=== PATIENT | female | born 1955 | race Caucasian/White ===

== ENCOUNTER 2022-09-22 14:29 | Outpatient (CLI) | payer MEDICARE, MEDICAID, SELFPAY ==
[2022-09-22 14:52] LABS: Basophils Absolute Auto 0.1 K/mm3 (0.0-0.1); Eosinophils Absolute Auto 0.2 K/mm3 (0-0.3); Eosinophils Percent Auto 2.9 % (0-4.4); Hematocrit 43.4 % (37.0-47.0); Hemoglobin 14.1 g/dL (12.0-15.0); Immature Granulocyte Absolute 0.04 K/mm3 (0.00-0.031); Immature Granulocyte Percent A 0.6 % (0-0.5); Lymphocytes Absolute Auto 2.03 K/mm3 (0.9-3.2); Lymphocytes Percent Auto 27.9 % (18.3-44.2); Mean Corpuscular HGB Conc 32.5 g/dl (32-36); Mean Corpuscular Hemoglobin 32.2 pg (26-34); Mean Corpuscular Volume 99.1 fl (80-100); Mean Platelet Volume 11.6 fl (7.4-10.4); Monocytes Absolute Auto 0.6 K/mm3 (0.1-0.6); Monocytes Percent Auto 8.7 % (2.6-8.5); Neutrophils Absolute Auto 4.3 K/mm3 (1.3-6.7); Neutrophils Percent Auto 58.9 % (45.5-73.1); Platelet Count Result 215 k/mm3 (150-375); Red Blood Count 4.38 M/mm3 (4.2-5.4); White Blood Count 7.3 K/mm3 (4.5-10.0)
[2022-09-22 16:36] LABS: Alanine Aminotransferase 32 U/L (6-35); Albumin Level 4.4 g/dL (3.5-5.1); Alkaline Phosphatase 109 U/L (38-126); Anion Gap 5 mmol/L (8-16); Aspartate Amino Transferase 30 U/L (14-36); Bilirubin,Total 0.3 mg/dL (0.2-1.3); Blood Urea Nitrogen 17 mg/dL (7-17); Calcium 9.5 mg/dL (8.4-10.2); Carbon Dioxide 36 mmol/L (22-30); Chloride 98 mmol/L (98-107); Estimated Glomerular Filt Rate > 60; Glucose 109 mg/dL (65-110); Potassium 4.1 mmol/L (3.4-5.0); Sodium 139 mmol/L (137-145)
[2022-09-25 00:10] LABS: Homocysteine 9.2 umol/L (<10.4)
== END 2022-09-22 14:30 | disposition home or self-care (01) ==
LOC: ANHLAB 14:36
PROVIDERS: PCP Internal Medicine Infectious Disease; Visit Provider Internal Medicine Hematology & Oncology
DX: D68.69 Other thrombophilia (principal)
CPT/HCPCS: 36415; 80053; 83090; 85025; 86146

== ENCOUNTER 2022-10-21 09:29 | Outpatient (CLI) | payer MEDICARE, MEDICAID, SELFPAY ==
[2022-10-23 20:21] LABS: Antithrombin III Activity 132 % normal (80-135)
[2022-10-24 21:36] LABS: Lupus dRVVT Screen 40 sec (<=45); PTT-LA Screen 37 sec (<=40)
[2022-10-26 17:01] LABS: Factor V (Leiden) Mutation NEGATIVE
== END 2022-10-21 09:30 | disposition home or self-care (01) ==
LOC: ANHLAB 09:32
PROVIDERS: PCP Internal Medicine Infectious Disease; Visit Provider Internal Medicine Hematology & Oncology
DX: D68.69 Other thrombophilia (principal)
CPT/HCPCS: 36415; 81241; 85300; 85303; 85306; 85613; 85730

== ENCOUNTER 2023-10-01 20:52 | Observation (INO) | payer MEDICARE, MEDICAID, SELFPAY ==
[2023-10-01] VITALS (8 sets, daily range): BP systolic 119–158; BP diastolic 54–127; PULSE 74–87; RESP 15–18; TEMP 36.6; O2SAT 92–97
--- NOTE | ~2023-10-01 | CT_ITS ---
CT pelvis wo con Ordering provider: Carlitos Ochoa MD History: . pain status post fall . Comparison: None. Technique: CT pelvis without oral and IV contrast. Radiation reduction technique utilized. DLP is 218 .2mGy. Findings: BONES: No pelvic fracture or hip dislocation. Age appropriate degenerative changes of the visualized lower lumbar spine. Left hip total arthroplasty. The right hip and sacroiliac joint spaces are well m aintained. Minimal sclerotic change is seen in the right femoral head which may indicate avascular ne crosis. Follow-up advised. Minimal anterolisthesis at the level of L5-S1. SUPERFICIAL SOFT TISSUES: Normal. PELVIC ORGANS: The bladder is normal. VISUALIZED BOWEL AND MESENTERY: Normal. No free air or free fluid. No lymphadenopathy. RETROPERITONEUM: Mild atheromatous disease. IMPRESSION: No definite fractures seen. Reviewed, dictated and finalized at location A. IMPRESSION: No definite fractures seen.
--- NOTE | ~2023-10-01 | MR_ITS ---
EXAMINATION: MR hip RT wo/w con DATE: 10/03/2023 08:02 INDICATION: Severe right groin pain post fall TECHNIQUE: Magnetic resonance imaging (MRI) of the right hip was performed without and with 15 mL Mu ltihance intravenous contrast. Sequences included full-field axial PD-weighted FS FSE, T1-weighted FS E and postcontrast T1-weighted FS FSE, coronal of the pelvis with PD-weighted FS FSE, T2-weighted FSE and T1-weighted FSE, small field of view of the right hip with axial PD-weighted FS FSE, sagittal P D-weighted FS FSE, coronal PD-weighted FS FSE, coronal T2 weighted FSE and postcontrast coronal T1-we ighted FS FSE. Additional radial T1-weighted FGR oriented orthogonal to the acetabular rim were obtai marissa for evaluation of the labrum. COMPARISON: CT pelvis dated 10/01/2023 FINDINGS: Bones/labrum/cartilage: Mild lumbar levocurvature with moderate to severe spondylosis. No fracture or pathologic marrow repl acing process. Serpiginous low T1 and high T2 signal at the margins of a region of osteonecrosis unde rlying the anterior to superior right femoral head. No evident collapse of the articular cortex. Ther e is mild osteoarthritis at the right hip. Metallic magnetic field artifact such with a left total hi p arthroplasty. Chondral labral delamination shallow labral tear at the base of the superolateral rig ht acetabular labrum. Fluid: Small right hip joint effusion. No bursitis or other abnormal fluid collections. Soft tissues: Mild feathery muscular edema throughout the right quadratus femoris muscle which could be seen with l ow-grade strain Otherwise normal and symmetric muscle bulk and signal in the pelvis and visualized pr oximal thighs. The iliopsoas, gluteal and proximal hamstring tendons are normal. There are multiple d iverticula along the sigmoid colon without surrounding inflammatory stranding to suggest diverticulit is. Limited evaluation of visceral organs of the pelvis is otherwise unremarkable. No pathologically enlarged pelvic/inguinal lymphadenopathy. IMPRESSION: 1. 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 2. Mild right hip osteoarthritis with tear at the superolateral right acetabular labrum. 3. Feathery muscular edema at the right quadratus femoris muscle suggestive of low-grade strain. 4. Mild lower lumbar levocurvature with moderate to severe spondylosis. 5. Diverticulosis. Reviewed, dictated and finalized at location A. IMPRESSION: 1. 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 2. Mild right hip osteoarthritis with tear at the superolateral right acetabula r labrum. 3. Feathery muscular edema at the right quadratus femoris muscle suggestive of low-grade strain. 4. Mild lower lumbar levocurvature with moderate to severe spondylosis. 5. Diverticulosis.
--- NOTE | ~2023-10-01 | XR_ITS ---
XR hip RT 2V w AP pelvis Ordering provider: Carlitos Ochoa MD History: . pain status post fall . Comparison: None. FINDINGS: BONES: No acute fracture or dislocation. HIP JOINT SPACES: Left hip arthroplasty. SACROILIAC JOINT SPACES/LUMBAR SPINE: The sacroiliac joint spaces shows right sacroiliitis.. Mild deg enerative changes of the visualized lower lumbar spine. PUBIC SYMPHYSIS: Normal. SOFT TISSUES: Normal. IMPRESSION: No acute osseous abnormality pelvis and right hip. Reviewed, dictated and finalized at location A.
--- NOTE | 2023-10-01 22:20 | PC.NURSE ---
Patient aware that she has pain medication available and ordered patient states that she does not want the morphine right now due to getting fentanyl in the ambulance en route to the hospital. patient reports minimal pain - and is aware that the pain medication if she begins having more pain
[2023-10-01 22:21] LABS: Basophils Absolute Auto 0.1 K/mm3 (0.0-0.1); Basophils Percent Auto 0.6 % (0.2-1.2); Eosinophils Absolute Auto 0.4 K/mm3 (0-0.3); Eosinophils Percent Auto 4.5 % (0-4.4); Hematocrit 39.1 % (37.0-47.0); Hemoglobin 12.9 g/dL (12.0-15.0); Immature Granulocyte Absolute 0.04 K/mm3 (0.00-0.031); Immature Granulocyte Percent A 0.5 % (0-0.5); Lymphocytes Percent Auto 22.3 % (18.3-44.2); Mean Corpuscular Hemoglobin 32.4 pg (26-34); Mean Corpuscular Volume 98.2 fl (80-100); Mean Platelet Volume 11.9 fl (7.4-10.4); Monocytes Absolute Auto 0.8 K/mm3 (0.1-0.6); Monocytes Percent Auto 9.7 % (2.6-8.5); Neutrophils Absolute Auto 5.1 K/mm3 (1.3-6.7); Neutrophils Percent Auto 62.4 % (45.5-73.1); Platelet Count Result 162 k/mm3 (150-375); Red Blood Count 3.98 M/mm3 (4.2-5.4); White Blood Count 8.1 K/mm3 (4.5-10.0)
[2023-10-01 22:32] LABS: Alanine Aminotransferase 18 U/L (6-35); Albumin Level 3.9 g/dL (3.5-5.1); Alkaline Phosphatase 104 U/L (38-126); Anion Gap 5 mmol/L (4-12); Aspartate Amino Transferase 27 U/L (14-36); Bilirubin,Total 0.4 mg/dL (0.2-1.3); Blood Urea Nitrogen 20 mg/dL (7-17); Calcium 9.1 mg/dL (8.4-10.2); Carbon Dioxide 31 mmol/L (22-30); Chloride 105 mmol/L (98-107); Estimated CRCL calculation 51 ml/min; Estimated Glomerular Filt Rate > 60; Glucose 121 mg/dL (65-110); Potassium 3.6 mmol/L (3.4-5.0); Sodium 141 mmol/L (137-145)
[2023-10-01 22:37] LABS: INR 0.9; Prothrombin Time 12.8 Seconds (11.1-14.7)
[2023-10-01 22:38] LABS: Partial Thromboplastin Time 28.6 Seconds (22.3-36.8)
[2023-10-01] MEDS: MORPHINE SULFATE (*CRX) 4 MG/ML INJ IV PUSH (23:56)
[2023-10-02] VITALS (9 sets, daily range): BP systolic 108–147; BP diastolic 42–63; PULSE 71–84; RESP 16–20; TEMP 36.6–37.2; O2SAT 90–97; BMI 25.6; BMI 24.7
--- NOTE | 2023-10-02 00:48 | ED.GENADULT ---
HPI - General Adult General Chief complaint: Fall Stated complaint: GLF, hip pain Time Seen by Provider: 10/01/23 21:59 History of Present Illness HPI narrative: Patient is a 68-year-old female who presents emergency department with chief complaint of right pelvic pain. Patient reports that she tripped over a water hose and reports that she landed on her right lower extremity the patient reports that she did not have any injury to her head denies loss of consciousness reports not being on blood thinners. Related Data Allergies Allergy/AdvReac Type Severity Reaction Status Date / Time No Known Allergies Allergy Unverified 05/20/21 09:14 Review of Systems Review of Systems: A 10 system review of systems was completed on the patient and is negative except for what is stated in the HPI. Nursing and ancillary documentation was reviewed. Exam Narrative: GENERAL: Well-appearing, well-nourished, and in no acute distress. HEAD: Normocephalic, atraumatic. EYES: PERRLA and EOMI. ENT: Nares clear, no rhinorrhea or epistaxis. Mucous membranes moist. NECK: Supple. CHEST: Clear to auscultation. No respiratory distress. HEART: Regular rate and rhythm. No murmur heard. Normal peripheral pulses. ABDOMEN: Soft, nontender, nondistended, normal active bowel sounds. EXTREMITIES: Normal range of motion in all extremities except for right lower extremity with decreased range of motion of the right hip. Patient is holding the extremity elevated there is tenderness to palpation in the right inguinal region. No edema. SKIN: Warm, dry, no rash. NEURO: No focal deficits. Alert and oriented x3. PSYCH: Normal mood and affect. Course Vital Signs Vital signs: Vital Signs Temperature 36.6 C 10/01/23 20:52 Pulse Rate 74 10/01/23 20:52 Respiratory Rate 18 10/01/23 20:52 Blood Pressure 147/54 H 10/01/23 20:52 Pulse Oximetry 94 10/01/23 20:52 Oxygen Delivery Room Air 10/01/23 20:52 Temperature 36.6 C 10/01/23 20:52 Pulse Rate 87 10/01/23 23:58 Respiratory Rate 15 10/01/23 23:58 Blood Pressure 158/73 H 10/01/23 23:58 Pulse Oximetry 97 10/01/23 23:58 Oxygen Delivery Room Air 10/01/23 20:52 Medical Decision Making [facility] Narrative Medical decision making narrative: Differential diagnosis includes fracture of hip, fracture of pelvis The patient has no tenderness to palpation in the right knee no tenderness to palpation the right ankle. Plain film x-rays of the right hip showed no evidence of fracture CT scan of the pelvis showed no evidence of occult fracture Attempts were made to control the patient's pain patient is unable ambulate after receiving pain medications. Plan will be to admit the patient for pain control and PT OT Vital Signs Vital Signs: Vital Signs Temperature 36.6 C 10/01/23 20:52 Pulse Rate 74 10/01/23 20:52 Respiratory Rate 18 10/01/23 20:52 Blood Pressure 147/54 H 10/01/23 20:52 Pulse Oximetry 94 10/01/23 20:52 Oxygen Delivery Room Air 10/01/23 20:52 Temperature 36.6 C 10/01/23 20:52 Pulse Rate 87 10/01/23 23:58 Respiratory Rate 15 10/01/23 23:58 Blood Pressure 158/73 H 10/01/23 23:58 Pulse Oximetry 97 10/01/23 23:58 Oxygen Delivery Room Air 10/01/23 20:52 Lab Data 10/01/23 22:15 10/01/23 22:15 Labs: Lab Results 10/01/23 Range/Units 22:15 WBC 8.1 (4.5-10.0) K/mm3 RBC 3.98 L (4.2-5.4) M/mm3 Hgb 12.9 (12.0-15.0) g/dL Hct 39.1 (37.0-47.0) % MCV 98.2 (80-100) fl MCH 32.4 (26-34) pg MCHC 33.0 (32-36) g/dl RDW 14.0 (11.5-14.5) % Plt Count 162 (150-375) k/mm3 MPV 11.9 H (7.4-10.4) fl Immature Gran % (Auto) 0.5 (0-0.5) % Neut % (Auto) 62.4 (45.5-73.1) % Lymph % (Auto) 22.3 (18.3-44.2) % Whitley % (Auto) 9.7 H (2.6-8.5) % Eos % (Auto) 4.5 H (0-4.4) % Baso % (Auto) 0.6 (0.2-1.2) % Lymph # (Auto) 1.80 (0.9-3.2) K/mm3 Whitley # (Auto)
[2023-10-02] MEDS: KETOROLAC 15 MG/ML VIAL (*BKC) IV PUSH (01:34)
[2023-10-02 02:32] LABS: Appearance Urine Clear (Clear); Bilirubin Urine Negative (Negative); Blood Urine Negative (Negative); Color Urine Yellow (Yellow); Glucose Urine UA 3+ mg/dL (Negative); Ketones Urine Negative (Negative); Leukocyte Esterase Ur Negative LEU/UL (Negative); Nitrate Urine Negative (Negative); Protein Urine Negative (Negative); Specific Grav Ur 1.026 (1.001-1.035); Urobilinogen Urine 0.2 mg/dL (<2.0)
[2023-10-02 02:37] LABS: Add Urine Microscopic? NO
[2023-10-02 07:51] LABS: Glucose Point of Care 103 mg/dl (65-105)
[2023-10-02] MEDS: hydroCHLOROthiazide 12.5 MG CAPSULE PO (08:53)
[2023-10-02] MEDS: EMPAGLIFLOZIN 10 MG TABLET PO (08:53)
[2023-10-02] MEDS: ASPIRIN 81 MG ENTERIC TABLET PO (08:53)
[2023-10-02] MEDS: carvediloL 3.125 MG TABLET PO ×2 (08:54→21:07)
[2023-10-02] MEDS: metFORMIN HCL 500 MG TABLET PO ×2 (08:54→17:27)
[2023-10-02] MEDS: ATORVASTATIN 40 MG TABLET PO (08:54)
[2023-10-02] MEDS: PANTOPRAZOLE 40 MG TABLET PO (08:54)
[2023-10-02 09:01] LABS: Hemoglobin A1C 5.8 % (<5.7)
[2023-10-02] MEDS: FLUTICASONE/SALMETEROL 115-21 MCG INHALER 1 PUFF 2 PUFF INHALATION ×2 (09:07→19:49)
[2023-10-02] MEDS: UMECLIDINIUM BROMIDE 62.5 MCG ELLIPTA 1 PUFF INHALATION (09:07)
--- NOTE | 2023-10-02 09:25 | PM.IMHP ---
H&P: HPI History of Present Illness Date/Time: 10/02/23 09:25 Chief Complaint: fall, pelvis pain, unable to ambulate Narrative: This is a 68 year female patient with past medical history of COPD (former smoker), Type 2 DM well controlled on Jardiance and metformin, remote history of CAD who fell over a garden hose and landed on right hip. Patient was evaluated and treated in the ER, no fracture on XR or CT scan. Unable to control pain effectively so patient was admitted for PT/OT evaluation and pain control. Patient denied any other injury or current complaints. She states that she previously had left knee and left hip replacement by Dr. Lira and would only want to see him if any more procedures were needed. Patient reports left hip replacement was due to pain with avascular necrosis. CT of right hip showed mild sclerotic changes that could be consistent with right hip avascular necrosis but this does not seem to be the cause of current significant pain. Will plan MRI right hip and consult Orthopedics. wet pour supervisor is Dr. Hawkins, Dr Lira's clinic partner, who patient agreed to see in hospital this weekend. Review of Systems Review of Systems: All systems reviewed & are unremarkable except as noted in HPI and below PMFSH Social History Social History Smoking status: Former smoker Alcohol intake: current Drinks per week: 1 Substance use: never Do You Feel Safe in your Home?: Yes Lack of Transportation: No Lack of Food: Never True Current Housing: I Have Housing Concerned About Future Housing: No Difficulty Paying Gas/Electric Bills: No Difficulty Paying for Meds: No Currently Unemployed: No Education: High School Diploma/GED Difficulty w/ Childcare or Family Care: No Spiritual care concerns: Yes (Roman Catholic) Meds Home Medications and Allergies Home Medications Medication Instructions Recorded Confirmed Type albuterol sulfate 90 mcg/actuation 90 mcg inhalation DAILY 10/02/23 10/02/23 History aerosol inhaler (Ventolin HFA) aspirin 81 mg tablet,delayed 81 mg PO QAM 10/02/23 10/02/23 History release atorvastatin 40 mg tablet 40 mg PO DAILY 10/02/23 10/02/23 History blood sugar diagnostic (OneTouch 10/02/23 10/02/23 History Verio test strips) blood-glucose meter 10/02/23 10/02/23 History budesonide-formoterol HFA 160 2 puff inhalation DAILY 10/02/23 10/02/23 History mcg-4.5 mcg/actuation aerosol inhaler (Symbicort) carvedilol 3.125 mg tablet 3.125 mg PO BID 10/02/23 10/02/23 History empagliflozin 10 mg tablet 10 mg PO DAILY 10/02/23 10/02/23 History (Jardiance) hydrochlorothiazide 12.5 mg capsule 12.5 mg PO QAM 10/02/23 10/02/23 History ipratropium 0.5 mg-albuterol 3 mg 3 ml inhalation QID 10/02/23 10/02/23 History (2.5 mg base)/3 mL nebulization soln lancets 30 gauge (OneTouch Delica 10/02/23 10/02/23 History Plus Lancet) metformin 500 mg tablet 500 mg PO BID 10/02/23 10/02/23 History omeprazole 40 mg capsule,delayed 40 mg PO DAILY 10/02/23 10/02/23 History release tiotropium bromide 2.5 2 puff inhalation DAILY 10/02/23 10/02/23 History mcg/actuation mist for inhalation (Spiriva Respimat) Allergies Allergy/AdvReac Type Severity Reaction Status Date / Time No Known Allergies Allergy Unverified 05/20/21 09:14 Vital Signs Vital Signs - 24 hr 10/01/23 20:52 10/01/23 21:10 10/01/23 21:15 Temperature 36.6 C Pulse Rate 74 Respiratory Rate 18 Blood Pressure 147/54 H Pulse Oximetry 94 96 95 Oxygen Delivery Room Air Oxygen Flow Rate 10/01/23 21:17 10/01/23 21:30 10/01/23 21:32 Temperature Pulse Rate Respiratory Rate Blood Pressure 139/127 H 119/74 Pulse Oximetry 97 95 96 Oxygen Delivery Oxygen Flow Rate 10/01/23 21:45 10/01/23 23:58 10/02/23 03:15 Temperature 37.2 C Pulse Rate 87 79 Respiratory Rate 15 16 Blood Pressure 1
[2023-10-02 11:28] LABS: Glucose Point of Care 80 mg/dl (65-105)
[2023-10-02] MEDS: KETOROLAC 30 MG/ML VIAL (*BKC) 15 MG IV PUSH ×2 (13:44→21:12)
[2023-10-02 16:48] LABS: Glucose Point of Care 96 mg/dl (65-105)
[2023-10-02] MEDS: ALBUTEROL SULFATE (*SP) AEROSOL 1 PUFF INHALATION (19:49)
[2023-10-02 20:28] LABS: Glucose Point of Care 103 mg/dl (65-105)
[2023-10-03] VITALS (7 sets, daily range): BP systolic 118–139; BP diastolic 47–62; PULSE 61–85; RESP 16–20; TEMP 36.3–36.4; O2SAT 92–97
[2023-10-03] MEDS: KETOROLAC 30 MG/ML VIAL (*BKC) 15 MG IV PUSH ×4 (03:51→21:03)
--- NOTE | 2023-10-03 07:39 | PM.CNOR ---
Assessment and Plan Assessment and plan (1) Acute pain of right hip: Code(s): M25.551 - Pain in right hip Status: Acute Assessment and Plan: Patient has hip pain right. Her x-rays and CT scan do not show any obvious fracture although suggest avascular necrosis. Can try to treat her symptomatically with the anti-inflammatory medication or steroids and gentle therapy. Will follow along discussed. No surgical intervention recommended. History of Present Illness HPI Consult date: 10/03/23 Chief complaint: GLF, hip pain Narrative: Patient was admitted with right hip pain and inability to bear weight. Review of Systems Review of Systems: All systems reviewed & are unremarkable except as noted in HPI and below PMFSH Social History Social History Smoking status: Former smoker Alcohol intake: current Drinks per week: 1 Substance use: never Do You Feel Safe in your Home?: Yes Lack of Transportation: No Lack of Food: Never True Current Housing: I Have Housing Concerned About Future Housing: No Difficulty Paying Gas/Electric Bills: No Difficulty Paying for Meds: No Currently Unemployed: No Education: High School Diploma/GED Difficulty w/ Childcare or Family Care: No Spiritual care concerns: Yes (Holiness) Meds Home Medications and Allergies Home Medications Medication Instructions Recorded Confirmed Type albuterol sulfate 90 mcg/actuation 90 mcg inhalation DAILY 10/02/23 10/02/23 History aerosol inhaler (Ventolin HFA) aspirin 81 mg tablet,delayed 81 mg PO QAM 10/02/23 10/02/23 History release atorvastatin 40 mg tablet 40 mg PO DAILY 10/02/23 10/02/23 History blood sugar diagnostic (OneTouch 10/02/23 10/02/23 History Verio test strips) blood-glucose meter 10/02/23 10/02/23 History budesonide-formoterol HFA 160 2 puff inhalation DAILY 10/02/23 10/02/23 History mcg-4.5 mcg/actuation aerosol inhaler (Symbicort) carvedilol 3.125 mg tablet 3.125 mg PO BID 10/02/23 10/02/23 History empagliflozin 10 mg tablet 10 mg PO DAILY 10/02/23 10/02/23 History (Jardiance) hydrochlorothiazide 12.5 mg capsule 12.5 mg PO QAM 10/02/23 10/02/23 History ipratropium 0.5 mg-albuterol 3 mg 3 ml inhalation QID 10/02/23 10/02/23 History (2.5 mg base)/3 mL nebulization soln lancets 30 gauge (OneTouch Delica 10/02/23 10/02/23 History Plus Lancet) metformin 500 mg tablet 500 mg PO BID 10/02/23 10/02/23 History omeprazole 40 mg capsule,delayed 40 mg PO DAILY 10/02/23 10/02/23 History release tiotropium bromide 2.5 2 puff inhalation DAILY 10/02/23 10/02/23 History mcg/actuation mist for inhalation (Spiriva Respimat) Allergies Allergy/AdvReac Type Severity Reaction Status Date / Time No Known Allergies Allergy Unverified 05/20/21 09:14 Vital Signs Vital Signs - 24 hr 10/02/23 08:54 10/02/23 09:08 10/02/23 14:00 Temperature 97.8 F Pulse Rate 79 71 Respiratory Rate 18 Blood Pressure 108/42 L Pulse Oximetry 97 92 Oxygen Delivery Room Air 10/02/23 08:00 10/02/23 19:53 10/02/23 19:54 Temperature Pulse Rate 84 Respiratory Rate 18 Blood Pressure Pulse Oximetry 95 Oxygen Delivery Room Air Room Air 10/02/23 21:07 10/02/23 20:00 10/02/23 20:20 Temperature 98.4 F Pulse Rate 73 73 Respiratory Rate 20 Blood Pressure 124/52 L Pulse Oximetry 90 Oxygen Delivery Room Air 10/03/23 05:00 Temperature 97.4 F L Pulse Rate 61 Respiratory Rate 20 Blood Pressure 123/47 L Pulse Oximetry 97 Oxygen Delivery Exam Narrative: Patient has pain with motion right hip she has a positive Stinchfield test and pain with any manipulation. Neurologically she can wiggle her toes. Results Labs 10/01/23 22:15 10/01/23 22:15 Labs: Abnormal lab results 10/02/23 Range/Units 07:55 Hemoglobin A1c 5.8 H (<5.7) %
[2023-10-03] MEDS: FLUTICASONE/SALMETEROL 115-21 MCG INHALER 1 PUFF 2 PUFF INHALATION ×2 (08:19→19:55)
[2023-10-03] MEDS: UMECLIDINIUM BROMIDE 62.5 MCG ELLIPTA 1 PUFF INHALATION (08:19)
[2023-10-03] MEDS: metFORMIN HCL 500 MG TABLET PO ×2 (08:22→16:39)
[2023-10-03] MEDS: hydroCHLOROthiazide 12.5 MG CAPSULE PO (08:22)
[2023-10-03] MEDS: ATORVASTATIN 40 MG TABLET PO (08:22)
[2023-10-03] MEDS: PANTOPRAZOLE 40 MG TABLET PO (08:22)
[2023-10-03] MEDS: carvediloL 3.125 MG TABLET PO ×2 (08:22→20:58)
[2023-10-03] MEDS: ASPIRIN 81 MG ENTERIC TABLET PO (08:22)
[2023-10-03] MEDS: predniSONE 20 MG TABLET PO (08:22)
[2023-10-03] MEDS: EMPAGLIFLOZIN 10 MG TABLET PO (08:23)
[2023-10-03] MEDS: ACETAMINOPHEN 325 MG TABLET 650 MG PO (08:26)
[2023-10-03 11:30] LABS: Glucose Point of Care 70 mg/dl (65-105)
[2023-10-03 11:30] LABS: Glucose Point of Care 100 mg/dl (65-105)
--- NOTE | 2023-10-03 13:26 | PM.IMPN ---
Progress Note: A&P Assessment and Plan (1) Acute pain of right hip: Code(s): M25.551 - Pain in right hip Status: Acute Assessment and Plan: Patient unable to ambulate after ground level fall right hip and pelvis pain X-ray and CT negative for fracture PT and OT consulted IV morphine, IV ketorolac and Tylenol as needed for pain MRI ordered, consider Orthopedic referral. Patient very insistent on seeing Dr. Lira who had previously operated on left hip 10/02: Dr. Hawkins saw patient, start steroids and pain medication MRI confirms avascular necrosis and shows acetabular labrum tear PT/OT, aim for discharge tomorrow? Patient will need to see Dr. Lira in clinic for right hip replacement (2) Inability to walk: Code(s): R26.2 - Difficulty in walking, not elsewhere classified Status: Acute Assessment and Plan: See above (3) Ground-level fall: Code(s): W18.30XA - Fall on same level, unspecified, initial encounter Status: Acute Assessment and Plan: See above (4) DM type 2 (diabetes mellitus, type 2): Code(s): E11.9 - Type 2 diabetes mellitus without complications Status: Acute Assessment and Plan: ACHS fingerstick glucose with low-dose sliding scale insulin Continue Jardiance and metformin Hemoglobin A1c 5.8 Carb consistent diet (5) History of COPD: Code(s): Z87.09 - Personal history of other diseases of the respiratory system Status: Acute Assessment and Plan: Patient takes Symbicort, Spiriva and albuterol inhalers at home DuoNebs also available at home per med rec Therapeutic substitution for Advair, Incruse Ellipta with p.r.n. albuterol inhaler and DuoNebs Time Spent With Patient Time with patient: 25 - 35 minutes Subjective Date/time seen: 10/03/23 13:26 Interval history: Patient up to chair, steroids started. Goal is pain control, PT/OT and follow up for hip replacement. Patient wants home health PT/OT. Family confirms patient will have a ride home if able to discharge tomorrow. Review of Systems Review of Systems: All systems reviewed & are unremarkable except as noted in HPI and below Exam Narrative: GENERAL: no acute distress, uncomfortable appearing with right leg movement HEAD: Normocephalic, atraumatic. EYES: PERRLA and EOMI. ENT: Nares clear, no rhinorrhea or epistaxis. Mucous membranes moist. NECK: Supple. CHEST: Clear to auscultation. No respiratory distress. HEART: Regular rate and rhythm. No murmur heard. Normal peripheral pulses. ABDOMEN: Soft, nontender, nondistended, normal active bowel sounds. EXTREMITIES: Patient has pain with motion right hip she has a positive Stinchfield test and pain with any manipulation. Neurologically she can wiggle her toes. SKIN: Warm, dry, no rash. NEURO: No focal deficits. Alert and oriented x3. PSYCH: Normal mood and affect. Objective Data Vital Signs Vital Signs: Vital Signs - 24 hr 10/02/23 14:00 10/02/23 19:53 10/02/23 19:54 Temperature 36.6 C Pulse Rate 71 84 Respiratory Rate 18 18 Blood Pressure 108/42 L Pulse Oximetry 92 95 Oxygen Delivery Room Air 10/02/23 21:07 10/02/23 20:00 10/02/23 20:20 Temperature 36.9 C Pulse Rate 73 73 Respiratory Rate 20 Blood Pressure 124/52 L Pulse Oximetry 90 Oxygen Delivery Room Air 10/03/23 05:00 10/03/23 08:22 10/03/23 08:22 Temperature 36.3 C L Pulse Rate 61 61 Respiratory Rate 20 Blood Pressure 123/47 L Pulse Oximetry 97 93 Oxygen Delivery Room Air 10/03/23 10:17 10/03/23 11:13 10/03/23 08:00 Temperature Pulse Rate Respiratory Rate Blood Pressure Pulse Oximetry Oxygen Delivery Room Air Room Air Room Air Intake/Output Intake/Output: Intake & Output 09/30/23 10/01/23 10/02/23 10/03/23 23:59 23:59 23:59 23:59 Intake Total 1490 1426 Output Total 775 Balance 1490 651 Meds/Results Medications: Active Medicati
[2023-10-03 16:40] LABS: Glucose Point of Care 160 mg/dl (65-105)
[2023-10-03 20:28] LABS: Glucose Point of Care 182 mg/dl (65-105)
[2023-10-04] VITALS (7 sets, daily range): BP systolic 99–144; BP diastolic 54–79; PULSE 67–85; RESP 16–20; TEMP 36.4–37; O2SAT 92–97
--- NOTE | 2023-10-04 07:15 | PM.DS ---
DS: Summary Time Spent with Patient Time attestation: Total time spent providing and/or coordinating discharge services: DS: Data Data Completed and Pending Labs on day of discharge: Labs from last 24 hours 10/03/23 10/03/23 10/03/23 20:15 16:25 11:26 POC Capillary Glucose 182 H 160 H 70 10/03/23 08:03 POC Capillary Glucose 100 Discharge Plan Discharge Consulting providers: Benito Hawkins Discharge Medications: No Action atorvastatin 40 mg tablet 40 mg PO DAILY metformin 500 mg tablet 500 mg PO BID ipratropium-albuterol 0.5 mg-3 mg(2.5 mg base)/3 mL solution for nebulization 3 ml INHALATION QID (DME) OneTouch Verio test strips Strip MISCELLANEOUS omeprazole 40 mg capsule,delayed release(DR/EC) 40 mg PO DAILY aspirin 81 mg tablet,delayed release (DR/EC) 81 mg PO QAM hydrochlorothiazide 12.5 mg capsule 12.5 mg PO QAM albuterol sulfate [Ventolin HFA] 90 mcg/actuation HFA aerosol inhaler 90 mcg INHALATION DAILY budesonide-formoterol [Symbicort] 160-4.5 mcg/actuation HFA aerosol inhaler 2 puff INHALATION DAILY Spiriva Respimat 2.5 mcg/actuation mist 2 puff INHALATION DAILY (DME) lancets [OneTouch Delica Plus Lancet] 30 gauge misc MISCELLANEOUS Jardiance 10 mg tablet 10 mg PO DAILY carvedilol 3.125 mg tablet 3.125 mg PO BID (DME) blood-glucose meter [One Touch Basic System] Kit MISCELLANEOUS Date of admission: 10/02/23 01:24 Primary Care Provider: Ibrahima,Ariana Admitting Provider: Kacy Russ Attending physician on admission: Kacy Russ Condition: Stable
[2023-10-04] MEDS: FLUTICASONE/SALMETEROL 115-21 MCG INHALER 1 PUFF 2 PUFF INHALATION ×2 (07:25→20:00)
[2023-10-04] MEDS: UMECLIDINIUM BROMIDE 62.5 MCG ELLIPTA 1 PUFF INHALATION (07:26)
[2023-10-04 08:17] LABS: Glucose Point of Care 95 mg/dl (65-105)
[2023-10-04] MEDS: ASPIRIN 81 MG ENTERIC TABLET PO (08:44)
[2023-10-04] MEDS: carvediloL 3.125 MG TABLET PO ×2 (08:44→20:21)
[2023-10-04] MEDS: predniSONE 20 MG TABLET PO (08:44)
[2023-10-04] MEDS: metFORMIN HCL 500 MG TABLET PO ×2 (08:44→16:44)
[2023-10-04] MEDS: ATORVASTATIN 40 MG TABLET PO (08:44)
[2023-10-04] MEDS: EMPAGLIFLOZIN 10 MG TABLET PO (08:44)
[2023-10-04] MEDS: hydroCHLOROthiazide 12.5 MG CAPSULE PO (08:44)
[2023-10-04] MEDS: PANTOPRAZOLE 40 MG TABLET PO (08:45)
[2023-10-04] MEDS: HYDROcodone/acetaminophen (*CRX) 7.5-325 MG TABLET 1 TAB PO (08:49)
--- NOTE | 2023-10-04 11:51 | PM.PNORT ---
Progress Note: A&P Assessment and Plan (1) AVN of femur: Qualifiers: Laterality: right Qualified Code(s): M87.051 - Idiopathic aseptic necrosis of right femur Code(s): M87.059 - Idiopathic aseptic necrosis of unspecified femur Status: Acute (2) Pubic ramus fracture: Qualifiers: Encounter type: initial encounter Fracture type: closed Laterality: right Qualified Code(s): S32.591A - Other specified fracture of right pubis, initial encounter for closed fracture Code(s): S32.599A - Other specified fracture of unspecified pubis, initial encounter for closed fracture Status: Acute Assessment and Plan: Patient is a 68-year-old female who is well-known to me. 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 Then she fell directly onto the right hip 3 days ago able to bear weight. X-rays were unremarkable and therefore a CT scan was obtained which showed sclerotic lines within the right femoral head consistent with right femoral head avascular necrosis. There was no evidence of subchondral collapse or subchondral crescent sign so it remains stage II A. An MRI scan was obtained than yesterday which demonstrated the ostia necrosis of the right femoral head stage IIA and also fat 3 edema in the quadratus femoris she seemed peculiar but presumably this was a strain from her fall She complains today that her groin pain in the right hip is far worse than it ever was on the left prior to her total hip replacement. Even with the collapse she could still bear weight on the left hip but cannot tolerate any weight I looked more closely at the CT scanned and discovered that in fact there is fracture deformity of pubic ramus of the right hip and when combined with the feathery edema of the quadratus femoris muscle immediately adjacent inferior pubic ramus fracture, this would indicate that the inferior pubic ramus fracture is indeed acute. I spoke with Dr. Martell Joya he the radiologist about this and he agrees and he is going to put an addendum to the report the CT scan. Impression: Patient has a traumatic acute fracture left inferior pubic ramus. 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 It is also possible that her right femoral head avascular necrosis is not contributing to any of her stay that all of her groin pain is due to the right inferior pubic fracture. Therefore, I have recommended that she allow the inferior pubic ramus fracture to heal and assess her symptoms after that has occurred. Certainly we would not want to proceed with total hip replaced acute inferior pubic ramus fracture as this would make her rehab very difficult and she would not be able to mobilize normally after surgery. I am going to increase her pain medication initiating scheduled Tylenol and oxycodone. Will discontinue the Toradol as she is going to need some this at least for a couple weeks until she is more mobile I will and we will start Lovenox 40 mg Q 24 hours. For pain control we will initiate Celebrex for a few days. Will discontinue the prednisone. Patient does not see how she can manage at home since she can not bear weight on the right leg and she does not feel she has mastered the touch weight-bearing technique would like to keep her for another day and have Physical therapy work with her some more and hopefully by tomorrow she will feel comfortable w
[2023-10-04 12:06] LABS: Glucose Point of Care 147 mg/dl (65-105)
--- NOTE | 2023-10-04 13:03 | PM.IMPN ---
Progress Note: A&P Assessment and Plan (1) Pubic ramus fracture: Qualifiers: Encounter type: initial encounter Fracture type: closed Laterality: right Qualified Code(s): S32.591A - Other specified fracture of right pubis, initial encounter for closed fracture Code(s): S32.599A - Other specified fracture of unspecified pubis, initial encounter for closed fracture Status: Acute Assessment and Plan: 10/03: Pulled from Dr. Lira's note: Patient is a 68-year-old female who is well-known to me. 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 Then she fell directly onto the right hip 3 days ago able to bear weight. X-rays were unremarkable and therefore a CT scan was obtained which showed sclerotic lines within the right femoral head consistent with right femoral head avascular necrosis. There was no evidence of subchondral collapse or subchondral crescent sign so it remains stage II A. An MRI scan was obtained than yesterday which demonstrated the ostia necrosis of the right femoral head stage IIA and also fat 3 edema in the quadratus femoris she seemed peculiar but presumably this was a strain from her fall She complains today that her groin pain in the right hip is far worse than it ever was on the left prior to her total hip replacement. Even with the collapse she could still bear weight on the left hip but cannot tolerate any weight I looked more closely at the CT scanned and discovered that in fact there is fracture deformity of pubic ramus of the right hip and when combined with the feathery edema of the quadratus femoris muscle immediately adjacent inferior pubic ramus fracture, this would indicate that the inferior pubic ramus fracture is indeed acute. I spoke with Dr. Martell Joya he the radiologist about this and he agrees and he is going to put an addendum to the report the CT scan. Impression: Patient has a traumatic acute fracture left inferior pubic ramus. 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 It is also possible that her right femoral head avascular necrosis is not contributing to any of her stay that all of her groin pain is due to the right inferior pubic fracture. Therefore, I have recommended that she allow the inferior pubic ramus fracture to heal and assess her symptoms after that has occurred. Certainly we would not want to proceed with total hip replaced acute inferior pubic ramus fracture as this would make her rehab very difficult and she would not be able to mobilize normally after surgery. I am going to increase her pain medication initiating scheduled Tylenol and oxycodone. Will discontinue the Toradol as she is going to need some this at least for a couple weeks until she is more mobile I will and we will start Lovenox 40 mg Q 24 hours. For pain control we will initiate Celebrex for a few days. Will discontinue the prednisone. Patient does not see how she can manage at home since she can not bear weight on the right leg and she does not feel she has mastered the touch weight-bearing technique would like to keep her for another day and have Physical therapy work with her some more and hopefully by tomorrow she will feel comfortable with touch weight-bearing status and will be able to transfer home. Will check a 25 hydroxy vitamin-D level and supplement her vitamin-D is low. (2) Acute pain of right hip: Code
[2023-10-04] MEDS: ACETAMINOPHEN 500 MG TABLET 1000 MG PO ×2 (13:14→17:59)
[2023-10-04] MEDS: ENOXAPARIN 40 MG/0.4 ML SYRINGE SUB-Q (13:14)
[2023-10-04] MEDS: CELECOXIB 200 MG CAPSULE PO (13:14)
[2023-10-04] MEDS: oxyCODONE HCL (*CRX) 5 MG TAB IR PO ×3 (13:14→20:21)
[2023-10-04 13:38] LABS: Vitamin D 25 Hydroxy 47.9 ng/mL
[2023-10-04 16:39] LABS: Glucose Point of Care 150 mg/dl (65-105)
[2023-10-04 20:56] LABS: Glucose Point of Care 142 mg/dl (65-105)
[2023-10-05] MEDS: ACETAMINOPHEN 500 MG TABLET 1000 MG PO ×2 (04:41→12:25)
[2023-10-05] MEDS: oxyCODONE HCL (*CRX) 5 MG TAB IR PO ×3 (04:41→12:25)
[2023-10-05 05:36] VITALS: BP 130/78; PULSE 61; RESP 18; TEMP 36.6; O2SAT 93
[2023-10-05 07:27] LABS: Glucose Point of Care 96 mg/dl (65-105)
[2023-10-05] MEDS: FLUTICASONE/SALMETEROL 115-21 MCG INHALER 1 PUFF 2 PUFF INHALATION (07:35)
[2023-10-05 07:36] VITALS: PULSE 65; RESP 20; O2SAT 95
[2023-10-05] MEDS: UMECLIDINIUM BROMIDE 62.5 MCG ELLIPTA 1 PUFF INHALATION (07:36)
--- NOTE | 2023-10-05 07:45 | PM.PNORT ---
Progress Note: A&P Assessment and Plan (1) AVN of femur: Qualifiers: Laterality: right Qualified Code(s): M87.051 - Idiopathic aseptic necrosis of right femur Code(s): M87.059 - Idiopathic aseptic necrosis of unspecified femur Status: Acute Assessment and Plan: Patient has known history of avascular necrosis right femoral head which was completely asymptomatic prior to her fall onto the right hip 4 days ago. She underwent left total hip arthroplasty for the same problem on the left femoral head which had significant collapse and degenerative changes in the left hip. She understands that it is possible that her fall may have exacerbated her avascular necrosis symptoms and we will not certainty if her avascular necrosis of the right femoral head is going to be symptomatic until her inferior pubic ramus fracture heals. (2) Pubic ramus fracture: Qualifiers: Encounter type: initial encounter Fracture type: closed Laterality: right Qualified Code(s): S32.591A - Other specified fracture of right pubis, initial encounter for closed fracture Code(s): S32.599A - Other specified fracture of unspecified pubis, initial encounter for closed fracture Status: Acute Assessment and Plan: Patient is hospital day number 5 after fall onto the right hip presented to the emergency room with intractable pain unable to bear weight. CT scan shows inferior pubic ramus fracture on the right and the fact that it is acute is confirmed on MRI scan. Patient also has history of avascular necrosis right femoral head which was noted on MRI scan 1 year ago. We instituted scheduled pain medication today Tylenol oxycodone and the single dose of Celebrex and this morning her pain is dramatically improved. She is sitting on the side of the bed with the legs dangling this morning having no significant discomfort. Yesterday she was unsure if she could stand being at home because the pain was so severe she was considering being placed in a detention. Today she would like to go home and feels quite confident that she will do fine. I would recommend that she be touch weight-bearing and as her comfort improves she can gradually advanced to light partial weight-bearing this 1st month. Since she is moving around much better I think we can send her home on a baby aspirin twice a day for DVT prophylaxis rather than the Lovenox and I will institute the change now. She is scheduled to see me back in the office in 4 weeks and we will obtain an AP pelvis at that time and if she is more comfortable we can advance her weight-bearing as tolerated. Her 25 hydroxy vitamin-D level was 49.9. She does take a vitamin-D supplement at home. She does not take a calcium supplement and that may be hopeful and we discussed this and I will recommend she take a Citracal plus D once a day. Subjective Subjective Date/Time Seen: 10/05/23 07:45 Objective Data Vital Signs Vital Signs: Vital Signs - 24 hr 10/04/23 08:44 10/04/23 08:45 10/04/23 14:00 Temperature 36.6 C Pulse Rate 84 85 Respiratory Rate 16 Blood Pressure 99/79 L Pulse Oximetry 96 Oxygen Delivery Room Air Fraction of Inspired Oxygen 10/04/23 20:21 10/04/23 20:02 10/04/23 21:22 Temperature 37.0 C Pulse Rate 85 67 71 Respiratory Rate 20 Blood Pressure 144/57 H Pulse Oximetry 92 94 Oxygen Delivery Room Air Fraction of Inspired Oxygen 21 10/04/23 20:20 10/05/23 05:36 10/05/23 07:36 Temperature 36.6 C Pulse Rate 61 Respiratory Rate 18 Blood Pressure 130/78 Pulse Oximetry 93 95 Oxygen Delivery Room Air Room Air Fraction of Inspired Oxygen 10/05/23 07:36 Temperature Pulse Rate 65 Respiratory Rate 20 Blood Pressure Pulse Oximetry Oxygen Delivery Fraction of Inspired Oxygen Intake/Output Intake/Output: Intake & Output 10/02/23 10/03/23 10/04/23 10/05/23 23:59 23:59 23:59 23:59 Intake Total 1490 166
[2023-10-05] MEDS: EMPAGLIFLOZIN 10 MG TABLET PO (08:57)
[2023-10-05] MEDS: SENNA/DOCUSATE SODIUM TABLET 2 TAB PO (08:57)
[2023-10-05] MEDS: carvediloL 3.125 MG TABLET PO (08:57)
[2023-10-05] MEDS: ASPIRIN 81 MG CHEWABLE TABLET PO (08:57)
[2023-10-05] MEDS: hydroCHLOROthiazide 12.5 MG CAPSULE PO (08:57)
[2023-10-05] MEDS: PANTOPRAZOLE 40 MG TABLET PO (08:57)
[2023-10-05] MEDS: metFORMIN HCL 500 MG TABLET PO (08:57)
[2023-10-05] MEDS: polyethylene glycoL 3350 17 GM POWD.PACK PO (08:58)
[2023-10-05] MEDS: ATORVASTATIN 40 MG TABLET PO (08:58)
[2023-10-05] MEDS: CELECOXIB 200 MG CAPSULE PO (08:58)
--- NOTE | 2023-10-05 10:20 | PM.DS ---
DS: Admitting Diagnosis Discharge Date 10/05/2023 Admitting Diagnosis acute pain of right hip, inability to walk, ground level fall, type 2 diabetes, history of COPD DS: Discharge Diagnosis Discharge Diagnosis (1) Pubic ramus fracture: Qualifiers: Encounter type: initial encounter Fracture type: closed Laterality: right Qualified Code(s): S32.591A - Other specified fracture of right pubis, initial encounter for closed fracture Code(s): S32.599A - Other specified fracture of unspecified pubis, initial encounter for closed fracture Status: Acute (2) Acute pain of right hip: Code(s): M25.551 - Pain in right hip Status: Acute (3) Inability to walk: Code(s): R26.2 - Difficulty in walking, not elsewhere classified Status: Acute (4) Ground-level fall: Code(s): W18.30XA - Fall on same level, unspecified, initial encounter Status: Acute (5) DM type 2 (diabetes mellitus, type 2): Code(s): E11.9 - Type 2 diabetes mellitus without complications Status: Acute (6) History of COPD: Code(s): Z87.09 - Personal history of other diseases of the respiratory system Status: Acute (7) AVN of femur: Qualifiers: Laterality: right Qualified Code(s): M87.051 - Idiopathic aseptic necrosis of right femur Code(s): M87.059 - Idiopathic aseptic necrosis of unspecified femur Status: Acute DS: Summary Hospital Course Hospital Course: patient was admitted with severe right groin pain after a fall in her. Imaging negative for fracture dislocation including x-ray and CT scan. Patient significant pain and findings likely avascular necrosis the right femoral head. PT OT was consulted. MRI was obtained. Initially this was also read as negative for fracture but then Orthopedics look did imaging again found right-sided pubic rami fracture prompting re-evaluation by Radiology of both CT scan and MRI where it was later addended noting pubic rami fractures on right side. pain control was obtained, patient participated with therapy. This will be continued via home health. Patient will follow-up with orthopedics after completion of therapy. Status at Discharge Cognitive/behavioral status at discharge: Awake alert oriented and pleasant Functional status at discharge: uses cane/walker Overall status at discharge: patient is progressing back to baseline Time Spent with Patient Time attestation: Total time spent providing and/or coordinating discharge services: 45 minutes Time spent: Greater than 30 minutes Exam Narrative: GENERAL: no acute distress, uncomfortable appearing with right leg movement HEAD: Normocephalic, atraumatic. EYES: PERRLA and EOMI. ENT: Nares clear, no rhinorrhea or epistaxis. Mucous membranes moist. NECK: Supple. CHEST: Clear to auscultation. No respiratory distress. HEART: Regular rate and rhythm. No murmur heard. Normal peripheral pulses. ABDOMEN: Soft, nontender, nondistended, normal active bowel sounds. EXTREMITIES: Patient has pain with motion right hip and pain with weight-bearing. Distal pulse motor sensation intact. No significant swelling. SKIN: Warm, dry, no rash. NEURO: No focal deficits. Alert and oriented x3. PSYCH: Normal mood and affect. DS: Data Data Completed and Pending Labs on day of discharge: Labs from last 24 hours 10/05/23 10/04/23 10/04/23 07:22 20:31 16:34 POC Capillary Glucose 96 142 H 150 H Vitamin D 25-Hydroxy 10/04/23 10/04/23 12:50 12:00 POC Capillary Glucose 147 H Vitamin D 25-Hydroxy 47.9 Discharge Plan Discharge Attending physician on discharge: Lamonte Galvin Consulting providers: Priyank House; Amor Santamaria; Kole Zaragoza; Kole Lira; Benito Hawkins Discharging Clinician: Carlitos Frye Patient Disposition: Home, Self-Care Activity: may shower, no driving, as tolerated and follow weight bearing status Diet
[2023-10-05 11:14] LABS: Glucose Point of Care 117 mg/dl (65-105)
== END 2023-10-05 13:00 | disposition home or self-care (01) ==
LOC: ANHED 10-02 01:27 → ANH3MEDSUR 10-04 07:22
PROVIDERS: Nurse Practitioner; Orthopaedic Surgery; Admitting Provider Internal Medicine; Emergency Provider Emergency Medicine; PCP Internal Medicine Infectious Disease; Visit Provider Hospitalist
DX: S32.591A Other specified fracture of right pubis, initial encounter for closed fracture (principal); M87.051 Idiopathic aseptic necrosis of right femur; W01.0XXA Fall on same level from slipping, tripping and stumbling without subsequent striking against object, initial encounter; R26.2 Difficulty in walking, not elsewhere classified; J44.9 Chronic obstructive pulmonary disease, unspecified; E11.9 Type 2 diabetes mellitus without complications; I25.10 Atherosclerotic heart disease of native coronary artery without angina pectoris; Z96.642 Presence of left artificial hip joint; Z96.652 Presence of left artificial knee joint; Z79.84 Long term (current) use of oral hypoglycemic drugs; Z79.82 Long term (current) use of aspirin; Z79.51 Long term (current) use of inhaled steroids; Z87.891 Personal history of nicotine dependence
CPT/HCPCS: 36415; 72192; 73502; 73723; 80053; 81003; 82306; 82948; 83036; 85025; 85610; 85730; 94640; 96372; 96374; 96375; 96376; 97110; 97116; 97161; 97165; 97530; 99285; A9270; A9577; G0378; J1650; J1885; J2270; J7512

== ENCOUNTER 2023-11-26 14:33 | Outpatient (CLI) | payer MEDICARE, MEDICAID, SELFPAY ==
--- NOTE | ~2023-11-26 | CT_ITS ---
CT pelvis wo con Ordering provider: Kole Lira MD History: . S36.599A - Other specified fracture of unspecified pubis,... . Comparison: October 01, 2023 Technique: CT pelvis without oral and IV contrast. . Automated exposure control and iterative recons truction technique were employed. Findings: BONES: Fracture of the right inferior pubic ramus with minimal callus formation. Fracture in the ante rior edge of the right acetabulum. No other fractures seen.. Left hip Arthroplasty. AVN is seen in the right femoral head unchanged. Age appropriate degenerative changes of the visualiz ed lower lumbar spine. The sacroiliac joint spaces are well maintained. Right hip osteoarthritic denise ges. SUPERFICIAL SOFT TISSUES: Normal. PELVIC ORGANS: The bladder is normal. VISUALIZED BOWEL AND MESENTERY: Normal. No free air or free fluid. No lymphadenopathy. RETROPERITONEUM: Mild atheromatous disease. IMPRESSION: Fracture of the right inferior pubic ramus with minimal callus formation. Undisplaced Fracture of the anterior column of the right acetabulum seen at the anterior edge of the acetabulum. AVN in the right femoral head unchanged. Left hip arthroplasty. Reviewed, dictated and finalized at location A.
== END 2023-11-26 14:34 | disposition home or self-care (01) ==
PROVIDERS: PCP Internal Medicine Infectious Disease; Visit Provider Orthopaedic Surgery
DX: S32.591A Other specified fracture of right pubis, initial encounter for closed fracture (principal); Z96.642 Presence of left artificial hip joint
CPT/HCPCS: 72192

== ENCOUNTER 2024-06-14 09:48 | Outpatient (CLI) | payer MEDICARE, MEDICAID, SELFPAY ==
--- NOTE | ~2024-06-14 | CT_ITS ---
EXAMINATION: CT lung screening DATE: 06/14/2024 10:11 INDICATION: nicotine dependence TECHNIQUE: Computed tomography (CT) of the chest was performed without intravenous contrast. Addition al 3D reconstructions utilizing coronal maximum intensity projection (MIP) were performed. Automated exposure control and iterative reconstruction technique were employed. The dose-length product was 64 .40 mGy-cm. COMPARISON: None FINDINGS: Mild emphysema. Calcified left upper lobe nodule consistent with old granulomatous disease. Mild line ar atelectasis at the inferomedial right upper lobe and at the inferior lingula. There are few a few scattered bilateral <3 mm pulmonary nodules. No pneumonia, pulmonary edema or pleural effusion. Heart size is normal. No pericardial effusion. Thoracic aorta is normal in caliber. No pathologically enla rged thoracic lymphadenopathy. Moderate thoracolumbar dextrocurvature with moderate thoracic spondylo sis. IMPRESSION: 1. Lung-RADS category 2: Benign appearance or behavior. Continue annual screening with noncontrast lo w-dose chest CT in 12 months. Reviewed, dictated and finalized at [facility] IMPRESSION: 1. Lung-RADS category 2: Benign appearance or behavior. Continue annual screeni ng with noncontrast low-dose chest CT in 12 months.
--- OUTSIDE RECORDS SUMMARY | 2024-06-14 10:43 | XMS_ITS | Clinical Summary ---
Author Organization [facility] Address [address] [place] [address] Phone Care Team Providers Care Range Examiner Name Role Phone Unavailable Unavailable Unavailable Reason for Visit and Chief Complaint GENERAL OFFICE VISIT Plan of Treatment No Plan of Treatment Recorded Assessments Includes: Assessments from this encounter No Assessments Recorded Medical Equipment - Implanted Devices Includes: Current Devices No Medical Equipment Recorded Medications Administered Includes: Administered Medications from this encounter No Administered Medications Recorded Results Includes: Results discussed during this encounter No Results Recorded For Specified Dates History of Present Illness Includes: History of Present Illness from this encounter No History of Present Illness Recorded Social History No Social History Recorded - Smoking Status Unknown Medical History Includes: Medical History addressed during this encounter No Medical History Recorded Family History Includes: Family History addressed during this encounter No Family History Recorded Review of Systems Includes: Review of Systems from this encounter No Review of Systems Recorded Mental Status Includes: Mental Status from this encounter No Mental Status Recorded Functional Status Includes: Functional Status from this encounter No Functional Status Recorded Physical Exam Includes: Physical Exam from this encounter No Physical Exam Recorded Encounters Encounter Provider Location Date Check-In Time Check-Out Time Diagnosis GENERAL OFFICE VISIT MILTON ATWOOD MD [facility] 02/26/20 05 11:33AM 12:32PM Clinical Notes Includes: Clinical Notes from this encounter No Clinical Notes Recorded
--- OUTSIDE RECORDS SUMMARY | 2024-06-14 10:44 | XMS_ITS | Clinical Summary ---
Author Organization [facility] Address [address] [facility] [place] [address] Care Team Providers Care Rubber Tire And Tubes Supervisor Name Role Phone None, Physician Primary Care Provider Unavailabl e Source Comments [facility],non-owned Affiliates and Associated Physician Practices is amultiple site organization consisting of ambulatory clinics and hospital sitesin [place], [place], [place] and [place]. This disclosure is being madepursuant to the Care Everywhere program and may not contain all information available regarding this patient. Last updated 17.[facility] Allergies No known active allergies Medications * Be aware that medications may not be up to date on this document. Alwaysverify current medications with the patient. Medication Sig Dispensed Refills Start Date End Date Status metFORMIN (Glucophage) 500 MG tablet Take 1 (one) tablet by mouth 2 times daily with morning and evening meal Active empagliflozin (Jardiance) 10 MG tablet Take 1 (one) tablet by mouth once daily Active carvedilol (Coreg) 3.125 MG tablet Take 1 (one) tablet by mouth 2 times daily with morning and evening meal Active hydroCHLOROthiazide (Microzide) 12.5 MG capsule Take 1 (one) capsule by mouth once daily Active atorvastatin (Lipitor) 40 MG tablet Take 1 (one) tablet by mouth at bedtime Active omeprazole (PriLOSEC) 40 MG capsule Take 1 (one) capsule by mouth daily before breakfast Active tiotropium (Spiriva) 18 MCG inhalation capsule Inhale 1 (one) capsule by mouth once daily Active budesonide-formotero l (Symbicort) 160-4.5 MCG/ACT inhaler Inhale 2 (two) puffs by mouth 2 times daily Active albuterol (Proventil;Ventolin) (2.5 MG/3ML) 0.083% nebulizer solution Inhale by mouth 4 times daily as needed for Shortness of Breath or Wheezing Active albuterol HFA (Proventil; Ventolin; Proair) 108 (90 Base) MCG/ACT inhaler Inhale 2 (two) puffs by mouth every 6 hours as needed for Shortness of Breath Active predniSONE (Deltasone) 10 MG tablet Take 4 tablets daily for 4 days, take 3 tablets daily for 2 days, take 2 tablets daily for 2 days, then take 1 tablet daily for 2 days 28 tablet 07/20/2023 Active Active Problems Problem Noted Date Diagnosed Date Shortness of breath 07/17/2023 COPD exacerbation 07/17/2023 Acute hypoxic respiratory failure 07/17/2023 Avascular necrosis of femoral head 07/16/2022 07/18/2023 Postmenopausal osteoporosis 06/30/2022 04/0 10/2023 Thrombocytopenic disorder 06/23/20222023 ABELARDO III (vulvar intraepithelial neoplasia III) 0 06/30/2019 07/18/2023 Overview (07/18/2023): -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 No repeat biopsies obtained - 12/27: Reviewed path from partial vulvectomy: + margins, VIN3 @1200 margin, no inv SSCa. Patient with e/o cellulitis on exam today, is taking antibiotics for UTI (unsure of name) with continued pain at vulvectomy site. Plan: - Surveillance exams in 6 months, 12 months, then yearly if negative - Plan to call patient on Wednesday to ensure improving cellulitis and review antibiotics - If not improving, will return for clinical exam sooner - Rx sent for silvadene and dermoplast Fibrocystic change of breast, left 01/24/2019 07/18/2023 Sclerosing adenosis of breast, left 01/24/2019 07/18/2023 Gastroesophageal reflux disease 08/24/2018 07/18/2023 Pulmonary nodule/lesion, solitary 08/24/2018 07/18/2023 Primary hypertension 06/16/2018 07/18/2023 Social History Tobacco Use Types Packs/Day Years Used Date Smoking Tobacco: Never Passive Smoke Exposure: Never Smokeless Tobacco: Never Tobacco Cessation:Counseling Given: Not Answered Alcohol Use Standard Drinks/Week Comments Not Currently 0 (1 standard drink = 0.6 oz pur e alcohol) AUDIT-C Answer Date Recorded Q1: How often do you have a drink containing alcohol? Never 07/18/2023 Q2: How many drinks containi ng alcohol do you have on a typical day when you are drinking? Patient does not drink Q3: How often do you have si x or more drinks on one occasion? Never 07/18/2023 Sex and Gender Information Value Date Recorded Sex Assigned at Not on file Gender Identity Not on file Sexual Orientation Not on file Last Filed Vital Signs Vital Sign Reading Time Taken Comments Blood Pressure 138/72 07/20/2023 12:16 PM CDT Pulse 75 07/20/2023 12:16 PM CDT Temperature 36.3 C (97.4 F) 07/20/2023 12:16 PM CDT Respiratory Rate 21 07/20/2023 12:16 PM CDT Oxygen Saturation 97% 07/20/2023 12:16 PM CDT Inhaled Oxygen Concentration 28% 07/18/2023 1 :25 AM CDT Weight 57.2 kg (126 lb) 07/18/2023 1:00 AM CDT Height 154.9 cm (5' 1 ) 07/18/2023 1:00 AM CDT Body Mass Index 23.81 07/18/2023 1:00 AM CDT Plan of Treatment Health Maintenance Due Date Last Done Comments BONE DENSITY TESTING 1955 COLOGUARD (AGES 45-75) - COL ON CA SCREENING 1957 COLON MONITORING 1957 COLONOSCOPY - COLON CA SCREENING 1957 CT COLONOGRAPHY - COLON CA SCREENING 1955 Colorectal Cancer Screening 1955 FIT - COLON CA SCREENING 1957 FLEX SIG - COLON CA SCREENING 1955 HEPATITIS C SCREENING 01/01/1975 DTAP/TDAP/TD VACCINES (1 - Tdap) 01/06/1976 PNEUMOCOCCAL VACCINE 50+ (1 of 2 - PCV) 01/06/1976 ZOSTER VACCINE (1 of 2) 2007 Respiratory Syncytial Virus (RSV) Vaccine Pt: or over 60 yrs (1 - Risk 60-74 years 1-dose series) 2017 MAMMOGRAM 01/17/2021 01/17/2019 COVID-19 VACCINE (2 - 2023-2 5 season) 2023 07/20/2020 INFLUENZA VACCINE (#1) 2023 , 12/23/2018 DEPRESSION SCREENING 04/12/2024 HEPATITIS B VACCINE Aged Out No longe r eligible based on patient's age to complete this topic HIB VACCINE Aged Out No longer eligi ble based on patient's age to complete this topic HPV VACCINE Aged Out No longer eligi ble based on patient's age to complete this topic MENINGOCOCCAL (Group B) VACCINE Aged Out No longer eligible b ased on patient's age to complete this topic MENINGOCOCCAL VACCINE Aged Out No aicha ori eligible based on patient's age to complete this topic Advance Directives * Full Code (Latest Code Status on File) Date Activated Date Inactivated Comments 07/17/2023 11:43 PM 07/20/2023 3:07 PM Care Teams [employer] T[employer] Supervisor Relationship Specialty Start Date End Date None, Physician PCP - General 07/17/23
--- OUTSIDE RECORDS SUMMARY | 2024-06-14 10:44 | XMS_ITS | Referral Summary ---
Author Organization [facility] Address [address] [facility] [place] [address] Care Team Providers Care Blow Mold Operator Name Role Phone None, Physician Primary Care Provider Unavailabl e Source Comments [facility],non-owned Affiliates and Associated Physician Practices is amultiple site organization consisting of ambulatory clinics and hospital sitesin [place], [place], [place] and [place]. This disclosure is being madepursuant to the Care Everywhere program and may not contain all information available regarding this patient. Last updated 17.[facility] Allergies No known active allergies Medications * [...] Mass Index 23.81 07/18/2023 1:00 AM CDT Functional Status Functional Status Response Date of Assess ment Is person deaf or have serious hearing difficult y? Yes 07/18/2023 Is person blind or have serious difficulty seein g? Yes 07/18/2023 Does person have serious dif ficulty walking/climbing stairs? Yes 07/18/2023 Does person have difficulty dressing/bathing? No 07/18/2023 Does person have difficulty doing errands alone? No 07/18/2023 Cognitive Status Response Date of Assessm ent Does person have difficulty concentrating/remembering/making decisions? No 07/18/2023 Plan of Treatment Not on file Advance Directives * Full Code (Latest Code Status on File) Date Activated Date Inactivated Comments 07/17/2023 11:43 PM 07/20/2023 3:07 PM Care Teams Blow Mold Operator Relationship Specialty Start Date End Date None, Physician PCP - General 07/17/23
--- OUTSIDE RECORDS SUMMARY | 2024-06-14 10:44 | XMS_ITS ---
Care Plan - [facility] Created on: June 14, 2024 EPIFANIO HIDALGO : 1955 Sex: Female Author Organization [facility] Address [address] [place] [address] Phone Care Team Providers Care Education Managers Name Role Phone Unavailable Unavailable Unavailable
--- OUTSIDE RECORDS SUMMARY | 2024-06-14 10:44 | XMS_ITS | Clinical Summary ---
Author Organization [facility] Address [address] [place] [address] Phone Care Team Providers Care Quality Review Specialist Name Role Phone No, Physician Unavailable Ariana Alexandra MD Primary Care Provider Aparna Oliva NP Unavailable [phone] Allergies No known active allergies Medications inhalational spacing device (Aerochamber Plus Flow-Vu) spacer Aerochamber Plus Flow-Vu Active albuterol HFA (PROVENTIL HFA,VENTOLIN HFA,PROAIR HFA) 90 mcg/actuation inhaler Inhale 2 puffs every 4 (four) hours as needed for wheezing or shortness of breath 08/18/19 20 Active atorvastatin (LIPITOR) 40 mg tabletIndications :hyperlipidemia Take 40 mg by mouth every morning 08/18/19 20 Active carvediloL (COREG) 3.125 mg tabletIndications :hypertension Take 3.125 mg by mouth 2 (two) times a day with meals 08/18/19 20 Active fluticasone propionate (FLONASE) 50 mcg/actuation nasal sprayIndications: Allergic Rhinitis Administer 1 spray into each nostril every morning 08/18/19 20 Active fluticasone propion-salmetero L (ADVAIR DISKUS) 250-50 mcg/dose diskus inhalerIndication s:Maintenance Therapy for Asthma Inhale 1 puff every morning Active hydroCHLOROthiazi de (MICROZIDE) 12.5 mg capsuleIndication s:hypertension Take 12.5 mg by mouth every morning 10/25/19 19 Active aspirin 81 mg enteric coated tabletIndications :Myocardial Reinfarction Prevention Take 81 mg by mouth every morning 06/17/19 19 Active cetirizine (ZyrTEC) 10 mg tabletIndications :Seasonal Allergic Rhinitis Take 10 mg by mouth every morning Active ciclopirox (PENLAC) 8 % solution Apply 1 application topically as needed Active omeprazole (PriLOSEC) 40 mg capsuleIndication s:Stress Ulcer Prophylaxis Take 40 mg by mouth every morning 11/02/19 21 Active budesonide-formot Moi (Symbicort) 80-4.5 mcg/actuation inhalerIndication s:Acute Asthma Attack Inhale 2 puffs 2 (two) times a day Active ibuprofen (ibuprofen) 200 mg tab/capIndication s:Anti-inflammato ry,Pain Take 800 mg by mouth 2 (two) times a day Active ipratropium-albut Moi (DUO-NEB) 0.5-2.5 mg/3 mL nebulizer solutionIndicatio ns:Chronic Obstructive Pulmonary Disease with Bronchospasms Take 3 mL by nebulization 4 (four) times a day Active Calcium 600 + D,3, 600 mg(1,500mg) -400 unit per tabletIndications :Hypocalcemia Prevention Take 1 tablet by mouth 2 (two) times a day 12/03/19 21 Active Tab-A-Jennifer 400 mcg tablet Take 1 tablet by mouth every morning 12/03/19 21 Active miscellaneous medical supply misc Administer into affected nostril(s) nightly 2L/NC at night Active acetaminophen (TYLENOL) 500 mg tablet Take 2 tablets (1,000 mg total) by mouth every 6 (six) hours as needed for pain 60 tablet 12/18/19 21 Active silver sulfadiazine (SILVADENE, SSD) 1 % creamIndications: Post-op pain Apply topically daily 50 g 12/28/19 21 Active benzocaine-mentho L (DERMOPLAST) 20-0.5 % aerosolIndication s:Post-op pain Apply topically 3 (three) times a day as needed for pain 56 g 1 12/28/19 21 Active Active Problems Problem Noted Date Diagnosed Date Dysplasia of cervix, high grade GABINO 2 06/30/2019 Overview (12/27/2020): - 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 review of OSH pathology showed Cervical bx GABINO-1, ECC GABINO-1 with focal GABINO-2 after [facility] visit 06/2019 - Was previously scheduled for EUA/colpo/LEEP/partial vulvectomy in 08/2019, cancelled after patient found out she could not have family at the hospital with her - Returned to clinic 11/29/20 for follow up, exam remained unchanged from prior. No repeat biopsies obtained - Consented again for EUA/colpo/LEEP/partial vulvectomy, blood consent signed and prep for case to be ordered -12/27: Post-op s/p LEEP. Reviewed LEEP pathology negative for residual dysplasia. Did not examine LEEP bed today, discussed need for co-testing in 1 year. Reviewed pelvic rest for 4 weeks. 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/2019 - [facility] review of OSH pathology showedvulvar biopsy with [...] - Rx sent for silvadene and dermoplast Sclerosing adenosis of breast, left 01/24/2019 Abnormal ultrasound of breast 01/04/2019 Pulmonary nodule/lesion, solitary 08/24/2018 Dyspnea on exertion 08/24/2018 Gastroesophageal reflux disease 08/24/2018 Severe chronic obstructive pulmonary disease Personal history of nicotine dependence 06/17/19 19 Primary hypertension 06/16/2018 Resolved Problems Problem Noted Date Diagnosed Date Resolved Date Carcinoma in situ of vulva 06/30/2019 0 11/29/2020 Overview (06/30/2019): -Left vulvar biopsy with squamous cell carcinoma in situ -[facility] -Discussed treatment of SCC in situ including partial vulvectomy or possible radical vulvectomy pending pathology consult read. Patient consented for procedure and counseled that this will be delayed by 6-8 weeks due to the current Covid-19 pandemic. Counseled patient that 6-8 week delay in surgery will not advance disease significantly. All questions answered. Immunizations Immunization Administration Dates Next Due Influenza, Quadrivalent, Split, Intramuscular Surgical History Surgery Date Site/Laterality Comments KNEE SURGERY 04/12/2000 - 04/11/2001 Left DILATION AND CURETTAGE OF UTERUS 04/12/1978 - 04/11/1979 GANGLION CYST EXCISION 04/12/2019 - 04/11/2020 Right wrist COLONOSCOPY Medical History Medical History Date Comments Hypertension COPD (chronic obstructive pulmonary disease) (HC C) Hyperlipidemia History of pulmonary embolism On home oxygen therapy 2L/NC at night Family History Medical History Relation Name Comments Anesthesia problems Neg Hx Social History Tobacco Use Types Packs/Day Years Used Date Smoking Tobacco: Former Cigarettes Q uit: 2014 Smokeless Tobacco: Never Alcohol Use Standard Drinks/Week Comments Not Currently 0 (1 standard drink = 0.6 oz pur e alcohol) AUDIT-C Answer Date Recorded Q1: How often do you have a drink containing alc ohol? Monthly or less 12/17/2020 Q2: How many drinks containi ng alcohol do you have on a typical day when you are drinking? 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 Gender Identity Not on file Sexual Orientation Not on file Obstetrics History Para Term AB IAB SAB Ectopic Multiple Livin g Live Births 5 3 3 0 2 0 2 0 0 3 3 Date Outcome GA Total Labor Labor/2nd/3rd Weight Sex Type Anes PTL Naty A1 A5 Name Clin Term Term Term SAB SAB Last Filed Vital Signs Vital Sign Reading Time Taken Comments Blood Pressure 130/51 12/27/2020 12:37 PM CDT Pulse 62 12/27/2020 12:37 PM CDT Temperature 36.1 C (97 F) 12/27/2020 12:37 PM CDT Respiratory Rate 16 12/27/2020 12:37 PM CDT Oxygen Saturation 95% 12/27/2020 12:37 PM CDT Inhaled Oxygen Concentration - - Weight 71.2 kg (157 lb) 12/27/2020 12:37 PM CDT Height 154.9 cm (5' 1 ) 12/27/2020 12:37 PM CDT Body Mass Index 29.66 12/27/2020 12:37 PM CDT Plan of Treatment Health Maintenance Due Date Last Done Comments Breast Cancer Screening-Mammogram 1955 Colon Cancer Screening-Colonoscopy 1955 Depression Screening 1955 Hepatitis C Screening 1955 Osteoporosis Screening-Bone Density Scan 1955 DTaP/Tdap/Td Vaccine (1 - Tdap) 01/06/1968 Hepatitis B Screening 1975 Pneumococcal vaccine 65+ (1 of 2 - PCV) 01/06/1976 Zoster Vaccine (1 of 2) 2007 Fall Risk Assessment 12/17/2021 12/17/2020 Well Visit 65+ 2022 Covid-19 Vaccine (2 - 2023- season) 12/12/202301/2021 Influenza Vaccine (#1) 2023 07/05/2020, 2018 Insurance [facility] Advance Directives For more information, please contact: [phone] * Full Code (Latest Code Status on File) Date Activated Date Inactivated Comments 12/17/2020 10:49 AM 12/18/2020 12:34 PM Care Teams Quality Review Specialist Relationship Specialty Start Date End Date Ariana Alexandra MD [address] [place] [id number] PCP - General Internal Medicine 10/15/21 No, Physician 06/22/19 Aparna Oliva NP [address] [place] [address] Nurse Practitioner 10/15/21
--- OUTSIDE RECORDS SUMMARY | 2024-06-14 10:44 | XMS_ITS | Encounter Summary ---
Author Organization [facility] Address [address] [place] [address] Care Team Providers Care Geology Instructor Name Role Phone No, Physician Primary Care Provider [phone] No, Physician Unavailable Ariana Alexandra MD Primary Care Provider Aparna Oliva NP Unavailable [phone] Encounter Details Date Type Department Care Team (Late st Contact Info) Description 07/08/2021 Telephone [facility] [address] [facility] [place], [place] [id number] Anisha Phelps Social History Tobacco Use Types Packs/Day Years Used Date Smoking Tobacco: Former Cigarettes Q uit: 2013 Smokeless Tobacco: Never Alcohol Use Standard Drinks/Week [...] on file 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
--- OUTSIDE RECORDS SUMMARY | 2024-06-14 10:44 | XMS_ITS ---
Author Organization [facility] Address [address] [place] [address] Phone Care Team Providers Care Rail Grinder Name Role Phone No, Physician Unavailable Ariana Alexandra MD Primary Care Provider Aparna Oliva REFINERY OPERATOR POLYMERIZATION PLANT Unavailable [phone] Active Problems Problem Noted Date Diagnosed Date Dysplasia of cervix, high grade GABINO 2 06/30/2019 Overview (12/27/2020): - Pap 05/09/19 HSIL/HPV+ - Colposcopy 05/30/19 with cervical biopsies CIN1-CIN2 and ECC at least CIN2 - [facility] review of OSH pathology showed Cervical bx [...] carcinoma in situ at OSH 05/2019 - [facility] review of OSH pathology showedvulvar biopsy [...] nicotine dependence 06/17/19 19 Primary hypertension 06/16/2018 Current Treatment and Therapy Plans No current plan information found. Past Treatment and Therapy Plans No past plan information found. Lifetime Dose Tracking * Chemical Lifetime Dose Automatic Entry Manual Entr y DLP 41.5 mGycm 41.5 mGycm 0 mGycm CTDIvol 1.25 mGy 1.25 mGy 0 mGy Resolved Problems Problem Noted Date Diagnosed Date Resolved Date Carcinoma in situ of vulva 06/30/2019 0 11/29/2020 Overview (06/30/2019): -Left vulvar biopsy with squamous cell carcinoma in situ -Will request pathology slides for [facility] pathology consult -Discussed treatment of SCC in situ including partial vulvectomy or possible radical vulvectomy pending pathology consult read. Patient consented for procedure and counseled that this will be delayed by 6-8 weeks due to the current Covid-19 pandemic. Counseled patient that 6-8 week delay in surgery will not advance disease significantly. All questions answered.
--- OUTSIDE RECORDS SUMMARY | 2024-06-14 10:44 | XMS_ITS ---
Author Organization [facility] Address [address] [place] [address] Phone Care Team Providers Care Dairy Farmer Name Role Phone Unavailable Unavailable Unavailable Plan of Treatment No Plan of Treatment Recorded Assessments Includes: Assessments for all patient encounters No Assessments Recorded Medical Equipment - Implanted Devices Includes: Current and historical Devices No Medical Equipment Recorded Medications Administered Includes: Administered Medications in patient's chart No Administered Medications Recorded Results Includes: Results from 06/15/2023 through 06/14/2024 No Results Recorded For Specified Dates History of Present Illness History of Present Illness not supported for this document type No History of Present Illness Recorded Social History No Social History Recorded - Smoking Status Unknown Medical History Includes: Medical History in patient's chart No Medical History Recorded Family History Includes: Family History in patient's chart No Family History Recorded Review of Systems Review of Systems not supported for this document type No Review of Systems Recorded Mental Status No Mental Status Recorded Functional Status No Functional Status Recorded Physical Exam Physical Exam not supported for this document type No Physical Exam Recorded Clinical Notes Includes: Signed Clinical Notes starting from 05/01/2022 No Clinical Notes Recorded
--- OUTSIDE RECORDS SUMMARY | 2024-06-14 10:44 | XMS_ITS | Referral Summary ---
Author Organization [facility] Address [address] [place] [address] Phone Care Team Providers Care Die Sizer Name Role Phone No, Physician Unavailable Ariana Alexandra MD Primary Care Provider Aparna Oliva NP Unavailable [phone] Allergies No known active allergies Medications inhalational [...] CIN1-CIN2 and ECC at least CIN2 - [facility] review of OSH pathology showed Cervical bx GABINO-1, ECC GABINO-1 with focal AGBINO-2 after [facility] visit 06/2019 - Was [...] carcinoma in situ at OSH 05/2019 - [facility] review of OSH pathology showedvulvar biopsy with [...] disease Personal history of nicotine dependence 06/17/19 Primary hypertension 06/16/2018 Resolved Problems Problem Noted Date Diagnosed Date Resolved Date Carcinoma in situ of vulva 06/30/2019 0 11/29/2020 Overview (06/30/2019): -Left vulvar biopsy with squamous cell carcinoma in situ -[facility] -Discussed treatment of SCC in [...] Dates Next Due Influenza, Quadrivalent, Split, Intramuscular Social History Tobacco Use Types Packs/Day Years [...] on file 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 Gender Identity Not on file Sexual Orientation [...] 12/27/2020 12:37 PM CDT Plan of Treatment Not on file Insurance [facility] [id number] [place] [address] [facility] Advance Directives For more information, please contact: [phone] * Full Code (Latest Code Status on File) Date Activated Date Inactivated Comments 12/17/2020 10:49 AM 12/18/2020 12:34 PM Care Teams Die Sizer Relationship Specialty Start Date End Date Ariana Alexandra MD [address] [facility] [address] [place] [address] PCP - General Internal Medicine 10/15/21 No, Physician 06/22/19 Aparna Oliva NP [address] [place] [address] Nurse Practitioner 10/15/21
--- OUTSIDE RECORDS SUMMARY | 2024-06-14 10:44 | XMS_ITS | Clinical Summary ---
Author Organization [facility] Address [address] [place] [address] Care Team Providers Care Filament Tester Name Role Phone Ariana Alexandra MD Primary Care Provider [phone] Allergies No known active allergies Medications hydroCHLOROthiaz galilea (MICROZIDE) 12.5 mg capsule 9 Active carvedilol (COREG) 3.125 mg tablet 9 Active aspirin (ECOTRIN EC) 81 mg Tablet, Delayed Release (E.C.) every 24 hours. Active budesonide-formo terol (SYMBICORT) 80-4.5 mcg/actuation HFA Aerosol Inhaler Symbicort 80 mcg-4.5 mcg/actuation HFA aerosol inhaler Inhale 2 puffs twice a day by inhalation route as directed for 30 days. Rinse and spit after use Active tiotropium (SPIRIVA RESPIMAT) 2.5 mcg/actuation Mist every 24 hours. Acti ve albuterol HFA 90 mcg inhaler 9 Active Ascorbic Wmkt-Pqtyzzvzb-J in (EMERGEN-C) 1,000 mg Powder Effervescent in Packet Emergen-C Active atorvastatin (LIPITOR) 40 mg tablet atorvastatin 40 mg tablet Active fluticasone propionate (FLONASE) 50 mcg/spray [place], Suspension nasal inhaler fluticasone propionate 50 mcg/actuation nasal spray,suspension Active AEROCHAMBER MAX WITH FLOW-VU Spacer 9 Active Active Problems Problem Noted Date Diagnosed Date Fibrocystic change of breast, left 01/24/2019 Sclerosing adenosis of breast, left 01/24/2019 Abnormal ultrasound of breast 01/04/2019 Lump in central portion of left breast 9 Microcalcification of left breast on mammogram 0 11/02/2018 Abnormal mammogram of left breast 11/02/2018 Family History Medical History Relation Name Comments Heart Disease Father Cervical Cancer Mother Relation Name Status Comments Brother 1 Alive Brother 2 Alive Brother 3 Alive Daughter 1 Alive Daughter 2 Alive Father Alive Mother Alive Sister 1 Alive Sister 2 Alive Son Alive Social History Tobacco Use Types Packs/Day Years Used Date Smoking Tobacco: Former Cigarettes 1 40 0 09/1974 - 09/2014 Smokeless Tobacco: Never Tobacco Cessation:Counseling Given: Not Answered Alcohol Use Standard Drinks/Week Comments Yes 0 (1 standard drink = 0.6 oz pur e alcohol) Comments No Sex and Gender Information Value Date Recorded Sex Assigned at Not on file Legal Sex Female 3:03 PM CDT Gender Identity Not on file Sexual Orientation Not on file Last Filed Vital Signs Vital Sign Reading Time Taken Comments Blood Pressure 120/59 11/05/2022 10:23 AM CDT Pulse 84 11/05/2022 10:23 AM CDT Temperature 36.6 C (97.8 F) 11/05/2022 10:23 AM CDT Respiratory Rate 10 11/05/2022 10:23 AM CDT Oxygen Saturation 96% 11/05/2022 10:23 AM CDT Inhaled Oxygen Concentration - - Weight 54.9 kg (121 lb) 11/05/2022 10:23 AM CDT Height 154.9 cm (5' 1 ) 01/24/2019 2:57 PM CDT Body Mass Index 22.86 01/24/2019 2:57 PM CDT Plan of Treatment Health Maintenance Due Date Last Done Comments DTAP/TDAP/TD VACCINES (1 - Tdap) 01/06/1976 PNEUMOCOCCAL VACCINE 50+ YEARS (1 of 2 - PCV) 01/05/19 76 COLORECTAL SCREENING 2002 Colorectal Cancer Screening 2002 FIT-DNA Q 3 years 2002 FIT/FOBT Q 1 year 2002 Flex Sig/CT Colonography Q 5 years 2002 ZOSTER VACCINE (1 of 2) 2007 RSV VACCINE (60+ or ) (1 - Risk 60-74 years 1-dose series) 2017 BREAST CANCER SCREENING 01/18/2020 01/17/2019 OSTEOPOROSIS SCREENING 2022 INFLUENZA VACCINE (#1) 2023 12/23/2018 Procedures Procedure Name Priority Date/Time Associated Diagnosis Comments MAMMO DIAG UNI LEFT 3D ISABELLA W OR WO CAD Routine 01/17/2019 Microcalcification of left breast on mammogram Abnormal mammogram of left breast from Last 3 Months or Most Recently Relevant to Health Maintenance Results * MAMMO DIAG UNI LEFT 3D ISABELLA W OR WO CAD (01/17/2019) Anatomical Region Laterality Modality Breast Left Other us Paz Rocha Jessi DO MAMMO ORDERABLES Final Resu lt from Last 3 Months or Most Recently Relevant to Health Maintenance Insurance [place] [address] [address] [place] [id number] [place] Care Teams Filament Tester Relationship Specialty Start Date End Date Ariana Alexandra MD [address] [place] [id number] PCP - General Internal Medicine 07/07/22
--- OUTSIDE RECORDS SUMMARY | 2024-06-14 10:44 | XMS_ITS | Data Portability ---
Author Organization ROSA LINDARicki Garrido Address [address] [place] [address] Care Team Providers Care Lead Systems Architect Name Role Phone ARIANA ESCOBEDO Primary Care Provider ELVA BROUSSARD Surveillance Inspector Assessment No assessment recorded. Plan of Treatment Reminders Order Date Submit Date Provider Last Modified By Organization Details Last Modified Time Details Appointments ANY 15 2024 11:00A M Tin Rodríguez MD Not available Not available Not available ANY 15 2024 10:45A M Ariana Escobedo MD Not available Not available Not available Lab microalbu min/creat inine, mass ratio, urine 2023 024 KATHLEEN Moya, [address], [place], [address], 02/09/2024 06:23:13 basic metabolic 1998 panel, serum or plasma 2023 024 KATHLEEN Moya, [address], [place], [address], 12/15/2023 07:14:42 CBC 2023 024 KATHLEEN Moya, [address], [place], [address], 12/15/2023 07:14:43 HbA1c (hemoglob in A1c), blood 2023 024 KATHLEEN Moya, [address], [place], [address], 12/15/2023 07:14:43 lipid panel, serum 2023 024 KENYON [facility], [address], [place], [address], 12/15/2023 07:14:41 Referral endocrino logy referral - Osteoporo sis with a recent fracture, DM 2023 024 [email or web address] Tomastali Ino, [address], [place], [address], 02/23/2024 14:10:14 Procedures None recorded. Surgeries None recorded. Imaging LDCT, chest, for lung cancer screening 2023 025 [facility] (Imaging), [address] [facility] [address], [place], [address], 06/08/2024 17:19:08 MAMMO, screening , digital, bilateral 2023 024 [facility] ([facility] Call Scheduling), [address] [place], [address], 11/08/2023 10:34:00 Medication Orders atorvasta tin 40 mg tablet 2023 024 [facility], [address] [place] [address], [id number], 05/31/2024 16:09:02 Ventolin HFA 90 mcg/actua tion aerosol inhaler 2023 024 [facility], [address] [place] [address], [id number], 12/01/2023 12:41:04 cetirizin e 10 mg tablet 2023 024 [id number] [facility], [address] [place] [address], [id number], 02/19/2024 10:51:58 fluticaso ne propionat e 50 mcg/actua tion nasal spray,michelle pension 2023 [facility], [address] [place] [address], [id number], 05/31/2024 16:09:05 ipratropi um 0.5 mg-albute rol 3 mg (2.5 mg base)/3 mL nebulizat ion soln 2023 024 [facility], [address] [place] [address], [id number], 02/28/2024 14:04:40 Spiriva Respimat 2.5 mcg/actua tion solution for inhalatio n 2023 [facility], [address] [place] [address], [id number], 05/31/2024 16:09:06 Symbicort 160 mcg-4.5 mcg/actua tion HFA aerosol inhaler 2023 [facility], [address] [place] [address], [id number], 05/31/2024 16:09:06 Patient TargetsNo targets recorded. Patient Instructions Encounter Date Encounter Id Patient Instructions Last Modified By Organization Details Last Modified Time 08/09/2023 [id number] mammogram: about this test sanket Not available 08/09/2023 11:35:30 LDCT report to Blake Conway in Aug, 2023 [facility] in October, Follow up in 6 months and PRN Addendum D/C summary from [place] sanket Not available 08/09/2023 13:34:36 01/10/2024 [id number] On the date of t his encounter, I was immediately available to assist the resident/fellow in the care of the patient, and have reviewed and agree with the resident s findings and plan of care. ~MD Kenn [email or web address] Not available 01/10/2024 11:59:42 02/08/2024 [id number] osteoporosis: ca re instructions [email or web address] Not available 02/08/2024 10:39:05 type 2 diabetes: care instructions [email or web address] Not available 02/08/2024 10:46:16 LDCT in 05/2024 L abs today Certified Coatings Inspector to see Follow up in 5 months and PRN [email or web address] Not available 02/08/2024 10:51:37 Reason for Referral Endocrinology Referral for O steoporosis Osteoporosis with a recent fracture, DM Osteoporosis with a recent fracture, DM Referring Physician: Ariana Escobedo, Internal Medicine, Encounter Date: 02/08/2024 Results Created Date Observation Date Name Description Value Unit Range Abnormal Flag Note LastModifiedBy Organization Detail LastModifiedTime 12/14/1912/15/2023 LIPID PANEL cholesterol, total 176 mg/dL 100-19 9 Not Available [facility] ([facility]) [address] [place], [address], 12/15/2023 07:14:41 12/14/1912/15/2023 LIPID PANEL triglyceride s 126 mg/dL 0-149 Not Available [facility] ([facility]) [address] [place], [address], 12/15/2023 07:14:41 12/14/1912/15/2023 LIPID PANEL HDL cholesterol 48 mg/dL >39 Not Available [facility] ([facility]) [address] [place], [address], 12/15/2023 07:14:41 12/14/1912/15/2023 LIPID PANEL VLDL cholesterol mike 22 mg/dL 5-40 Not Available [facility] ([facility]) [address] [place], [address], 12/15/2023 07:14:41 12/14/1912/15/2023 LIPID PANEL LDL chol calc ([facility]) 106 mg/dL 0-99 above high normal Not Available [facility] ([facility]) [address] [place], [address], 12/15/2023 07:14:41 12/14/19 24 12/15/2023 BASIC METAB OLIC PANEL (7) glucose 98 mg/dL 70-99 Not Available [facility] ([facility]) [address] [place], [address], 12/15/2023 07:14:42 12/14/19 24 12/15/2023 BASIC METAB OLIC PANEL (7) BUN 19 mg/dL 8-27 Not Available [facility] ([facility]) [address] [place], [address], 12/15/2023 07:14:42 12/14/19 24 12/15/2023 BASIC METAB OLIC PANEL (7) creatinine 0.77 mg/dL 0.57-1 .00 Not Available [facility] ([facility]) [address] [place], [address], 12/15/2023 07:14:42 12/14/19 24 12/15/2023 BASIC METAB OLIC PANEL (7) eGFR 85 mL/mi n/1.7 3 >59 Not Available [facility] ([facility]) [address] [place], [address], 12/15/2023 07:14:42 12/14/19 24 12/15/2023 BASIC METAB OLIC PANEL (7) BUN/creatini ne ratio 25 12-28 Not Available [facility] ([facility]) [address] [place], [address], 12/15/2023 07:14:42 12/14/19 24 12/15/2023 BASIC METAB OLIC PANEL (7) sodium 140 mmol/ L 134-14 4 Not Available [facility] ([facility]) [address] [place], [address], 12/15/2023 07:14:42 12/14/19 24 12/15/2023 BASIC METAB OLIC PANEL (7) potassium 4.1 mmol/ L 3.5-5. 2 Not Available [facility] ([facility]) [address] [facility] [place], [address], 12/15/2023 07:14:42 12/14/19 24 12/15/2023 BASIC METAB OLIC PANEL (7) chloride 99 mmol/ L 96-106 Not Available [facility] ([facility]) [address] [facility], [address], 12/15/2023 07:14:42 12/14/19 24 12/15/2023 BASIC METAB OLIC PANEL (7) carbon dioxide, total 27 mmol/ L 20-29 Not Available [facility] ([facility]) [address] [facility], [place], [address], 12/15/2023 07:14:42 12/14/19 24 12/15/2023 HEMOG LOBIN A1C hemoglobin A1C 6.4 % 4.8-5. 6 above high normal Predi abete s: 5.7 - 6.4 Diabe ralph: >6.4 Glyce ngoc contr ol for adult s with diabe ralph: <7.0 Not Available [facility] ([facility]) [address] [facility], [place], [address], 12/15/2023 07:14:42 12/14/19 24 12/15/2023 CBC, PLATE LET, NO DIFFE RENTI AL WBC 8.9 x10e3 /uL 3.4-10 .8 Not Available [facility] ([facility]) [address] [place], [address], 12/15/2023 07:14:43 12/14/19 24 12/15/2023 CBC, PLATE LET, NO DIFFE RENTI AL RBC 4.49 x10e6 /uL 3.77-5 .28 Not Available [facility] ([facility]) [address] [place], [address], 12/15/2023 07:14:43 12/14/19 24 12/15/2023 CBC, PLATE LET, NO DIFFE RENTI AL hemoglobin 14.1 g/dL 11.1-1 5.9 Not Available [facility] ([facility]) [address] [facility], [place], [address], 12/15/2023 07:14:43 12/14/1912/15/2023 CBC, PLATE LET, NO DIFFE RENTI AL hematocrit 43.6 % 34.0-4 6.6 Not Available [facility] ([facility]) [address] [facility], [place], [address], 12/15/2023 07:14:43 12/14/1912/15/2023 CBC, PLATE LET, NO DIFFE RENTI AL MCV 97 fL 79-97 Not Available [facility] ([facility]) [address] [facility], [place], [address], 12/15/2023 07:14:43 12/14/1912/15/2023 CBC, PLATE LET, NO DIFFE RENTI AL MCH 31.4 pg 26.6-3 3.0 Not Available [facility] ([facility]) [address] [facility], [place], [address], 12/15/2023 07:14:43 12/14/1912/15/2023 CBC, PLATE LET, NO DIFFE RENTI AL MCHC 32.3 g/dL 31.5-3 5.7 Not Available [facility] ([facility]) [address] [facility], [place], [address], 12/15/2023 07:14:43 12/14/1912/15/2023 CBC, PLATE LET, NO DIFFE RENTI AL RDW 13.1 % 11.7-1 5.4 Not Available [facility] ([facility]) [address] [facility], [place], [address], 12/15/2023 07:14:43 12/14/1912/15/2023 CBC, PLATE LET, NO DIFFE RENTI AL platelets 213 x10e3 /uL 150-45 0 Not Available [facility] ([facility]) [address] [facility], [place], [address], 12/15/2023 07:14:43 02/08/20 24 02/09/2024 ALBUM IN/CR EAT RATIO , RANDO M UR creatinine, urine 48.5 mg/dL notest ab. Not Available [facility] ([facility]) [address] [facility], [place], [address], 02/09/2024 06:23:12 02/08/2002/09/2024 ALBUM IN/CR EAT RATIO , RANDO M UR albumin, urine 3.5 ug/mL notest ab. Not Available [facility] ([facility]) [address] [place], [address], 02/09/2024 06:23:12 02/08/20 24 02/09/2024 ALBUM IN/CR EAT RATIO , RANDO M UR alb/creat ratio 7 mg/g_ creat 0-29 Penny l: 0 - 29 Moder ately incre ased: 30 - 300 Sever chaitanya incre ased: >300 Not Available [facility] ([facility]) [address] [facility], [place], [address], 02/09/2024 06:23:12 08/06/19 24 05/21/2023 ortiz metry , [facility] hodil ation No observ ation record ed. [email or web address] [facility] ([facility]) [address] [place], [address], 08/31/2023 11:26:12 08/27/19 24 07/17/2023 XR, chest , 1 view No observ ation record ed. [facility] [address], [place], [address], 02/08/2024 10:43:34 10/01/19 24 10/01/2023 XR, hip + pelvi s, unila teral No observ ation record ed. [address], [place], [address], 02/08/2024 10:35:18 10/02/19 24 10/01/2023 CT, pelvi s, w/o contr ast No observ ation record ed. [address], [place], [address], 02/08/2024 10:35:17 10/03/19 24 10/03/2023 MRI, hip, w/o contr ast No observ ation record ed. [address], [place], [address], 02/08/2024 10:35:27 10/04/19 24 10/01/2023 CT, pelvi s, w/o contr ast No observ ation record ed. [address] [facility], [place], [address], 02/08/2024 10:35:22 10/04/19 24 10/03/2023 MRI, pelvi s, w/o contr ast No observ ation record ed. [address], [place], [address], 02/08/2024 10:35:28 11/08/19 24 11/08/2023 MAMMO , scree linda, digit al, bilat eral No observ ation record ed. [facility] [address] [place], [address], 02/08/2024 10:35:39 11/29/19 24 11/26/2023 CT, pelvi s, w/o contr ast No observ ation record ed. [address], [place], [address], 02/08/2024 10:35:36 Result Notes None recorded. Problems Name Problem SNOMED Code Status Onset Date Resolution Date Notes Provider Name and Address Organization Details Recorded Time Tobacco dependen ce in remiss n 419258554 Active 2018 Ariana Escobedo MD Attn: Lorenaphuc gonzáles,[address] [facility], [place], [address], [place] - [facility] 4 09:57:28 History of myocardi al infarcti on 036944119 Active 2018 Ariana Escobedo MD Attn: Lynda nivia,[address] [facility], [place], [address], [place] [facility] 4 09:57:28 Solitary nodule of lung 535144878 Active 2018 Ariana Escobedo MD Attn: Lynda gonzáles,[address] [facility], [place], [address], [place] [facility] 4 09:57:28 Coronary arterios clerosis in [place] artery 60683226153 07 Active 2018 Ariana Escobedo MD Attn: Lynda gonzáles,[address] [facility], [place], [address], [place] [facility] 4 09:57:28 History of pulmonar y embolus 484625382 Active 2018 Ariana Escobedo MD Attn: Lorenaphuc gonzáles,[address] [facility], [place], [address], [place] [facility] 4 09:57:28 Tetanus vaccinat ion declined by patient 447005034 Active 2018 Ariana Escobedo MD Attn: Lynda gonzáles,[address] [facility], [place], [address], [place] [facility] 4 09:57:28 Ganglion cyst of right hand 50077523793 9107 Active 2018 Ariana Escobedo MD Attn: Lynda gonzáles,[address] [facility], [place], [address], [place] [facility] 4 09:57:28 Pulmonar y emphysem a 40334601 Active 2018 Ariana Escobedo MD Attn: Lynda gonzáles,[address] [facility], [place], [address], [place] [facility] 4 09:57:29 Anxiety 84784369 Active 2018 Ariana Escobedo MD Attn: Lorenaphuc gonzáles,[address] [facility], [place], [address], [place] [facility] 4 09:57:28 Benign hyperten cornelio 34791379 Active 2018 Ariana Escobedo MD Attn: Lynda gonzáles,[address] [facility], [place], [address], [place] [facility] 4 09:57:28 Chronic obstruct mirian pulmonar y disease 55761318 Active 2018 Ariana Escobedo MD Attn: Lynda gonzáles,[address] [place], [address], [place] [facility] 4 09:57:28 High grade squamous intraepi thelial lesion on cervical Papanico laou smear 05760667245 107 Active 2019 Ariana Escobedo MD Attn: Lynda gonzáles,[address] [facility], [place], [address], [place] [facility] 4 09:57:28 Squamous cell carcinom a of vulva 531421673 Completed 201906/13/2019 TAMARA CRAVEN Attn: Lynda gonzáles,[address] [facility], [place], [address], [place] [facility] 0 16:42:33 Carcinom a in situ of vulva 92682681 Completed 201901/10/2024 KELY PHAM MD Attn: Lorenaphuc gonzáles,[address] [facility], [place], [address], [place] [facility] 4 13:26:27 Rupture of tendon of biceps 841562257 Active 2019 Followin g with orthoped ics Ariana Escobedo MD Attn: Lynda gonzáles,[address] [facility], [place], [address], [place] [facility] 4 09:57:28 Rupture of rotator cuff of right shoulder 77468658652 141417 Active 2019 Chronic anterior rotator cuff tear, followin g with orthoped ics. NSAID therapy and PT currentl y. Ariana Escobedo MD Attn: Lynda gonzáles,[address] [facility], [place], [address], [place] [facility] 4 09:57:28 History of calculus of kidney 189248453 Active 2019 Ariana Escobedo MD Attn: Lynda gonzáles,[address] [place], [address], [place] [facility] 4 09:57:28 Onychomy cosis of toenails 935393181 Active 2019 Ariana Escobedo MD Attn: Lynda gonzáles,[address] [facility], [place], [address], [place] [facility] 4 09:57:28 Degenera tion of lumbar interver tebral disc 77117963 Active 2019 Ariana Escobedo MD Attn: Lynda gonzáles,[address] [facility], [place], [address], [place] [facility] 4 09:57:28 Scoliosi s deformit y of spine 543744120 Active 2019 Ariana Escobedo MD Attn: Lynda gonzáles,[address] [place], [address], [place] [facility] 4 09:57:28 Pneumoni a caused by SARS-CoV -2 25469437290 0213402 Active Ariana Escobedo MD Attn: Lynda gonzáles,[address] [place], [address], [place] [facility] 4 09:57:29 Type 2 diabetes mellitus without complica tion 929427121 Active 2021 Ariana Escobedo MD Attn: Lynda gonzáles,[address] [facility], [place], [address], [place] [facility] 4 09:57:28 Pain of left hip joint 33862193084 9100 Active Ariana Escobedo MD Attn: Lynda gonzáles,[address] [facility], [place], [address], [place] [facility] 4 09:57:28 Osteopor osis 62404348 Active 2022 Araina Escobedo MD Attn: Lynda gonzáles,[address] [facility], [place], [address], [place] [facility] 4 09:57:28 Osteonec rosis of head of femur 626358340 Active 2022 Ariana Escobedo MD Attn: Lynda gonzáles,[address] [place], [address], [place] [facility] 4 09:57:28 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 04856053859 04219 Active 2022 Ariana Escobedo MD Attn: Lynda gonzáles,[address] [facility], [place], [address], [place] [facility] 4 09:57:28 Calcific ation of coronary artery 049883356 Active 2023 Ariana Escobedo MD Attn: Lynda gonzáles,[address] [place], [address], [place] [facility] 4 11:22:52 Nodule of lung 023880588 Active 2023 Ariana Escobedo MD Attn: Lynda gonzáles,[address] [facility], [place], [address], [place] [facility] 4 13:33:54 Influenz a vaccinat ion declined 241457316 Active 2023 Ariana Escobedo MD Attn: Lynda gonzáles,[address] [place], [address], [place] [facility] 4 10:50:53 History of fall 552728763 Active 2023 Ariana Escobedo MD Attn: Lynda gonzáles,[address] [facility], [place], [address], [facility] - [facility] 4 18:14:28 Problem Notes None recorded. Procedures Surgical History Date Name Laterality Status Provider Name and Address Organization Details Recorded Time 11/08/19 24 Most Recent Mammogram completed Liana Pacheco [place] - [facility] 01/06/2024 12:14:05 01/22/20 23 Diabetic Foot Exam completed Arinaa Escobedo MD Attn: Accounting,[address] [facility], [place], [address], [facility] - [facility] 01/21/2023 10:53:51 10/01/19 23 total replacement of hip completed Ariana Escobedo MD Attn: Accounting,[address] [facility], [place], [address], [facility] - [facility] 10/15/2022 13:18:11 11/12/19 22 Date of Last Pap Smear completed Liana Pacheco MA [facility] 11/11/2021 10:53:10 11/04/19 22 Date of Last Mammogram completed Liana Pacheco MA [facility] 11/11/2021 10:56:37 01/11/20 21 Suture/Staple removal completed TAMARA MURPHY Attn: Accounting,[address] [facility], [place], [address], [facility] - SI 01/10/2021 15:31:39 06/08/19 20 Vulvar Biopsy completed TAMARA MURPHY Attn: Accounting,[address] [facility], [place], [address], [facility] - [facility] 06/08/2019 17:34:54 06/08/19 20 colposcopy completed Liana Pacheco [place] - [facility] 11/11/2021 10:52:50 05/25/19 20 Colposcopy completed TAMARA MURPHY Attn: Accounting,[address] [facility], [place], [address], [facility] - [facility] 05/25/2019 22:59:23 07/07/19 19 colonoscopy completed Ariana Escobedo MD Attn: Accounting,[address] , [place], [address], [facility] - [facility] 07/01/2020 10:04:29 Dilation and Curettage completed Giuliana Tejada [place] - [facility] 05/31/2018 14:14:54 Tubal Ligation completed Giuliana Tejada [place] - [facility] 05/31/2018 14:14:59 thumb surgery completed Giuliana Tejada [facility] - [facility] 05/31/2018 14:15:28 reconstruction of anterior cruciate ligament of knee joint completed Ariana Escobedo MD Attn: Accounting,[address] [facility], [place], [address], [facility] - SI 05/31/2018 14:34:16 Imaging Results Imaging Date Name Status LastModified by Organization Details LastModified Time 05/21/2023 spirometry, pre and post bronchodilation completed aubrey [facility] [address] [place], [address], 08/31/2023 11:26:12 07/17/2023 XR, chest, 1 view completed [facility] [address], [place], [address], 02/08/2024 10:43:34 10/01/2023 XR, hip + pelvis, unilateral completed [address] [place] [address], [address], 02/08/2024 10:35:18 10/01/2023 CT, pelvis, w/o contrast completed [address] [place] [address], [address], 02/08/2024 10:35:17 10/03/2023 MRI, hip, w/o contrast completed [address] [place] [address], [address], 02/08/2024 10:35:27 10/01/2023 CT, pelvis, w/o contrast completed [address] [place] [address], [address], 02/08/2024 10:35:22 10/03/2023 MRI, pelvis, w/o contrast completed [address] [place] [address], [address], 02/08/2024 10:35:28 11/08/2023 MAMMO, screening, digital, bilateral completed [facility] [address] [place], [address], 02/08/2024 10:35:39 11/26/2023 CT, pelvis, w/o contrast completed [address] [place] [address], [address], 02/08/2024 10:35:36 Procedure Notes None recorded. Medical Equipment None Reported. Allergies Allergen ID Allergen Name Allergen Category Reaction Reaction Severity Criticality Documentation Date Start Date Code Code System Note Provider Name and Address Organization Details Recorded Time 496285 No known allergy (situatio n) Not available Not available Not available Not available 07/09/2021 [id number] SNOMED Not Available Not Available Not Available No known drug allergies Medications Name Sig Start Date Stop Date Status Note LastModified by Organization Details LastModified Time Prescript ion - Renewal active Not Available Not Available Not Available multivita min tablet Take 1 tablet every day by oral route. 2020 active Not Available Not Available Not Avai lable amoxicill in 500 mg capsule TAKE ONE CAPSULE BY MOUTH EVERY 8 HOURS UNTIL FINISHED 10/02 completed Not Available Not Available Not Available atorvasta tin 40 mg tablet Take 1 tablet every day by oral route at bedtime for 90 days, for Choleste rol. active Not Available Not Available No t Available silver sulfadiaz ine 1 % topical cream APPLY TO AFFECTED AREA EVERY DAY 07/09 completed Not Available Not Available Not Available metformin 500 mg tablet TAKE ONE TABLET BY MOUTH TWICE DAILY EVERY MORNING & EVERY EVENING WITH FOOD FOR DIABETES active Not Available Not Available No t Available fluticaso ne 250 mcg-salme terol 50 mcg/dose blistr powdr for inhalatio n 04/24 completed Not Available Not Available Not Available nystatin 100,000 unit/mL oral suspensio n Take 5 mL 4 times a day by oral route as directed for 7 days. 07/02 completed Not Available Not Available Not Available acetamino phen 325 mg tablet TAKE TWO TABLETS EVERY 6 HOURS NEEDED FOR PAIN active Not Available Not Available No t Available prednison e 10 mg tablet TAKE 4 TABLETS BY MOUTH EVERY DAY FOR FOUR DAYS, THEN TAKE THREE TABLETS EVERY DAY FOR 2 DAYS, THEN TAKE TWO TABLETS EVERY DAY FOR 2 DAYS, THEN TAKE ONE TABLET EVERY DAY FOR 2 DAYS 08/08 completed Not Available Not Available Not Available doxycycli ne hyclate 100 mg capsule TAKE ONE CAPSULE TWICE DAILY EVERY MORNING & EVENING UNTIL ALL TAKEN. WEAR SUNSCREE N 01/09 completed Not Available Not Available Not Available ipratropi um 0.5 mg-albute rol 3 mg (2.5 mg base)/3 mL nebulizat ion soln INHALE THE CONTENTS OF 1 VIAL VIA NEBULIZE R FOUR TIMES DAILY NEEDED FOR BREATHIN G 2024 active Not Available Not Available Not Avai lable albuterol sulfate 2.5 mg/3 mL (0.083 %) solution for nebulizat ion 2.5 mg by inhalati on route. 07/07 completed Not Available Not Available Not Available cetirizin e 10 mg tablet Take 1 tablet every day by oral route around the clock for 30 days. 2023 active PRN Not Available Not Available Not Avai lable azithromy klever 250 mg tablet TAKE 2 TABLETS BY MOUTH ON DAY 1, THEN TAKE 1 TABLET DAILY ON DAYS 2-5 05/24 completed Not Available Not Available Not Available ibuprofen 800 mg tablet 01/09 completed Not Available Not Available Not Available Lidocaine Viscous 2 % mucosal solution PLACE 5 ML ON CANKER SORE USING A QTIP UP TO 4 TIMES DAILY (EVERY 6 HOURS) NEEDED 03/10 completed Not Available Not Available Not Available fluconazo le 150 mg tablet Take 1 tablet every day by oral route as directed for 1 day. 07/01 completed Not Available Not Available Not Available benzonata te 200 mg capsule TAKE ONE CAPSULE BY MOUTH THREE TIMES DAILY NEEDED FOR 7 DAYS 08/08 completed Not Available Not Available Not Available hydrocodo ne 5 mg-acetam inophen 325 mg tablet 12/23 completed Not Available Not Available Not Available meloxicam 15 mg tablet 01/09 completed Not Available Not Available Not Available prednison e 20 mg tablet TAKE ONE TABLET DAILY IN THE MORNING WITH FOOD ONLY IF FOR BLOOD PRESSURE IS LESS THAN 140/90 02/07 completed Not Available Not Available Not Available dexametha sone 6 mg tablet 1 tablet by oral route. 07/02 completed Not Available Not Available Not Available Tylenol Arthritis Pain 650 mg tablet,ex tended release Take 2 tablets every 8 hours by oral route as needed for 14 days. 01/21 completed Not Available Not Available Not Available metronida zole 500 mg tablet Take 1 tablet twice a day by oral route for 7 days. 01/09 completed Not Available Not Available Not Available acetamino phen 300 mg-codein e 30 mg tablet TAKE 1 TO 2 TABLETS BY MOUTH EVERY 4 TO 6 HOURS NEEDED FOR PAIN, max 12 tablets in 24 hours 10/09 completed Not Available Not Available Not Available acyclovir 400 mg tablet Take 1 tablet every 8 hours by oral route as directed for 10 days. 08/17 completed Not Available Not Available Not Available sulfameth oxazole 800 mg-trimet hoprim 160 mg tablet 01/09 completed Not Available Not Available Not Available omeprazol e 40 mg capsule,d elayed release TAKE ONE CAPSULE BY MOUTH EVERY MORNING FOR STOMACH active Not Available Not Available No t Available aspirin 81 mg tablet,de layed release TAKE ONE TABLET BY MOUTH EVERY MORNING TO PREVENT STROKE 2024 active Not Available Not Available Not Avai lable tramadol 50 mg tablet TAKE ONE TABLET BY MOUTH EVERY 4 HOURS NEEDED FOR PAIN 01/21 completed Not Available Not Available Not Available acetamino phen 500 mg tablet TAKE TWO TABLETS BY MOUTH EVERY 6 HOURS, max 4,000 MG in 24 hours 01/21 completed Not Available Not Available Not Available triamcino lone acetonide 0.1 % topical cream 07/04 completed Not Available Not Available Not Available carvedilo l 3.125 mg tablet TAKE ONE TABLET BY MOUTH TWICE DAILY EVERY MORNING & EVERY EVENING FOR BLOOD PRESSURE & HEART active Not Available Not Available No t Available ketorolac 10 mg tablet TAKE ONE TABLET BY MOUTH EVERY 6 HOURS NEEDED FOR 5 DAYS 06/25 completed Not Available Not Available Not Available Protonix 40 mg intraveno us solution 40 mg by intraven . route. 03/24 completed Not Available Not Available Not Available ascorbic acid (vitamin C) 500 mg tablet 500 mg by oral route. 03/26 completed Not Available Not Available Not Available tamsulosi n 0.4 mg capsule Take 1 capsule every day by oral route after meals for 7 days. 11/07 completed Not Available Not Available Not Available dexametha sone 1 mg tablet 09/23 completed Not Available Not Available Not Available benzonata te 100 mg capsule TAKE ONE CAPSULE EVERY 8 HOURS NEEDED FOR COUGH 05/24 completed Not Available Not Available Not Available cephalexi n 500 mg capsule TAKE ONE CAPSULE BY MOUTH EVERY 6 HOURS 01/21 completed Not Available Not Available Not Available pantopraz ole 40 mg tablet,de layed release 40 mg by oral route. 03/26 completed Not Available Not Available Not Available metronida zole 0.75 % topical cream apply a thin layer TO AFFECTED AREAS TWICE DAILY (morning AND evening) active PRN Not Available Not Available No t Available hydrochlo rothiazid e 12.5 mg capsule TAKE ONE CAPSULE BY MOUTH EVERY MORNING FOR BLOOD PRESSURE & FLUID RETENTIO N active Not Available Not Available No t Available Advair Diskus 500 mcg-50 mcg/dose powder for inhalatio n INHALE ONE PUFF BY MOUTH TWO TIMES DAILY 10/02 completed Not Available Not Available Not Available ibuprofen 200 mg tablet Take 1 tablet every 6 hours by oral route as needed. 08/17 completed Not Available Not Available Not Available aspirin 81 mg chewable tablet TAKE ONE TABLET TWICE DAILY 01/09 completed Not Available Not Available Not Available sodium chloride 0.9 % intraveno us solution 1000 mL by intraven . route. 03/24 completed Not Available Not Available Not Available ergocalci ferol (vitamin D2) 1,250 mcg (50,000 unit) capsule Take 1 capsule every week by oral route as directed for 56 days. 09/23 completed Not Available Not Available Not Available dexametha sone sodium phosphate 4 mg/mL injection solution 6 mg by injectio n route. 03/26 completed Not Available Not Available Not Available ibuprofen 600 mg tablet 10/02 completed Not Available Not Available Not Available polyethyl stephani glycol 3350 17 gram/dose oral powder MIX 17GM IN LIQUID AND TAKE ONCE DAILY IN THE MORNING active Not Available Not Available No t Available levofloxa klever 500 mg tablet Take 1.5 tablets every 24 hours by oral route as directed for 5 days. 07/02 completed Not Available Not Available Not Available levofloxa klever 750 mg tablet TAKE ONE TABLET BY MOUTH EVERY DAY 08/07 completed Not Available Not Available Not Available methylpre dnisolone 4 mg tablets in a dose pack Use as directed on package 12/28 completed Not Available Not Available Not Available albuterol sulfate HFA 90 mcg/actua tion aerosol inhaler INHALE TWO PUFFS BY MOUTH EVERY 4 HOURS NEEDED. FOR BEST RESULTS USE WITH A SPACER 2024 active Not Available Not Available Not Avai lable ketorolac 60 mg/2 mL intramusc ular solution Inject 1 mL every day by intramus cular route as directed for 1 day. 03/10 completed Not Available Not Available Not Available celecoxib 100 mg capsule TAKE ONE CAPSULE DAILY 02/07 completed Not Available Not Available Not Available cefdinir 300 mg capsule 1 capsule by oral route. 07/02 completed Not Available Not Available Not Available fluticaso ne propionat e 50 mcg/actua tion nasal spray,michelle pension SPRAY ONE PUFF IN EACH NOSTRIL EVERY MORNING FOR ALLERGIE S active Not Available Not Available No t Available doxycycli ne hyclate 100 mg tablet TAKE 1 TABLET BY MOUTH TWICE DAILY 07/01 completed Not Available Not Available Not Available loratadin e 10 mg tablet 10 mg by oral route. 03/26 completed Not Available Not Available Not Available amoxicill in 875 mg-potass ium clavulana te 125 mg tablet TAKE ONE TABLET BY MOUTH TWICE DAILY EVERY MORNING & EVENING FOR 7 DAYS FOR INFECTIO N 01/09 completed Not Available Not Available Not Available oxycodone 5 mg tablet TAKE ONE TABLET BY MOUTH EVERY 4 HOURS NEEDED FOR PAIN 02/07 completed Not Available Not Available Not Available Siltussin -DM 10 mg-100 mg/5 mL oral syrup Take 10 mL every 4 hours by oral route as needed for 4 days. 07/01 completed Not Available Not Available Not Available enoxapari n 30 mg/0.3 mL subcutane ous syringe 30 mg by sub-q route. 03/26 completed Not Available Not Available Not Available enoxapari n 40 mg/0.4 mL subcutane ous syringe 40 mg by sub-q route. 03/23 completed Not Available Not Available Not Available levofloxa klever 750 mg/150 mL in 5 % dextrose intraveno us piggyback 750 mg by intraven . route. 03/23 completed Not Available Not Available Not Available Senna Plus 8.6 mg-50 mg tablet TAKE TWO TABLETS TWICE DAILY active Not Available Not Available No t Available nitrofura ntoin monohydra te/macroc rystals 100 mg capsule TAKE 1 CAPSULE BY MOUTH EVERY 12 HOURS FOR 7 DAYS 01/09 completed Not Available Not Available Not Available Diabetic Tussin DM 10 mg-200 mg/5 mL oral liquid Take 10 mL 4 times a day by oral route as needed for 6 days. 05/24 completed Not Available Not Available Not Available Atrovent HFA 17 mcg/actua tion aerosol inhaler 2 pufs by inhalati on route. 03/26 completed Not Available Not Available Not Available chlorhexi dine gluconate 0.12 % mouthwash RINSE FOR 30 SECONDS WITH 1 TABLESPO ON (DISPENS E EVERY 12 HOURS) active Not Available Not Available No t Available Xanax 02/03 completed Not Available Not Available Not Available multivita min 08/27 completed Not Available Not Available Not Available Advair HFA 230 mcg-21 mcg/actua tion aerosol inhaler Inhale 2 puffs twice a day by inhalati on route. 11/07 completed Not Available Not Available Not Available zinc sulfate 50 mg zinc (220 mg) capsule 220 mg by oral route. 03/26 completed Not Available Not Available Not Available cholecalc iferol (vitamin D3) 25 mcg (1,000 unit) tablet 25 microgra ms by oral route. 03/26 completed Not Available Not Available Not Available hydrochlo rothiazid e 12.5 mg tablet Take 12.5 mg by oral route. 09/23 completed Duplicat e Not Available Not Available Not Available Symbicort 160 mcg-4.5 mcg/actua tion HFA aerosol inhaler INHALE TWO PUFFS BY MOUTH TWICE DAILY EVERY MORNING & EVERY EVENING FOR BREATHIN G. FOR BEST RESULTS USE WITH A SPACER active Not Available Not Available No t Available diclofena c 1 % topical gel APPLY TWO GRAMS FOUR TIMES DAILY DIRECTED active Disconti nued (Ineffec tive) Not Available Not Available Not Available Calcium with Vitamin D 600 mg-10 mcg (400 unit) tablet Take 1 tablet every day by oral route as directed for 30 days. 2022 active Not Available Not Available Not Avai lable Dulera 200 mcg-5 mcg/actua tion HFA aerosol inhaler 2 pufs by inhalati on route. 03/26 completed Not Available Not Available Not Available Suprep Bowel Prep Kit 17.5 gram-3.13 gram-1.6 gram oral solution Take 300 mL by oral route for 1 day. 12/23 completed Not Available Not Available Not Available OneTouch Verio test strips USE TO CHECK BLOOD SUGAR THREE TIMES PER WEEK active Not Available Not Available No t Available Combivent Respimat 20 mcg-100 mcg/actua tion solution for inhalatio n Inhale 1 puff 4 times a day by inhalati on route. 12/19 completed Not Available Not Available Not Available Robafen DM Cough 10 mg-100 mg/5 mL oral liquid Take 10 mL every 6 hours by oral route as directed for 5 days. 04/24 completed Not Available Not Available Not Available Eliquis 2.5 mg tablet TAKE ONE TABLET BY MOUTH EVERY TWELVE HOURS 01/21 completed Not Available Not Available Not Available Jardiance 10 mg tablet TAKE ONE TABLET BY MOUTH EVERY MORNING FOR DIABETES active Not Available Not Available No t Available Spiriva Respimat 2.5 mcg/actua tion solution for inhalatio n INHALE TWO PUFFS BY MOUTH EVERY MORNING FOR BREATHIN G active Not Available Not Available No t Available Incruse Ellipta 62.5 mcg/actua tion powder for inhalatio n 04/24 completed That's powder and that made me cough like crazy Not Available Not Available Not Available Spiriva Respimat 1.25 mcg/actua tion solution for inhalatio n Inhale 2 pufs by inhalati on route. 09/23 completed Not Available Not Available Not Available OneTouch Verio Flex Meter Use as directed TO TEST BLOOD SUGAR active Not Available Not Available No t Available Compact Space Chamber USE as directed with inhaler active Not Available Not Available No t Available OneTouch Delica Plus Lancet 33 gauge USE TO CHECK BLOOD SUGAR THREE TIMES WEEKLY 2023 active Not Available Not Available Not Avai lable OneTouch Delica Plus Lancet 30 gauge USE TO CHECK BLOOD SUGAR THREE TIMES WEEKLY 2023 active Not Available Not Available Not Avai lable Tab-A-Vit e 400 mcg tablet TAKE ONE TABLET BY MOUTH EVERY DAY FOR VITAMIN DEFICIEN CY active Not Available Not Available No t Available Veklury 100 mg intraveno us powder for solution 200 mg by intraven . route. 03/23 completed Not Available Not Available Not Available Vitals Date Recorded Body height Body mass index (BMI) Body weight Body temperature Respiratory rate Pain severity - 0-10 verbal numeric rating [Score] - Reported Oxygen saturation Oxygen saturation in Arterial blood by Pulse oximetry Heart rate Systolic blood pressure Diastolic blood pressure Provider Name and Address Organization Details Last Updated DateTime 4 154.94 cm 23.6 kg/m2 37988.0 5 g 97.8 [degF] 18 /min 0 96 % 96 % 68 /min 136 mm[Hg] 52 mm[Hg] Renetta Marie LPN [place] [facility] 4 12:05:59 Date Recorded Body height Body mass index (BMI) Body weight Oxygen saturation Oxygen saturation in Arterial blood by Pulse oximetry Heart rate Respiratory rate Systolic blood pressure Diastolic blood pressure Provider Name and Address Organization Details Last Updated DateTime 4 154.94 cm 24.1 kg/m2 51395.0 3 g 100 % 100 % 64 /min 16 /min 130 mm[Hg] 76 mm[Hg] Giuliana Tejada MA [facility] 4 11:12:50 Date Recorded Body height Body mass index (BMI) Body weight Body temperature Respiratory rate Pain severity - 0-10 verbal numeric rating [Score] - Reported Oxygen saturation Oxygen saturation in Arterial blood by Pulse oximetry Heart rate Systolic blood pressure Diastolic blood pressure Provider Name and Address Organization Details Last Updated DateTime 4 154.94 cm 23.8 kg/m2 49524.6 4 g 98.1 [degF] 18 /min 0 92 % 92 % 64 /min 138 mm[Hg] 60 mm[Hg] Renetta Marie LPN [facility] 4 12:08:55 Date Recorded Body height Body mass index (BMI) Body weight Systolic blood pressure Diastolic blood pressure Provider Name and Address Organization Details Last Updated DateTime 01/10/2024 154.94 cm 23.6 kg/m2 90041.75 g 118 mm[Hg] 66 mm[Hg] Shanta Baker MA [facility] 4 11:34:18 Date Recorded Body height Body mass index (BMI) Body weight Heart rate Oxygen saturation Oxygen saturation in Arterial blood by Pulse oximetry Respiratory rate Systolic blood pressure Diastolic blood pressure Provider Name and Address Organization Details Last Updated DateTime 4 154.94 cm 24 kg/m2 76229.8 7 g 66 /min 95 % 95 % 16 /min 124 mm[Hg] 70 mm[Hg] Giuliana Tejada MA [facility] 4 10:16:44 Social History Question Answer Notes LastModified by Organizat ion Details LastModified Time Tobacco Smoking Status Former Smoker PABLO Vanessa, [facility] 05/31/2018 14:13:08 Do You Have An Advance Directive? No Information not available 11/01/2020 What Is Your Level Of Alcohol Consumption? Occasional Information not available 05/31/2018 How Many Years Have You Consumed Alcohol? 19 Information not available 05/24/2023 What Is Your Level Of Caffeine Consumption? Moderate Information not available 05/31/2018 How Much Tobacco Do You Chew? None Information not available 05/31/2018 In The 14 Days Before Symptom Onset, Have You Had Close Contact With A Laboratory-confi rmed COVID-19 While That Case Was Ill? No Information not available 01/27/2023 In The 14 Days Before Symptom Onset, Have You Had Close Contact With A Person Who Is Under Investigation For COVID-19 While That Person Was Ill? No Information not available 01/27/2023 Have You Been To An Area Known To Be High Risk For COVID-19? No Information not available 01/27/2023 Are You Currently Employed? No Information not available 11/01/2020 What Type Of Diet Are You Following? REGULAR Information not available 05/31/2018 Do You Or Have You Ever Used E-cigarettes Or Vape? Never Used Electronic Cigarettes Information not available 04/24/2019 What Is Your Occupation? Unemployed Information not available 05/31/2018 Are There Any Guns Present In Your Home? No Information not available 05/31/2018 Hard Of Hearing Or Deaf In One Or Both Ears? Yes Information not available 05/31/2018 Legally Blind In One Or Both Eyes? No Information not available 05/31/2018 Marital Status Single Informatio n not available 05/31/2018 Do You Have A Medical Power Of Levi Maker? No [email or web address] Information not available 10/02/2021 What Was The Date Of Your Most Recent Tobacco Screening? 02/08/2024 Information not available 02/08/2024 What Is Your Current Pack Years? [email or web address] ears Information not available 07/05/2020 Performs Monthly Self-breast Exam? No Information not available 05/31/2018 What Is Your Relationship Status? Single Information not available 11/01/2020 Seat Belts Used Routinely Yes Information not available 05/31/2018 Are You Sexually Active? Yes Information not available 11/01/2020 Smoke Alarm In Home Yes Information not available 05/31/2018 Do You Have Smoke And Carbon Monoxide Detectors In Your Home? Yes Information not available 11/11/2021 At What Age Did You Start Smoking Tobacco? 21 Information not available 05/31/2018 Are You Passively Exposed To Smoke? No Information not available 11/11/2021 Do You Or Have You Ever Used Smokeless Tobacco? Never Used Smokeless Tobacco Information not available 04/24/2019 How Much Tobacco Do You Smoke? 1 PPD Information not available 07/05/2020 Do You Use Any Illicit Or Recreational Drugs? No Information not available 07/05/2020 Has Tobacco Cessation Counseling Been Provided? Yes Information not available 07/05/2020 On What Date Was Tobacco Cessation Counseling Provided? 02/08/2024 Information not available 02/08/2024 How Many Years Have You Smoked Tobacco? 42 Stopped 2013. No Cigarettes For A Year Stopped Again In 2019 Information not available 05/24/2023 Do You Or Have You Ever Used Any Other Forms Of Tobacco Or Nicotine? No Information not available 07/05/2020 Sex: Unknown Functional Status Question Answer Note LastModified by Organization D etails LastModified Time What is your exercise level? None Information not available 05/31/2018 Mental Status None recorded. Family History Relationship Description Onset Age of this Age Resolved Age Notes LastModified by Organization Details LastModified Time Mother Malignant tumor of cervix [email or web address] Not available 2018 14:17:46 Medical History Condition Response Coronary Artery Disease N Other N Atrial Fibrillation N High Blood Pressure N Thyroid Problems N Kidney or Bladder Problems N Depression N COPD Y Blood Clots Y GI Problems N Skin Problems N Anemia N Heart Attack ([place]) Y Diabetes Y Anxiety Disorder Y Muscle, Joint, or Bone Problems N Seizures/Epilepsy N Acid Reflux (GERD) N Cancer N Stroke N Allergies N Asthma N High Cholesterol Y Hepatitis N Liver Disease N Headaches N Hypertension Y Osteoporosis N Heart Failure N Gynecological History Statement/Question Response If Post Menopausal, Age at Menopause 49 Date of Last Mammogram 11/03/2021 Menses Monthly N STIs/STDs Y Date of Last Pap Smear 11/11/2021 Current Control Method Tubal Ligat ion Most Recent Mammogram 11/08/2023 Obstetrics History GPAL:G 5 P 3 0 2 3 Type Value Multiple Births 0 Full Term 3 Induced 0 Spontaneous 2 Premature 0 Living 3 Ectopics 0 Total 5 Immunizations Vaccine Type Date Status Note Provider Nam e and Address Organization Details Recorded Time COVID-19 vaccine, vector-nr, rS-Ad26, PF, 0.5 mL 1 completed Not Available [facility] 03/19/2023 06:46:51 pneumococcal polysaccharide PPV23 2 completed Not Available [facility] 03/19/2023 06:46:51 Pneumococcal conjugate PCV20, polysaccharide SIA193 conjugate, adjuvant, PF 3 completed Not Available [facility] 03/19/2023 06:46:51 Influenza, split virus, quadrivalent, preservative 9 completed Not Available [facility] 04/29/2019 02:40:58 Influenza, split virus, quadrivalent, preservative 1 completed Je Morse MA [facility], [place] - [facility] 07/05/2020 11:54:22 Past Encounters Encounter ID Performer Location Encounter Start Date Encounter Closed Date Diagnosis/Indication Diagnosis SNOMED-CT Code Diagnosis ICD10 Code Diagnosis Note [id number] Ariana Escobedo MD [facility] (Adult Med) [address] [place] [address] 05/31/2018 13:47:19 06/01/2018 11:13:10 Screening for malignant neoplasm of breast 336965471 Z12.31 General ex amination of patient 858645754 Z00.01 Coronary arteriosclerosis in [place] artery 7830643295 107 I25.10 History of myocardial infarction 651526508 I25.2 Solitary n odule of lung 548720248 R91.1 Tobacco de pendence in remission 716684335 F17.201 Screening for malignant neoplasm of colon 746311971 Z12.11 Influenza vaccination declined 575904930 Z28.21 History of pulmonary embolus 526984133 Z86.711 Screening for malignant neoplasm of cervix 227464910 Z12.4 Anxiety 91636811 F41.9 She is aware that I do not prescribe Xanax Pulmonary emphysema 8743 3001 J43.9 Benign hypertension 1072 5009 I10 Tetanus va ccination declined by patient 829657320 Z28.21 Ganglion c yst of right hand 7067899916 01724 M67.441 Imaging re sult abnormal 215184036 R93.7 The appearance of the left clavicle was abnormal on the CXR done 05/18/2018 although not mentioned on the CT scan, she denies any previous surgery. She does have left sided neck pain but she was not tender over the left clavicle. 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 E78.9 Impaired f asting glycemia 636240888 R73.01 Benign hypertension 1072 5009 I10 Pulmonary emphysema 8743 3001 J43.9 [id number] Ariana Escobedo MD [facility] (Adult Med) [address] [place] [address] 08/22/2018 12:05:22 08/22/2018 13:31:48 Acute bronchitis 11122889 J20.9 Ganglion c yst of right hand 5046869751 22085 M67.441 Pulmonary emphysema 8743 3001 J43.9 Anxiety 43946770 F41.9 She was previously made aware that I do not prescribe Xanax [id number] [facility] [address] [place] [phone] 12/23/2018 11:38:49 12/23/2018 15:00:01 Coronary arteriosclerosis in [place] artery 5773206610 107 I25.10 Administra tion of influenza vaccine 05650781 Z23 Abnormal f indings on diagnostic imaging of breast 302522586 R92.8 4 mm L nodular density noted on the CT scan of the chest done 08/23/18. This was ordered by her pulmonolog ist, Dr Leo.Abn ormal diagnostic MMG of both breasts 09/07/18.An US of the breast was done 09/09/18, it was felt to be benign.She will need to follow up closely with Dr Bowen, the breast surgeon. Sinusitis 95987679 J32.9 Impaired f asting glycemia 331617852 R73.01 [id number] MD Kylie Singer (Adult Med) [address] [place] [phone] 02/03/2019 10:08:55 02/03/2019 10:36:45 Acute exacerbation of chronic obstructive pulmonary disease 480583284 J44.1 [id number] KIA BARRETT NP [facility] [address] [phone] 02/27/2019 13:42:40 03/14/2019 12:10:12 Chronic obstructive pulmonary disease 04821379 J44.9 Continue MDI/techni que will order previous regimen PFTs done 06/28 Solitary n odule of lung 484746160 R91.1 08/23/[address]- stable 5.5m nodule. continue to monitor - F/U 6 months with imaging [id number] MD Kylie Singer (Adult Med) [address] [place] [address] 0 04/24/2019 12:09:15 04/24/2019 13:02:01 Screening for malignant neoplasm of cervix 252068449 Z12.4 Vaginal lesion 580586802 N94.89 Pulmonary emphysema 8743 3001 J43.9 [id number] MD Kylie Singer (Adult Med) [address] [place] [phone] 05/04/2019 11:38:01 05/05/2019 11:52:54 Acute exacerbation of chronic obstructive pulmonary disease 217494099 J44.1 Candidiasis of mouth 797 28160 B37.0 Probably related to the Symbicort and Prednisone [id number] TAMARA MURPHY ([employer]) [address] [place] [phone] 05/05/2019 10:37:54 05/08/2019 09:50:12 Gynecologic examination 30770737 Z01.419 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 F/u with culture. Advised patient to finished course of acyclovir as prescribed by PCP. Venereal d isease screening 559976367 Z11.3 Screening for osteoporosis 974136651 Z13.820 40+ pack year smoker. Start early BMD screening. Female str ess incontinence 15094019 N39.3 Discussed kegel exercises with patient. [id number] TAMARA MURPHY ([employer]) [address] [place] [phone] 05/25/2019 12:10:29 05/25/2019 13:48:13 High grade squamous intraepithelial lesion on cervical Papanicolaou smear 0646625483 9107 R87.613 Human simeon llomavirus deoxyribonucleic acid detected, high risk on cervical specimen 556166946 R87.212 [id number] TAMARA MURPHY ([employer]) [address] [place] [address] 0 06/08/2019 11:55:04 06/09/2019 12:11:12 Lesion of vulva 367274851 N90.89 Dermatolog ical cause vs HPV changes vs malignancy . Shave biospy performed. F/u pathology. Cervical intraepithelial neoplasia grade 2 901203254 N87.1 Per pathology report: Part A: CERVICAL BIOPSY: HIGH-GRADE SQUAMOUS INTRAEPITH ELIAL LESION (KLEVER 1 / 2) WITH HUMAN PAPILLOMAV IRUS (HPV) EFFECT.Par t B: ENDOCERVIC AL CURETTAGE: HIGH-GRADE SQUAMOUS INTRAEPITH ELIAL LESION (AT LEAST KLEVER 2) WITH HUMAN PAPILLOMAV IRUS (HPV) EFFECT. Wi ll need LEEP. Discussed procedure with patient in detail. Informatio nal handout provided. Human simeon lloma virus infection 160948578 B97.7 High risk type. Will repeat Pap smear in 6 months. 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 COMMENT: MARGINS INVOLVED. Discussed with pt in detail. Will refer urgently to adjustment supervisor onc for management . Cervical intraepithelial neoplasia grade 2 [id number] N87.1 Per pathology report: Part A: CERVICAL BIOPSY: HIGH-GRADE SQUAMOUS INTRAEPITH ELIAL LESION (KLEVER 1 / 2) WITH HUMAN PAPILLOMAV IRUS (HPV) EFFECT. Part B: ENDOCERVIC AL CURETTAGE: HIGH-GRADE SQUAMOUS INTRAEPITH ELIAL LESION (AT LEAST KLEVER 2) WITH HUMAN PAPILLOMAV IRUS (HPV) EFFECT. Will need at least LEEP, possible hysterecto my. Due to new SCC diagnosis, will refer to adjustment supervisor onc for complete management . Will cancel LEEP that was previously scheduled with Dr. Peace. Human simeon lloma virus infection 146801602 B97.7 [id number] MD Kylie Singer (Adult Med) [address] [place] [address]13[address] 0 07/03/2019 09:37:15 07/04/2019 10:16:33 Chronic obstructive pulmonary disease 26117755 J44.9 That she cannot tolerate the powder as it makes her cough [id number] [facility] (Adult Med) [address] [place] [address]18-134 0 08/18/2019 10:07:49 08/21/2019 10:54:35 Right flank pain 402462375 R10.9 Complainin g acute right flank pain x 7-8 hours. She woke up in the middle of the night with severe right flank pain.The pain is 10/10, states she can not get comfortabl e.She has not taken anything for the pain at home, only has ibuprofen at home and did not feel comfortabl e taking ibuprofen due to what she has heard on the news concerning the medication and COVID-19.T he pain is so severe that is makes it difficult to walk.Histo ry of kidney stones many years ago but also recently 1 month ago. On PE: vitals normal, no fever, appears in mild distress due to back pain, and R CVA tenderness on examUrine dipstick normal in office today- will order STAT CT scan w/o contrast to look for nephrolith iasis- gave her 1000 mg of tylenol in office to help with pain- will prescribed flomax to help move possible stone, take ibuprofen 800 mg PRN she has at home already- provided her with informatio n regarding supportive care measures for home- drink lots of water and apply heat to affected area- if pain gets worse, unable to walk, develops high fever, or unable to void - go to ER. Patient understood History of calculus of kidney 416407076 Z87.442 History of kidney stones many years ago but also recently 1 month ago.She had similar symptoms last month, went to urgent care, no imaging completed but given ibuprofen and flomax to help pass stone, pt. 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 [facility] plans to contact patient regarding close f/u until LEEP can be performed- continue to follow with [facility] [id number] KIA BARRETT NP [facility] [address] [place] [address] 08/28/2019 09:50:35 09/15/2019 14:06:55 Chronic obstructive pulmonary disease 06649606 J44.9 Continue MDI/techni que will order previous regimen PFTs done 06/28 Solitary n odule of lung 555140217 R91.[address] w/o contrast f/u08/23/[address]- stable 5.5m nodule. continue to monitor Tobacco de pendence in remission 154579309 F17.201 Continue cessation [id number] MD Kylie Singer (Adult Med) [address] [place] [address]952[address]880 0 10/10/2019 15:45:38 10/12/2019 08:00:44 History of calculus of kidney 934904782 Z87.442 Onychomyco sis of toenails 486521098 B35.1 labs then consider an oral antifungal Carcinoma in situ of vulva 13273258 D07.1 Impaired f asting glycemia 386471716 R73.01 Long-term drug therapy 966170575 Z79.899 Disorder o f lipid metabolism 110069095 E78.9 Screening for malignant neoplasm of breast 859135435 Z12.31 She apparently had a MMG at in July, [id number] MD Kylie Singer (Adult Med) [address] [place] [address] 68782-056 0 10/17/2019 13:18:17 10/17/2019 22:48:57 Acute low back pain 003739837 M54.5 ILPMPXrayT ramadol History of calculus of kidney 833325480 Z87.442 KUBUrology opinionRet FlomaxLabs [id number] KIA BARRETT NP [facility] [address] [place] [address] 10/19/2019 11:51:56 10/26/2019 10:30:26 Chronic obstructive pulmonary disease 36330724 J44.9 MDI teaching/t echnique: Continue Symbicort as prescribed , Combivent and ventolin as needed Nebs PFTs done 06/28 CAT- 12 Mmrc-1 Gold 3/B Solitary n odule of lung 378159855 R91.1 08/23/[address]- stable 5.5m nodule.Meredith st CT f/u ordered, awaiting completion Tobacco de pendence in remission 547913679 F17.201 Continue cessation Viral screening 06328155 4 Z11.59 PFT ordered, COVID screening required Benign hypertension 1072 5009 I10 Managed in primary care. Continue to monitor blood pressure. Encourage low salt diet and exercise. [id number] MD Kylie Singer (Adult Med) [address] [place] [address]98[address] 0 11/08/2019 14:55:48 11/08/2019 15:50:28 Degeneration of lumbar intervertebral disc 29212343 M51.36 Scoliosis deformity of spine 148979452 M41.9 Impaired f asting glycemia 622071616 R73.01 Pruritic rash 71148557 L 28.2 Rosacea 131127273 L71.9 Tobacco de pendence in remission 627133114 F17.201 Screening for malignant neoplasm of breast 290915848 Z12.31 [id number] MD Klyie Singer (Adult Med) [address] [place] [address] 71309-107 0 12/20/2019 14:59:07 12/20/2019 15:49:50 Chronic obstructive pulmonary disease 21609546 J44.9 Stable, apparently the Combivent is not covered Rosacea 615807473 L71.9 [id number] KIA BARRETT NP [facility] [address] [place] [address] 01/15/2020 09:58:01 01/23/2020 15:02:52 Chronic obstructive pulmonary disease 63306724 J44.9 MDI teaching/t echnique: Continue Symbicort as prescribed , Combivent and ventolin as needed Nebs Solitary n odule of lung 071301105 R91.1 08/23/[address]- stable 5.5m nodule.Meredith CT f/u ordered , awaiting completion Tobacco de pendence in remission 684733942 F1.201 Continue cessation Benign hypertension 1072 5009 I10 Managed in primary care. Continue to monitor blood pressure. Encourage low salt diet and exercise. Seasonal allergy 8921121 04 J30.2 [id number] KIA BARRETT NP [facility] [address] [place] [address] 04/24/2020 10:27:10 04/24/2020 15:42:26 Chronic obstructive pulmonary disease 12146648 J44.9 MDI teaching/t echnique: Continue MDI as prescribed . Reordering PFT and 6 min walk. Solitary n odule of lung 062313671 R91.[address] w/con. 01/30/20: IMPRESSION : 1. 6 mm nodule left upper lobe unchanged dating back to 05/18/2018. No new or progressiv e lesions. No specific follow-up necessary. 2. Mild upper lobe predominan t centrilobu lar emphysema. 3. Atheroscle rosis.F/U chest ct 12 months (01/30) Tobacco de pendence in remission 292075680 F1.201 Continue cessation Benign hypertension 1072 5009 I10 Managed in primary care. Continue to monitor blood pressure. Encourage low salt diet and exercise. Seasonal allergy 2815613 04 J30.2 Continue Cetirizine [id number] MD Kylie Singer (Adult Med) [address] [place] [address] 0 05/15/2020 11:15:47 05/16/2020 09:08:29 Carcinoma in situ of vulva 65767262 D07.1 She was reminded to follow up at [facility] as referred by her gynecologi st Upper resp iratory infection 56185819 J06.9 Impaired f asting glycemia 441482689 R73.01 Medication monitoring 39 9446652 Z51.81 Needs infl uenza immunization 534678742 Z28.3 [id number] MD Kylie Singer (Adult Med) [address] [place] [address] 9[address]02-[address] 0 07/01/2020 08:05:29 07/02/2020 08:22:48 Uncontrolled type 2 diabetes mellitus 409337493 E11.65 Discussed Pain of left heel 707782 4516 516998 M79.672 Swollen abdomen 62272087 R14.0 OV needed [id number] KIA BARRETT NP [facility] [address] [place] [address] 2 07/04/2020 12:08:03 07/04/2020 16:56:51 Chronic obstructive pulmonary disease 06658001 J44.9 MDI teaching/t echnique: Continue MDI as prescribed . Duesusy New PFT recently completed at [facility], will request results Solitary n odule of lung 260038086 R91.1 Nodule has resolved CTA of chest done 06/2020 no PE moderate to severe centrilobu lar emphysema platelike atelectasi s or scaring to bilateral lungs, new possible hepatic steatosis no nodules noted Tobacco de pendence in remission 578625460 F17.201 Continue cessation Benign hypertension 1072 5009 I10 Managed in primary care. Continue to monitor blood pressure. Encourage low salt diet and exercise. Seasonal allergy 3406593 04 J30.2 Continue Cetirizine Chronic re spiratory failure 84746479 J96.10 [facility] with supplement al O2 06/30. Continue supplement al O2 at 2L/min via NE with activity. Will repeat 6 min walk Fibrosis of lung 0472517 1 J84.10 Will order HRCT , Chest CTA 06/30; new scaring noted to bilateral lungs [id number] MD Kylie Singer (Adult Med) [address] [place] [address] 82405[address]218 0 07/05/2020 10:28:46 07/08/2020 07:30:55 Abdominal pain 76794815 R10.9 Colonoscop y 02/2019 Diarrhea from Esomeprazo le Gastroesop hageal reflux disease 076525537 K21.9 Lifestyle changes were discussed Pain of left heel 442719 5526 802368 M79.672 Swollen abdomen 03807904 R14.0 OV needed Administra tion of influenza vaccine 59678159 Z23 Carcinoma in situ of vulva 22334642 D07.1 She was reminded to follow up at [facility] as referred by her gynecologi st [id number] MD Kylie Singer (Adult Med) [address] [place] [address] 07/22/2020 07:56:21 07/23/2020 07:33:05 Plantar fasciitis 922376769 M72.2 Follow-up visit 68071907 9 Z09 [id number] KIA BARRETT NP [facility] [address] [place] [address] 09/04/2020 12:07:45 09/06/2020 08:45:30 Chronic obstructive pulmonary disease 54005918 J44.9 MDI teaching/t echnique: Continue MDI as prescribed . Duenebs severe obstructio n noted, significan t response to BD. Airtrappin g and hyperinfla tion 6 min walk: no supplement al O2 required at this time. lowest O2 92% Adding Spiriva respimat Pulmonary rehab Check nocturnal oximetry HRCT 08/20/20 at [facility] IMPRESSION : 1. No significan t fibrotic changes. No reticular opacities, traction bronchiect asis, honeycombi ng, architectu ral distortion . 2. Chronic mild bronchiect asis in the lung bases is stable. 3. 6 mm nodule left upper lobe has been stable for more than 2 years, no specific follow-up necessary. Compatible with a benign lesion. 4. Stable mild emphysema. 5. Atheroscle rosis. Moderate scoliosis. Tobacco de pendence in remission 157147033 F17.201 Qualifies for LDCT lung cancer screening. Will order LDCT, Discussed risk/benef its, importance of annual screening adherence. Continue cessation Benign hypertension 1072 5009 I10 Managed in primary care. Continue to monitor blood pressure. Encourage low salt diet and exercise. Seasonal allergy 1593368 04 J30.2 Continue Cetirizine Solitary n odule of lung 361347454 R91.1 HRCT 08/20/20 at [facility]: 6 mm nodule left upper lobe has been stable for more than 2 years, no specific follow-up necessary. Compatible with a benign lesion. Dyspnea on exertion 6084 5006 R06.09 Echo [id number] TAMARA MURPHY (BRONZE PLATER) [facility] [place] [address] 11/01/2020 11:27:47 11/07/2020 19:48:55 Gynecologic examination 40478314 Z01.419 -Last pap was 05/05/19, showed HSIL, HPV+. 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 Pap repeated today.-lucina box completed, treat as needed-Las t mammogram was 06/27/20, unremarkab le BIRADS 1-Educated osteoporos is prevention including calcium rich diet, weight bearing exercise. Will start supplement . Carcinoma in situ of vulva 10024078 D07.1 -Per pathology report 06/08/2019: FULL THICKNESS INTRAEPIDE RMAL SQUAMOUS ATYPIA CONSISTENT WITH SQUAMOUS CELL CARCINOMA IN-SITU. COMMENT: MARGINS INVOLVED. Previously referred to [facility] U adjustment supervisor/onc but pt did not follow up due to COVID-19 pandemic. Referred back today. Cervical intraepithelial neoplasia grade 2 547176377 N87.1 -Per pathology report 05/25/20: Part A: CERVICAL BIOPSY: HIGH-GRADE SQUAMOUS INTRAEPITH ELIAL LESION (KLEVER 1 / 2) WITH HUMAN PAPILLOMAV IRUS (HPV) EFFECT. Part B: ENDOCERVIC AL CURETTAGE: HIGH-GRADE SQUAMOUS INTRAEPITH ELIAL LESION (AT LEAST KLEVER 2) WITH HUMAN PAPILLOMAV IRUS (HPV) EFFECT. Repeated PAP today, referred back to adjustment supervisor/onc. [id number] KIA BARRETT NP [facility] [address] [place] [address] 11/07/2020 10:34:06 11/07/2020 14:08:28 Chronic obstructive pulmonary disease 61978289 J44.9 Stop symbicort, Start Wixela as prescribed , rinse after useDPI teachingZ- paksteroid sAvoid heat, keep hydrated , drink plenty of water, know your warning signs of a flare, listen to air quality and humidity advisories , avoid strenuous [id number] s [id number] KIA BARRETT NP [facility] [address] [place] [address] 12/05/2020 12:06:41 12/09/2020 12:26:30 Chronic obstructive pulmonary disease 81238877 J44.9 Continue Advair 500 mcgDPI teachingre fill [id number] MD Kylie Singer (Adult Med) [address] [place] [address]97[address] 0 01/09/2021 11:49:23 01/09/2021 13:48:02 Coronary arteriosclerosis in [place] artery 7125225327 107 I25.10 Adult heal th examination 833566919 Z00.00 Impaired f asting glycemia 573158019 R73.01 Influenza vaccination declined 607689697 Z28.21 [id number] TAMARA MURPHY (BRONZE PLATER) [address] [place] [address]15[address] 0 01/10/2021 11:20:30 01/13/2021 08:33:38 Carcinoma in situ of vulva 12995268 D07.1 s/p partial L vulvectomy 12/17/20 at [facility]. Site appears well healed although 3-4 large suture knots still present which are likely contributi ng to patient symptoms, removed today in office to promote further healing. No signs of infection. Care instructio ns reviewed and supplies provided. Advised to RTC if symptoms persist. High grade squamous intraepithelial lesion on cervical Papanicolaou smear 8215396515 9107 R87.613 S/p LEEP 12/17/20 at [facility]. Repeat Pap in 6 months. [id number] KIA BARRETT NP [facility] [address] [place] [address] 07/02/2021 10:03:24 07/07/2021 11:35:09 Chronic obstructive pulmonary disease 60665715 J44.9 Continue Advair 500 mcgMDI teachingSp iriva respimatPr ednisone Dependence on nocturnal oxygen therapy 7171680146 9108 Z99.81 continue supplement al O2 nightly Reactive a irway disease 1054141480 06 J45.909 Tobacco de pendence in remission 879860974 F17.201 Smoked for 42 years,1 ppd, stopped 2019 [id number] MD Kylie iSnger (Adult Med) [address] [place] [address] 0 07/09/2021 10:00:06 07/10/2021 07:04:51 Type 2 diabetes mellitus without complication 604333905 E11.9 Immunization advised 310 606224 Z71.9 History of SARS-CoV-2 29 95202551 76936546 Z86.16 Administra tion of pneumococcal vaccine 60769964 Z23 SARS-CoV-2 antigen vaccine declined 9266529323 Z28.21 History of pneumonia 161 373240 Z87.01 Screening mammography of bilateral breasts 1989006953 57191 Z12.31 Body mass index 25-29 - overweight 192584433 Z68.28 Previous [facility] admissions 566403558 Z78.9 Discussed [id number] TAMARA MURPHY (BRONZE PLATER) [address] [place] [address] 20767[address] 0 07/11/2021 10:54:14 07/17/2021 09:51:16 Atrophic vaginitis 59068071 N95.2 Educated pt to try OTC vaginal moisturize rs to try and alleviate symptoms. Deferring topical estrogen use to adjustment supervisor onc given pt's history. Carcinoma in situ of vulva 22510187 D07.1 s/p partial L vulvectomy 12/17/20 at [facility]. Site appears well healed and reassuring . Advised that occasional pains could be related to normal healing process. Atrophic vaginitis management as below. [id number] KIA BARRETT NP [facility] [address] [place] [address] 10/02/2021 10:23:26 10/02/2021 11:50:47 Chronic obstructive pulmonary disease 22222832 J44.9 Stop Advair 500 mcgMDI teachingSp iriva respimatPr ednisone Reactive a irway disease 6491194345 06 J45.909 Dependence on nocturnal oxygen therapy 7149573003 9108 Z99.81 2L [place] O2 overnight Tobacco de pendence in remission 413322277 F17.201 Smoked for 42 years,1 ppd, stopped 2019 [id number] MD Kylie Singer (Adult Med) [address] [place] [address] 0 10/09/2021 09:50:09 10/09/2021 11:03:39 Type 2 diabetes mellitus without complication 657658512 E11.9 Uncontroll ed with an HBA1C of 7.8 (08/06/2021 )Continue MetforminS tart Jardiance, she has no personal or FHX of Thyroid cancerTest BS 3/week Pain in right foot 55211 24721 48810 M79.671 Arthritis of hand 379142 005 M13.841 M13.842 Body mass index 25-29 - overweight 826188489 Z68.28 [id number] MD Kylie Singer (Adult Med) [address] [place] [address]82[address] 0 11/07/2021 11:03:38 11/07/2021 13:37:54 Mammography abnormal 742315856 R92.8 Type 2 judith betes mellitus without complication 933567911 E11.9 Uncontroll ed with an HBA1C of 7.8 (08/06/2021 )Continue Metformin and Jardiance, she has no personal or FHX of Thyroid cancerTest BS 3/week Medication monitoring 39 4783178 Z51.81 SARS-CoV-2 antigen vaccine declined 2429388034 Z28.21 Discussed Osteoarthritis 746457144 M19.90 [id number] TAMARA MURPHY (BRONZE PLATER) [address] [place] [address]05[address] 0 11/11/2021 10:41:33 12/03/2021 15:07:28 Gynecologic examination 57895233 Z01.419 -h/o CIN2. Last Pap October 2020, NILM/HPV(+ ). Pap updated today-Last mammogram was October 2021, BIRADS 2.-[employer] Up Operator ed regarding importance of physical activity, healthy diet and appropriat e calcium intake. -RTC in 1yr Carcinoma in situ of vulva 46071240 D07.1 s/p partial L vulvectomy 12/17/20 at [facility]. Site appears well healed and reassuring . [id number] MD Kylie Singer (Adult Med) [address] [place] [address] 87877-484 0 11/19/2021 10:18:05 11/20/2021 11:50:30 Pain of left forearm 6452003224 66347 M79.632 Severe pain in the left forearm, it is unclear if this is radicular pain from her hand.XrayO rthopedics Tylenol Musculoskeletal pain 279 435867 M79.10 Body mass index 25-29 - overweight 629173236 Z68.28 [id number] MD Kylie Singer (Adult Med) [address] [place] [address] 92325-[address] 0 03/10/2022 09:40:54 03/12/2022 15:20:42 Osteoarthritis of wrist 169089037 M19.039 Solitary n odule of lung 737485096 R91.1 Stable on the LDCT one on 12/08/2021 Rosacea 721830092 L71.9 SARS-CoV-2 antigen vaccine declined 4109588960 Z28.21 [id number] KIA BARRETT NP [facility] [address] [place] [address] 03/30/2022 10:55:36 03/31/2022 08:00:00 Chronic obstructive pulmonary disease 92217011 J44.9 StableSymb icort 160 mcgSpiriva respimat 2.5 mcgnebs as needed Reactive a irway disease 1093432317 06 J45.909 Dependence on nocturnal oxygen therapy 7145238577 9108 Z99.81 2L [place] O2 overnight, benefiting from useOvernig ht ox on 2l/min Tobacco de pendence in remission 199919802 F17.201 Smoked for 42 years,1 ppd, 42 PYHstopped 2019 LDCT 11/2021 Solitary n odule of lung 998761279 R91.1 LDCT 12/08/21 at [facility] :unchanged 7mm solid nodule LULno new or suspicious lung nodules seen. [id number] MD Kylie Singer (Adult Med) [address] [place] [address]77[address] 0 06/04/2022 16:02:31 06/08/2022 12:25:59 Administration of pneumococcal vaccine 78109662 Z23 Postmenopausal state 764 98159 Z78.0 Screening for malignant neoplasm of breast 913066408 Z12.31 Type 2 judith betantonio mellitus without complication 654561211 E11.9 Controlled with an HBA1C of 6.2 (), previously 7.8 (08/06/2021 )Continue Metformin and Jardiance, she has no personal or FHX of Thyroid cancerTest BS 3/week SARS-CoV-2 mRNA vaccine declined 0011929730 Z28.21 Strain of muscle of left groin region 9597447180 2348332 S76.012A Pain of le ft hip joint 0419487627 09207 M25.552 Body mass index 25-29 - overweight 917953846 Z68.28 Obesity 537613597 E66.9 [id number] KIA BARRETT NP [facility] [address] [place] [address]13[address] 06/25/2022 10:05:33 06/25/2022 14:59:30 Chronic obstructive pulmonary disease 61514040 J44.9 Stable, doing wellSymbic ort 160 mcgSpiriva respimat 2.5 mcgAlbuter ol/nebs as needed Reactive a irway disease 4949104675 06 J45.909 Continue MDI/DPI as prescribed well controlled Dependence on nocturnal oxygen therapy 6226123086 9108 Z99.81 2L [place] O2 overnight, benefiting from use Tobacco de pendence in remission 416949524 F17.201 Smoked for 42 years,1 ppd, 42 PYHstopped 2019 LDCT 11/2021 Solitary n odule of lung 301244592 R91.1 LDCT 12/08/21 at [facility] :unchanged 7mm solid nodule LULno new or suspicious lung nodules seen.Will continue annual LDCT for nodule surveilanc e Overweight 442295102 E66 .3 Has increased exercise and diet change Pain of le ft hip joint 8045556318 51989 M25.552 Pulmonary clearance requested for Left hip replacemen t - date TBD by Dr. Kole Julian at [facility] Managed in primary care. Continue to monitor blood pressure. Encourage low salt diet and exerciseCa se discussed with Dr. Rodríguez, clearance given [id number] MD Kylie Singer (Adult Med) [address] [place] [address] 0 07/13/2022 10:16:44 07/14/2022 13:42:29 Follow-up visit 338622769 Z09 Cough 09392922 R05.9 Osteoporosis 05050977 M8 1.0 Osteonecro sis of head of femur 316680108 M87.968 [id number] MD Kylie Singer (Adult Med) [address] [place] [address] 46[address]559 0 08/07/2022 09:59:30 08/11/2022 12:14:51 Benign essential hypertension 8742472 I10 [id number] Ariana Escobedo MD [facility] (Adult Med) [address] [place] [address] 0 09/23/2022 09:13:37 09/25/2022 11:40:16 Pre-surgery evaluation 399534155 Z01.818 Low risk Screening for malignant neoplasm of breast 969802263 Z12.31 Chronic ob structive pulmonary disease 79584137 J44.9 Stable Type 2 judith betes mellitus without complication 074177617 E11.9 Controlled with an HBA1C of 6.6 (08/07/2022 ), previously 6.2 () and 7.8 (08/06/2021 )Continue Metformin and Jardiance. [id number] MD Kylie Singer (Adult Med) [address] [place] [address]5210[address] 0 01/21/2023 09:55:50 01/22/2023 14:29:34 Type 2 diabetes mellitus without complication 748537720 E11.9 Controlled with an HBA1C of 5.7 (10/23/2022 ), previously 6.6 (08/07/2022 ), 6.2 () and 7.8 (08/06/2021 )Continue Metformin and Jardiance. Insomnia 164347767 G47.0 0 She has failed OTC sleep medication s including Melatonin Seasonal allergy 0767806 04 J30.2 Postmenopa usal osteoporosis 286257597 M81.0 Influenza vaccination declined 539862540 Z28.21 Chronic ob structive pulmonary disease 83128699 J44.9 Stable History of total replacement of left hip joint 9427635290 754432 Z96.203 [id number] Tin Rodríguez MD [facility] [address] [place] [address] 01/27/2023 11:22:25 01/28/2023 12:24:30 Chronic obstructive pulmonary disease 90588271 J44.9 Stable, doing wellSymbic ort 160 mcgSpiriva respimat 2.5 mcgAlbuter ol/nebs as needed Reactive a irway disease 1894960606 06 J45.909 Continue MDI/DPI as prescribed well controlled Dependence on nocturnal oxygen therapy 1333724414 9108 Z99.81 2L NC O2 overnight, benefiting from use Tobacco de pendence in remission 643368453 F17.201 Smoked for 42 years,1 ppd, 42 PYHstopped 2019 LDCT 11/2021 Solitary n odule of lung 099212946 R91.1 LDCT 12/08/21 at [facility] :unchanged 7mm solid nodule LULno new or suspicious lung nodules seen.Will continue annual LDCT for nodule surveilanc e Overweight 446420721 E66 .3 Has increased exercise and diet change Pain of le ft hip joint 1714472678 87915 M25.552 Pulmonary clearance requested for Left hip replacemen t - date TBD by Dr. Kole Julian at [facility] Managed in primary care. Continue to monitor blood pressure. Encourage low salt diet and exerciseCa se discussed with Dr. Rodríguez, clearance given Severe chr onic obstructive pulmonary disease [id number] J44.9 [id number] Ariana Escobedo MD [facility] (Adult Med) [address] [place] [address] 03/22/2023 12:31:24 03/23/2023 10:16:53 Acute exacerbation of chronic obstructive pulmonary disease 558475765 J44.1 [id number] Tin Rodríguez MD [facility] [address] [place] [address] 05/05/2023 11:28:55 05/06/2023 08:39:52 Chronic obstructive pulmonary disease 51713519 J44.9 Stable, doing wellSymbic ort 160 mcgSpiriva respimat 2.5 mcgAlbuter ol/nebs as needed Reactive a irway disease 1186097800 06 J45.909 Continue MDI/DPI as prescribed well controlled Dependence on nocturnal oxygen therapy 1132487017 9108 Z99.81 2L NC O2 overnight, benefiting from use Tobacco de pendence in remission 577800047 F17.201 Smoked for 42 years,1 ppd, 42 PYHstopped 2019 LDCT 11/2021 Solitary n odule of lung 740788375 R91.1 LDCT 12/08/21 at [facility] :unchanged 7mm solid nodule LULno new or suspicious lung nodules seen.Will continue annual LDCT for nodule surveilanc e Overweight 336033875 E66 .3 Pain of le ft hip joint 6940555474 15363 M25.552 Pulmonary clearance requested for Left hip replacemen t - date TBD by Dr. Kole Julian at [facility] Managed in primary care. Continue to monitor blood pressure. Encourage low salt diet and exerciseCa se discussed with Dr. Rodríguez, clearance given Severe chr onic obstructive pulmonary disease 853755095 J44.9 Chronic cough 42699478 R 05.3 [id number] Ariana Escobedo MD [facility] (Adult Med) [address] [place] [address] 05/24/2023 09:43:45 05/24/2023 16:17:32 Former heavy tobacco smoker 6650012878 76693 Z87.891 Non-neoplastic nevus 195 471571 I78.1 [id number] Tin Rodríguez MD [facility] [address] [place] [address] 08/04/2023 10:53:08 08/04/2023 14:58:08 Cough 54340180 R05.9 Seasonal allergy 6155252 04 J30.2 Sinusitis 14200591 J32.9 Chronic ob structive pulmonary disease 79654509 J44.9 Stable, doing wellSymbic ort 160 mcgSpiriva respimat 2.5 mcgAlbuter ol/nebs as needed Pulmonary emphysema 8743 3001 J43.9 Reactive a irway disease 6783691458 06 J45.909 Continue MDI/DPI as prescribed well controlled 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 Kole Julian at [facility] Managed in primary care. Continue to monitor blood pressure. Encourage low salt diet and exerciseCa se discussed with Dr. Rodríguez, clearance given Severe chr onic obstructive pulmonary disease 175605952 J44.9 Chronic cough 17846234 R 05.3 [id number] Ariana Escobedo MD [facility] (Adult Med) [address] [place] [address] 08/09/2023 11:07:28 08/10/2023 14:13:18 Calcification of coronary artery 834578153 I25.84 Asymptomat icCopy to her cardiologi st Type 2 judith betes mellitus without complication 597297763 E11.9 Well controlled with an HBA1C of 6.1% (04/20/2023) , previously 5.7% (10/23/2022 ), 6.6% (08/07/2022 ), 6.2 % () and 7.8% (08/06/2021 )Continue Metformin and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
--- OUTSIDE RECORDS SUMMARY | 2024-06-14 10:44 | XMS_ITS | Clinical Summary ---
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 Name Role Phone Unavailable Primary Care Provider Unavailabl e Social History Tobacco Use Types Packs/Day Years Used Date Smoking Tobacco: Never Assessed Comments Unknown Sex and Gender Information Value Date Recorded Sex Assigned at Not on file Legal Sex Female 4:43 PM CDT Gender Identity Not on file Sexual Orientation Not on file Plan of Treatment Health Maintenance Due Date Last Done Comments Colorectal Cancer Screening Colonoscopy (10 Years) 1957 Hepatitis C 1975 DTaP, Tdap and Td Vaccines ( 1 - Tdap) 01/06/1976 Mammogram Screening 1997 Zoster Vaccines (1 of 2) 2007 Dexa Scan (General) 2022 Pneumococcal Vaccine: 65+ Ye ars (1 of 1 - PCV) 2022 COVID-19 Vaccine (2023-2 5 season) 2023 Influenza Adult (#1) 2024 RSV Immunization or 60+ Years (1 - 1-dose 75+ series) 01/06/2032 Meningococcal B Vaccine Aged Out No l onger eligible based on patient's age to complete this topic Meningococcal Vaccine Aged Out No aicha ori eligible based on patient's age to complete this topic RSV Immunizations Under 20 Months Aged Out No longer eligible based on patient's age to complete this topic
--- OUTSIDE RECORDS SUMMARY | 2024-06-14 10:44 | XMS_ITS | Patient Health Summary ---
Author Organization [facility] [employer] Address [address] [place] [address] Care Team Providers Care Show Design Supervisor Name Role Phone None, Physician Primary Care Provider Unavailabl e Note from [facility] [employer] [facility] [employer]non-owned Affiliates and Associated Physician Practices is amultiple site organization consisting of ambulatory clinics and hospital sitesin [place], [place], [place] and [place]. This disclosure is being madepursuant to the Care Everywhere program and may not contain all information available regarding this patient. Last updated 17.[facility] Allergies No known active allergies Medications * Be aware that medications may not be up to date on this document. Alwaysverify current medications with the patient. * metFORMIN (Glucophage) 500 MG tablet Take 1 (one) tablet by mouth 2 times daily with morning and evening meal * empagliflozin (Jardiance) 10 MG tablet Take 1 (one) tablet by mouth once daily * carvedilol (Coreg) 3.125 MG tablet Take 1 (one) tablet by mouth 2 times daily with morning and evening meal * hydroCHLOROthiazide (Microzide) 12.5 MG capsule Take 1 (one) capsule by mouth once daily * atorvastatin (Lipitor) 40 MG tablet Take 1 (one) tablet by mouth at bedtime * omeprazole (PriLOSEC) 40 MG capsule Take 1 (one) capsule by mouth daily before breakfast * tiotropium (Spiriva) 18 MCG inhalation capsule Inhale 1 (one) capsule by mouth once daily * budesonide-formoterol (Symbicort) 160-4.5 MCG/ACT inhaler Inhale 2 (two) puffs by mouth 2 times daily * albuterol (Proventil;Ventolin) (2.5 MG/3ML) 0.083% nebulizer solution Inhale by mouth 4 times daily as needed for Shortness of Breath or Wheezing * albuterol HFA (Proventil; Ventolin; Proair) 108 (90 Base) MCG/ACT inhaler Inhale 2 (two) puffs by mouth every 6 hours as needed for Shortness of Breath * predniSONE (Deltasone) 10 MG tablet(Started 07/20/2023) Take 4 tablets daily for 4 days, take 3 tablets daily for 2 days, take 2 tablets daily for 2 days, then take 1 tablet daily for 2 days Active Problems Problem Noted Date Diagnosed Date Shortness of breath 07/17/2023 COPD exacerbation 07/17/2023 Acute hypoxic respiratory failure 07/17/2023 Avascular necrosis of femoral head 07/16/2022 07/18/2023 Postmenopausal osteoporosis 06/30/2022 04/0 10/2023 Thrombocytopenic disorder 06/23/20222023 ABELARDO III (vulvar intraepithelial neoplasia III) 0 06/30/2019 07/18/2023 Fibrocystic change of breast, left 01/24/2019 07/18/2023 [...] Mass Index 23.81 07/18/2023 1:00 AM CDT Procedures * DIFFERENTIAL MANUAL(Performed 07/20/2023) Performed for Shortness of breath, COPD exacerbation (HCC) * CBC W AUTO DIFFERENTIAL(Performed 07/20/2023) Performed for Shortness of breath, COPD exacerbation (HCC) * PROCALCITONIN LEVEL(Performed 07/20/2023) Performed for Acute hypoxic respiratory failure (HCC), COPD exacerbation (HCC) * BASIC METABOLIC PANEL (CALCIUM TOTAL)(Performed 07/20/2023) Performed for Shortness of breath, COPD exacerbation (HCC) * EKG 12-LEAD(Performed 07/19/2023) Performed for Shortness of breath * BASIC METABOLIC PANEL (CALCIUM TOTAL)(Performed 07/19/2023) Performed for Shortness of breath, COPD exacerbation (HCC) * CBC W AUTO DIFFERENTIAL(Performed 07/19/2023) Performed for Shortness of breath, COPD exacerbation (HCC) * BASIC METABOLIC PANEL (CALCIUM TOTAL)(Performed 07/18/2023) Performed for Acute hypoxic respiratory failure (HCC), COPD exacerbation (HCC) * CBC W AUTO DIFFERENTIAL(Performed 07/18/2023) Performed for Acute hypoxic respiratory failure (HCC), COPD exacerbation (HCC) * XR CHEST 1VW PORTABLE(Performed 07/17/2023) Performed for Shortness of breath * CULTURE BLOOD(Performed 07/17/2023) * CULTURE BLOOD(Performed 07/17/2023) * SARS-COV-2 (COVID-19) FLU A/B RSV PCR RAPID(Performed 07/17/2023) * PROCALCITONIN LEVEL(Performed 07/17/2023) * TROPONIN I(Performed 07/17/2023) * LACTIC ACID BLOOD(Performed 07/17/2023) * COMPREHENSIVE METABOLIC PANEL(Performed 07/17/2023) * CBC W AUTO DIFFERENTIAL(Performed 07/17/2023) * B-TYPE NATRIURETIC PEPTIDE(Performed 07/17/2023) Results * (ABNORMAL) DIFFERENTIAL MANUAL (07/20/2023 4:20 AM CDT) Pathologist [facility] Neutrophils % 91(H) 50 - 70 % 07/20/2023 4:55 AM CDT [facility] ([facility]) Band Neutrophil % 0 0 - 5 % 024 4:55 AM CDT [facility] ([facility]) Lymphocytes % 7(L) 18 - 38 % 07/20/2023 4:55 AM CDT [facility] ([facility]) Monocytes % 2(L) 4 - 12 % 07/20/2023 4:55 AM CDT [facility] ([facility]) Eosinophils % 0(L) 1 - 6 % 07/20/2023 4:55 AM CDT [facility] ([facility]) Basophils % 0 0 - 2 % 07/20/2023 4:55 AM CDT [facility] ([facility]) Neutrophils Absolute 11.10(H) 3.30 - 5.70 x10(9)/L 07/20/2023 4:55 AM CDT [facility] ([facility]) Immature Granulocytes % 0 07/20/2023 4:55 AM CDT [facility] ([facility]) Blood BLOOD SPECIMEN / Unknown Lab Venipuncture / Unknown 07/20/2023 4:20 AM CDT 07/20/2023 4:19 AM CDT Katty Julio LIVESTOCK AGENT-TRUCK ENGINE ASSEMBLER LAB - HEMATOL OGY ORDERABLES [facility] ([facility]) [address] [place] [address] * (ABNORMAL) CBC W AUTO DIFFERENTIAL (07/20/2023 4:20 AM CDT) Only the most recent of4 resultswithin the time period is included. Pathologist [facility] WBC 12.2(H) 4.5 - 10.5 K/uL 07/20/2023 4:55 AM CDT [facility] ([facility]) RBC 3.88 3.58 - 4.78 M/uL 07/20/2023 4:55 AM CDT [facility] ([facility]) Hemoglobin 12.4 11.6 - 16.0 g/dL 07/20/2023 4:55 AM CDT [facility] ([facility]) Hematocrit 38.7 35.0 - 48.0 % 07/20/2023 4:55 AM CDT [facility] ([facility]) Platelet Count 155 141 - 380 K/uL 07/20/2023 4:55 AM CDT [facility] ([facility]) MCV 99.7(H) 83.1 - 97.1 fl 07/20/2023 4:55 AM CDT [facility] ([facility]) MCH 32.0 28.6 - 32.6 pg 07/20/2023 4:55 AM CDT [facility] ([facility]) MCHC 32.0 32.0 - 36.0 g/dL 07/20/2023 4:55 AM CDT [facility] ([facility]) RDW 14.3 11.6 - 15.6 % 07/20/2023 4:55 AM T [facility] ([facility]) Blood BLOOD SPECIMEN / Unknown Lab Venipuncture / Unknown 07/20/2023 4:20 AM CDT 07/20/2023 4:19 AM CDT Katty Julio LIVESTOCK AGENT-TRUCK ENGINE ASSEMBLER LAB - HEMATOL OGY ORDERABLES [facility] ([facility]) [address] [place] [address] * PROCALCITONIN LEVEL (07/20/2023 4:19 AM CDT) Only the most recent of2 resultswithin the time period is included. PROCALCITONIN 0.044 <0.100 ng/mL 07/20/2023 9:06 AM CDT [facility] ([facility]) Blood BLOOD SPECIMEN / Unknown Lab Venipuncture / Unknown 07/20/2023 4:19 AM CDT 07/20/2023 4:19 AM CDT Narrative [facility] ([facility]) - 07/20/2023 9:06 AM CDT If the differential diagnosis is systemic bacterial infection, sepsis, or septic shock, use of the the following guidelines is recommended. <0.500 ng/mL: Low risk for systemic bacterial infection, sepsis, or septic shock. Localized bacterial infection is possible. Suggest re-testing in 24 hours. >2.000 ng/mL: High risk for systemic bacterial infection, sepsis, or septic shock. If the differential diagnosis is suspected to be lower respiratory infection (LRTI) or there is confirmed LRTI, use of the following guidelines is recommended. <0.100 ng/mL: Suggests absence of bacterial infection. Antibiotic therapy is strongly discouraged. 0.100-0.250 ng/mL: Suggests bacterial infection is unlikely. Antibiotic therapy is discouraged. 0.260-0.500 ng/mL: Suggests possible bacterial infection. Antibiotic therapy is encouraged. >0.500 ng/mL: Suggests bacterial infection. Antibiotic therapy is strongly encouraged. Katty Julio LIVESTOCK AGENT-TRUCK ENGINE ASSEMBLER LAB - ANALYSIS LEAD RY ORDERABLES [facility] ([facility] Y) [address] [place] [address] * (ABNORMAL) BASIC METABOLIC PANEL (CALCIUM TOTAL) (07/20/2023 4:19 AM CDT) Only the most recent of3 resultswithin the time period is included. [facility] Signature Glucose 149(H) 70 - 100 mg/dL 07/20/2023 4:56 AM CDT [facility] ([facility]) BUN 28(H) 7 - 17 mg/dL 07/20/2023 4:56 AM CDT [facility] ([facility]) Creatinine 0.60 0.52 - 1.04 mg/dL 07/20/2023 4:56 AM CDT [facility] ([facility]) Sodium 140 137 - 145 mmol/L 07/20/2023 4:56 AM CDT [facility] ([facility]) Potassium 3.7 3.5 - 5.1 mmol/L 07/20/2023 4:56 AM CDT [facility] ([facility]) Chloride 99 98 - 107 mmol/L 07/20/2023 4:56 AM CDT [facility] ([facility]) CO2 37(H) 22 - 30 mmol/L 07/20/2023 4:56 AM CDT [facility] ([facility]) Calcium 9.2 8.4 - 10.2 mg/dL 07/20/2023 4:56 AM CDT [facility] ([facility]) eGFR >60 >60 mL/min/1.73 m2 07/20/2023 4:56 AM CDT [facility] ([facility]) Blood BLOOD SPECIMEN / Unknown Lab Venipuncture / Unknown 07/20/2023 4:19 AM CDT 07/20/2023 4:19 AM CDT Narrative [facility] ([facility]) - 07/20/2023 4:56 AM CDT It is recommended that for: GFR values greater than 60 mL/min/1.73 sq.meters - no additional renal evaluation is required. GFR values less than 60 mL/min/1.73 sq.meters - complete evaluation for renal disease. GFR values less than 30 mL/min/1.73 sq.meters - consultation with a Stock Clerk. Katty Julio APRN-[facility] LAB - ANALYSIS LEAD RY ORDERABLES [facility] ([facility] [address] [place] [address] * EKG 12-LEAD (07/19/2023 1:30 PM CDT) Impressions Jaden Kidd MD - 07/19/2023 1:30 PM CDT EKG Reveals normal sinus rhythm rate of 91. Normal axis. No acute ST-T wave changes are noted. No previous EKG available for comparison. Electronically dictated and signed by Dr. Jaden Kidd Joe Powell MD ECG ORDERABLES * XR CHEST 1VW PORTABLE (07/17/2023 11:06 PM CDT) Anatomical Region Laterality Modality Chest Radiographic Laurita ging 07/17/2023 11:1 3 PM CDT Impressions 07/17/2023 11:14 PM CDT IMPRESSION: No acute cardiopulmonary abnormality. THIS IS AN ELECTRONICALLY VERIFIED FINAL REPORT 07/17/2023 11:14 PM - Electronically signed by Tigre Yost M.D. KT: KT Report ID: [id number] Reading Location: [id number] [facility] 07/17/2023 11:14 PM CDT [facility] DIAGNOSTIC IMAGING REPORT Name:CATHERINE SHUKLA Age:68 Ordering Provider:JOE POWELL Primary Provider: Date of Exam:07/17/2023 Hosp No:[id number] Chart No:[id number] Exam:XR CHEST 1VW PORTABLE X-ray No:[id number] :[id number] EXAM DESCRIPTION: XR CHEST 1VW PORTABLE REASON FOR STUDY: Patient has had SOB, a cough, and chest congestion for 3 days. Duration: 3 days TECHNIQUE: 1 radiographic view(s) of the chest. COMPARISON: None FINDINGS: LUNGS: No focal opacity, pleural effusion, or pneumothorax. HEART/MEDIASTINUM: Cardiac silhouette normal in size. Mediastinal and hilar contours appear normal. LINES/TUBES: None. BONES: No acute osseous abnormality. Procedure Note Tigre Yots MD - 07/17/2023 [facility] DIAGNOSTIC IMAGING REPORT Name:CATHERINE SHUKLA Age:68 Ordering Provider:JOE POWELL Primary Provider: Date of Exam:07/17/2023 Hosp No:[id number] Chart No:[id number] Exam:XR CHEST 1VW PORTABLE X-ray No:[id number] :[id number] EXAM DESCRIPTION: XR CHEST 1VW PORTABLE REASON FOR STUDY: Patient has had SOB, a cough, and chest congestion for 3 days. Duration: 3 days TECHNIQUE: 1 radiographic view(s) of the chest. COMPARISON: None FINDINGS: LUNGS: No focal opacity, pleural effusion, or pneumothorax. HEART/MEDIASTINUM: Cardiac silhouette normal in size. Mediastinal and hilar contours appear normal. LINES/TUBES: None. BONES: No acute osseous abnormality. IMPRESSION IMPRESSION: No acute cardiopulmonary abnormality. THIS IS AN ELECTRONICALLY VERIFIED FINAL REPORT 07/17/2023 11:14 PM - Electronically signed by Tigre Yost M.D. KT: LANA Report ID: [id number] Reading Location: [place] [address] Joe Powell MD DIAGNOSTIC IMAG ING ORDERABLES * CULTURE BLOOD (07/17/2023 10:39 PM CDT) Only the most recent of2 resultswithin the time period is included. [facility] Culture No growth day 5 MITZI 07/24/2023 12:01 AM CDT [facility] MICROBIOLOGY Blood PERIPHERAL BLOOD / Unknown Lab Venipuncture / Unknown 07/17/2023 10:39 PM CDT 07/17/2023 10:39 PM CDT Joe Powell MD LAB - MICROBIOL OGY ORDERABLES [facility] MICROBIOLOGY [address] [place] [address], [facility] [phone] * SARS-COV-2 (COVID-19) FLU A/B RSV PCR RAPID (07/17/2023 10:24 PM CDT) [facility] COVID-19 PCR Not detected Not detected 07/17/19 11:07 PM CDT [facility] ([facility]) Influenza A PCR Not detected Negative 07/17/2023 11:07 PM CDT [facility] ([facility]) Influenza B PCR Not detected Not detected 07/17/2023 11:07 PM CDT [facility] ([facility]) RSV PCR Not detected Not detected 07/17/2023 11:07 PM CDT [facility] ([facility]) Microbiology SPECIMEN FROM NASOPHARYNGEAL STRUCTURE / Unknown Collection / Unknown 07/17/2023 10:24 PM CDT 07/17/2023 10:26 PM CDT Narrative [facility] ([facility]) - 07/17/2023 11:07 PM CDT Negative results should be treated as presumptive and, if inconsistent with clinical signs and symptoms or necessary for patient management, should be tested with different authorized or cleared molecular tests. Testing was performed using PCR methodology. This assay has been authorized by the Food and Drug Administration under an Emergency Use authorization (EUA) for use, without modification, by [facility] high complexity laboratories. Testing of specimens collected from individuals is based on clinical criteria Joe Powell MD LAB - MICROBIOL OGY ORDERABLES Performing Organization Address [facility] Co de Phone Number [facility] ([facility]) [address] [place] [phone] * TROPONIN I (07/17/2023 10:10 PM CDT) Troponin I <0.012 0.000 - 0.034 ng/mL 07/17/2023 10:52 PM CDT [facility] ([facility]) Comment:Biotin levels higher than the recommended daily dose may cause interference with test results Blood BLOOD SPECIMEN / Unknown Lab Venipuncture / Unknown 07/17/2023 10:10 PM CDT 07/17/2023 10:15 PM CDT Narrative [facility] ([facility]) - 07/17/2023 10:52 PM CDT Normal - <=0.003 Increased Risk* - 0.034-0.109 AMI - >=0.120 *(Increased Short Term Risk of or Recurrent Cardiac Events) Joe Powell MD LAB - CHEMISTRY ORDERABLES Performing Organization Address [facility] Co de Phone Number [facility] ([facility]) [address] [place] [phone] * B-TYPE NATRIURETIC PEPTIDE (07/17/2023 10:10 PM CDT) BNP 24 0 - 100 pg/mL 07/17/2023 10:40 PM CDT [facility] ([facility]) Blood BLOOD SPECIMEN / Unknown Lab Venipuncture / Unknown 07/17/2023 10:10 PM CDT 07/17/2023 10:15 PM CDT Joe Powell MD LAB - CHEMISTRY ORDERABLES [facility] ([facility]) [address] [place] [address] * (ABNORMAL) COMPREHENSIVE METABOLIC PANEL (07/17/2023 10:10 PM CDT) Glucose 151(H) 70 - 100 mg/dL 07/17/2023 10:38 PM CDT [facility] ([facility]) BUN 26(H) 7 - 17 mg/dL 07/17/2023 10:38 PM CDT [facility] ([facility]) Creatinine 1.10(H) 0.52 - 1.04 mg/dL 07/17/2023 10:38 PM CDT [facility] ([facility]) Sodium 138 137 - 145 mmol/L 07/17/2023 10:38 PM CDT [facility] ([facility]) Potassium 3.4(L) 3.5 - 5.1 mmol/L 07/17/2023 10:38 PM CDT [facility] ([facility]) Chloride 98 98 - 107 mmol/L 07/17/2023 10:38 PM CDT [facility] ([facility]) CO2 32(H) 22 - 30 mmol/L 07/17/2023 10:38 PM CDT [facility] ([facility]) Bilirubin Total 0.2 0.2 - 1.3 mg/dL 07/17/2023 10:38 PM CDT [facility] ([facility]) Calcium 9.6 8.4 - 10.2 mg/dL 07/17/2023 10:38 PM CDT [facility] ([facility]) Protein Total 7.2 6.3 - 8.2 g/dL 07/17/2023 10:38 PM CDT [facility] ([facility]) Albumin 4.5 3.5 - 5.0 g/dL 07/17/2023 10:38 PM CDT [facility] ([facility]) AST 35 14 - 36 U/L 07/17/2023 10:38 PM CDT [facility] ([facility]) ALT 29 0 - 35 U/L 07/17/2023 10:38 PM CDT [facility] ([facility]) Alkaline Phosphatase 124 38 - 126 U/L 07/17/2023 10:38 PM CDT [facility] ([facility]) Globulin Total 2.7 2.3 - 4.2 gm/dL 07/17/2023 10:38 PM CDT [facility] ([facility]) Albumin/Globulin Ratio 1.7 1.0 - 2.2 Ratio 07/17/2023 10:38 PM CDT [facility] ([facility]) eGFR 50(L) >60 mL/min/1.7 3 m2 07/17/2023 10:38 PM CDT [facility] ([facility]) Blood BLOOD SPECIMEN / Unknown Lab Venipuncture / Unknown 07/17/2023 10:10 PM CDT 07/17/2023 10:15 PM CDT Narrative [facility] ([facility]) - 07/17/2023 10:38 PM CDT It is recommended that for: GFR values greater than 60 mL/min/1.73 sq.meters - no additional renal evaluation is required. GFR values less than 60 mL/min/1.73 sq.meters - complete evaluation for renal disease. GFR values less than 30 mL/min/1.73 sq.meters - consultation with a Stock Clerk. Joe Powell MD LAB - CHEMISTRY ORDERABLES Performing Organization Address [place]/[facility]/ZIP Co de Phone Number [facility] ([facility]) [address] [place] [phone] * LACTIC ACID BLOOD (07/17/2023 10:10 PM CDT) Lactic Acid-Stat 1.7 0.7 - 2.0 mmol/L 07/17/2023 10:38 PM CDT [facility] ([facility]) Blood BLOOD SPECIMEN / Unknown Lab Venipuncture / Unknown 07/17/2023 10:10 PM CDT 07/17/2023 10:15 PM CDT Joe Powell MD LAB - CHEMISTRY ORDERABLES [facility] ([facility]) [address] [place] [phone] Care Teams Show Design Supervisor Relationship Specialty Start Date End Date None, Physician PCP - General 07/17/23
--- OUTSIDE RECORDS SUMMARY | 2024-06-14 10:44 | XMS_ITS | Data Portability ---
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 She has less extensive but prominent stage I avascular necrosis the right femoral head but fortunately she has no symptoms on the right side. She continues to have to use the walker. She is unable to walk if she is not leaning on the walker as the pain is too great. Her pain is in the medial groin lateral left hip. On exam today she has flexion left hip to 120 with moderate groin lateral hip pain internal rotation 0 causing the same and [place] cause the same. External rotation is 35 without pain. The skin around the left hip is normal. She saw Dr. Courtney on 08/06 and has had extensive blood tests ordered. She is still scheduled to do the dexamethasone suppression test. She states that she is scheduled to see Dr. Courtney back in December but I suspect he is supposed to call for the results of the lab tests of course.Her vitamin-D was low at 26 so she has been prescribed the 37582 unit ergo calciferol tablets weekly. She saw a clock smith at [facility] and had 0 echocardiogram report and patient states that she was told looked fine and that she was cleared to proceed with surgery with instructions to follow-up as needed. We will request the records so I can review that personally. Patient saw Dr. Escobedo and states that he has cleared her for surgery as well. Patient saw Dr. Maddox the pulmonology nurse practitioner and was told that from a pulmonary standpoint she is okay to proceed with surgery . it discusses that she is on nighttime oxygen 2 L overnight and this is benefitting her. It describes that she smoked for 42 years 1 pack per day and stopped in 2019. It discussed continuing annual nodule surveillance for 7 mm solid left upper lobe nodule with low dose CT scan. She is not scheduled to see Dr. cano until September 16. We have referred her because she has history of DVT with pulmonary embolism after childbirth and has bilateral avascular necrosis and I thought it would be appropriate for her to undergo a thrombophilia evaluation. Patient has seen no improvement over the last month using the walker and she is unable walk without the walker due to groin and lateral hip pain due to rather extensive pre collapse avascular necrosis of the left hip. She would like to proceed with surgery at this time. We have discussed total hip arthroplasty in detail. She has reviewed the booklets that we have provided her a previous visit. I reviewed with her that there will be numbness around the incision and we discussed the risks of infection, blood clots, fracture component loosening leg length discrepancy dislocation need for revision surgery nerve injury bleeding transfusion and medical complications such as heart attack stroke pulmonary embolism and . She has diabetes so she will be treated with extended oral antibiotics after surgery. We will stop her baby aspirin once daily 1 week before surgery. We will plan to use sequential compressive devices during the surgery and prophylactic Eliquis dosing for 5 weeks after surgery. She would like to proceed with scheduling surgery as soon as possible. 40 minutes were spent in total care this patient with more than half of this time spent in [id number] care. Not available 08/13/2022 13:51:00 10/15/2022 10/15/2022 HPI: Patient returns. She is 16 days out from left anterior total hip arthroplasty. She is doing well. She is taking no pain medicine at this point. She is on her Eliquis. SP supper Celebrex as well as her antibiotics. Physical exam: Patient's incision is well healed. She is walking today without a cane or walker. She walking very naturally. She feels stable. There is no swelling noted in either lower extremity. Impression: Patient is doing well little more than 2 weeks out from left anterior total hip arthroplasty. Advised her to still limit her activities at this point and not overdo it. She will continue with her Eliquis. She does have tramadol at home and will use this on as needed basis. We will see her back in a couple weeks with x-rays of the hip at that time Not available 10/15/2022 11:00:41 10/29/2022 10/29/2022 HPI: Patient returns. She is 1 month out from left anterior total hip arthroplasty. Overall doing well. She has pain in the groin when she sits but it is only a 1 2/10. She has no pain when she is up walking. She has comfortable, is on no pain medicines have Tylenol occasionally. She remains on her Eliquis for about 1 more week. Physical exam: Patient is walking very well today. She is using cane. She walking very natural without a limp. She has no swelling in either lower extremity. Impression: Patient doing well 1 month out left anterior total hip arthroplasty. She will finish up her Eliquis. She may increase activities as tolerated. We will see her back in a month to make sure she continues do well. Not available 10/29/2022 10:39:08 11/26/2022 11/26/2022 HPI: Patient returns. She is 2 months out from left anterior total hip arthroplasty. She is doing well. She is having no symptoms in the hip and is very happy with her results. She is back to all activities without any issues. Physical exam: Patient walking very well today. She has no limp. She has no swelling in either lower extremity. She has good range motion of the left hip without any discomfort. Impression: Patient doing well 2 months out left anterior total hip arthroplasty. Long-term risk of infection was discussed. At this point we will see her back at her 1 year anniversary or sooner if she has problems Not available 11/26/2022 11:44:16 Plan of Treatment Reminders Order Date Submit Date Provider Last Modified By Organization Details Last Modified Time Details Appointments None recorded. Lab None recorded. Referral endocrinolo gy referral 2022 023 faina Rubi MD, [address], [place], [address], 13:55:45 Procedures None recorded. Surgeries None recorded. Imaging XR, hip + pelvis, unilateral 2022 023 [facility], [address], [place], [address], 16:25:15 Medication Orders None recorded. Patient TargetsNo targets recorded. Patient InstructionsNo instructions recorded. Reason for Referral Endocrinology Referral for P ostmenopausal osteoporosis Referring Physician: Michell Courtney, Endocrinology, Encounter Date: 12/24/2022 Results Created Date Observation Date Name Description Value Unit Range Abnormal Flag Note LastModifiedBy Organization Detail LastModifiedTime 08/07/1908/06/2022 PARAT HYROI D HORM (PTH) INT.W /[facility] intact parathyroid hormone 37.8 pg/mL 24-78 Pleas e note new refer ence range effec tive 05/08 . Not Available [facility] (Lab) [address] [place], [address], 08/06/2022 13:57:41 08/07/19 23 08/06/2022 PARAT HYROI D HORM (PTH) INT.W /[facility] calcium 9.6 mg/dL 8.4-10 .2 Not Available [facility] (Lab) [address] [place], [address], 08/06/2022 13:57:41 08/07/19 23 08/06/2022 PHOSP HORUS phosphorus 3.4 mg/dL 2.5-4. 5 Not Available [facility] (Lab) [address] [place], [address], 08/06/2022 13:45:09 08/07/19 23 08/06/2022 VITAM IN D 25-HY DROXY [id number] 26.5 NG/mL 30-100 low Vitam in D Statu s: Defic ient: <20 ng/mL Insuf ficie nt: 20-29 ng/mL Suffi cient : 30-10 0 ng/mL Not Available [facility] (Lab) [address] [place], [address], 08/06/2022 14:11:02 08/07/19 23 08/07/2022 COMPR EHENS ANGELA METAB OLIC PANEL sodium 138 mmol/ L 137-14 5 Not Available [facility] (Lab) [address] [place], [address], 08/07/2022 17:36:42 08/07/19 23 08/07/2022 COMPR EHENS ANGELA METAB OLIC PANEL potassium 3.8 mmol/ L 3.5-5. 1 Not Available [facility] (Lab) [address] [place], [address], 08/07/2022 17:36:42 08/07/19 23 08/07/2022 COMPR EHENS ANGELA METAB OLIC PANEL chloride 100 mmol/ L 98-107 Not Available [facility] (Lab) [address] [place], [address], 08/07/2022 17:36:42 08/07/19 23 08/07/2022 COMPR EHENS ANGELA METAB OLIC PANEL carbon dioxide 28 mmol/ L 22-30 Not Available [facility] (Lab) [address] [place], [address], 08/07/2022 17:36:42 08/07/19 23 08/07/2022 COMPR EHENS ANGELA METAB OLIC PANEL anion gap 13.8 mmol/ L 14-22 low Not Available [facility] (Lab) [address] [place], [address], 08/07/2022 17:36:42 08/07/19 23 08/07/2022 COMPR EHENS ANGELA METAB OLIC PANEL glucose 95 mg/dL 70-99 Not Available [facility] (Lab) [address] [place], [address], 08/07/2022 17:36:42 08/07/1908/07/2022 COMPR EHENS ANGELA METAB OLIC PANEL BUN 22 mg/dL 8-19 high Not Available [facility] (Lab) [address] [place], [address], 08/07/2022 17:36:42 08/07/19 23 08/07/2022 COMPR EHENS ANGELA METAB OLIC PANEL creatinine 0.83 mg/dL 0.66-1 .25 Not Available [facility] (Lab) [address] [place], [address], 08/07/2022 17:36:42 08/07/19 23 08/07/2022 COMPR EHENS ANGELA METAB OLIC PANEL GFR >60 Refer ence Range : [place] GFR Healt hy Adult : >60 mL/mi n/1.7 3 m2 Chron ic Kidne y Disea se: 15-60 mL/mi n/1.7 3 m2 Kidne y Failu re: <15/m L/min /1.73 m2 www.n iddk. nih.g ov The MDRD study equat ion has not been valid ated in child lisha <18 years of age; pregn ant women ; the elder ly >85 years of age; or in some racia l or ethni c subgr oups, such as [facility] nics. Outsi de the valid ated buddy eters , estim ated GFR is less accur ate, requi ring clini mike judgm ent on a case- by-ca se basis . Clini mike inter preta tion for other races and ages must be made by the clini harry. The MDRD study equat ion has not been valid ated for the evalu ation of serum creat inine relat ed to nutri fish l statu s or medic ation usage . For perso ns <18 years of age, a pedia tric GFR calcu lator is avail able on the [facility] websi te: https :[email or web address] rao.kid karen.o rg/pr ofess ional s/kdo qi/gf r_cal culat or Not Available [facility] (Lab) [address] [place], [address], 08/07/2022 17:36:42 08/07/19 23 08/07/2022 COMPR EHENS ANGELA METAB OLIC PANEL alkaline phosphatase 114 U/L 38-126 Not Available [facility] (Lab) [address] [place], [address], 08/07/2022 17:36:42 08/07/19 23 08/07/2022 COMPR EHENS ANGELA METAB OLIC PANEL alanine aminotransfe rase 27 U/L 0-35 Not Available [facility] (Lab) [address] [place], [address], 08/07/2022 17:36:42 08/07/19 23 08/07/2022 COMPR EHENS ANGELA METAB OLIC PANEL aspartate aminotransfe rase 28 U/L 15-37 Not Available [facility] (Lab) [address] [place], [address], 08/07/2022 17:36:42 08/07/19 23 08/07/2022 COMPR EHENS ANGELA METAB OLIC PANEL bilirubin, total 0.40 mg/dL 0.20-1 .30 Not Available [facility] (Lab) [address] [place], [address], 08/07/2022 17:36:42 08/07/19 23 08/07/2022 COMPR EHENS ANGELA METAB OLIC PANEL calcium 9.8 mg/dL 8.4-10 .2 Not Available [facility] (Lab) [address] [place], [address], 08/07/2022 17:36:42 08/07/19 23 08/07/2022 COMPR EHENS ANGELA METAB OLIC PANEL total protein 6.6 g/dL 6.3-8. 2 Not Available [facility] (Lab) [address] [place], [address], 08/07/2022 17:36:42 08/07/19 23 08/07/2022 COMPR EHENS ANGELA METAB OLIC PANEL albumin 3.9 g/dL 3.0-4. 4 Not Available [facility] (Lab) [address] [place], [address], 08/07/2022 17:36:42 08/07/19 23 08/07/2022 COMPR EHENS ANGELA METAB OLIC PANEL globulin 2.7 g/dL 2.6-4. 2 Not Available [facility] (Lab) [address] [place], [address], 08/07/2022 17:36:42 08/07/19 23 08/07/2022 COMPR EHENS ANGELA METAB OLIC PANEL A/G ratio 1.4 ratio 1.0-2. 0 Not Available [facility] (Lab) [address] [place], [address], 08/07/2022 17:36:42 08/12/19 23 08/11/2022 CALCI UM 24 HR URINE ur calcm 11.5 mg/dL REFER ENCE RANGE NOT ESTAB LISHE D FOR RANDO M URINE CALCI UM Not Available [facility] (Lab) [address] [place], [address], 08/11/2022 13:50:36 08/12/19 23 08/11/2022 CALCI UM 24 HR URINE calc 24H 265 mg/24 HR 100-30 0 Not Available [facility] (Lab) [address] [place], [address], 08/11/2022 13:50:36 08/12/19 23 08/11/2022 CALCI UM 24 HR URINE tot vol 2300 mL 600-20 00 high Not Available [facility] (Lab) [address] [place], [address], 08/11/2022 13:50:36 09/16/19 23 09/15/2022 CBC/C OMPLE TE BLD COUNT W/DIF F white blood cells 7.3 x10'3 /uL 4.2-10 .8 Not Available [facility] (Lab) [address] [place], [address], 09/15/2022 10:16:54 09/16/19 23 09/15/2022 CBC/C OMPLE TE BLD COUNT W/DIF F red blood cells 4.33 x10'6 /uL 3.80-5 .20 Not Available [facility] (Lab) [address] [place], [address], 09/15/2022 10:16:54 09/16/19 23 09/15/2022 CBC/C OMPLE TE BLD COUNT W/DIF F hemoglobin 13.8 g/dL 12.0-1 5.6 Not Available [facility] (Lab) [address] [place], [address], 09/15/2022 10:16:54 09/16/19 23 09/15/2022 CBC/C OMPLE TE BLD COUNT W/DIF F hematocrit 42.5 % 35.7-4 5.7 Not Available [facility] (Lab) [address] [place], [address], 09/15/2022 10:16:54 09/16/19 23 09/15/2022 CBC/C OMPLE TE BLD COUNT W/DIF F mean red cell volume 98.2 fL 82.0-9 9.0 Not Available [facility] (Lab) [address] [place], [address], 09/15/2022 10:16:54 09/16/19 23 09/15/2022 CBC/C OMPLE TE BLD COUNT W/DIF F mean red cell hemoglobin 31.9 pg 27.0-3 3.0 Not Available [facility] (Lab) [address] [place], [address], 09/15/2022 10:16:54 09/16/19 23 09/15/2022 CBC/C OMPLE TE BLD COUNT W/DIF F mean RBC HGB concentratio n 32.5 g/dL 31.0-3 6.0 Not Available [facility] (Lab) [address] [place], [address], 09/15/2022 10:16:54 09/16/19 23 09/15/2022 CBC/C OMPLE TE BLD COUNT W/DIF F red cell distribution width 13.7 % 11.8-1 5.5 Not Available [facility] (Lab) [address] [place], [address], 09/15/2022 10:16:54 09/16/19 23 09/15/2022 CBC/C OMPLE TE BLD COUNT W/DIF F platelets 209 x10'3 /uL 150-40 0 Not Available [facility] (Lab) [address] [place], [address], 09/15/2022 10:16:54 09/16/19 23 09/15/2022 CBC/C OMPLE TE BLD COUNT W/DIF F mean platelet volume 11.1 fL 9.0-12 .4 Not Available [facility] (Lab) [address] [place], [address], 09/15/2022 10:16:54 09/16/19 23 09/15/2022 CBC/C OMPLE TE BLD COUNT W/DIF F neutrophils 75.3 % 39.0-7 2.0 high Not Available [facility] (Lab) [address] [place], [address], 09/15/2022 10:16:54 09/16/19 23 09/15/2022 CBC/C OMPLE TE BLD COUNT W/DIF F lymphocytes 18.3 % 16.0-4 7.0 Not Available [facility] (Lab) [address] [place], [address], 09/15/2022 10:16:54 09/16/19 23 09/15/2022 CBC/C OMPLE TE BLD COUNT W/DIF F monocytes 5.2 % 5.0-12 .0 Not Available [facility] (Lab) [address] [place], [address], 09/15/2022 10:16:54 09/16/19 23 09/15/2022 CBC/C OMPLE TE BLD COUNT W/DIF F eosinophils 0.1 % 1.0-7. 0 low Not Available [facility] (Lab) [address] [place], [address], 09/15/2022 10:16:54 09/16/19 23 09/15/2022 CBC/C OMPLE TE BLD COUNT W/DIF F basophils 0.7 % 0.0-2. 0 Not Available [facility] (Lab) [address] [place], [address], 09/15/2022 10:16:54 09/16/19 23 09/15/2022 CBC/C OMPLE TE BLD COUNT W/DIF F immature granulocytes 0.4 % 0.00-0 .50 Not Available [facility] (Lab) [address] [place], [address], 09/15/2022 10:16:54 09/16/19 23 09/15/2022 CBC/C OMPLE TE BLD COUNT W/DIF F neutrophils, absolute count 5.53 x10'3 /uL 1.5-8. 0 Not Available [facility] (Lab) [address] [place], [address], 09/15/2022 10:16:54 09/16/19 23 09/15/2022 CBC/C OMPLE TE BLD COUNT W/DIF F lymphocytes, absolute count 1.34 x10'3 /uL 1.07-3 .43 Not Available [facility] (Lab) [address] [place], [address], 09/15/2022 10:16:54 09/16/19 23 09/15/2022 CBC/C OMPLE TE BLD COUNT W/DIF F monocytes, absolute count 0.38 x10'3 /uL 0.29-0 .99 Not Available [facility] (Lab) [address] [place], [address], 09/15/2022 10:16:54 09/16/19 23 09/15/2022 CBC/C OMPLE TE BLD COUNT W/DIF F eosinophils, absolute count 0.01 x10'3 /uL 0.02-0 .53 low Not Available [facility] (Lab) [address] [place], [address], 09/15/2022 10:16:54 09/16/19 23 09/15/2022 CBC/C OMPLE TE BLD COUNT W/DIF F basophils, absolute count 0.05 x10'3 /uL 0.01-0 .08 Not Available [facility] (Lab) [address] [place], [address], 09/15/2022 10:16:54 09/16/19 23 09/15/2022 CBC/C OMPLE TE BLD COUNT W/DIF F immature granulocytes ,absolute 0.03 x10'3 /uL 0.00-0 .05 Not Available [facility] (Lab) [address] [place], [address], 09/15/2022 10:16:54 09/16/19 23 09/15/2022 CBC/C OMPLE TE BLD COUNT W/DIF F nucleated red blood cells 0.0 % -0 Not Available [facility] (Lab) [address] [place], [address], 09/15/2022 10:16:54 09/16/19 23 09/15/2022 CBC/C OMPLE TE BLD COUNT W/DIF F NRBC# 0.00 x10'3 /uL Not Available [facility] (Lab) [address] [place], [address], 09/15/2022 10:16:54 09/16/19 23 09/15/2022 PROTI ME W/INR protime 9.7 secon ds 9.5-11 .5 Not Available [facility] (Lab) [address] [place], [address], 09/15/2022 10:40:07 09/16/19 23 09/15/2022 PROTI ME W/INR INR 0.9 INR INDIC ATION S 2.0 - 3.0 PROPH YLAXI S: VENOU S THROM BOSIS (HIGH RISK SURGE RY) AND SYSTE MITZI EMBOL ISM (TISS UE HEART VALVE S, AMI VALVU LAR HEART DISEA SE AND ATRIA L FIBRI LLATI ON). TREAT MENT: VENOU S THROM BOSIS AND PULMO NARY EMBOL ISM BILEA FLET MECHA NICAL VALVE S IN AORTI C POSIT ION. 2.5 - 3.5 MECHA NICAL PROST HETIC HEART VALVE S (TILT ING DISK VALVE S AND BILEA FLET MECHA NICAL VALVE S IN SKYE L POSIT ION). PREVE NTION OF RECUR RENT MYOCA RDIAL INFAR CTION . ANTIP HOSPH OLIPI D SYNDR OME. Not Available [facility] (Lab) [address] [place], [address], 09/15/2022 10:40:07 09/16/19 23 09/15/2022 APTT APTT 25.9 secon ds 23.4-3 1.4 PLEAS E NOTE NEW APTT REFER ENCE RANGE EFFEC TIVE 03/30 . Not Available [facility] (Lab) [address] [place], [address], 09/15/2022 10:40:11 09/16/19 23 09/15/2022 CORTI HORACE, TOTAL , A.M. rafael AM 1.0 ug/dL 4.5-22 .7 low Not Available [facility] (Lab) [address] [place], [address], 09/15/2022 10:42:38 09/16/19 23 09/15/2022 BASIC METAB OLIC PANEL sodium 140 mmol/ L 137-14 5 Not Available [facility] (Lab) [address] [place], [address], 09/15/2022 10:59:24 09/16/19 23 09/15/2022 BASIC METAB OLIC PANEL potassium 3.9 mmol/ L 3.5-5. 1 Not Available [facility] (Lab) [address] [place], [address], 09/15/2022 10:59:24 09/16/19 23 09/15/2022 BASIC METAB OLIC PANEL chloride 100 mmol/ L 98-107 Not Available [facility] (Lab) [address] [place], [address], 09/15/2022 10:59:24 09/16/19 23 09/15/2022 BASIC METAB OLIC PANEL carbon dioxide 32 mmol/ L 22-30 high Not Available [facility] (Lab) [address] [place], [address], 09/15/2022 10:59:24 09/16/19 23 09/15/2022 BASIC METAB OLIC PANEL anion gap 11.9 mmol/ L 14-22 low Not Available [facility] (Lab) [address] [place], [address], 09/15/2022 10:59:24 09/16/19 23 09/15/2022 BASIC METAB OLIC PANEL glucose 113 mg/dL 70-99 high Not Available [facility] (Lab) [address] [place], [address], 09/15/2022 10:59:24 09/16/19 23 09/15/2022 BASIC METAB OLIC PANEL BUN 19 mg/dL 8-19 Not Available [facility] (Lab) [address] [place], [address], 09/15/2022 10:59:24 09/16/19 23 09/15/2022 BASIC METAB OLIC PANEL creatinine 0.65 mg/dL 0.66-1 .25 low Not Available [facility] (Lab) [address] [place], [address], 09/15/2022 10:59:24 09/16/19 23 09/15/2022 BASIC METAB OLIC PANEL GFR >60 Refer ence Range : [place] GFR Healt hy Adult : >60 mL/mi n/1.7 3 m2 Chron ic Kidne y Disea se: 15-60 mL/mi n/1.7 3 m2 Kidne y Failu re: <15/m L/min /1.73 m2 www.n iddk. nih.g ov The MDRD study equat ion has not been valid ated in child lisha <18 years of age; pregn ant women ; the elder ly >85 years of age; or in some racia l or ethni c subgr oups, such as dc nics. Outsi de the valid ated buddy eters , estim ated GFR is less accur ate, requi ring clini mike judgm ent on a case- by-ca se basis . Clini mike inter preta tion for other races and ages must be made by the clini harry. The MDRD study equat ion has not been valid ated for the evalu ation of serum creat inine relat ed to nutri fish l statu s or medic ation usage . For perso ns <18 years of age, a pedia tric GFR calcu lator is avail able on the F websi te: https ://galina w.lorena [email or web address].o rg/pr ofess ional s/kdo qi/gf r_cal culat or Not Available [facility] (Lab) [address] [place], [address], 09/15/2022 10:59:24 09/16/19 23 09/15/2022 BASIC METAB OLIC PANEL calcium 9.5 mg/dL 8.4-10 .2 Not Available [facility] (Lab) [address] [place], [address], 09/15/2022 10:59:24 09/16/19 23 09/15/2022 HEMOG LOBIN A1C HA1C 6.0 % 4.0-6. 0 Diabe ralph Scree linda Crite cristina: <5.7% Consi stent with absen ce of diabe ralph 5.7-6 .4% Consi stent with incre ased risk for diabe ralph (pred iabet es) >OR=6 .5% Consi stent with diabe ralph REFER ENCE: Diabe ralph Care 2016, 39(Tian ppl.1 ):s13 -s22 Not Available [facility] (Lab) [address] [place], [address], 09/15/2022 12:13:40 09/16/19 23 09/15/2022 MRSA/ STAPH AUREU S, NASAL , PCR MRSA, nasal NEGATI VE Not Available [facility] (Lab) [address] [place], [address], 09/15/2022 13:41:58 09/16/19 23 09/15/2022 MRSA/ STAPH AUREU S, NASAL , PCR staph aureus, nasal NEGATI VE Not Available [facility] (Lab) [address] [place], [address], 09/15/2022 13:41:58 09/16/19 23 09/15/2022 TYPE AND SCREE N patient ABO group and Rh A POSITI VE Not Available [facility] (Lab) [address] [place], [address], 09/15/2022 14:08:20 09/16/19 23 09/15/2022 TYPE AND SCREE N patient antibody screen NEGATI VE Not Available [facility] (Lab) [address] [place], [address], 09/15/2022 14:08:20 09/16/19 23 09/19/2022 DEXAM ETHAS ONE dexamethason e 421 NG/dL This test was devel oped and its perfo rmanc e samantha cteri stics deter mined by [facility]. It has not been clear ed or appro efren by the Food and Drug Admin istra tion. Refer ence Range : Adult s basel ine: <30 8:00 AM follo wing 1 mg dexam ethas one previ ous eveni n - 295 8:00 AM follo wing 8 mg dexam ethas one (4 x 2 mg doses ) previ ous day: 1600 - 2850 Perfo rmed at: [facility] [address] [place] [id number] Lab Direc tor: Delvin sylvester MD, Phone : [phone] Not Available [facility] (Lab) [address] [place], [address], 09/19/2022 03:36:15 09/30/19 23 09/29/2022 GLUCO SE (POIN T OF CARE) glucose (point of care) 95 mg/dL 74-99 Not Available [facility] (Lab) [address] [place], [address], 09/29/2022 07:17:53 09/30/19 23 09/29/2022 POTAS SIUM potassium 3.2 mmol/ L 3.5-5. 1 low Not Available [facility] (Lab) [address] [place], [address], 09/29/2022 07:52:53 09/30/19 23 09/29/2022 ABO/R H CONFI RMATI ON patient ABO group and Rh A POSITI VE Not Available [facility] (Lab) [address] [place], [address], 09/29/2022 08:10:12 09/30/19 23 09/29/2022 GLUCO SE (POIN T OF CARE) glucose (point of care) 92 mg/dL 74-99 Not Available [facility] (Lab) [address] [place], [address], 09/29/2022 12:15:28 09/30/19 23 09/29/2022 VITAM IN D 25-HY DROXY [id number] 39.2 NG/mL 30-100 Vitam in D Statu s: Defic ient: <20 ng/mL Insuf ficie nt: 20-29 ng/mL Suffi cient : 30-10 0 ng/mL Not Available [facility] (Lab) [address] [place], [address], 09/29/2022 12:52:15 10/24/19 23 10/23/2022 COMPR EHENS ANGELA METAB OLIC PANEL sodium 140 mmol/ L 137-14 5 Not Available [facility] (Lab) [address] [place], [address], 10/23/2022 12:20:36 10/24/19 23 10/23/2022 COMPR EHENS ANGELA METAB OLIC PANEL potassium 3.9 mmol/ L 3.5-5. 1 Not Available [facility] (Lab) [address] [place], [address], 10/23/2022 12:20:36 10/24/19 23 10/23/2022 COMPR EHENS ANGELA METAB OLIC PANEL chloride 99 mmol/ L 98-107 Not Available [facility] (Lab) [address] [place], [address], 10/23/2022 12:20:36 10/24/19 23 10/23/2022 COMPR EHENS ANGELA METAB OLIC PANEL carbon dioxide 33 mmol/ L 22-30 high Not Available [facility] (Lab) [address] [place], [address], 10/23/2022 12:20:36 10/24/19 23 10/23/2022 COMPR EHENS ANGELA METAB OLIC PANEL anion gap 11.9 mmol/ L 14-22 low Not Available [facility] (Lab) [address] [place], [address], 10/23/2022 12:20:36 10/24/19 23 10/23/2022 COMPR EHENS ANGELA METAB OLIC PANEL glucose 99 mg/dL 70-99 Not Available [facility] (Lab) [address] [place], [address], 10/23/2022 12:20:36 10/24/19 23 10/23/2022 COMPR EHENS ANGELA METAB OLIC PANEL BUN 14 mg/dL 8-19 Not Available [facility] (Lab) [address] [place], [address], 10/23/2022 12:20:36 10/24/19 23 10/23/2022 COMPR EHENS ANGELA METAB OLIC PANEL creatinine 0.64 mg/dL 0.66-1 .25 low Not Available [facility] (Lab) [address] [place], [address], 10/23/2022 12:20:36 10/24/19 23 10/23/2022 COMPR EHENS ANGELA METAB OLIC PANEL GFR >60 Refer ence Range : [place] GFR Healt hy Adult : >60 mL/mi n/1.7 3 m2 Chron ic Kidne y Disea se: 15-60 mL/mi n/1.7 3 m2 Kidne y Failu re: <15/m L/min /1.73 m2 www.n iddk. nih.g ov The MDRD study equat ion has not been valid ated in child lisha <18 years of age; pregn ant women ; the elder ly >85 years of age; or in some racia l or ethni c subgr oups, such as Hispa nics. Outsi de the valid ated buddy eters , estim ated GFR is less accur ate, requi ring clini mike judgm ent on a case- by-ca se basis . Clini mike inter preta tion for other races and ages must be made by the clini harry. The MDRD study equat ion has not been valid ated for the evalu ation of serum creat inine relat ed to nutri fish l statu s or medic ation usage . For perso ns <18 years of age, a pedia tric GFR calcu lator is avail able on the [facility] websi te: https ://ww w.kid karen.o rg/pr ofess ional s/kdo qi/gf r_cal culat or Not Available [facility] (Lab) [address] [place], [address], 10/23/2022 12:20:36 10/24/19 23 10/23/2022 COMPR EHENS ANGELA METAB OLIC PANEL alkaline phosphatase 130 U/L 38-126 high Not Available [facility] (Lab) [address] [place], [address], 10/23/2022 12:20:36 10/24/19 23 10/23/2022 COMPR EHENS ANGELA METAB OLIC PANEL alanine aminotransfe rase 24 U/L 0-35 Not Available [facility] (Lab) [address] [place], [address], 10/23/2022 12:20:36 10/24/19 23 10/23/2022 COMPR EHENS ANGELA METAB OLIC PANEL aspartate aminotransfe rase 30 U/L 15-37 Not Available [facility] (Lab) [address] [place], [address], 10/23/2022 12:20:36 10/24/19 23 10/23/2022 COMPR EHENS ANGELA METAB OLIC PANEL bilirubin, total 0.50 mg/dL 0.20-1 .30 Not Available [facility] (Lab) [address] [place], [address], 10/23/2022 12:20:36 10/24/19 23 10/23/2022 COMPR EHENS ANGELA METAB OLIC PANEL calcium 9.8 mg/dL 8.4-10 .2 Not Available [facility] (Lab) [address] [place], [address], 10/23/2022 12:20:36 10/24/19 23 10/23/2022 COMPR EHENS ANGELA METAB OLIC PANEL total protein 6.6 g/dL 6.3-8. 2 Not Available [facility] (Lab) [address] [place], [address], 10/23/2022 12:20:36 10/24/19 23 10/23/2022 COMPR EHENS ANGELA METAB OLIC PANEL albumin 4.1 g/dL 3.0-4. 4 Not Available [facility] (Lab) [address] [place], [address], 10/23/2022 12:20:36 10/24/19 23 10/23/2022 COMPR EHENS ANGELA METAB OLIC PANEL globulin 2.5 g/dL 2.6-4. 2 low Not Available [facility] (Lab) [address] [place], [address], 10/23/2022 12:20:36 10/24/19 23 10/23/2022 COMPR EHENS ANGELA METAB OLIC PANEL A/G ratio 1.6 ratio 1.0-2. 0 Not Available [facility] (Lab) [address] [place], [address], 10/23/2022 12:20:36 10/24/19 23 10/23/2022 PHOSP HORUS phosphorus 3.7 mg/dL 2.5-4. 5 Not Available [facility] (Lab) [address] [place], [address], 10/23/2022 12:20:39 10/24/19 23 10/23/2022 PARAT HYROI D HORM (PTH) INT.W /CA intact parathyroid hormone 33.3 pg/mL 24-78 Pleas e note new refer ence range effec tive 05/08 . Not Available [facility] (Lab) [address] [place], [address], 10/23/2022 12:25:43 10/24/19 23 10/23/2022 PARAT HYROI D HORM (PTH) INT.W /CA calcium 9.8 mg/dL 8.4-10 .2 Not Available [facility] (Lab) [address] [place], [address], 10/23/2022 12:25:43 10/24/19 23 10/23/2022 VITAM IN D 25-HY DROXY vd25oh 32.2 NG/mL 30-100 Vitam in D Statu s: Defic ient: <20 ng/mL Insuf ficie nt: 20-29 ng/mL Suffi cient : 30-10 0 ng/mL Not Available [facility] (Lab) [address] [place], [address], 10/23/2022 12:27:46 10/24/1910/23/2022 HEMOG LOBIN A1C HA1C 5.7 % 4.0-6. 0 Diabe ralph Scree linda Crite cristina: <5.7% Consi stent with absen ce of diabe ralph 5.7-6 .4% Consi stent with incre ased risk for diabe ralph (pred iabet es) >OR=6 .5% Consi stent with diabe ralph REFER ENCE: Diabe ralph Care 2016, 39(Tian ppl.1 ):s13 -s22 Not Available [facility] (Lab) [address] [place], [address], 10/23/2022 15:02:20 10/24/19 23 10/24/2022 INSUL IN insulin 6.4 uIU/m L 2.6-24 .9 Perfo rmed at: [facility] n [address] [facility], [place] [address] Lab Direc tor: Lee guzman PhD, Phone : [phone] Not Available [facility] (Lab) [address] [facility] [place], [place], [address], 10/24/2022 13:08:54 07/17/19 23 XR, hip, unila teral No observ ation record ed. [facility] [address], [place], [address], 07/16/2022 13:07:03 08/14/19 23 07/01/2022 elect poppy diogr am No observ ation record ed. [email or web address] [facility] [address], [place], [address], 08/18/2022 16:09:59 08/14/19 23 07/13/2022 stres s echoc ardio gram No observ ation record ed. [email or web address] [facility] [address], [place], [address], 08/17/2022 13:17:12 09/30/19 23 09/29/2022 XR, hip, unila teral [facility] [address] [place] [address] [phone] Patien t Name: CATHERINE SHUKLA Access ion #: [id number] Sex: F : 1954 5 Locati on: Attend ing Physic jon: KOLE TALAMANTES [facility] Physic jon: KOLE TALAMANTES Exam Date: 023 10:41 AM Exam Name: XR HIP LT 2-3V Admitt ing Diagno sis(es ): RADIOL OGY REPORT - FINAL EXAM: XR HIP LT 2-3V HISTOR Y: Lt total hip arthro plasty 67-yea r-old female status post left total hip arthro plasty . COMPAR XIOMY: Radiog raphs dated 2022. TECHNI QUE: Left hip radiog raphs were perfor med intrao perati vely and postop erativ chaitanya. Fluoro time: 84.3 second s.. IMPRES ANDREA: Postop erativ e change s of left total hip arthro plasty , withou t eviden ce of peripr osthet ic fractu re, disloc ation, or other compli cation . Page 1 of 2 [facility] Patien t Name: CATHERINE SHUKLA Access ion #: [id number] Sex: F : 1954 5 Exam Date: 10:41 AM Exam Name: XR HIP LT 2-3V Admitt ing Diagno sis(es ): Create d and electr onical ly signed by: Ross paige MD Signed Date: 11:22 AM (CT) Dictat ed by: Ross paige MD DD: 11:22 AM (CT) DT: 11:22 AM (CT) Page [address] (Imaging) [address] [place], [address], 09/29/2022 16:47:12 10/09/19 23 09/15/2022 elect poppy ordaz am No observ ation record ed. [email or web address] Not Available 2022 09:53:49 10/30/19 23 XR, hip + pelvi s, unila teral No observ ation record ed. [facility] [place] [id number] [facility], [place], [address], 10/29/2022 10:37:56 Result Notes None recorded. Problems Name Problem SNOMED Code Status Onset Date Resolution Date Notes Provider Name and Address Organization Details Recorded Time Plantar fasciitis of left foot 9601166023912 9101 Active 2020 Not Available [facility] 3 13:13:57 Pain of left elbow joint 7058233187499 9104 Active 2021 Not Available [facility] 3 13:13:57 Gastroesop hageal reflux disease 369439288 Active 2018 Not Available [facility] 3 13:13:58 Severe chronic obstructiv e pulmonary disease 751572225 Active 2018 Not Available [facility] 3 13:13:58 Onychomyco sis 961034133 Active 2020 Not Available [facility] 3 13:13:58 Solitary nodule of lung 720961927 Active 2018 Not Available [facility] 3 13:13:58 Dyspnea on exertion 84735793 Active 2018 Not Available [facility] 3 13:13:58 Pain of left hip joint 4754341403265 00 Active 2022 RUBIN Nelson, [employer] [facility] 3 13:32:28 Preoperati ve cardiovasc ular examinatio n Active 2022 Daria Hill CMA null, [employer] [facility] 3 15:16:21 Thrombocyt openic disorder 504049489 Active 2022 Daria Hill CMA null, [employer] [facility] 3 15:52:45 Osteoporos is 57853115 Active 2022 Daria Hill CMA null, [employer] [facility] 3 11:04:02 Osteonecro sis of head of femur 179838710 Active 2022 RUBIN Nelson null, [employer] [facility] 3 11:38:24 Postmenopa usal osteoporos is 120914555 Active 2022 Michell Courtney MD [address] [place] [address], [place] [address], [place], [address] , [facility] [employer] [facility] 3 10:13:10 Essential hypertensi on 71236502 Active 2022 Michell Courtney MD [address], [facility] [address], [place], [address] , [employer] 10:15:47 Prediabete s 974335805 Active 2022 Michell Courtney MD [address], [address], [place], [address] , [employer] 14:00:49 Impaired fasting glycemia 256517431 Active 2022 Michell Courtney MD [address], [facility] [address], [place], [address] , [employer] 12:58:35 Problem Notes None recorded. Procedures Surgical History Date Name Laterality Status Provider Name and Address Organization Details Recorded Time ligation of fallopian tube completed RUBIN [employer] [facility] 08/06/2022 09:58:06 Imaging Results Imaging Date Name Status LastModified by Organization Details LastModified Time 07/16/2022 XR, hip, unilateral completed [facility] [address] [facility], [place], [address], 07/16/2022 13:07:03 07/01/2022 electrocardiogram completed [email or web address] [facility] [address], [place], [address], 08/18/2022 16:09:59 07/13/2022 stress echocardiogram completed [email or web address] [facility] [address], [place], [address], 08/17/2022 13:17:12 09/29/2022 XR, hip, unilateral completed [email or web address] [facility] (Imaging) [address] [place], [address], 09/29/2022 16:47:12 09/15/2022 electrocardiogram completed [email or web address] Informa tion not available 10/08/2022 09:53:49 10/29/2022 XR, hip + pelvis, unilateral completed [facility] [address], [place], [address], 10/29/2022 10:37:56 Procedure Notes None recorded. Medical Equipment None Reported. Allergies No known drug allergies Medications Name Sig Start Date Stop Date Status Note LastModified by Organization Details LastModified Time amoxicillin 500 mg capsule TAKE ONE CAPSULE BY MOUTH EVERY 8 HOURS UNTIL FINISHED 11/27 completed Not Available Not Available Not Available atorvastati n 40 mg tablet TAKE ONE TABLET BY MOUTH EVERY DAY TO LOWER CHOLESTER OL active Not Available Not Available No t Available silver sulfadiazin e 1 % topical cream APPLY TO AFFECTED AREA EVERY DAY 11/27 completed Not Available Not Available Not Available metformin 500 mg tablet TAKE ONE TABLET BY MOUTH TWICE DAILY FOR DIABETES active Not Available Not Available No t Available fluticasone 250 mcg-salmete rol 50 mcg/dose blistr powdr for inhalation Inhale 1 puff twice a day by inhalatio n route as directed for 30 days. 07/26 completed Not Available Not Available Not Available nystatin 100,000 unit/mL oral suspension 07/26 completed Not Available Not Available Not Available prednisone 10 mg tablet TAKE 4 TABLETS BY MOUTH EVERY DAY FOR FOUR DAYS, THEN TAKE THREE TABLETS EVERY DAY FOR 2 DAYS, THEN TAKE TWO TABLETS EVERY DAY FOR 2 DAYS, THEN TAKE ONE TABLET EVERY DAY FOR 2 DAYS active Not Available Not Available No t Available doxycycline hyclate 100 mg capsule TAKE ONE CAPSULE BY MOUTH EVERY TWELVE HOURS FOR 5 DAYS active Not Available Not Available No t Available ipratropium 0.5 mg-albutero l 3 mg (2.5 mg base)/3 mL nebulizatio n soln INHALE THE CONTENTS OF 1 VIAL VIA NEBULIZER FOUR TIMES DAILY active Not Available Not Available No t Available albuterol sulfate 2.5 mg/3 mL (0.083 %) solution for nebulizatio n 06/18 completed Not Available Not Available Not Available cetirizine 10 mg tablet TAKE ONE TABLET BY MOUTH EVERY DAY FOR ALLERGIES 11/26 completed Not Available Not Available Not Available azithromyci n 250 mg tablet TAKE 2 TABLETS BY MOUTH ON DAY 1, THEN TAKE 1 TABLET DAILY ON DAYS 2-5 active Not Available Not Available No t Available ibuprofen 800 mg tablet 1 TABLET BY MOUTH EVERY 6 8 HOURS TAKE WITH FOOD NEEDED FOR PAIN/INFL AMMATION 06/18 completed Not Available Not Available Not Available Lidocaine Viscous 2 % mucosal solution PLACE 5 ML ON CANKER SORE USING A QTIP UP TO 4 TIMES DAILY (EVERY 6 HOURS) NEEDED 06/18 completed Not Available Not Available Not Available fluconazole 150 mg tablet 11/27 completed Not Available Not Available Not Available benzonatate 200 mg capsule TAKE ONE CAPSULE BY MOUTH THREE TIMES DAILY NEEDED FOR 7 DAYS active Not Available Not Available No t Available hydrocodone 5 mg-acetamin ophen 325 mg tablet 07/26 completed Not Available Not Available Not Available meloxicam 15 mg tablet Take 1 tablet every day by oral route with meals for 21 days. 06/18 completed Not Available Not Available Not Available prednisone 20 mg tablet TAKE TWO TABLETS BY MOUTH EVERY DAY FOR 5 DAYS active Not Available Not Available No t Available dexamethaso ne 6 mg tablet 06/11 completed Not Available Not Available Not Available acetaminoph en 300 mg-codeine 30 mg tablet TAKE 1 TO 2 TABLETS BY MOUTH EVERY 4 TO 6 HOURS NEEDED FOR PAIN, max 12 tablets in 24 hours 11/27 completed Not Available Not Available Not Available acyclovir 400 mg tablet 07/26 completed Not Available Not Available Not Available sulfamethox azole 800 mg-trimetho prim 160 mg tablet 11/27 completed Not Available Not Available Not Available omeprazole 40 mg capsule,del ayed release TAKE ONE CAPSULE BY MOUTH EVERY DAY FOR STOMACH active Not Available Not Available No t Available aspirin 81 mg tablet,claudette yed release TAKE ONE TABLET BY MOUTH EVERY DAY TO PREVENT BLOOD CLOTS active Not Available Not Available No t Available tramadol 50 mg tablet TAKE ONE TABLET BY MOUTH EVERY 4 HOURS NEEDED FOR PAIN 10/29 completed Not Available Not Available Not Available acetaminoph en 500 mg tablet TAKE TWO TABLETS BY MOUTH EVERY 6 HOURS, max 4,000 MG in 24 hours active Not Available Not Available No t Available triamcinolo ne acetonide 0.1 % topical cream 06/18 completed Not Available Not Available Not Available carvedilol 3.125 mg tablet TAKE ONE TABLET BY MOUTH TWICE DAILY FOR BLOOD PRESSURE & HEART active Not Available Not Available No t Available ketorolac 10 mg tablet TAKE ONE TABLET BY MOUTH EVERY 6 HOURS NEEDED FOR 5 DAYS 07/16 completed Not Available Not Available Not Available ciclopirox 8 % topical solution APPLY TO THE AFFECTED AREA(S) BY TOPICAL ROUTE ONCE DAILY PREFERABL Y AT BEDTIME 11/27 completed Not Available Not Available Not Available tamsulosin 0.4 mg capsule 1 CAPSULE BY MOUTH DAILY MAY TAKE DOSE TODAY 07/22. THEN TAKE DOSE EACH MORNING. 06/18 completed Not Available Not Available Not Available dexamethaso ne 1 mg tablet TAKE ONE TABLET BY MOUTH AT 10 p.m THE night BEFORE 8 a.m cortisol active Not Available Not Available No t Available benzonatate 100 mg capsule TAKE ONE CAPSULE EVERY 8 HOURS NEEDED FOR COUGH active Not Available Not Available No t Available cephalexin 500 mg capsule TAKE ONE CAPSULE BY MOUTH EVERY 6 HOURS 10/29 completed Not Available Not Available Not Available metronidazo le 0.75 % topical cream apply a thin layer TO AFFECTED AREAS TWICE DAILY (morning AND evening) 06/18 completed Not Available Not Available Not Available hydrochloro thiazide 12.5 mg capsule TAKE ONE CAPSULE BY MOUTH EVERY MORNING FOR BLOOD PRESSURE & FLUID RETENTION active Not Available Not Available No t Available Advair Diskus 500 mcg-50 mcg/dose powder for inhalation INHALE ONE PUFF BY MOUTH TWO TIMES DAILY 11/27 completed Not Available Not Available Not Available amoxicillin 250 mg capsule Take 1 capsule every 8 hours by oral route for 5 days. 10/25 completed Not Available Not Available Not Available ergocalcife rol (vitamin D2) 1,250 mcg (50,000 unit) capsule TAKE ONE CAPSULE BY MOUTH EVERY WEEK 10/29 completed Not Available Not Available Not Available ibuprofen 600 mg tablet 06/18 completed Not Available Not Available Not Available levofloxaci n 500 mg tablet 07/26 completed Not Available Not Available Not Available levofloxaci n 750 mg tablet TAKE ONE TABLET BY MOUTH EVERY DAY 10/15 completed Not Available Not Available Not Available methylpredn isolone 4 mg tablets in a dose pack Use as directed on package active Not Available Not Available No t Available celecoxib 100 mg capsule TAKE ONE CAPSULE BY MOUTH EVERY DAY active Not Available Not Available No t Available cefdinir 300 mg capsule 11/27 completed Not Available Not Available Not Available fluticasone propionate 50 mcg/actuati on nasal spray,suspe nsion INSTILL 1-2 SPRAYS IN EACH NOSTRIL EVERY DAY active Not Available Not Available No t Available doxycycline hyclate 100 mg tablet TAKE 1 TABLET BY MOUTH TWICE DAILY 11/27 completed Not Available Not Available Not Available loratadine 10 mg tablet Take 1 tablet every day by oral route as directed for 30 days. 11/27 completed Not Available Not Available Not Available amoxicillin 875 mg-potassiu m clavulanate 125 mg tablet 07/26 completed Not Available Not Available Not Available Ventolin HFA 90 mcg/actuati on aerosol inhaler INHALE TWO PUFFS BY MOUTH EVERY FOUR HOURS NEEDED FOR SHORTNESS OF BREATH active Not Available Not Available No t Available oxycodone 5 mg tablet TAKE ONE TABLET BY MOUTH EVERY 4 HOURS 11/26 completed Not Available Not Available Not Available Siltussin-D M 10 mg-100 mg/5 mL oral syrup 11/27 completed Not Available Not Available Not Available Senna Plus 8.6 mg-50 mg tablet TAKE TWO TABLETS BY MOUTH TWICE DAILY TO prevent constipat ion, hold FOR loose stools 10/29 completed Not Available Not Available Not Available nitrofurant oin monohydrate /macrocryst als 100 mg capsule TAKE 1 CAPSULE BY MOUTH EVERY 12 HOURS FOR 7 DAYS 11/27 completed Not Available Not Available Not Available chlorhexidi ne gluconate 0.12 % mouthwash RINSE FOR 30 SECONDS WITH 1 TABLESPOO N (DISPENSE EVERY 12 HOURS) active Not Available Not Available No t Available aspirin 07/16 completed Not Available Not Available Not Available amoxicillin 08/24 completed Not Available Not Available Not Available hydrochloro thiazide 06/18 completed Not Available Not Available Not Available Hctz/Reserp ine/Hydrala zine 06/11 completed Not Available Not Available Not Available prednisolon e 10 mg disintegrat ing tablet Take 1 tablet every day by oral route for 5 days. 11/27 completed Not Available Not Available Not Available calcium 600 mg (as carbonate)- vitamin D3 10 mcg (400 unit) tablet TAKE ONE TABLET BY MOUTH TWICE A DAY FOR CALCIUM REPLACEME NT active Not Available Not Available No t Available hydrochloro thiazide 12.5 mg tablet TAKE ONE TABLET BY MOUTH EVERY MORNING active Not Available Not Available No t Available Symbicort 160 mcg-4.5 mcg/actuati on HFA aerosol inhaler INHALE TWO PUFFS BY MOUTH TWICE DAILY active Not Available Not Available No t Available Symbicort 80 mcg-4.5 mcg/actuati on HFA aerosol inhaler INHALE 2 PUFF(S) TWICE A DAY 10/29 completed Not Available Not Available Not Available diclofenac 1 % topical gel APPLY TWO GRAMS FOUR TIMES DAILY DIRECTED 11/27 completed Not Available Not Available Not Available Suprep Bowel Prep Kit 17.5 gram-3.13 gram-1.6 gram oral solution 07/26 completed Not Available Not Available Not Available OneTouch Verio test strips USE TO CHECK BLOOD SUGAR THREE TIMES PER WEEK active Not Available Not Available No t Available Eliquis 2.5 mg tablet TAKE ONE TABLET BY MOUTH EVERY TWELVE HOURS active Not Available Not Available No t Available Breo Ellipta 100 mcg-25 mcg/dose powder for inhalation Inhale 1 puff every day by inhalatio n route. 07/22 completed Not Available Not Available Not Available Jardiance 10 mg tablet TAKE ONE TABLET BY MOUTH EVERY DAY FOR DIABETES active Not Available Not Available No t Available Spiriva Respimat 2.5 mcg/actuati on solution for inhalation inhale TWO PUFFS BY MOUTH EVERY DAY active Not Available Not Available No t Available Incruse Ellipta 62.5 mcg/actuati on powder for inhalation Inhale 1 puff every day by inhalatio n route as directed for 30 days. 07/26 completed Not Available Not Available Not Available Emergen-C 11/27 completed Not Available Not Available Not Available OneTouch Verio Flex Meter Use as directed TO TEST BLOOD SUGAR 06/18 completed Not Available Not Available Not Available Compact Space Chamber USE as directed with inhaler active Not Available Not Available No t Available OneTouch Delica Plus Lancet 30 gauge USE TO CHECK BLOOD SUGAR THREE TIMES WEEKLY active Not Available Not Available No t Available Tab-A-Jennifer 400 mcg tablet TAKE ONE TABLET BY MOUTH EVERY DAY FOR VITAMIN DEFICIENC Y active Not Available Not Available No t Available Vitals Date Recorded Body height Provider Name an d Address Organization Details Last Updated DateTime 08/13/2022 149.86 cm Bettie Clark [facility] 08/13/2022 11:53:26 Date Recorded Body height Provider Name an d Address Organization Details Last Updated DateTime 10/15/2022 149.86 cm Bettie Clark [facility] 10/15/2022 10:06:24 Date Recorded Body height Provider Name an d Address Organization Details Last Updated DateTime 10/29/2022 149.86 cm Bettie Clark [facility] 10/29/2022 10:04:40 Date Recorded Body height Provider Name an d Address Organization Details Last Updated DateTime 11/26/2022 149.86 cm Bettie Clark [facility] 11/26/2022 10:30:32 Date Recorded Body height Body mass index (BMI) Body weight Heart rate Body temperature Systolic blood pressure Diastolic blood pressure Provider Name and Address Organization Details Last Updated DateTime 3 154.94 cm 24.2 kg/m2 78930.5 4 g 62 /min 98.4 [degF] 129 mm[Hg] 85 mm[Hg] Peyton Adams MA [facility] 3 12:43:18 Social History Question Answer Notes LastModified by Organizat ion Details LastModified Time Tobacco Smoking Status Former [facility] 10/29/2022 10:00:02 Do You Have An Advance Directive? No Information not available 08/06/2022 What Is Your Level Of Alcohol Consumption? Occasional [id number] Information not available 06/10/2022 Are You Blind Or Do You Have Difficulty Seeing? No [email or web address] Information not available 10/29/2022 What Is Your Level Of Caffeine Consumption? Occasional Information not available 08/06/2022 What Is Your Code Status? Full Code [email or web address] Information not available 10/29/2022 In The 14 Days Before Symptom Onset, Have You Had Close Contact With A Laboratory-confi ed COVID-19 While That Case Was Ill? No Information not available 10/29/2022 In The 14 Days Before Symptom Onset, Have You Had Close Contact With A Person Who Is Under Investigation For COVID-19 While That Person Was Ill? No [email or web address] Information not available 10/29/2022 Are You Currently Employed? No [email or web address] Information not available 10/29/2022 Are You Deaf Or Do You Have Serious Difficulty Hearing? Yes [email or web address] Information not available 10/29/2022 What Type Of Diet Are You Following? REGULAR Information not available 08/06/2022 What Is The Highest Grade Or Level Of School You Have Completed Or The Highest Degree You Have Received? [id number] [email or web address] Information not available 10/29/2022 When Did You Quit Smoking? 1-5yearssincelastci leticiachandni [email or web address] Information not available 10/29/2022 Are There Any Guns Present In Your Home? No Information not available 10/29/2022 Where Do You Live? SingleLevelHouse [email or web address] Information not available 10/29/2022 What Is Your Relationship Status? Information not available 08/06/2022 Do You Use Your Seat Belt Or Car Seat Routinely? Yes Information not available 10/29/2022 Do You Have Smoke And Carbon Monoxide Detectors In Your Home? Yes [email or web address] Information not available 10/29/2022 Are You Passively Exposed To Smoke? Yes [email or web address] Information not available 10/29/2022 Do You Feel Stressed (tense, Restless, Nervous, Or Anxious, Or Unable To Sleep At Night)? [id number] [email or web address] Information not available 10/29/2022 Do You Use Any Illicit Or Recreational Drugs? No [email or web address] Information not available 10/29/2022 Do You Use Sunscreen Routinely? No Information not available 10/29/2022 Have You Recently Traveled Abroad? No Information not available 10/29/2022 Do You Have Any Dietary Restrictions? No [email or web address] Information not available 10/29/2022 Do You Or Have You Ever Used Any Other Forms Of Tobacco Or Nicotine? No [email or web address] Information not available 10/29/2022 Sex: Unknown Functional Status Question Answer Note LastModified by Organizat ion Details LastModified Time Do you have difficulty walking or climbing stairs? No [email or web address] Information not available 10/29/2022 Do you have transportation difficulties? No [email or web address] Information not available 10/29/2022 Are you able to walk? YESWOREST [email or web address] Information not available 10/29/2022 Do you have difficulty doing errands alone? No [email or web address] Information not available 10/29/2022 Are you able to care for yourself? Yes [email or web address] Information n ot available 10/29/2022 Do you have difficulty dressing or bathing? No [email or web address] Information not available 10/29/2022 What is your exercise level? Occasional Information not available 08/06/2022 Mental Status Question Answer Note LastModified by Organization D etails LastModified Time Do you have difficulty concentrating, remembering or making decisions? No [email or web address] Information no t available 10/29/2022 Family History Relationship Description Onset Age of this Age Resolved Age Notes LastModified by Organization Details LastModified Time Sister Disorder of thyroid gland Not available 2022 09:53:11 Medical History Condition Response ARTHRITIS Y USE OF BLOOD THINNERS Y DIABETES, TYPE Y KIDNEY DISEASE Y COPD Y HYPERTENSION Y HIGH CHOLESTEROL / HYPERLIPIDEMIA Y CANCER: SPECIFY Y GERD/NAUSEA Y BLOOD CLOTS Y ANEMIA/BLOOD DISORDER Y OSTEOPOROSIS Y SHINGLES Y HAVE YOU BEEN HOSPITALIZED OR SEEN IN [facility] IN THE PAST YEAR ? Y Gynecological HistoryNo gynecological history recorded. Obstetrics History GPAL:G 0 P 0 0 0 0 Past Encounters Encounter ID Performer Location Encounter Start Date Encounter Closed Date Diagnosis/Indication Diagnosis SNOMED-CT Code Diagnosis ICD10 Code Diagnosis Note [id number] [facility] [address] [place] [address] 07/22/2020 00:00:00 07/22/2020 15:34:55 [id number] [facility] [address] [place] [address] 08/05/2020 00:00:00 08/05/2020 13:51:59 [id number] [facility] [address] [place] [address] 09/02/2020 00:00:00 09/02/2020 13:27:04 [id number] [facility] [address] [place] [address] 11/27/2021 00:00:00 11/27/2021 15:25:55 [id number] Kole Lira MD [facility] [address] [place] [address] 06/11/2022 13:13:43 06/11/2022 14:49:04 Pain of left hip joint 8840325432 06493 M25.552 [id number] Kole Lira MD [facility]_[address] [address] 06/18/2022 13:53:58 06/22/2022 09:53:48 Pain of left hip joint 2252467760 17199 M25.552 [id number] Kole Lira MD [address] [address] 07/16/2022 11:35:25 07/16/2022 13:46:35 Osteonecrosis of head of femur 905987683 M87.852 [id number] Michell Courtney MD [facility] [address] [place] [address] 08/06/2022 09:40:46 08/06/2022 10:27:52 Postmenopausal osteoporosis 302981571 M81.0 Scan from June 2022 confirmed finding in both LS and hips bilaterall y at -2.5 T score. She has no previous hx of bone fractures but has hx of kidney stone on two occasions. Would recommend we send for parathyroi d workup along with thyroid function workup. Will send for low dose dexa suppressio n testing to screen for hypercorti solic state as secondary causes of bone loss. Will send for 24 hour urinary calcium to screen for hypercalci uria. Essential hypertension 04150434 I10 Refill coreg and hctz as patient is out of meds. She has follow up with PCP tomorrow so provided 30 days for patient to resume with her PCP. She voiced understand ing. Spent up to 45 minutes preparing to see the patient (eg, review of tests), obtaining and/or reviewing separately obtained history, performing a medically appropriat e examinatio n and evaluation , counseling and educating the patient, ordering medication s, tests, along with documentin g clinical informatio n in the electronic health record, flakitaen breezy interpreti ng results and communicat ing results to the patient. RTC in 3-4 months. Patient was provided a handwritte n lab order which contains our fax number. If she chooses to go outside of the [facility] system to obtain labwork she was advised to provide our fax number and my informatio n to the lab she will be obtaining labwork from in order to have her labs properly forwarded over for me to review so there is no loss of follow up due to use of outside network. She was also advised to contact our clinic informing us that she has completed her labwork so we are aware we will need to reach out to the appropriat e laboratory to request her results be forwarded to us so I might have the ability to review and make further medical decision making in her case. She voiced understand ing. Thank you for this consultati on. [id number] Kole Lira MD [facility] [address] [address] 08/13/2022 11:50:22 08/13/2022 14:11:40 Osteonecrosis of head of femur 938482384 M87.852 [id number] TAMARA Pradhan [facility] [address] [address] 10/15/2022 09:57:58 10/15/2022 11:13:26 History of total replacement of left hip joint 5325553906 155254 Z96.642 [id number] TAMARA Pradhan [facility] [address] [address] 10/29/2022 09:58:18 10/29/2022 10:46:25 History of total replacement of left hip joint 8562610201 674097 Z96.642 [id number] TAMARA Pradhan [facility] [address] [address] 11/26/2022 10:20:48 11/26/2022 12:07:38 History of total replacement of left hip joint 4617274415 523729 Z96.491 [id number] Michell Courtney MD [facility] [address] [place] [address] 12/24/2022 12:29:07 12/24/2022 13:55:44 Postmenopausal osteoporosis 094277355 M81.0 Vit D low normal- recommende d patient take up to 4000 IU of D3 daily along with calcium 1200 mg daily for bone health along with daily weight bearing exercise. S/P left hip replacemen t from September and doing remarkably well- active and ambulating without assistance or cane. Refer to endocrinol ogy per patient request to discuss termite treater management of osteoporos is as her DST was normal so no indication or evidence of hypercorti solism, hyperparat hyroidism. Impaired f asting glycemia 693109124 R73.01 A1C of 5.7%- Discussed carb counting and how to read food labels. Recommende d patient to utilize the diabetesfo Message Bus.[employer] from the ADA website to help with food preparatio n as this presents ideal carb content per meal so this will make carb counting much easier for patient. Recommende d she incorporat e natural insulin accounts receivable collector s such as pears, apples, cinnamon, vinnie and sweet potatoes to help mobilize her endogenous insulin. Recommende d up to 150 minutes of moderate level activity/e xercise weekly. Spent up to 25 minutes preparing to see the patient (eg, review of tests), obtaining and/or reviewing separately obtained history, performing a medically appropriat e examinatio n and evaluation , counseling and educating the patient, ordering medication s, tests, along with documentin g clinical informatio n in the electronic health record, independen tly interpreti ng results and communicat ing results to the patient. Patient can be followed by PCP - she/he is aware of my resignatio n and last day of January 22. If needed his/her PCP can refer patient to another endocrinol ogist in the area. All questions /concerns answered and refills necessary at visit today. Health Concerns Section Related Observation LastModified by Organization Detai ls LastModified Time None Recorded Concern Status LastModified by Organization Details LastModified Time None Recorded Advance Directives Directive N: Payers Encounter Date Sequence Insurance Name Policy Number Policy Jha Covered Member ID Jha Member ID Guarantor Name 08/13/2022 1 [facility] (MEDICARE REPLACEMENT/A DVANTAGE - PPO) [id number] Catherine Shukla [id number] Catherine A Vazquez 08/13/2022 2 [place] [facility] Catherine Bernal Vazquez [id number] Catherine A [facility] 10/15/2022 1 [facility] (MEDICARE REPLACEMENT/A DVANTAGE - PPO) [id number] Catherine Dolores Vazquez [id number] Catherine A [facility] 10/15/2022 2 [place] [facility] Catherine Bernal Vazquez [id number] Catherine A Vazquez 10/29/2022 1 [facility] (MEDICARE REPLACEMENT/A DVANTAGE - PPO) [id number] Catherine Dolores Vazquez [id number] Catherine A [facility] 10/29/2022 2 [place] [facility] Catherine Bernal Vazquez [id number] Catherine A [facility] 11/26/2022 1 [facility] (MEDICARE REPLACEMENT/A DVANTAGE - PPO) [id number] Catherine Dolores Vazquez [id number] Catherine A [facility] 11/26/2022 2 [place] [facility] Catherine Bernal Vazquez [id number] Catherine A Vazquez 12/24/2022 1 [facility] (MEDICARE REPLACEMENT/A DVANTAGE - PPO) [id number] Catherine Dolores Vazquez [id number] Catherine A [facility] 12/24/2022 2 [place] [facility] Catherine Bernal Vazquez [id number] Catherine Bernal Vazquez Notes Date Note Type Note Provider Name and Address Organization Details Recorded Time 12/24/2022 text/html 67 yo female com es in for follow up in management of postmenopausal osteoporosis and prediabetes (A1C of 5.7%). at initial visit in July we sent for full bone panel and DST. we added coreg and hctz for BP control. BP in good range-denies any headaches, visual changes or chest pain. DST was normal completed in September with cortisol of 1 ug/dL bone density from June 2022:FINDINGS:Lumbar Spine (L1-L4): The mean bone mineral density is 0.885 g/ew6adwvolgcquoube, correlating with a T-score of -2.5.Bilateral hips: The mean bone mineral density is 0.696 g/cm2 calciumhydroxyapatit e, correlating with a T-score of -2.5. Denies any kidney stones, falls or fractures. labs from 10/23/22:glucose 99 mg/dLCr normalLFT normalPTH 33.3 pg/mLcalcium 9.8 mg/dLPO4 normalvit D 32.2 ng/mLa1c of 5.7% Michell Courtney MD [address] [facility] [address], [place], [address], [place] [facility] 12/24/2022 13:05:29 OBGyn Episode No OBEpisode recorded.
--- OUTSIDE RECORDS SUMMARY | 2024-06-14 10:45 | XMS_ITS | CONTINUITY OF CARE DOCUMENT ---
Author Name patricio curry Address Unknown Organization [facility] Address [address] [address] [facility] [address] [place] [address] Phone [phone] Care Team Providers [place] Police Name Role Phone Jasper MEEHAN, Landry Unavailable JANETH NUNES MD Unavailable SLAVA ESCOBEDO MD Unavailable PROBLEMS Condition Status Date Provider Notes Preoperative cardiovascular examination active Landry Hutchinson MD HTN essential active Josh Xie MD Headache active Josh Xie MD COPD - emphesyma on Chest CT 05/2018Severe obst on pft active Josh Xie MD Tobacco use, quit active Josh Xie MD Shortness of breath active Josh Xie MD Chest pain nl stress nuc active Josh carter MD ENCOUNTERS Date Type Provider Location Encounter Diag nosis - In-person encounter Office Visit Landry Hutchinson MD [facility] Preoperative cardiovascular examination - In-person encounter Office Visit Josh Xie MD [facility] Chest pain nl stress nucCOPD - emphesyma on Chest CT 05/2018Severe obst on pft - In-person encounter Office Visit Josh Xie MD [facility] Chest pain nl stress nucShortness of breathTobacco use, quitCOPD - emphesyma on Chest CT 05/2018Severe obst on pftHeadacheHTN essential VITAL SIGNS Date Observation Value Provider Body Mass Index (Ratio) 26.45 kg/m2 Ward Hutchinson MD blood pressure, diastolic 76 mm[Hg] Nia doug Castano blood pressure, systolic 135 mm[Hg] Komal cee Castano oxygen saturation, oximetry 89 % Jaz Castano pulse rate 87 /min Jaz Castano weight E&M 140 [lb_av] Jazcee Castano blood pressure, cuff size large Nia doug Castano height E&M 61 [in_i] Jaz Eyad Body Mass Index (Ratio) 25.13 kg/m2 Modesto Xie MD blood pressure, diastolic 80 mm[Hg] Da fidel [place] blood pressure, systolic 126 mm[Hg] Dac ia Lauren oxygen saturation, oximetry 94 % Damari [place] respiratory rate E&M 18 /min Damari V oss pulse rate 66 /min Damari Lauren weight E&M 133 [lb_av] Damari Lauren height E&M 61 [in_i] Damari [place] Body Mass Index (Ratio) 25.69 kg/m2 Modesto Xie MD blood pressure, diastolic 90 mm[Hg] Chacorta iscintia Shayla blood pressure, systolic 120 mm[Hg] Ada lind Shayla blood pressure, resting Yes Tre ty Shayla blood pressure, cuff size regular Chacorta isty [place] oxygen saturation, oximetry 95 % Noemí Shayla respiratory rate E&M 18 /min Noemí Shayla height E&M 61 [in_i] Noemí [place] pulse rate 65 /min Noemí Shayla weight E&M 136 [lb_av] Noemí [place] ALLERGIES No Known Drug Allergies HISTORY OF MEDICATION USE Medication Status Instructions Dates Provider Indications Com ments albuterol sulfate 90 mcg/actuation HFA aerosol inhaler active Jaz Castano atorvastatin 40 mg tablet active Jaz Castano cetirizine 10 mg tablet active A rafat Castano hydrochlorothiazide 12.5 mg capsule active Jaz Castano Jardiance 10 mg tablet active Nia Castano metformin 500 mg tablet active A rafat Castano omeprazole 40 mg capsule,delayed release(DR/EC) active Jaz Castano Spiriva Respimat 2.5 mcg/actuation mist active Jaz Castano Symbicort 160-4.5 mcg/actuation HFA aerosol inhaler active Jaz Castano COMBIVENT RESPIMAT 20-100 MCG/ACT INHALATION AEROSOL SOLUTION active two puffs twice daily Josh Xie MD CARVEDILOL 3.125 MG ORAL TABLET active take one tablet by mouth twice daily Noemí Mcguire PROAIR HFA 108 (90 BASE) MCG/ACT INHALATION AEROSOL SOLUTION active use as directed Noemí Mcguire ADULT ASPIRIN REGIMEN 81 MG ORAL TABLET DELAYED RELEASE active take one tablet by mouth once daily Noemí Mcguire SOCIAL HISTORY Date Observation Value Provider social history E&M S moking History: Bartolo frank is a former smoker. Landry Hutchinson MD social history reviewed E&M revi ewed - no changes required Landry Hutchinson MD smoking status Former smoker Jaz shah smoking, year quit 2014 Jazcee Sampson iams smoking history, total pack/day 1 pk qd Jaz Castano cigarette use yes Jaz Castano social history E&M S moking History: Bartolo frank is a former smoker. Josh Xie MD social history reviewed E&M revi ewed - no changes required Josh Xie MD smoking, year quit 2014 Damari Jese s smoking history, total pack/day 1 pk qd Damari Lauren cigarette use yes Damari Lauren smoking status Former smoker Damari Lauren social history reviewed E&M revi ewed - no changes required Josh Xie MD social history E&M S moking History: Bartolo frank is a former smoker. Josh Xie MD number of grandchildren Josh Xie MD T ying Xie MD smoking history, total pack/day 1 pk qd Noemí Mcguire smoking, year quit 2014 Noemí abreu cigarette use yes Noemí Mcguire smoking status Former smoker Noemí Mcguire FAMILY HISTORY Family Member Condition Father Family History of Co ronary Artery Disease: INSURANCE PROVIDERS Payer name Policy type / Coverage type [place] red republican ID AARP MEDICARE ADVANTAGE ([facility] COMPLETE PPO) Other [id number] [facility] Medicaid 1 [id number] ADVANCE DIRECTIVES Name Date DISCUSSED - NO DECISION MADE TREATMENT PLAN Date Name Performer [id number],C, H as upcoming left hip replacement surgery. Denies of any CP. Only SOB when COPD flares up, otherwise her exertional tolerance has been stable. She would certainly benefit from a preoperative echo to evaluate her wall motion and LVF. As she is without chest pain and her exertional tolerance is stable, I do not think she requires a stress test at this time. Landry Hutchinson MD [id number],C, B lood pressure control is satisfactory. Landry Hutchinson MD [id number],C, O n inhalers and nebulizer. Landry Hutchinson MD [id number],C, N o recurrence. Her last stress test in 2019 was negative for ischemia. Landry Hutchinson MD Cardiology: H as upcoming left hip replacement surgery. Denies of any CP. Only SOB when COPD flares up, otherwise her exertional tolerance has been stable. She would certainly benefit from a preoperative echo to evaluate her wall motion and LVF. As she is without chest pain and her exertional tolerance is stable, I do not think she requires a stress test at this time. Landry Hutchinson MD Cardiology: B lood pressure control is satisfactory. Landry Hutchinson MD Cardiology: O n inhalers and nebulizer. Landry Hutchinson MD Cardiology: N o recurrence. Her last stress test in 2019 was negative for ischemia. Landry Hutchinson MD Cardiology follow up Josh carter MD Cardiology follow up Josh carter MD Cardiology follow up Josh carter MD Cardiology follow up Josh carter MD Cardiology Josh Xie MD Cardiology Josh Xie MD Cardiology Josh Xie MD Cardiology Josh Xie MD Date Name Complete Echo Stress Regadenoson Complete Echo DLCO - 29700 FRC - 78935 FVC - 80516 HISTORY OF PROCEDURES Procedure Date Procedure Name Provider Procedure Notes S tatus EKG Landry Hutchinson MD complet ed Regadenoson, 4 units Josh Xei MD completed Cardiolite, 2 units Josh Xie MD completed SPECT Images Josh Xie MD complet ed Stress EKG Adolfo Suggs MD complete d FVC / MVV with bronchodilator - 51097 Josh Xie MD completed BLOOD COUNT HEMOGLOBIN Josh Xie MD completed FRC - 14460 Josh Xie MD complete d SpO2 w/o 6min walk/titration Josh Xie MD completed DLCO - 54521 Josh Xie MD complet ed Schedule Followup Josh Xie MD after testing completed EKG Josh Xie MD completed
--- OUTSIDE RECORDS SUMMARY | 2024-06-14 10:45 | XMS_ITS | Clinical Summary ---
Author Organization [facility] Address [address] [place] [address] Phone Care Team Providers Care Director Life Name Role Phone Unavailable Unavailable Unavailable Reason for Visit and Chief Complaint SICK VISIT Plan of Treatment No Plan of [...] from this encounter No Physical Exam Recorded Clinical Notes Includes: Clinical Notes from this encounter No Clinical Notes Recorded
== END 2024-06-14 09:49 | disposition home or self-care (01) ==
PROVIDERS: PCP Internal Medicine Infectious Disease; Visit Provider Internal Medicine Infectious Disease
DX: Z12.2 Encounter for screening for malignant neoplasm of respiratory organs (principal); Z87.891 Personal history of nicotine dependence
CPT/HCPCS: 71271

== ENCOUNTER 2024-08-03 10:36 | Outpatient (CLI) | payer MEDICARE, MEDICAID, SELFPAY ==
--- NOTE | ~2024-08-03 | CT_ITS ---
CT of the Abdomen and Pelvis: Indication: Weight loss Technique: 2.5 mm axial scans were obtained through the abdomen and pelvis following intravenous adm inistration of 100 cc of Omnipaque 350. Dose reduction technique was used on this scan by utilizing a utomated exposure control and iterative reconstruction technique. The dose-length product (DLP) was 3 31.38 mGy-cm. COMPARISON: 11/26/2023 Findings: Scans through the lung bases demonstrate mild emphysema. The liver, spleen, pancreas, gallbladder, adrenals and kidneys are within normal limits. No evidence of aortic aneurysm. No lymphadenopathy. No bowel obstruction or bowel wall thickening. There is no evidence to suggest acute appendicitis. Images through the pelvis were performed. Urinary bladder unremarkable. No pelvic mass seen. No ascit es. There is streak artifact from left hip arthroplasty. Impression: No acute abnormality. Mild emphysema at the lung bases. Reviewed, dictated and finalized at [facility]. Impression: No acute abnormality. Mild emphysema at the lung bases.
[2024-08-03 11:06] LABS: Estimated Glomerular Filt Rate > 60
--- OUTSIDE RECORDS SUMMARY | 2024-08-03 12:01 | XMS_ITS | Referral Summary ---
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 - [facility] review of OSH pathology showedvulvar biopsy with [...] in situ -[facility] -Discussed treatment of SCC [...] on file Legal Sex Female 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 Gender Identity Not on file Sexual Orientation [...] Plan of Treatment Not on file Insurance [facility] [id number] [place] [address] [facility] Advance Directives For more information, please contact: [phone] * Full Code (Latest Code Status on File) Date Activated Date Inactivated Comments 12/17/2020 10:49 AM 12/18/2020 12:34 PM Care Teams Systems Operator Relationship Specialty [place] [address] [place] [id number] PCP - General Internal Medicine 10/15/21 No, Physician 06/22/19 Aparna Oliva NP [address] [place] [address] Nurse Practitioner 10/15/21
--- OUTSIDE RECORDS SUMMARY | 2024-08-03 12:01 | XMS_ITS | Data Portability ---
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 sanket Not available 07/24/2024 12:57:42 Plan of Treatment Reminders Order Date Submit Date Provider Last Modified By Organization Details Last Modified Time Details Appointments ANY 15 2024 10:45A M Ariana Escobedo MD Not available Not available Not available ANY 15 2024 10:15A M Tin Rodríguez MD Not available Not available Not available Lab vitamin D, 25-hydrox y, total, serum 2024 025 KATH[facility]EN [facility], [address], [place], [address], 07/27/2024 09:10:28 CBC w/ auto diff 2024 025 KATHLEEN [facility], [address], [place], [address], 07/27/2024 09:10:26 CMP, serum or plasma 2024 025 KATHLEEN [facility], [address], [place], [address], 07/27/2024 09:10:21 HbA1c (hemoglob in A1c), blood 2024 025 KATHLEEN [facility], [address], [place], [address], 07/27/2024 09:10:24 lipid panel, serum 2024 025 KATHLEEN M[facility], [address], [place], [address], 07/27/2024 09:10:19 magnesium , serum or plasma 2024 025 KATHLEEN Moya, [address], [place], [address], 07/27/2024 09:10:25 CK (creatine kinase), total, serum 2024 025 KATHLEEN Moya, [address], [place], [address], 07/27/2024 09:10:22 microalbu min/creat inine, mass ratio, urine 2023 024 KATHLEEN Moya, [address], [place], [address], 02/09/2024 06:23:13 Referral diabetic ophthalmo logy referral 2024 025 [facility] [employer] [facility], [address], [place], [address], 07/24/2024 10:57:48 endocrino logy referral - Osteoporo sis with a recent fracture, DM 2023 024 KATHLEEN Mckinnon, [address], [place], [address], 07/20/2024 04:10:22 Procedures None recorded. Surgeries None recorded. Imaging CT, abdomen + pelvis, w/ contrast - Weight loss, nausea 2024 025 [facility] (Imaging), [address], [place], [address], 08/03/2024 12:55:08 PFT, complete 2024 025 [facility] (Rad), [address] [place], [address], 07/12/2024 12:30:47 LDCT, chest, for lung cancer screening [address], [address] [facility], [place], [address], 07/24/2024 12:30:50 LDCT, chest, for lung cancer screening 2023 025 [facility] (Imaging), [address] [facility] [address] [facility] [address], [address], 06/14/2024 12:38:27 Medication Orders prednison e 10 mg tablet 2024 025 [facility], [address] [place] [address], [id number], 07/28/2024 11:05:28 Ventolin HFA 90 mcg/actua tion aerosol inhaler 2024 025 [facility], [address] [place] [address], [id number], 06/28/2024 13:28:23 atorvasta tin 40 mg tablet 2023 024 [facility], [address] [place] [address], [id number], 05/31/2024 16:09:02 Patient TargetsNo targets recorded. Patient Instructions Encounter Date Encounter Id Patient Instructions Last Modified By Organization Details Last Modified Time 01/10/2024 [id number] On the date of t his encounter, I was immediately available to assist the resident/fellow in the care of the patient, and have reviewed and agree with the resident s findings and plan of care. 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 Follow up in 5 months and PRN oajao Not available 02/08/2024 10:51:37 07/24/2024 [id number] chronic obstruct mirian pulmonary disease (COPD): care instructions oajao Not available 07/24/2024 12:56:11 learning about c opd and how to prevent lung infections oajao Not available 07/24/2024 12:56:11 nausea and vomiting: care instructions oajao Not available 07/24/2024 10:46:09 skin lesions: ca re instructions oajao Not available 07/24/2024 10:53:52 Labs Pulmonology follow up CT Avoid NSAIDS due to the increased CV risk Urgent care report Follow up as scheduled on 08/04/2024 oajao Not available 07/24/2024 11:00:27 Reason for Referral Endocrinology Referral for O steoporosis Osteoporosis with a recent fracture, DM Osteoporosis with a recent fracture, DM Referring Physician: Ariana Escobedo, Internal Medicine, Encounter Date: 02/08/2024 Diabetic Ophthalmology Refer ral for Type 2 diabetes mellitus without complication 6.4% Referring Physician: Ariana Escobedo, Internal Medicine, Encounter Date: 07/24/2024 Results Created Date Observation Date Name Description Value Unit Range Abnormal Flag Note LastModifiedBy Organization Detail LastModifiedTime 12/14/19 24 12/15/2023 LIPID PANEL cholesterol, total 176 mg/dL 100-19 9 Not Available [facility] ([facility]) [address] [facility], [place], [address], 12/15/2023 07:14:41 12/14/19 24 12/15/2023 LIPID PANEL triglyceride s 126 mg/dL 0-149 Not Available [facility] ([facility]) [address] [place], [address], 12/15/2023 07:14:41 12/14/19 24 12/15/2023 LIPID PANEL HDL cholesterol 48 mg/dL >39 Not Available [facility] ([facility]) [address] [place], [address], 12/15/2023 07:14:41 12/14/19 24 12/15/2023 LIPID PANEL VLDL cholesterol mike 22 mg/dL 5-40 Not Available [facility] ([facility]) [address] [place], [address], 12/15/2023 07:14:41 12/14/19 24 12/15/2023 LIPID PANEL LDL chol calc ([facility]) 106 mg/dL 0-99 above high normal Not Available [facility] ([facility]) [address] [place], [address], 12/15/2023 07:14:41 12/14/19 24 12/15/2023 BASIC METAB OLIC PANEL (7) glucose 98 mg/dL 70-99 Not Available [facility] ([facility]) [address] [place], [address], 12/15/2023 07:14:42 12/14/19 24 12/15/2023 BASIC METAB OLIC PANEL (7) BUN 19 mg/dL 8-27 Not Available [facility] ([facility]) [address] [place], [address], 12/15/2023 07:14:42 12/14/19 24 12/15/2023 BASIC METAB OLIC PANEL (7) creatinine 0.77 mg/dL 0.57-1 .00 Not Available [facility] ([facility]) [address] [place], [address], 12/15/2023 07:14:42 12/14/19 24 12/15/2023 BASIC METAB OLIC PANEL (7) eGFR 85 mL/mi n/1.7 3 >59 Not Available [facility] ([facility]) [address] [place], [address], 12/15/2023 07:14:42 12/14/19 24 12/15/2023 BASIC METAB OLIC PANEL (7) BUN/creatini ne ratio 25 12-28 Not Available [facility] ([facility]) [address] [place], [address], 12/15/2023 07:14:42 12/14/19 24 12/15/2023 BASIC METAB OLIC PANEL (7) sodium 140 mmol/ L 134-14 4 Not Available [facility] ([facility]) [address] [place], [address], 12/15/2023 07:14:42 12/14/19 24 12/15/2023 BASIC METAB OLIC PANEL (7) potassium 4.1 mmol/ L 3.5-5. 2 Not Available [facility] ([facility]) [address] [place], [address], 12/15/2023 07:14:42 12/14/19 24 12/15/2023 BASIC METAB OLIC PANEL (7) chloride 99 mmol/ L 96-106 Not Available [facility] ([facility]) [address] [place], [address], 12/15/2023 07:14:42 12/14/19 24 12/15/2023 BASIC METAB OLIC PANEL (7) carbon dioxide, total 27 mmol/ L 20-29 Not Available [facility] ([facility]) [address] [place], [address], 12/15/2023 07:14:42 12/14/19 24 12/15/2023 HEMOG LOBIN A1C hemoglobin A1C 6.4 % 4.8-5. 6 above high normal Predi abete s: 5.7 - 6.4 Diabe ralph: >6.4 Glyce ngoc contr ol for adult s with diabe ralph: <7.0 Not Available [facility] ([facility]) [address] [facility], [place], [address], 12/15/2023 07:14:42 12/14/19 24 12/15/2023 CBC, PLATE LET, NO DIFFE RENTI AL WBC 8.9 x10e3 /uL 3.4-10 .8 Not Available [facility] ([facility]) [address] [facility], [place], [address], 12/15/2023 07:14:43 12/14/1912/15/2023 CBC, PLATE LET, NO DIFFE RENTI AL RBC 4.49 x10e6 /uL 3.77-5 .28 Not Available [facility] ([facility]) [address] [facility], [place], [address], 12/15/2023 07:14:43 12/14/19 24 12/15/2023 CBC, PLATE LET, NO DIFFE RENTI AL hemoglobin 14.1 g/dL 11.1-1 5.9 Not Available [facility] ([facility]) [address] [facility], [place], [address], 12/15/2023 07:14:43 12/14/1912/15/2023 CBC, PLATE LET, NO DIFFE RENTI AL hematocrit 43.6 % 34.0-4 6.6 Not Available [facility] ([facility]) [address] [facility], [place], [address], 12/15/2023 07:14:43 12/14/1912/15/2023 CBC, PLATE LET, NO DIFFE RENTI AL MCV 97 fL 79-97 Not Available [facility] ([facility]) [address] [facility], [place], [address], 12/15/2023 07:14:43 12/14/19 24 12/15/2023 CBC, PLATE LET, NO DIFFE RENTI AL MCH 31.4 pg 26.6-3 3.0 Not Available [facility] ([facility]) [address] [facility], [place], [address], 12/15/2023 07:14:43 12/14/19 24 12/15/2023 CBC, PLATE LET, NO DIFFE RENTI AL MCHC 32.3 g/dL 31.5-3 5.7 Not Available [facility] ([facility]) [address] [facility], [place], [address], 12/15/2023 07:14:43 12/14/19 24 12/15/2023 CBC, PLATE LET, NO DIFFE RENTI AL RDW 13.1 % 11.7-1 5.4 Not Available [facility] ([facility]) [address] [facility], [place], [address], 12/15/2023 07:14:43 12/14/19 24 12/15/2023 CBC, PLATE LET, NO DIFFE RENTI AL platelets 213 x10e3 /uL 150-45 0 Not Available [facility] ([facility]) [address] [facility], [place], [address], 12/15/2023 07:14:43 02/08/20 24 02/09/2024 ALBUM IN/CR EAT RATIO , RANDO M UR creatinine, urine 48.5 mg/dL notest ab. Not Available [facility] ([facility]) [address] [facility], [place], [address], 02/09/2024 06:23:12 02/08/20 24 02/09/2024 ALBUM IN/CR EAT RATIO , RANDO M UR albumin, urine 3.5 ug/mL notest ab. Not Available [facility] ([facility]) [address] [facility], [place], [address], 02/09/2024 06:23:12 02/08/20 24 02/09/2024 ALBUM IN/CR EAT RATIO , RANDO M UR alb/creat ratio 7 mg/g_ creat 0-29 Penny l: 0 - 29 Moder ately incre ased: 30 - 300 Sever chaitanya incre ased: >300 Not Available [facility] ([facility]) [address] [place], [address], 02/09/2024 06:23:12 07/27/19 25 07/27/2024 LIPID PANEL cholesterol, total 140 mg/dL 100-19 9 Not Available [facility] ([facility]) [address] [place], [address], 07/27/2024 09:10:19 07/27/19 25 07/27/2024 LIPID PANEL triglyceride s 111 mg/dL 0-149 Not Available [facility] ([facility]) [address] [place], [address], 07/27/2024 09:10:19 07/27/19 25 07/27/2024 LIPID PANEL HDL cholesterol 39 mg/dL >39 below low normal Not Available [facility] ([facility]) [address] [place], [address], 07/27/2024 09:10:19 07/27/19 25 07/27/2024 LIPID PANEL VLDL cholesterol mike 20 mg/dL 5-40 Not Available [facility] ([facility]) [address] [place], [address], 07/27/2024 09:10:19 07/27/19 25 07/27/2024 LIPID PANEL LDL chol calc ([facility]) 81 mg/dL 0-99 Not Available [facility] ([facility]) [address] [place], [address], 07/27/2024 09:10:19 07/27/19 25 07/27/2024 COMP. METAB OLIC PANEL (14) glucose 86 mg/dL 70-99 Not Available [facility] ([facility]) [address] [place], [address], 07/27/2024 09:10:21 07/27/19 25 07/27/2024 COMP. METAB OLIC PANEL (14) BUN 26 mg/dL 8-27 Not Available [facility] ([facility]) [address] [place], [address], 07/27/2024 09:10:21 07/27/19 25 07/27/2024 COMP. METAB OLIC PANEL (14) creatinine 0.79 mg/dL 0.57-1 .00 Not Available [facility] ([facility]) [address] [place], [address], 07/27/2024 09:10:21 07/27/19 25 07/27/2024 COMP. METAB OLIC PANEL (14) eGFR 82 mL/mi n/1.7 3 >59 Not Available [facility] ([facility]) [address] [place], [address], 07/27/2024 09:10:21 07/27/19 25 07/27/2024 COMP. METAB OLIC PANEL (14) BUN/creatini ne ratio 33 12-28 above high normal Not Available [facility] ([facility]) [address] [place], [address], 07/27/2024 09:10:21 07/27/19 25 07/27/2024 COMP. METAB OLIC PANEL (14) sodium 142 mmol/ L 134-14 4 Not Available [facility] ([facility]) [address] [place], [address], 07/27/2024 09:10:21 07/27/19 25 07/27/2024 COMP. METAB OLIC PANEL (14) potassium 3.6 mmol/ L 3.5-5. 2 Not Available [facility] ([facility]) [address] [place], [address], 07/27/2024 09:10:21 07/27/19 25 07/27/2024 COMP. METAB OLIC PANEL (14) chloride 99 mmol/ L 96-106 Not Available [facility] ([facility]) [address] [facility] [place], [address], 07/27/2024 09:10:21 07/27/19 25 07/27/2024 COMP. METAB OLIC PANEL (14) carbon dioxide, total 31 mmol/ L 20-29 above high normal Not Available [facility] ([facility]) [address] [facility] [place], [address], 07/27/2024 09:10:21 07/27/19 25 07/27/2024 COMP. METAB OLIC PANEL (14) calcium 9.6 mg/dL 8.7-10 .3 Not Available [facility] ([facility]) [address] [facility] [place], [address], 07/27/2024 09:10:21 07/27/19 25 07/27/2024 COMP. METAB OLIC PANEL (14) protein, total 5.8 g/dL 6.0-8. 5 below low normal Not Available [facility] ([facility]) [address] [facility] [place], [address], 07/27/2024 09:10:21 07/27/19 25 07/27/2024 COMP. METAB OLIC PANEL (14) albumin 4.1 g/dL 3.9-4. 9 Not Available [facility] ([facility]) [address] [place], [address], 07/27/2024 09:10:21 07/27/19 25 07/27/2024 COMP. METAB OLIC PANEL (14) globulin, total 1.7 g/dL 1.5-4. 5 Not Available [facility] ([facility]) [address] [facility] [place], [address], 07/27/2024 09:10:21 07/27/19 25 07/27/2024 COMP. METAB OLIC PANEL (14) bilirubin, total 0.3 mg/dL 0.0-1. 2 Not Available [facility] ([facility]) [address] [place], [address], 07/27/2024 09:10:21 07/27/19 25 07/27/2024 COMP. METAB OLIC PANEL (14) alkaline phosphatase 97 IU/L 44-121 Not Available [facility] ([facility]) [address] [place], [address], 07/27/2024 09:10:21 07/27/19 25 07/27/2024 COMP. METAB OLIC PANEL (14) AST (SGOT) 19 IU/L 0-40 Not Available [facility] ([facility]) [address] [place], [address], 07/27/2024 09:10:21 07/27/19 25 07/27/2024 COMP. METAB OLIC PANEL (14) ALT (SGPT) 19 IU/L 0-32 Not Available [facility] ([facility]) [address] [place], [address], 07/27/2024 09:10:21 07/27/19 25 07/27/2024 CREAT INE KINAS E,TOT AL creatine kinase,total 57 U/L 32-182 Not Available [facility] ([facility]) [address] [place], [address], 07/27/2024 09:10:22 07/27/1907/27/2024 HEMOG LOBIN A1C hemoglobin A1C 6.0 % 4.8-5. 6 above high normal Predi abete s: 5.7 - 6.4 Diabe ralph: >6.4 Glyce ngoc contr ol for adult s with diabe ralph: <7.0 Not Available [facility] ([facility]) [address] [place], [address], 07/27/2024 09:10:23 07/27/19 25 07/27/2024 MAGNE SIUM magnesium 1.4 mg/dL 1.6-2. 3 below low normal Not Available [facility] ([facility]) [address] [facility], [place], [address], 07/27/2024 09:10:25 07/27/1907/27/2024 CBC WITH DIFFE RENTI AL/PL ATELE T WBC 8.3 x10e3 /uL 3.4-10 .8 Not Available [facility] ([facility]) [address] [facility], [place], [address], 07/27/2024 09:10:26 07/27/1907/27/2024 CBC WITH DIFFE RENTI AL/PL ATELE T RBC 4.48 x10e6 /uL 3.77-5 .28 Not Available [facility] ([facility]) [address] [place], [address], 07/27/2024 09:10:26 07/27/1907/27/2024 CBC WITH DIFFE RENTI AL/PL ATELE T hemoglobin 14.0 g/dL 11.1-1 5.9 Not Available [facility] ([facility]) [address] [place], [address], 07/27/2024 09:10:26 07/27/1907/27/2024 CBC WITH DIFFE RENTI AL/PL ATELE T hematocrit 44.0 % 34.0-4 6.6 Not Available [facility] ([facility]) [address] [place], [address], 07/27/2024 09:10:26 07/27/1907/27/2024 CBC WITH DIFFE RENTI AL/PL ATELE T MCV 98 fL 79-97 above high normal Not Available [facility] ([facility]) [address] [place], [address], 07/27/2024 09:10:26 07/27/1907/27/2024 CBC WITH DIFFE RENTI AL/PL ATELE T MCH 31.3 pg 26.6-3 3.0 Not Available [facility] ([facility]) [address] [facility], [place], [address], 07/27/2024 09:10:26 07/27/19 25 07/27/2024 CBC WITH DIFFE RENTI AL/PL ATELE T MCHC 31.8 g/dL 31.5-3 5.7 Not Available [facility] ([facility]) [address] [facility], [place], [address], 07/27/2024 09:10:26 07/27/19 25 07/27/2024 CBC WITH DIFFE RENTI AL/PL ATELE T RDW 13.1 % 11.7-1 5.4 Not Available [facility] ([facility]) [address] [facility], [place], [address], 07/27/2024 09:10:26 07/27/19 25 07/27/2024 CBC WITH DIFFE RENTI AL/PL ATELE T platelets 185 x10e3 /uL 150-45 0 Not Available [facility] ([facility]) [address] [facility], [place], [address], 07/27/2024 09:10:26 07/27/19 25 07/27/2024 CBC WITH DIFFE RENTI AL/PL ATELE T neutrophils 41 % notest ab. Not Available [facility] ([facility]) [address] [facility], [place], [address], 07/27/2024 09:10:26 07/27/19 25 07/27/2024 CBC WITH DIFFE RENTI AL/PL ATELE T lymphs 44 % notest ab. Not Available [facility] ([facility]) [address] [facility], [place], [address], 07/27/2024 09:10:26 07/27/19 25 07/27/2024 CBC WITH DIFFE RENTI AL/PL ATELE T monocytes 11 % notest ab. Not Available [facility] ([facility]) [address] [facility], [place], [address], 07/27/2024 09:10:26 07/27/19 25 07/27/2024 CBC WITH DIFFE RENTI AL/PL ATELE T eos 2 % notest ab. Not Available [facility] ([facility]) [address] [facility], [place], [address], 07/27/2024 09:10:26 07/27/19 25 07/27/2024 CBC WITH DIFFE RENTI AL/PL ATELE T basos 1 % notest ab. Not Available [facility] ([facility]) [address] [facility], [place], [address], 07/27/2024 09:10:26 07/27/19 25 07/27/2024 CBC WITH DIFFE RENTI AL/PL ATELE T neutrophils (absolute) 3.4 x10e3 /uL 1.4-7. 0 Not Available [facility] ([facility]) [address] [place], [address], 07/27/2024 09:10:26 07/27/19 25 07/27/2024 CBC WITH DIFFE RENTI AL/PL ATELE T lymphs (absolute) 3.7 x10e3 /uL 0.7-3. 1 above high normal Not Available [facility] ([facility]) [address] [facility], [place], [address], 07/27/2024 09:10:26 07/27/19 25 07/27/2024 CBC WITH DIFFE RENTI AL/PL ATELE T monocytes(ab solute) 0.9 x10e3 /uL 0.1-0. 9 Not Available [facility] ([facility]) [address] [facility], [place], [address], 07/27/2024 09:10:26 07/27/19 25 07/27/2024 CBC WITH DIFFE RENTI AL/PL ATELE T eos (absolute) 0.2 x10e3 /uL 0.0-0. 4 Not Available [facility] ([facility]) [address] [place], [address], 07/27/2024 09:10:26 07/27/19 25 07/27/2024 CBC WITH DIFFE RENTI AL/PL ATELE T baso (absolute) 0.1 x10e3 /uL 0.0-0. 2 Not Available [facility] ([facility]) [address] [place], [address], 07/27/2024 09:10:26 07/27/19 25 07/27/2024 CBC WITH DIFFE RENTI AL/PL ATELE T immature granulocytes 1 % notest ab. Not Available [facility] ([facility]) [address] [place], [address], 07/27/2024 09:10:26 07/27/19 25 07/27/2024 CBC WITH DIFFE RENTI AL/PL ATELE T immature grans (abs) 0.1 x10e3 /uL 0.0-0. 1 Not Available [facility] ([facility]) [address] [place], [address], 07/27/2024 09:10:26 07/27/1907/27/2024 VITAM IN D, 25-HY DROXY vitamin D, 25-hydroxy 26.7 NG/mL 30.0-1 00.0 below low normal Vitam in D defic iency has been defin ed by the Insti tute of Medic ine and an Endoc rine Socie ty pract ice guide line as a level of serum 25-OH vitam in D less than 20 ng/mL (1,2) . The Endoc rine Socie ty went on to furth er defin e vitam in D insuf ficie ncy as a level betwe en 21 and 29 ng/mL (2). 1. IOM (Inst itute of Medic ine). 2010. Dieta ry refer ence intak es for calci um and D. Tam allen [place]: The [facility] . 2. Abdoulaye maloney MF, Puja hodges [place], Joseph off-F errar i CALVIN, et al. Evalu ation , treat ment, and preve ntion of vitam in D defic iency : an Endoc rine Socie ty clini mike pract ice guide line. JCEM. 2010; 96(7) :1911 -30. Not Available [facility] ([facility]) [address] [facility], [place], [address], 07/27/2024 09:10:27 06/15/19 25 06/14/2024 LDCT, chest , for lung cance r scree linda No observ ation record ed. [address] [facility], [place], [address], 06/15/2024 16:38:09 08/04/19 25 08/03/2024 CT, abdom en + pelvi s, w/ contr ast No observ ation record ed. [address], [place], [address], 08/03/2024 12:55:08 Result Notes None recorded. Problems Name Problem SNOMED Code Status Onset Date Resolution Date Notes Provider Name and Address Organization Details Recorded Time Tobacco dependen ce in remissio n 316106746 Active 2018 Ariana Escobedo MD Attn: Lynda gonzáles,[address] [facility], [place], [address], [place] [facility] 4 09:57:28 History of myocardi al infarcti on 477584924 Active 2018 Ariana Escobedo MD Attn: Lynda gonzáles,[address] [place], [address], [place] [facility] 4 09:57:28 Solitary nodule of lung 257919579 Active 2018 Ariana Escobedo MD Attn: Lynda gonzáles,[address] [facility], [place], [address], [place] [facility] 4 09:57:28 Coronary arterios clerosis in [place] artery 22219299245 07 Active 2018 Ariana Escobedo MD Attn: Lorenaphuc gonzáles,[address] [facility], [place], [address], [place] [facility] 4 09:57:28 History of pulmonar y embolus 653051104 Active 2018 Ariana Escobedo MD Attn: Lynda gonzáles,[address] [facility], [place], [address], [place] [facility] 4 09:57:28 Tetanus vaccinat ion declined by patient 404358296 Active 2018 Ariana Escobedo MD Attn: Lynda nivia,[address] [facility], [place], [address], [place] [facility] 4 09:57:28 Ganglion cyst of right hand 37954608460 9107 Active 2018 Ariana Escobedo MD Attn: Lynda gonzáles,[address] [facility], [place], [address], [place] [facility] 4 09:57:28 Pulmonar y emphysem a 28780918 Active 2018 Ariana Escobedo MD Attn: Lynda gonzáles,[address] [facility], [place], [address], [place] [facility] 4 09:57:29 Anxiety 21896479 Active 2018 Ariana Escobedo MD Attn: Lynda gonzáles,[address] [facility], [place], [address], [place] [facility] 4 09:57:28 Benign hyperten cornelio 68077635 Active 2018 Ariana Escobedo MD Attn: Lynda gonzáles,[address] [facility], [place], [address], [place] [facility] 4 09:57:28 Chronic obstruct mirian pulmonar y disease 10664915 Active 2018 Ariana Escobedo MD Attn: Lynda gonzáles,[address] [facility], [place], [address], [place] [facility] 4 09:57:28 High grade squamous intraepi thelial lesion on cervical Papanico laou smear [id number] 107 Active 2019 Ariana Escobedo MD Attn: Lynda gonzáles,[address] [facility], [place], [address], [place] [facility] 4 09:57:28 Squamous cell carcinom a of vulva [id number] Completed 201906/13/2019 TAMARA CRAVEN Attn: Lynda gonzáles,[address] [facility], [place], [address], [place] [facility] 0 16:42:33 Carcinom a in situ of vulva [id number] Completed 201901/10/2024 KELY PHAM MD Attn: Lynda gonzáles,[address] [facility], [place], [address], [place] [facility] 4 13:26:27 Rupture of tendon of biceps 937111681 Active 2019 Followin g with orthoped ics Ariana Escobedo MD Attn: Lynda gonzáles,[address] [facility], [place], [address], [place] [facility] 4 09:57:28 Rupture of rotator cuff of right shoulder 53855292051 605908 Active 2019 Chronic anterior rotator cuff tear, followin g with orthoped ics. NSAID therapy and PT currentl y. Ariana Escobedo MD Attn: Lynda gonzáles,[address] [facility], [place], [address], [place] [facility] 4 09:57:28 History of calculus of kidney 312535336 Active 2019 Ariana Escobedo MD Attn: Lynda gonzáles,[address] [facility], [place], [address], [place] [facility] 4 09:57:28 Onychomy cosis of toenails 191416996 Active 2019 Ariana Escobedo MD Attn: Lynda nivia,[address] [facility], [place], [address], [place] [facility] 4 09:57:28 Degenera tion of lumbar interver tebral disc 67482726 Active 2019 Ariana Escobedo MD Attn: Lorenaphuc g,[address] [facility], [place], [address], [place] [facility] 4 09:57:28 Scoliosi s deformit y of spine 226215746 Active 2019 Ariana Escobedo MD Attn: Lynda nivia,[address] [facility], [place], [address], [place] [facility] 4 09:57:28 Pneumoni a caused by SARS-CoV -2 12937838260 0255520 Active Ariana Escobedo MD Attn: Lynda nivia,[address] [place], [address], [place] [facility] 4 09:57:29 Type 2 diabetes mellitus without complica tion 668730468 Active 2021 Ariana Escobedo MD Attn: Lynda g,[address] [place], [address], [place] [facility] 4 09:57:28 Pain of left hip joint 35858451741 9100 Active Ariana Escobedo MD Attn: Lynda gonzáles,[address] [place], [address], [place] [facility] 4 09:57:28 Osteopor osis 68110598 Active 2022 Ariana Escobedo MD Attn: Lynda gonzáles,[address] [place], [address], [place] [facility] 4 09:57:28 Osteonec rosis of head of femur 357424310 Active 2022 Ariana Escobedo MD Attn: Lorenaphuc gonzáles,[address] [facility], [place], [address], [facility] - SI 4 09:57:28 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 54936552634 91279 Active 2022 Ariana Escobedo MD Attn: Lynda gonzáles,[address] [facility], [place], [address], [facility] - [facility] 4 09:57:28 Calcific ation of coronary artery 583796948 Active 2023 Ariana Escobedo MD Attn: Lynda gonzáles,[address] [facility], [place], [address], [facility] - [facility] 4 11:22:52 Nodule of lung 562552692 Active 2023 Ariana Escobedo MD Attn: Lynda gonzáles,[address] [facility], [place], [address], [facility] - [facility] 4 13:33:54 Influenz a vaccinat ion declined 039648930 Active 2023 Ariana Escobedo MD Attn: Lynda gonzáles,[address] [facility], [place], [address], [facility] 4 10:50:53 History of fall 342969177 Active 2023 Ariana Escobedo MD Attn: Lynda gonzáles,[address] [facility], [place], [address], [facility] 4 18:14:28 Problem Notes None recorded. Procedures Surgical History Date Name Laterality Status Provider Name and Address Organization Details Recorded Time 11/08/19 24 Most Recent Mammogram completed Liana Pacheco MA [facility] 01/06/2024 12:14:05 01/22/20 23 Diabetic Foot Exam completed Ariana Escobedo MD Attn: Accounting,[address] [facility], [place], [address], [facility] 01/21/2023 10:53:51 10/01/19 23 total replacement of hip completed Ariana Escobedo MD Attn: Accounting,[address] [facility], [place], [address], [facility] - [facility] 10/15/2022 13:18:11 11/12/19 22 Date of Last Pap Smear completed Liana Pacheco MA [facility] 11/11/2021 10:53:10 11/04/19 22 Date of Last Mammogram completed Liana Pacheco MA [facility] 11/11/2021 10:56:37 01/11/20 21 Suture/Staple removal completed TAMARA MURPHY Attn: Accounting,[address] [facility], [place], [address], [facility] - [facility] 01/10/2021 15:31:39 06/08/19 20 Vulvar Biopsy completed TAMARA MURPHY Attn: Accounting,[address] [facility], [place], [address], [facility] - [facility] 06/08/2019 17:34:54 06/08/19 20 colposcopy completed Liana Pacheco MA [facility] 11/11/2021 10:52:50 05/25/19 20 Colposcopy completed TAMARA MURPHY Attn: Accounting,[address] [facility], [place], [address], [facility] - [facility] 05/25/2019 22:59:23 07/07/19 19 colonoscopy completed Araina Escobedo MD Attn: Accounting,[address] [facility], [place], [address], [facility] - [facility] 07/01/2020 10:04:29 Dilation and Curettage completed Giuliana Tejada MA [facility] 05/31/2018 14:14:54 Tubal Ligation completed Giuliana Tejada MA [facility] 05/31/2018 14:14:59 thumb surgery completed Giuliana Tejada MA [facility] 05/31/2018 14:15:28 reconstruction of anterior cruciate ligament of knee joint completed Ariana Escobedo MD Attn: Accounting,[address] [facility], [place], [address], [place] [facility] 05/31/2018 14:34:16 Imaging Results Imaging Date Name Status LastModified by Organiz ation Details LastModified Time 06/14/2024 LDCT, chest, for lung cancer screening completed [address], [place], [address], 06/15/2024 16:38:09 08/03/2024 CT, abdomen + pelvis, w/ contrast active [address], [place], [address], 08/03/2024 12:55:08 Procedure Notes None recorded. Medical Equipment None Reported. Allergies Allergen ID Allergen Name Allergen Category Reaction Reaction Severity Criticality Documentation Date Start Date Code Code System Note Provider Name and Address Organization Details Recorded Time 433697 No known allergy (situatio n) Not available Not available Not available Not available 07/09/2021 [id number] SNOMED Not Available Not Available Not [...] Not Available atorvasta tin 40 mg tablet TAKE ONE TABLET BY MOUTH EVERY NIGHT AT BEDTIME TO LOWER CHOLESTE ROL active Not Available Not Available No t Available silver sulfadiaz ine 1 % topical cream APPLY TO AFFECTED AREA EVERY DAY 07/09 completed Not Available Not Available Not Available metformin 500 mg tablet TAKE ONE TABLET BY MOUTH TWICE DAILY EVERY MORNING & EVENING WITH FOOD FOR DIABETES active Not [...] t Available prednison e 10 mg tablet Take 1 tablet every day by oral route. 2024 active Not Available Not Available Not Avai lable doxycycli ne hyclate 100 mg capsule TAKE [...] Available prednison e 20 mg tablet TAKE 1 TABLET BY MOUTH DAILY WITH FOOD FOR BLOOD PRESSURE . LESS THAN 140/90 active Not Available Not Available No t Available dexametha sone 6 mg tablet 1 [...] BY MOUTH EVERY MORNING TO PREVENT STROKE active Not Available Not Available No t [...] TWICE DAILY EVERY MORNING & EVENING FOR BLOOD PRESSURE & HEART active [...] Not Available Not Available Not Available OneTouch Ultra Test strips USE TO CHECK BLOOD SUGAR THREE TIMES PER WEEK active Not Available Not Available No t Available dexametha sone 1 mg tablet 09/23 completed Not Available Not Available Not Available benzonata te 100 mg capsule TAKE ONE CAPSULE EVERY 8 HOURS NEEDED FOR COUGH 05/24 completed Not Available Not Available Not Available doxycycli ne monohydra te 100 mg capsule TAKE 1 CAPSULE BY MOUTH TWICE DAILY active Not Available Not Available No t Available cephalexi n 500 mg capsule TAKE ONE CAPSULE BY MOUTH EVERY 6 HOURS 01/21 completed Not Available Not Available Not Available pantopraz ole 40 mg tablet,de layed release 40 mg by oral route. 03/26 completed Not Available Not Available Not Available metronida zole 0.75 % topical cream apply a thin layer TO AFFECTED AREAS TWICE DAILY (morning AND evening) 07/24 completed PRN Not Available Not Available Not Available hydrochlo rothiazid e 12.5 mg capsule [...] completed Not Available Not Available Not Available alcohol swabs USE TO CLEAN THE INJECTIO N SITE OF INSULIN AND WHEN CHECKING BLOOD SUGAR active Not Available Not Available No t Available sodium chloride 0.9 % intraveno us [...] AND TAKE ONCE DAILY IN THE MORNING 07/24 completed Not Available Not Available Not Available levofloxa klever 500 mg tablet Take 1.5 tablets every 24 hours by oral route as directed for 5 days. 07/02 completed Not Available Not Available Not Available levofloxa klever 750 mg tablet TAKE ONE TABLET BY MOUTH EVERY DAY 08/07 completed Not Available Not Available Not Available methylpre dnisolone 4 mg tablets in a dose pack FOLLOW PACKAGE DIRECTIO NS active Not Available Not Available No t Available ketorolac 60 mg/2 mL intramusc ular solution [...] TAKE 1 TABLET BY MOUTH TWICE DAILY 07/24 completed Not Available Not Available Not Available loratadin e 10 mg tablet 10 mg by oral route. 03/26 completed Not Available Not Available Not Available amoxicill in 875 mg-potass ium clavulana te 125 mg tablet TAKE 1 TABLET BY MOUTH TWICE DAILY 07/24 completed Not Available Not Available Not Available Ventolin HFA 90 mcg/actua tion aerosol inhaler INHALE TWO PUFFS EVERY 4 HOURS NEEDED. FOR BEST RESULTS USE WITH A SPACER 2024 active Not Available Not Available Not Avai lable oxycodone 5 mg tablet TAKE ONE TABLET [...] mg tablet TAKE TWO TABLETS TWICE DAILY 07/24 completed Not Available Not Available Not Available nitrofura ntoin monohydra te/macroc rystals 100 [...] BY MOUTH TWICE DAILY EVERY MORNING & EVENING. FOR BEST RESULTS USE WITH A SPACER [...] completed Not Available Not Available Not Available Combivent Respimat 20 mcg-100 mcg/actua tion solution for inhalatio n Inhale 1 puff 4 times a day by inhalati on route. 12/19 completed Not Available Not Available Not Available Martha DM Cough 10 mg-100 mg/5 mL oral [...] n INHALE TWO PUFFS BY MOUTH EVERY DAY DIRECTED active Not Available Not Available No t [...] Available Not Available No t Available OneTouch Ultra2 Meter USE TO CHECK BLOOD SUGAR THREE TIMES A WEEK active Not Available Not Available No [...] MOUTH EVERY DAY FOR VITAMIN DEFICIEN CY 07/24 completed Not Available Not Available Not Available Veklury 100 mg intraveno us powder for solution 200 mg by intraven . route. 03/23 completed Not Available Not Available Not Available Vitals Date Recorded Body height Body mass index (BMI) Body weight Systolic blood pressure Diastolic blood pressure Provider Name and Address Organization Details Last Updated DateTime 01/10/2024 154.94 cm 23.6 kg/m2 78172.75 g 118 mm[Hg] 66 mm[Hg] Shanta Baker MA [facility] 4 11:34:18 Date Recorded Body height Body mass index (BMI) Body weight Heart rate Oxygen saturation Oxygen saturation in Arterial blood by Pulse oximetry Respiratory rate Systolic blood pressure Diastolic blood pressure Provider Name and Address Organization Details Last Updated DateTime 4 154.94 cm 24 kg/m2 28716.8 7 g 66 /min 95 % 95 % 16 /min 124 mm[Hg] 70 mm[Hg] Giuliana Tejada MA [facility] 4 10:16:44 Date Recorded Body height Body mass index (BMI) Body weight Body temperature Respiratory rate Pain severity - 0-10 verbal numeric rating [Score] - Reported Oxygen saturation Oxygen saturation in Arterial blood by Pulse oximetry Heart rate Systolic blood pressure Diastolic blood pressure Provider Name and Address Organization Details Last Updated DateTime 5 154.94 cm 24 kg/m2 14392.2 3 g 96.6 [degF] 18 /min 0 94 % 94 % 60 /min 138 mm[Hg] 72 mm[Hg] Renetta REYNA Marie [facility] 5 12:14:30 Date Recorded Body height Body mass index (BMI) Body weight Heart rate Oxygen saturation Oxygen saturation in Arterial blood by Pulse oximetry Respiratory rate Systolic blood pressure Diastolic blood pressure Provider Name and Address Organization Details Last Updated DateTime 5 154.94 cm 23.1 kg/m2 96772.0 7 g 80 /min 97 % 97 % 16 /min 120 mm[Hg] 76 mm[Hg] Giuliana Tejada MA [facility] 5 10:11:36 Date Recorded Body height Oxygen saturation Oxygen saturation in Arterial blood by Pulse oximetry Pain severity - 0-10 verbal numeric rating [Score] - Reported Heart rate Respiratory rate Body temperature Body mass index (BMI) Body weight Systolic blood pressure Diastolic blood pressure Provider Name and Address Organization Details Last Updated DateTime 5 154.94 cm 88 % 88 % 0 80 /min 16 /min 98.1 [degF] 23.3 kg/m2 54732.2 2 g 121 mm[Hg] 74 mm[Hg] Lyubov Burrows MA [facility] 5 14:14:18 Social History Question Answer Notes LastModified by Organizat ion Details LastModified Time Tobacco Smoking Status Former Smoker Giuliana Tejada MA [facility] 05/31/2018 14:13:08 Do You Have An Advance [...] Do You Have A Medical Power Of Fourdrinier Operator? No [email or web address] Information not available 10/02/2021 What Was The Date Of Your Most Recent Tobacco Screening? 07/24/2024 Information not available 07/24/2024 What Is Your Current Pack Years? [email or web address] [...] What Date Was Tobacco Cessation Counseling Provided? 07/26/2024 [email or web address] Information not available 07/26/2024 How Many Years Have You Smoked Tobacco? [...] Skin Problems N Anemia N Heart Attack (MD) Y Diabetes Y Anxiety Disorder Y Muscle, [...] PF, 0.5 mL 1 completed Not Available [facility] 03/19/2023 06:46:51 pneumococcal polysaccharide PPV23 2 completed Not Available [facility] 03/19/2023 06:46:51 Pneumococcal conjugate PCV20, polysaccharide RLO970 conjugate, adjuvant, PF 3 completed Not Available [facility] 03/19/2023 06:46:51 Influenza, split virus, quadrivalent, preservative 9 completed Not Available [facility] 04/29/2019 02:40:58 Influenza, split virus, quadrivalent, preservative 1 completed Je Morse MA [facility] 07/05/2020 11:54:22 Past Encounters Encounter ID Performer Location Encounter Start Date Encounter Closed Date Diagnosis/Indication Diagnosis SNOMED-CT Code Diagnosis ICD10 Code Diagnosis Note [id number] MD [facility] (Adult Med) [address] [place] [id number] 05/31/2018 13:47:19 06/01/2018 11:13:10 Screening for malignant neoplasm of breast 097178728 Z12.31 General ex amination of patient 468897351 Z00.01 Coronary arteriosclerosis in [place] artery 6236404684 107 I25.10 History of myocardial infarction 667548235 I25.2 Solitary n odule of lung 475711909 R91.1 Tobacco de pendence in remission 147966247 F17.201 Screening for malignant neoplasm of colon 033423653 Z12.11 Influenza vaccination declined 958924710 Z28.21 History of pulmonary embolus 799164271 Z86.711 Screening for malignant neoplasm of cervix 580278392 Z12.4 Anxiety 09639751 F41.9 She is aware that I do not prescribe Xanax Pulmonary emphysema 8743 3001 J43.9 Benign hypertension 1072 5009 I10 Tetanus va ccination declined by patient 727739251 Z28.21 Ganglion c yst of right hand 8918340207 01027 M67.441 Imaging re sult abnormal 893863396 R93.7 The appearance of the left clavicle was abnormal on the CXR done 05/18/2018 although not mentioned on the CT scan, she denies any previous surgery. She does have left sided neck pain but she was not tender over the left clavicle. [id number] MD [facility] (Adult Med) [address] [place] [phone] 06/21/2018 13:55:04 06/21/2018 14:41:27 Lesion of clavicle 100669133 M89.8X1 Disorder o f lipid metabolism 730174884 E78.9 Impaired f asting glycemia 085013419 R73.01 Benign hypertension 1072 5009 I10 Pulmonary emphysema 8743 3001 J43.9 [id number] MD [facility] Singer (Adult Med) [address] [place] [id number] 08/22/2018 12:05:22 08/22/2018 13:31:48 Acute bronchitis 54443088 J20.9 Ganglion c yst of right hand 2073255251 50355 M67.441 Pulmonary emphysema 8743 3001 J43.9 Anxiety 29023518 F41.9 She was previously made aware that I do not prescribe Xanax [id number] MD [facility] Singer (Adult Med) [address] [place] [id number] 12/23/2018 11:38:49 12/23/2018 15:00:01 Coronary arteriosclerosis in [place] artery 8433257946 107 I25.10 Administra tion of influenza vaccine 86074759 Z23 Abnormal f indings on diagnostic imaging of breast 822864814 R92.8 4 mm L nodular density noted on the CT scan of the chest done 08/23/18. This was ordered by her pulmonolog ist, Dr Leo.Abn ormal diagnostic MMG of both breasts 09/07/18.An US of the breast was done 09/09/18, it was felt to be benign.She will need to follow up closely with Dr Bowen, the breast surgeon. Sinusitis 34583609 J32.9 Impaired f asting glycemia 164005790 R73.01 [id number] MD [facility] Singer (Adult Med) [address] [place] [id number] 02/03/2019 10:08:55 02/03/2019 10:36:45 Acute exacerbation of chronic obstructive pulmonary disease 965329061 J44.1 [id number] KIA BARRETT NP [facility] [address] [address] 02/27/2019 13:42:40 03/14/2019 12:10:12 Chronic obstructive pulmonary disease 39231299 J44.9 Continue MDI/techni que will order previous regimen PFTs done 06/28 Solitary n odule of lung 510801003 R91.1 08/23/[address]- stable 5.5m nodule. continue to monitor - F/U 6 months with imaging [id number] MD Kylie Singer (Adult Med) [address] [place] [id number] 04/24/2019 12:09:15 04/24/2019 13:02:01 Screening for malignant neoplasm of cervix 773349100 Z12.4 Vaginal lesion 878526773 N94.89 Pulmonary emphysema 8743 3001 J43.9 [id number] MD Kylie Singer (Adult Med) [address] [place] [phone] 05/04/2019 11:38:01 05/05/2019 11:52:54 Acute exacerbation of chronic obstructive pulmonary disease 079716742 J44.1 Candidiasis of mouth 797 62118 B37.0 Probably related to the Symbicort and Prednisone [id number] TAMARA MURPHY ([employer]) [address] [place] [phone] 05/05/2019 10:37:54 05/08/2019 09:50:12 Gynecologic examination 66862457 Z01.419 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 F/u with culture. Advised patient to finished course of acyclovir as prescribed by PCP. Venereal d isease screening 138105145 Z11.3 Screening for osteoporosis 896730114 Z13.820 40+ pack year smoker. Start early BMD screening. Female str ess incontinence 23927796 N39.3 Discussed kegel exercises with patient. [id number] TAMARA MURPHY ([employer]) [address] [place] [phone] 05/25/2019 12:10:29 05/25/2019 13:48:13 High grade squamous intraepithelial lesion on cervical Papanicolaou smear 2347949631 9107 R87.613 Human simeon llomavirus deoxyribonucleic acid detected, high risk on cervical specimen 808746782 R87.657 [id number] TAMARA MURPHY ([employer]) [address] [place] [id number] 06/08/2019 11:55:04 06/09/2019 12:11:12 Lesion of vulva 383897767 N90.89 Dermatolog ical cause vs HPV changes vs malignancy . Shave biospy performed. F/u pathology. Cervical intraepithelial neoplasia grade 2 088819066 N87.1 Per pathology report: Part A: CERVICAL BIOPSY: HIGH-GRADE SQUAMOUS INTRAEPITH ELIAL LESION (KLEVER 1 / 2) WITH HUMAN PAPILLOMAV IRUS (HPV) EFFECT.Par t B: ENDOCERVIC AL CURETTAGE: HIGH-GRADE SQUAMOUS INTRAEPITH ELIAL LESION (AT LEAST KLEVER 2) WITH HUMAN PAPILLOMAV IRUS (HPV) EFFECT. Wi ll need LEEP. Discussed procedure with patient in detail. Informatio nal handout provided. Human simeon lloma virus infection 606376586 B97.7 High risk type. Will repeat Pap smear in 6 months. 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 COMMENT: MARGINS INVOLVED. Discussed with pt in detail. Will refer urgently to perioperative nurse onc for management . Cervical intraepithelial neoplasia grade 2 892915750 N87.1 Per pathology report: Part A: CERVICAL BIOPSY: HIGH-GRADE SQUAMOUS INTRAEPITH ELIAL LESION (KLEVER 1 / 2) WITH HUMAN PAPILLOMAV IRUS (HPV) EFFECT. Part B: ENDOCERVIC AL CURETTAGE: HIGH-GRADE SQUAMOUS INTRAEPITH ELIAL LESION (AT LEAST KLEVER 2) WITH HUMAN PAPILLOMAV IRUS (HPV) EFFECT. Will need at least LEEP, possible hysterecto my. Due to new SCC diagnosis, will refer to perioperative nurse onc for complete management . Will cancel LEEP that was previously scheduled with Dr. Peace. Human simeon lloma virus infection 169388371 B97.7 [id number] Ariana Escobedo MD [facility] (Adult [facility]) [address] [place] [address] 07/03/2019 09:37:15 07/04/2019 10:16:33 Chronic obstructive pulmonary disease 43104527 J44.9 That she cannot tolerate the powder as it makes her cough [id number] [facility] (Adult Med) [address] [place] [address] 08/18/2019 10:07:49 08/21/2019 10:54:35 Right flank pain 106444261 R10.9 Complainin g acute right flank pain [...] Patient understood History of calculus of kidney 324372548 Z87.442 History of kidney stones many years ago but also recently 1 month ago.She had similar symptoms last month, went to urgent care, no imaging completed but given ibuprofen and flomax to help pass stone, pt. states it took about 2 days to pass the stone.Admi ts to low water intake- discussed increasing water intake at home Carcinoma in situ of vulva 34396661 D07.1 Patient unable to have LEEP completed due to COVID-19Sp hiral with [facility] regarding patient's care, informed her LEEP unable to be completed. [facility] plans to contact patient regarding close f/u until LEEP can be performed- continue to follow with VERONICA [id number] KIA BARRETT NP [facility] [address] [place] [address] 08/28/2019 09:50:35 09/15/2019 14:06:55 Chronic obstructive pulmonary disease 88183868 J44.9 Continue MDI/techni que will order previous regimen PFTs done 06/28 Solitary n odule of lung 874695945 R91.[address] w/o contrast f/u08/23/[address]- stable 5.5m nodule. continue to monitor Tobacco de pendence in remission 986209254 F17.201 Continue cessation [id number] MD Kylie Singer (Adult Med) [address] [place] [id number] 10/10/2019 15:45:38 10/12/2019 08:00:44 History of calculus of kidney 131070127 Z87.442 Onychomyco sis of toenails 880473230 B35.1 labs then consider an oral antifungal Carcinoma in situ of vulva 70222612 D07.1 Impaired f asting glycemia 563188140 R73.01 Long-term drug therapy 610750915 Z79.899 Disorder o f lipid metabolism 809634785 E78.9 Screening for malignant neoplasm of breast 760320432 Z12.31 She apparently had a MMG at in July, [id number] MD Kylie Singer (Adult Med) [address] [place] [id number] 10/17/2019 13:18:17 10/17/2019 22:48:57 Acute low back pain 268209831 M54.5 ILPMPXrayT ramadol History of calculus of kidney 327711295 Z87.442 KUBUrology opinionRet FlomaxLabs [id number] KIA BARRETT NP [facility] [address] [place] [address] 10/19/2019 11:51:56 10/26/2019 10:30:26 Chronic obstructive pulmonary disease 16063483 J44.9 MDI teaching/t echnique: Continue Symbicort as prescribed , Combivent and ventolin as needed Nebs PFTs done 06/28 CAT- 12 Mmrc-1 Gold 3/B Solitary n odule of lung 031145850 R91.1 08/23/[address]- stable 5.5m nodule.M[address] st CT f/u ordered, awaiting completion Tobacco de pendence in remission 328507756 F1. Continue cessation Viral screening 41624790 4 Z11.59 PFT ordered, COVID screening required Benign hypertension 1072 5009 I10 Managed in primary care. Continue to monitor blood pressure. Encourage low salt diet and exercise. [id number] [facility] [address] [place] [phone] 11/08/2019 14:55:48 11/08/2019 15:50:28 Degeneration of lumbar intervertebral disc 09634505 M51.36 Scoliosis deformity of spine 989595403 M41.9 Impaired f asting glycemia 859157684 R73.01 Pruritic rash 97804244 L 28.2 Rosacea 016912818 L71.9 Tobacco de pendence in remission 206587006 F1. Screening for malignant neoplasm of breast 651554687 Z12.31 [id number] Ariana Escobedo MD [facility] (Adult Med) [address] [place] [phone] 12/20/2019 14:59:07 12/20/2019 15:49:50 Chronic obstructive pulmonary disease 56547317 J44.9 Stable, apparently the Combivent is not covered Rosacea 233514406 L71.9 [id number] KIA BARRETT NP [facility] [address] [place] [address] 2 01/15/2020 09:58:01 01/23/2020 15:02:52 Chronic obstructive pulmonary disease 58297854 J44.9 MDI teaching/t echnique: Continue Symbicort as prescribed , Combivent and ventolin as needed Nebs Solitary n odule of lung 263713482 R91.1 08/23/[address]- stable 5.5m nodule.Meredith st CT f/u ordered , awaiting completion Tobacco de pendence in remission 039312718 F17.201 Continue cessation Benign hypertension 1072 5009 I10 Managed in primary care. Continue to monitor blood pressure. Encourage low salt diet and exercise. Seasonal allergy 3726072 04 J30.2 [id number] KIA BARRETT NP [facility] [address] [address] 04/24/2020 10:27:10 04/24/2020 15:42:26 Chronic obstructive pulmonary disease 63543189 J44.9 MDI teaching/t echnique: Continue MDI as prescribed . Reordering PFT and 6 min walk. Solitary n odule of lung 857762790 R91.[address] w/con. 01/30/20: IMPRESSION : 1. 6 mm nodule left upper lobe unchanged dating back to 05/18/2018. No new or progressiv e lesions. No specific follow-up necessary. 2. Mild upper lobe predominan t centrilobu lar emphysema. 3. Atheroscle rosis.F/U chest ct 12 months (01/30) Tobacco de pendence in remission 035647848 F17.201 Continue cessation Benign hypertension 1072 5009 I10 Managed in primary care. Continue to monitor blood pressure. Encourage low salt diet and exercise. Seasonal allergy 3909472 04 J30.2 Continue Cetirizine [id number] MD Kylie Singer (Adult Med) [address] [place] [phone] 0 05/15/2020 11:15:47 05/16/2020 09:08:29 Carcinoma in situ of vulva 71448418 D07.1 She was reminded to follow up at [facility] as referred by her gynecologi st Upper resp iratory infection 69049858 J06.9 Impaired f asting glycemia 401008988 R73.01 Medication monitoring 39 4354691 Z51.81 Needs infl uenza immunization 098193859 Z28.3 [id number] MD Kylie Singer (Adult Med) [address] [place] [address] [phone] 0 07/01/2020 08:05:29 07/02/2020 08:22:48 Uncontrolled type 2 diabetes mellitus 420480957 E11.65 Discussed Pain of left heel 893433 5394 899652 M79.672 Swollen abdomen 93074252 R14.0 OV needed [id number] KIA BARRETT NP [facility] [address] [place] [address] 07/04/2020 12:08:03 07/04/2020 16:56:51 Chronic obstructive pulmonary disease 21486500 J44.9 MDI teaching/t echnique: Continue MDI as prescribed . Viktoriya New PFT recently completed at [place], will request results Solitary n odule of lung 580914012 R91.1 Nodule has resolved CTA of chest done 06/2020 no PE moderate to severe centrilobu lar emphysema platelike atelectasi s or scaring to bilateral lungs, new possible hepatic steatosis no nodules noted Tobacco de pendence in remission 248570048 F17.201 Continue cessation Benign hypertension 1072 5009 I10 Managed in primary care. Continue to monitor blood pressure. Encourage low salt diet and exercise. Seasonal allergy 7946803 04 J30.2 Continue Cetirizine Chronic re spiratory failure 68059074 J96.10 Hospital DC with supplement al O2 06/30. Continue supplement al O2 at 2L/min via NC with activity. Will repeat 6 min walk Fibrosis of lung 6631389 1 J84.10 Will order HRCT , Chest CTA 06/30; new scaring noted to bilateral lungs [id number] Ariana Escobedo MD [facility] (Adult Med) [address] [place] [phone] 0 07/05/2020 10:28:46 07/08/2020 07:30:55 Abdominal pain 49427583 R10.9 Colonoscop y 02/2019 Diarrhea from Esomeprazo le Gastroesop hageal reflux disease 021245110 K21.9 Lifestyle changes were discussed Pain of left heel 389869 6001 825744 M79.672 Swollen abdomen 79398021 R14.0 OV needed Administra tion of influenza vaccine 29540292 Z23 Carcinoma in situ of vulva 13207711 D07.1 She was reminded to follow up at [facility] as referred by her gynecologi st [id number] MD Kylie Singer (Adult Med) [address] [place] [address] 0 07/22/2020 07:56:21 07/23/2020 07:33:05 Plantar fasciitis 559860357 M72.2 Follow-up visit 72650024 9 Z09 [id number] KIA BARRETT NP [facility] [address] [place] [address] 09/04/2020 12:07:45 09/06/2020 08:45:30 Chronic obstructive pulmonary disease 85931684 J44.9 MDI teaching/t echnique: Continue MDI as prescribed . Duenebs severe obstructio n noted, significan t response to BD. Airtrappin g and hyperinfla tion 6 min walk: no supplement al O2 required at this time. lowest O2 92% Adding Spiriva respimat Pulmonary rehab Check nocturnal oximetry HRCT 08/20/20 at [facility] IMPRESSION : 1. No significan t fibrotic [...] Moderate scoliosis. Tobacco de pendence in remission 655817382 F17.201 Qualifies for LDCT lung cancer screening. Will order LDCT, Discussed risk/benef its, importance of annual screening adherence. Continue cessation Benign hypertension 1072 5009 I10 Managed in primary care. Continue to monitor blood pressure. Encourage low salt diet and exercise. Seasonal allergy 6032677 04 J30.2 Continue Cetirizine Solitary n odule of lung 570516739 R91.1 HRCT 08/20/20 at [facility]: 6 mm nodule left upper lobe has been stable for more than 2 years, no specific follow-up necessary. Compatible with a benign lesion. Dyspnea on exertion 6084 5006 R06.09 Echo [id number] TAMARA MURPHY ([employer]) [address] [place] [phone] 11/01/2020 11:27:47 11/07/2020 19:48:55 Gynecologic examination 95468410 Z01.419 -Last pap was 05/05/19, showed HSIL, HPV+. 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 Pap repeated today.-rou jose juan nuswab completed, treat as needed-Las t mammogram was 06/27/20, unremarkab le BIRADS 1-Educated osteoporos is prevention including calcium rich diet, weight bearing exercise. Will start supplement . Carcinoma in situ of vulva 77239988 D07.1 -Per pathology report 06/08/2019: FULL THICKNESS INTRAEPIDE RMAL SQUAMOUS ATYPIA CONSISTENT WITH SQUAMOUS CELL CARCINOMA IN-SITU. COMMENT: MARGINS INVOLVED. Previously referred to [facility] perioperative nurse/onc but pt did not follow up due to COVID-19 pandemic. Referred back today. Cervical intraepithelial neoplasia grade 2 784927994 N87.1 -Per pathology report 05/25/20: Part A: CERVICAL BIOPSY: HIGH-GRADE SQUAMOUS INTRAEPITH ELIAL LESION (KLEVER 1 / 2) WITH HUMAN PAPILLOMAV IRUS (HPV) EFFECT. Part B: ENDOCERVIC AL CURETTAGE: HIGH-GRADE SQUAMOUS INTRAEPITH ELIAL LESION (AT LEAST KLEVER 2) WITH HUMAN PAPILLOMAV IRUS (HPV) EFFECT. Repeated PAP today, referred back to perioperative nurse/onc. [id number] KIA BARRETT NP [facility] [address] [place] [address] 11/07/2020 10:34:06 11/07/2020 14:08:28 Chronic obstructive pulmonary disease 54797882 J44.9 Stop symbicort, Start Wixela as prescribed , rinse after useDPI teachingZ- paksteroid sAvoid heat, keep hydrated , drink plenty of water, know your warning signs of a flare, listen to air quality and humidity advisories , avoid strenuous [id number] s [id number] KIA BARRETT NP [facility] [address] [place] [address] 12/05/2020 12:06:41 12/09/2020 12:26:30 Chronic obstructive pulmonary disease 42006649 J44.9 Continue Advair 500 mcgDPI teachingre fill [id number] MD Kylie Singer (Adult Med) [address] [place] [phone] 0 01/09/2021 11:49:23 01/09/2021 13:48:02 Coronary arteriosclerosis in [place] artery 8503882986 107 I25.10 Adult heal th examination 422690399 Z00.00 Impaired f asting glycemia 607390030 R73.01 Influenza vaccination declined 111800091 Z28. [id number] TAMARA MURPHY ([employer]) [address] [place] [address]89[address] 0 01/10/2021 11:20:30 01/13/2021 08:33:38 Carcinoma in situ of vulva 65299163 D07.1 s/p partial L vulvectomy 12/17/20 at [facility]. Site appears well healed although 3-4 large suture knots still present which are likely contributi ng to patient symptoms, removed today in office to promote further healing. No signs of infection. Care instructio ns reviewed and supplies provided. Advised to RTC if symptoms persist. High grade squamous intraepithelial lesion on cervical Papanicolaou smear 9040474230 9107 R87.613 S/p LEEP 12/17/20 at [facility]. Repeat Pap in 6 months. [id number] KIA BARRETT NP [facility] [address] [address] 07/02/2021 10:03:24 07/07/2021 11:35:09 Chronic obstructive pulmonary disease 46473264 J44.9 Continue Advair 500 mcgMDI teachingSp iriva respimatPr ednisone Dependence on nocturnal oxygen therapy 3560403944 9108 Z99.81 continue supplement al O2 nightly Reactive a irway disease 6882631846 06 J45.909 Tobacco de pendence in remission 674493478 F17.201 Smoked for 42 years,1 ppd, stopped 2019 [id number] MD Kylie Singer (Adult Med) [address] [place] [address] [phone] 0 07/09/2021 10:00:06 07/10/2021 07:04:51 Type 2 diabetes mellitus without complication 751773336 E11.9 Immunization advised 310 154912 Z71.9 History of SARS-CoV-2 29 06477848 75868393 Z86.16 Administra tion of pneumococcal vaccine 27894386 Z23 SARS-CoV-2 antigen vaccine declined 2420216237 Z28.21 History of pneumonia 161 801748 Z87.01 Screening mammography of bilateral breasts 6717010542 07594 Z12.31 Body mass index 25-29 - overweight 914765083 Z68.28 Previous [facility] admissions 461749983 Z78.9 Discussed [id number] TAMARA MURPHY ([employer]ICATOR) [address] [place] [address] [phone] 0 07/11/2021 10:54:14 07/17/2021 09:51:16 Atrophic vaginitis 89326768 N95.2 Educated pt to try OTC vaginal moisturize rs to try and alleviate symptoms. Deferring topical estrogen use to perioperative nurse onc given pt's history. Carcinoma in situ of vulva 49179697 D07.1 s/p partial L vulvectomy 12/17/20 at [facility]. Site appears well healed and reassuring . Advised that occasional pains could be related to normal healing process. Atrophic vaginitis management as below. [id number] KIA BARRETT NP [facility] [address] [address] 10/02/2021 10:23:26 10/02/2021 11:50:47 Chronic obstructive pulmonary disease 12024105 J44.9 Stop Advair 500 mcgMDI teachingSp iriva respimatPr ednisone Reactive a irway disease 7555745658 06 J45.909 Dependence on nocturnal oxygen therapy 9251839737 9108 Z99.81 2L NC O2 overnight Tobacco de pendence in remission 377932090 F17.201 Smoked for 42 years,1 ppd, stopped 2019 [id number] MD Kylie Singer (Adult Med) [address] [place] [address] [phone] 0 10/09/2021 09:50:09 10/09/2021 11:03:39 Type 2 diabetes mellitus without complication 299940150 E11.9 Uncontroll ed with an HBA1C of 7.8 (08/06/2021 )Continue MetforminS tart Jardiance, she has no personal or FHX of Thyroid cancerTest BS 3/week Pain in right foot 25664 34936 83952 M79.671 Arthritis of hand 736620 005 M13.841 M13.842 Body mass index 25-29 - overweight 788613088 Z68.28 [id number] MD Kylie Singer (Adult Med) [address] [place] [address] 10815-410 0 11/07/2021 11:03:38 11/07/2021 13:37:54 Mammography abnormal 282964282 R92.8 Type 2 judith betes mellitus without complication 517859411 E11.9 Uncontroll ed with an HBA1C of 7.8 (08/06/2021 )Continue Metformin and Jardiance, she has no personal or FHX of Thyroid cancerTest BS 3/week Medication monitoring 39 4259736 Z51.81 SARS-CoV-2 antigen vaccine declined 2850465092 Z28.21 Discussed Osteoarthritis 971123275 M19.90 [id number] TAMARA MURPHY ([employer]) [address] [place] [address] [phone] 0 11/11/2021 10:41:33 12/03/2021 15:07:28 Gynecologic examination 03228778 Z01.419 -h/o CIN2. Last Pap October 2020, NILM/HPV(+ ). Pap updated today-Last mammogram was October 2021, BIRADS 2.-[employer] ed regarding importance of physical activity, healthy diet and appropriat e calcium intake. -RTC in 1yr Carcinoma in situ of vulva 71871014 D07.1 s/p partial L vulvectomy 12/17/20 at [facility]. Site appears well healed and reassuring . [id number] MD Kylie Singer (Adult Med) [address] [place] [address] [phone] 0 11/19/2021 10:18:05 11/20/2021 11:50:30 Pain of left forearm 6627731352 40279 M79.632 Severe pain in the left forearm, it is unclear if this is radicular pain from her hand.XrayO rthopedics Tylenol Musculoskeletal pain 279 106937 M79.10 Body mass index 25-29 - overweight 129367217 Z68.28 [id number] MD Kylie Singer (Adult Med) [address] [place] [address] [phone] 0 03/10/2022 09:40:54 03/12/2022 15:20:42 Osteoarthritis of wrist 158091325 M19.039 Solitary n odule of lung 664987651 R91.1 Stable on the LDCT one on 12/08/2021 Rosacea 282044370 L71.9 SARS-CoV-2 antigen vaccine declined 4563112504 Z28.21 [id number] KIA BARRETT NP [facility] [address] [place] [address] 03/30/2022 10:55:36 03/31/2022 08:00:00 Chronic obstructive pulmonary disease 17311986 J44.9 StableSymb icort 160 mcgSpiriva respimat 2.5 mcgnebs as needed Reactive a irway disease 0829838149 06 J45.909 Dependence on nocturnal oxygen therapy 7908928114 9108 Z99.81 2L NC O2 overnight, benefiting from useOvernig ht ox on 2l/min Tobacco de pendence in remission 540680554 F17.201 Smoked for 42 years,1 ppd, 42 PYHstopped 2019 LDCT 11/2021 Solitary n odule of lung 929049692 R91.1 LDCT 12/08/21 at [facility] :unchanged 7mm solid nodule LULno new or suspicious lung nodules seen. [id number] MD Kylie Singer (Adult Med) [address] [place] [phone] 0 06/04/2022 16:02:31 06/08/2022 12:25:59 Administration of pneumococcal vaccine 40625876 Z23 Postmenopausal state 764 23177 Z78.0 Screening for malignant neoplasm of breast 333024997 Z12.31 Type 2 judith betes mellitus without complication 314296917 E11.9 Controlled with an HBA1C of 6.2 (), previously 7.8 (08/06/2021 )Continue Metformin and Jardiance, she has no personal or FHX of Thyroid cancerTest BS 3/week SARS-CoV-2 mRNA vaccine declined 7020289698 Z28.21 Strain of muscle of left groin region 1343931548 1836937 S76.012A Pain of le ft hip joint 3505688154 99613 M25.552 Body mass index 25-29 - overweight 005570589 Z68.28 Obesity 879339060 E66.9 [id number] KIA BARRETT NP [facility] [address] [place] [address] 06/25/2022 10:05:33 06/25/2022 14:59:30 Chronic obstructive pulmonary disease 03831688 J44.9 Stable, doing wellSymbic ort 160 mcgSpiriva respimat 2.5 mcgAlbuter ol/nebs as needed Reactive a irway disease 8202030141 06 J45.909 Continue MDI/DPI as prescribed well controlled Dependence on nocturnal oxygen therapy 3913487557 9108 Z99.81 2L NC O2 overnight, benefiting from use Tobacco de pendence in remission 355112112 F17.201 Smoked for 42 years,1 ppd, 42 PYHstopped 2019 LDCT 11/2021 Solitary n odule of lung 184234393 R91.1 LDCT 12/08/21 at [facility] :unchanged 7mm solid nodule LULno new or suspicious lung nodules seen.Will continue annual LDCT for nodule surveilanc e Overweight 237540583 E66 .3 Has increased exercise and diet change Pain of le ft hip joint 7272310389 11398 M25.552 Pulmonary clearance requested for Left hip replacemen t - date TBD by Dr. Kole Julian at [facility] Managed in primary care. Continue to monitor blood pressure. Encourage low salt diet and exerciseCa se discussed with Dr. Rodríguez, clearance given [id number] Ariana Escobedo MD [facility] (Adult Med) [address] [place] [phone] 0 07/13/2022 10:16:44 07/14/2022 13:42:29 Follow-up visit 440349341 Z09 Cough 76868022 R05.9 Osteoporosis 07902659 M8 1.0 Osteonecro sis of head of femur 778900758 M87.600 [id number] Ariana Escobedo MD [facility] (Adult Med) [address] [place] [address] [phone] 0 08/07/2022 09:59:30 08/11/2022 12:14:51 Benign essential hypertension 4102609 I10 [id number] Ariana Escobedo MD [facility] (Adult Med) [address] [place] [address] 75249[address] 0 09/23/2022 09:13:37 09/25/2022 11:40:16 Pre-surgery evaluation 948005568 Z01.818 Low risk Screening for malignant neoplasm of breast 569746294 Z12.31 Chronic ob structive pulmonary disease 41876517 J44.9 Stable Type 2 judith betes mellitus without complication 965980105 E11.9 Controlled with an HBA1C of 6.6 (08/07/2022 ), previously 6.2 () and 7.8 (08/06/2021 )Continue Metformin and Jardiance. [id number] Ariana Escobedo MD [facility] (Adult Med) [address] [place] [address] [phone] 0 01/21/2023 09:55:50 01/22/2023 14:29:34 Type 2 diabetes mellitus without complication 952110743 E11.9 Controlled with an HBA1C of 5.7 (10/23/2022 ), previously 6.6 (08/07/2022 ), 6.2 () and 7.8 (08/06/2021 )Continue Metformin and Jardiance. Insomnia 468081678 G47.0 0 She has failed OTC sleep medication s including Melatonin Seasonal allergy 7319457 04 J30.2 Postmenopa usal osteoporosis 636644758 M81.0 Influenza vaccination declined 771095605 Z28.21 Chronic ob structive pulmonary disease 86097195 J44.9 Stable History of total replacement of left hip joint 4368254522 449317 Z96.542 [id number] Tin Rodríugez MD [facility] [address] [place] [address] 01/27/2023 11:22:25 01/28/2023 12:24:30 Chronic obstructive pulmonary disease 85113261 J44.9 Stable, doing wellSymbic ort 160 mcgSpiriva respimat 2.5 mcgAlbuter ol/nebs as needed Reactive a irway disease 4333904565 06 J45.909 Continue MDI/DPI as prescribed well controlled 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 Kole Julian at [facility] in primary care. Continue to monitor blood pressure. Encourage low salt diet and exerciseCa se discussed with Dr. Rodríguez, clearance given Severe chr onic obstructive pulmonary disease 938387287 J44.9 [id number] Ariana Escobedo MD [facility] (Adult Med) [address] [place] [address] 03/22/2023 12:31:24 03/23/2023 10:16:53 Acute exacerbation of chronic obstructive pulmonary disease 046528754 J44.1 [id number] Tin Rodríguez MD [facility] [address] [place] [address] 2 05/05/2023 11:28:55 05/06/2023 08:39:52 Chronic obstructive pulmonary disease 75940621 J44.9 Stable, doing wellSymbic ort 160 mcgSpiriva respimat 2.5 mcgAlbuter ol/nebs as needed Reactive a irway disease 1196455209 06 J45.909 Continue MDI/DPI as prescribed well controlled Dependence on nocturnal oxygen therapy 4822666774 9108 Z99.81 2L NC O2 overnight, benefiting from use Tobacco de pendence in remission 593340748 F17.201 Smoked for 42 years,1 ppd, 42 PYHstopped 2019 LDCT 11/2021 Solitary n odule of lung 966544265 R91.1 LDCT 12/08/21 at [facility] :unchanged 7mm solid nodule LULno new or suspicious lung nodules seen.Will continue annual LDCT for nodule surveilanc e Overweight 231112829 E66 .3 Pain of le ft hip joint 1431348807 32438 M25.552 Pulmonary clearance requested for Left hip replacemen t - date TBD by Dr. Kole Julian at [facility] in primary care. Continue to monitor blood pressure. Encourage low salt diet and exerciseCa se discussed with Dr. Rodríguez, clearance given Severe chr onic obstructive pulmonary disease 413465163 J44.9 Chronic cough 91138360 R 05.3 [id number] Ariana Escobedo MD [facility] (Adult Med) [address] [place] [address] 15405[address]278 0 05/24/2023 09:43:45 05/24/2023 16:17:32 Former heavy tobacco smoker 7177865325 04097 Z87.891 Non-neoplastic nevus 195 624453 I78.1 [id number] Tin Rodríguez MD [facility] [address] [place] [address] 08/04/2023 10:53:08 08/04/2023 14:58:08 Cough 36168107 R05.9 Seasonal allergy 2385579 04 J30.2 Sinusitis 69693231 J32.9 Chronic ob structive pulmonary disease 30715214 J44.9 Stable, doing wellSymbic ort 160 mcgSpiriva respimat 2.5 mcgAlbuter ol/nebs as needed Pulmonary emphysema 8743 3001 J43.9 Reactive a irway disease 0871124597 06 J45.909 Continue MDI/DPI as prescribed well controlled Dependence on nocturnal oxygen therapy 1862442828 9108 Z99.81 2L NC O2 overnight, benefiting from use Tobacco de pendence in remission 517553949 F17.201 Smoked for 42 years,1 ppd, 42 PYHstopped 2019 LDCT 11/2021 Solitary n odule of lung 190754471 R91.1 LDCT 12/08/21 at [facility] :unchanged 7mm solid nodule LULno new or suspicious lung nodules seen.Will continue annual LDCT for nodule surveilanc e Overweight 315209286 E66 .3 Pain of le ft hip joint 9248905257 50392 M25.552 Pulmonary clearance requested for Left hip replacemen t - date TBD by Dr. Kole Julian at [facility] in primary care. Continue to monitor blood pressure. Encourage low salt diet and exerciseCa se discussed with Dr. Rodríguez, clearance given Severe chr onic obstructive pulmonary disease 439680998 J44.9 Chronic cough 15190056 R 05.3 [id number] Ariana Escobedo MD [facility] (Adult Med) [address] [place] [address] 08/09/2023 11:07:28 08/10/2023 14:13:18 Calcification of coronary artery 083135094 I25.84 Asymptomat icCopy to her cardiologi st Type 2 judith betes mellitus without complication 297187913 E11.9 Well controlled with an HBA1C of 6.1% (04/20/2023) , previously 5.7% (10/23/2022 ), 6.6% (08/07/2022 ), 6.2 % () and 7.8% (08/06/2021 )Continue Metformin and Jardiance. Screening mammography 24 034184 Z12.31 Medication monitoring 39 7654768 Z51.81 Nodule of lung 904033092 R91.1 She is following up with her pulmonolog ist [id number] Tin Rodríguez MD [facility] [address] [address] 12/29/2023 11:44:01 12/29/2023 13:21:28 Seasonal allergy 148167240 J30.2 Chronic ob structive pulmonary disease 61338043 J44.9 Stable, doing wellSymbic ort 160 mcgSpiriva respimat 2.5 mcgAlbuter ol/nebs as needed Pulmonary emphysema 8743 3001 J43.9 Sinusitis 96387010 J32.9 Cough 31194673 R05.9 Reactive a irway disease 0625764753 06 J45.909 Continue MDI/DPI as prescribed well controlled Dependence on nocturnal oxygen therapy 9209117684 9108 Z99.81 2L NC O2 overnight, benefiting from use Tobacco de pendence in remission 775266109 F17.201 Smoked for 42 years,1 ppd, 42 PYHstopped 2020 LDCT 11/2021 Solitary n odule of lung 045084172 R91.1 LDCT 12/08/21 at [facility] :unchanged 7mm solid nodule LULno new or suspicious lung nodules seen.Will continue annual LDCT for nodule surveilanc e Overweight 049501013 E66 .3 Pain of le ft hip joint 9010241068 98619 M25.552 Pulmonary clearance requested for Left hip replacemen t - date TBD by Dr. Kole Julian at [facility] in primary care. Continue to monitor blood pressure. Encourage low salt diet and exerciseCa se discussed with Dr. Rodríguez, clearance given Severe chr onic obstructive pulmonary disease 499252200 J44.9 Chronic cough 94570127 R 05.3 antitussiv es [id number] MD Kylie Burton ([employer]) [address] [place] [phone] 0 01/10/2024 11:21:50 01/12/2024 10:21:33 Gynecologic examination 17072773 Z01.419 69 year old here for well woman exam- negative mammo on 10/2023, repeat in 1 year- hx of vulvar cancer in 2019, was following with perioperative nurse oncology in [place], states she will no longer follow up with them due to headache of going to [place] and navigating hospital system, exam today reassuring - hx of abnormal pap s/p LEEP, normal pap most recently in 2021- mammo neg 10/2023- follow up in 1 year, sooner if concerns [id number] MD [facility] (Adult Med) [address] [place] [phone] 02/08/2024 10:10:38 02/09/2024 10:59:01 Osteoporosis 20614973 M81.0 Influenza vaccination declined [id number] Z28.21 History of fall 47391707 9 Z91.81 Type 2 judith betes mellitus without complication 513612773 E11.9 Well controlled with an HBA1C of 6.4% 12/14/2023, 6.1% (04/20/2023) , 5.7% (10/23/2022 ), 6.6% (08/07/2022 ), 6.2 % () and 7.8% (08/06/2021 )Continue Metformin and Jardiance. History of nicotine dependence [id number] 38079009 Z87.891 Coronary arteriosclerosis in [place] artery 9528356333 107 I25.10 [id number] Tin Rodríguez MD [facility] [address] [place] [address] 06/28/2024 12:00:29 06/28/2024 14:45:34 Chronic obstructive pulmonary disease 83155174 J44.9 Stable, doing wellSymbic ort 160 mcgSpiriva respimat 2.5 mcgventoli n l/nebs as needed Seasonal allergy 2638123 04 J30.2 continue flonase Multiple n odules of lung 344456346 R91.8 [id number] Ariana Escobedo MD [facility] (Adult Med) [address] [place] [phone] 07/24/2024 09:57:40 07/25/2024 09:17:29 Osteoporosis 53876146 M81.0 She has a reschedule d appointmen t for 02/2025 Type 2 judith betes mellitus without complication 075497545 E11.9 OV 02/08/2024 Well controlled with an HBA1C of 6.4% 12/14/2023, 6.1% (04/20/2023) , 5.7% (10/23/2022 ), 6.6% (08/07/2022 ), 6.2 % () and 7.8% (08/06/2021 )Continue Metformin and Jardiance. Coronary arteriosclerosis in [place] artery 4015352615 107 I25.10 Unexplaine d weight loss 560410311 R63.4 - 5 lbs Nausea 328687130 R11.0 General ex amination of patient 966364335 Z00.01 Skin lesion 41715602 L98 .9 Cramp 98066864 R25.2 Chronic ob structive pulmonary disease 93565939 J44.9 Stable [id number] Tin Rodríguez MD [facility] [address] [place] [address] 07/26/2024 13:55:06 07/26/2024 15:00:14 Chronic obstructive pulmonary disease 81219261 J44.9 Stable, doing wellSymbic ort 160 mcgSpiriva respimat 2.5 mcgventoli n /nebs as neededpred nisone as needed Essential hypertension 15397641 I10 home meds Diabetes mellitus 728277 09 E11.9 metformin Health Concerns Section Related Observation LastModified by Organization Detai ls LastModified Time None Recorded Concern Status LastModified by Organization Details LastModified Time None Recorded Advance Directives Directive N: Payers Encounter Date Sequence Insurance Name Policy Number Policy Jha Covered Member ID Jha Member ID Guarantor Name 01/10/2024 1 [facility] (MEDICARE REPLACEMENT/A DVANTAGE - HMO) [id number] Catherine Shukla [id number] Catherine Shukla 02/08/2024 1 [facility] (MEDICARE REPLACEMENT/A DVANTAGE - HMO) [id number] Catherine Shukla [id number] Catherine Shukla 06/28/2024 1 [facility] (PPO) [id number] Catherine Shukla [id number] Catherien Shukla 06/28/2024 2 [place] [facility] [place] [facility] [place] Catherine Vazquez [id number] Catherine Shukla 07/24/2024 1 [facility] (MEDICARE REPLACEMENT/A DVANTAGE - HMO) [id number] Catherine Shukla [id number] Catherine Shukla 07/26/2024 1 [facility] ([facility]) [id number] Catherine Shukla [id number] Catherine Shukla 07/26/2024 2 [place] [facility] [place] [facility] PUBLIC [facility] Catherine Shukla [id number] Catherine Shukla Notes Date Note Type Note Provider Name and Address Organization Details Recorded Time 4 text/html Annual GYNReported bypatient.History:no gynecologic complaints Menstrual cycle:Last menses in 2002. [...] work well. vulvar cancer approx 2019 at [facility]- vulvar resection in 2020- no radiation, did take oral med for 6 months- did not follow up following the 6 months because of not wanting to go to [place] Elva Broussard MD Attn: Accounting,[address] [facility], [place], [address], [facility] 01/11/2024 07:27:35 4 text/html Diabetes F/UReported bypatient.Labs:last A1C result: 6.4% Context:taking aspirin daily; not [...] the Pubic ramus Ariana Escobedo MD Attn: Accounting,[address] [facility], [place], [address], [facility] 02/08/2024 18:15:14 5 text/html here for follow up.Spiriva respimat 2.5 mcg and symbicort 160 mcgduonebs as neededalbuterol as neededdenies increased SOB , cough or sputum productionreports improvment in breathing with slight weight loss over past few months Has GERD PFTs done on 05/2023 showed Moderate airways obstruction. No airways restrictionsupplemental O2 -2L/min with sleep only, benefiting from userides her out door bike LDCT done in 06/2024 showed multiple pulmonary nodules Tin Rodríguez MD [address] [place], [address], [facility] 06/28/2024 12:29:25 5 text/html This came out of nowhere I am feeling nauseous, I have a bump in my stomach The urgent care was telling me I might need to look into a portable concentrator I get cramps bad Ms Shukla has been out of [place] and she has been having difficulty breathing and was tachycardic. This was unusual as she did not have symptoms suggestive of a URI, on her return, she was seen at urgent care on 07/21/2024 where she was treated with steroids and discharged on PO steroids and antibiotics. She feels better, but wonders what may happen once she is off the steroids. She also may have had some vague chest discomfort at the same time when her symptoms started. She denies any abdominal pain or vomiting, but she has also been nauseous. Ariana Escobedo MD Attn: Accounting,[address] [place], [address], [facility] 07/24/2024 12:58:02 5 text/html here for follow up.on prednisone for acute bronchitisSpiriva respimat 2.5 mcg and symbicort 160 mcgduonebs as neededalbuterol as neededdenies increased SOB , cough or sputum production Has GERD PFTs done on 05/2023 showed Moderate airways obstruction. No airways restrictionsupplemental O2 -2L/min with sleep only, benefiting from userides her out door bike LDCT done in 06/2024 showed multiple pulmonary nodules Tin Rodríguez MD [address] [place], [address], [facility] 07/26/2024 14:43:47 OBGyn Episode No OBEpisode recorded.
--- OUTSIDE RECORDS SUMMARY | 2024-08-03 12:01 | XMS_ITS | Clinical Summary ---
Author Organization [facility] Address [address] [place] [address] Phone Care Team Providers Care Electrical Electronics Engineers Name Role Phone Unavailable Unavailable Unavailable Reason [...] Diagnosis GENERAL OFFICE VISIT MILTON ATWOOD MD [facility] 02/26/20 05 11:33AM 12:32PM Clinical Notes Includes: Clinical Notes from this encounter No Clinical Notes Recorded
--- OUTSIDE RECORDS SUMMARY | 2024-08-03 12:02 | XMS_ITS ---
Care Plan - [facility] Created on: August 03, 2024 EPIFANIO HIDALGO : 1955 Sex: Female Author Organization [facility] Address [address] [place] [address] Phone Care Team Providers Care Stockkeeper Name Role Phone Unavailable Unavailable Unavailable
--- OUTSIDE RECORDS SUMMARY | 2024-08-03 12:02 | XMS_ITS | CONTINUITY OF CARE DOCUMENT ---
Author Name patricio, patricio Address Unknown Organization [facility] Address [address] [place] [address] Phone [phone] Care Team Providers Care Appliance Painter And Refinisher Name Role Phone Jasper MEEHAN, Landry Unavailable [phone] JANETH NUNES MD Unavailable [phone] SLAVA ESCOBEDO MD Unavailable [phone] PROBLEMS Condition Status Date Provider Notes Chest pain nl stress nuc active Josh carter MD Shortness of breath active Josh Xie MD Tobacco use, quit active Josh Xie MD COPD - emphesyma on Chest CT 05/2018Severe obst on pft active Josh Xie MD Headache active Josh Xie MD HTN essential active Josh Xie MD Preoperative cardiovascular examination active Landry Hutchinson MD ENCOUNTERS Date Type Provider Location Encounter Diag nosis - In-person encounter Office Visit Landry Hutchinson MD [facility] Preoperative cardiovascular examination - In-person encounter Office Visit Josh Xie MD [facility] Chest pain nl stress nucCOPD - emphesyma on Chest CT 05/2018Severe obst on pft - In-person encounter Office Visit Josh Xie MD [facility] Chest pain nl stress nucShortness of [...] blood pressure, diastolic 80 mm[Hg] Da fidel [place] blood pressure, systolic 126 mm[Hg] Dac ia Lauren oxygen saturation, oximetry 94 % Damari [place] respiratory rate E&M 18 /min Damari V oss pulse rate 66 /min Damari Lauren weight E&M 133 [lb_av] Damari Lauren height E&M 61 [in_i] Damari [place] Body Mass Index (Ratio) 25.69 kg/m2 Modesto Xie MD blood pressure, diastolic 90 mm[Hg] Chacorta iscintia Shayla blood pressure, systolic 120 mm[Hg] Ada lind [place] blood pressure, resting Yes Tre ty Shayla blood pressure, cuff size regular Chacorta isty Shayla oxygen saturation, oximetry 95 % Noemí Shayla respiratory rate E&M 18 /min Noemí Shayla height E&M 61 [in_i] Noemí Shayla pulse rate 65 /min Noemí [place] weight E&M 136 [lb_av] Noemí Shayla ALLERGIES No Known Drug Allergies HISTORY OF [...] Payer name Policy type / Coverage type [place] red green party ID AARP MEDICARE ADVANTAGE ([facility] COMPLETE PPO) Other [id number] [facility] Medicaid 1 [id number] ADVANCE DIRECTIVES Name Date DISCUSSED - NO DECISION MADE TREATMENT PLAN Date Name Performer [id number],C, H as upcoming left hip replacement surgery. [...] test at this time. Landry Hutchinson MD [id number],C, B lood pressure control is satisfactory. Landry Hutchinson MD [id number],C, O n inhalers and nebulizer. Landry Hutchinson MD [id number],C, N o recurrence. Her last stress test [...] Echo Stress Regadenoson Complete Echo DLCO - 02951 FRC - 59441 FVC - 74189 HISTORY OF PROCEDURES Procedure Date Procedure Name Provider Procedure Notes S tatus EKG Landry Hutchinson MD complet ed Regadenoson, 4 units Josh Xie MD completed Cardiolite, 2 units Josh Xie MD completed SPECT Images Josh Xie MD complet ed Stress EKG Adolfo Suggs MD complete d FVC / MVV with bronchodilator - 49637 Josh Xie MD completed BLOOD COUNT HEMOGLOBIN Josh Xie MD completed FRC - 21947 Josh Xie MD complete d SpO2 w/o 6min walk/titration Josh Xie MD completed DLCO - 76983 Josh Xie MD complet ed Schedule Followup Josh Xie MD after testing completed EKG Josh Xie MD completed
--- OUTSIDE RECORDS SUMMARY | 2024-08-03 12:02 | XMS_ITS | Clinical Summary ---
Author Organization [facility] Address [address] [place] [address] Phone Care Team Providers Care Rug Scratcher Name Role Phone Unavailable Unavailable Unavailable Reason [...]
--- OUTSIDE RECORDS SUMMARY | 2024-08-03 12:02 | XMS_ITS | Clinical Summary ---
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 - [facility] review of OSH pathology showedvulvar biopsy with [...] in situ -[facility] -Discussed treatment of [...] on file Legal 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 Gender Identity Not on file Sexual Orientation [...] Influenza Vaccine (#1) 2023 07/05/2020, 2018 Insurance [facility] Advance Directives For more information, please contact: [phone] * Full Code (Latest Code Status on File) Date Activated Date Inactivated Comments 12/17/2020 10:49 AM 12/18/2020 12:34 PM Care Teams Computer Engineer Relationship Specialty Start Date End Date Ariana Alexandra MD [address] [place] [id number] PCP - General Internal Medicine 10/15/21 No, Physician 06/22/19 Aparna Oliva NP [address] [place] [address] Nurse Practitioner 10/15/21
--- OUTSIDE RECORDS SUMMARY | 2024-08-03 12:02 | XMS_ITS | Encounter Summary ---
Author Organization [facility] Address [address] [place] [address] Care Team Providers Care Airplane Designer Name Role Phone No, Physician Primary Care Provider [phone] No, Physician Unavailable Ariana Alexandra MD Primary Care Provider Aparna Oliva NP Unavailable [phone] Encounter Details Date Type Department Care Team (Late st Contact Info) Description 07/08/2021 Telephone [facility] Outpatient [facility] [address] 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
--- OUTSIDE RECORDS SUMMARY | 2024-08-03 12:02 | XMS_ITS | Data Portability ---
Author Organization [facility], Main Office Address [address] [place] [address] Care Team Providers Care Clean Up Person Name Role Phone SLAVA ESCOBEDO Primary Care Provider SLAVA ESCOBEDO Referring Provider [phone] Assessment Encounter Date Assessment Date Assessment LastModified [...] 26 so [place] the 83682 unit ergo calciferol tablets weekly. 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 Not available 08/13/2022 13:51:00 10/15/2022 10/15/2022 [...] Rubi MD, [address], [place], [address], 13:55:45 Procedures None recorded. Surgeries None recorded. Imaging XR, hip + pelvis, unilateral 2022 023 [facility], [address], [place], [address], 16:25:15 Medication Orders None recorded. Patient TargetsNo [...] range effec tive 05/08 . Not Available [facility] (Lab) [address] [place], [address], 08/06/2022 13:57:41 08/07/19 23 08/06/2022 PARAT HYROI D HORM (PTH) INT.W /CA calcium 9.6 mg/dL 8.4-10 .2 Not Available [facility] (Lab) [address] [place], [address], 08/06/2022 13:57:41 08/07/19 23 08/06/2022 PHOSP HORUS phosphorus 3.4 mg/dL 2.5-4. 5 Not Available [facility] (Lab) [address] [place], [address], 08/06/2022 13:45:09 08/07/19 23 08/06/2022 VITAM IN D 25-HY DROXY vd25oh 26.5 NG/mL 30-100 low Vitam in D Statu s: Defic ient: <20 ng/mL Insuf ficie nt: 20-29 ng/mL Suffi cient : 30-10 0 ng/mL Not Available [facility] (Lab) [address] [place], [address], 08/06/2022 14:11:02 08/07/19 23 08/07/2022 COMPR EHENS ANGELA METAB OLIC PANEL sodium 138 mmol/ L 137-14 5 Not Available [facility] (Lab) [address] [place], [address], 08/07/2022 17:36:42 08/07/19 23 08/07/2022 COMPR EHENS ANGELA METAB OLIC PANEL potassium 3.8 mmol/ L 3.5-5. 1 Not Available [facility] (Lab) [address] [place], [address], 08/07/2022 17:36:42 08/07/19 23 08/07/2022 COMPR EHENS ANGELA METAB OLIC PANEL chloride 100 mmol/ L 98-107 Not Available [facility] (Lab) [address] [place], [address], 08/07/2022 17:36:42 08/07/19 23 08/07/2022 COMPR EHENS ANGELA METAB OLIC PANEL carbon dioxide 28 mmol/ L 22-30 Not Available [facility] (Lab) [address] [place], [address], 08/07/2022 17:36:42 08/07/19 23 08/07/2022 COMPR EHENS ANGELA METAB OLIC PANEL anion gap 13.8 mmol/ L 14-22 low Not Available [facility] (Lab) [address] [place], [address], 08/07/2022 17:36:42 08/07/19 23 08/07/2022 COMPR EHENS ANGELA METAB OLIC PANEL glucose 95 mg/dL 70-99 Not Available [facility] (Lab) [address] [place], [address], 08/07/2022 17:36:42 08/07/1908/07/2022 COMPR EHENS ANGELA METAB OLIC PANEL BUN 22 mg/dL 8-19 high Not Available [facility] (Lab) [address] [place], [address], 08/07/2022 17:36:42 08/07/19 23 08/07/2022 COMPR EHENS ANGELA METAB OLIC PANEL creatinine 0.83 mg/dL 0.66-1 .25 Not Available [facility] (Lab) [address] [place], [address], 08/07/2022 17:36:42 08/07/19 23 08/07/2022 COMPR EHENS ANGELA METAB OLIC PANEL GFR >60 Refer ence Range : Matthews ge GFR Healt hy Adult : >60 [...] or ethni c subgr oups, such as [facility] nics. Outsi de the valid ated buddy [...] calcu lator is avail able on the [facility] websi te: https ://galina rao.kid [email or web address] rg/pr ofess ional s/kdo qi/gf r_cal culat or Not Available [facility] (Lab) [address] [place], [address], 08/07/2022 17:36:42 08/07/19 23 08/07/2022 COMPR EHENS ANGELA METAB OLIC PANEL alkaline phosphatase 114 U/L 38-126 Not Available [facility] (Lab) [address] [place], [address], 08/07/2022 17:36:42 08/07/19 23 08/07/2022 COMPR EHENS ANGELA METAB OLIC PANEL alanine aminotransfe rase 27 U/L 0-35 Not Available [facility] (Lab) [address] [place], [address], 08/07/2022 17:36:42 08/07/19 23 08/07/2022 COMPR EHENS ANGELA METAB OLIC PANEL aspartate aminotransfe rase 28 U/L 15-37 Not Available [facility] (Lab) [address] [place], [address], 08/07/2022 17:36:42 08/07/19 23 08/07/2022 COMPR EHENS ANGELA METAB OLIC PANEL bilirubin, total 0.40 mg/dL 0.20-1 .30 Not Available [facility] (Lab) [address] [place], [address], 08/07/2022 17:36:42 08/07/19 23 08/07/2022 COMPR EHENS ANGELA METAB OLIC PANEL calcium 9.8 mg/dL 8.4-10 .2 Not Available [facility] (Lab) [address] [place], [address], 08/07/2022 17:36:42 08/07/19 23 08/07/2022 COMPR EHENS ANGELA METAB OLIC PANEL total protein 6.6 g/dL 6.3-8. 2 Not Available [facility] (Lab) [address] [place], [address], 08/07/2022 17:36:42 08/07/19 23 08/07/2022 COMPR EHENS ANGELA METAB OLIC PANEL albumin 3.9 g/dL 3.0-4. 4 Not Available [facility] (Lab) [address] [place], [address], 08/07/2022 17:36:42 08/07/19 23 08/07/2022 COMPR EHENS ANGELA METAB OLIC PANEL globulin 2.7 g/dL 2.6-4. 2 Not Available [facility] (Lab) [address] [place], [address], 08/07/2022 17:36:42 08/07/19 23 08/07/2022 COMPR EHENS ANGELA METAB OLIC PANEL A/G ratio 1.4 ratio 1.0-2. 0 Not Available [facility] (Lab) [address] [place], [address], 08/07/2022 17:36:42 08/12/19 23 08/11/2022 CALCI UM 24 HR URINE ur calcm 11.5 mg/dL REFER ENCE RANGE NOT ESTAB LISHE D FOR RANDO M URINE CALCI UM Not Available [facility] (Lab) [address] [place], [address], 08/11/2022 13:50:36 08/12/19 23 08/11/2022 CALCI UM 24 HR URINE calc 24H 265 mg/24 HR 100-30 0 Not Available [facility] (Lab) [address] [place], [address], 08/11/2022 13:50:36 08/12/19 23 08/11/2022 CALCI UM 24 HR URINE tot vol 2300 mL 600-20 00 high Not Available [facility] (Lab) [address] [place], [address], 08/11/2022 13:50:36 09/16/19 23 09/15/2022 CBC/C OMPLE TE BLD COUNT W/DIF F white blood cells 7.3 x10'3 /uL 4.2-10 .8 Not Available [facility] (Lab) [address] [place], [address], 09/15/2022 10:16:54 09/16/19 23 09/15/2022 CBC/C OMPLE TE BLD COUNT W/DIF F red blood cells 4.33 x10'6 /uL 3.80-5 .20 Not Available [facility] (Lab) [address] [place], [address], 09/15/2022 10:16:54 09/16/19 23 09/15/2022 CBC/C OMPLE TE BLD COUNT W/DIF F hemoglobin 13.8 g/dL 12.0-1 5.6 Not Available [facility] (Lab) [address] [place], [address], 09/15/2022 10:16:54 09/16/19 23 09/15/2022 CBC/C OMPLE TE BLD COUNT W/DIF F hematocrit 42.5 % 35.7-4 5.7 Not Available [facility] (Lab) [address] [place], [address], 09/15/2022 10:16:54 09/16/19 23 09/15/2022 CBC/C OMPLE TE BLD COUNT W/DIF F mean red cell volume 98.2 fL 82.0-9 9.0 Not Available [facility] (Lab) [address] [place], [address], 09/15/2022 10:16:54 09/16/19 23 09/15/2022 CBC/C OMPLE TE BLD COUNT W/DIF F mean red cell hemoglobin 31.9 pg 27.0-3 3.0 Not Available [facility] (Lab) [address] [place], [address], 09/15/2022 10:16:54 09/16/19 23 09/15/2022 CBC/C OMPLE TE BLD COUNT W/DIF F mean RBC HGB concentratio n 32.5 g/dL 31.0-3 6.0 Not Available [facility] (Lab) [address] [place], [address], 09/15/2022 10:16:54 09/16/19 23 09/15/2022 CBC/C OMPLE TE BLD COUNT W/DIF F red cell distribution width 13.7 % 11.8-1 5.5 Not Available [facility] (Lab) [address] [place], [address], 09/15/2022 10:16:54 09/16/19 23 09/15/2022 CBC/C OMPLE TE BLD COUNT W/DIF F platelets 209 x10'3 /uL 150-40 0 Not Available [facility] (Lab) [address] [place], [address], 09/15/2022 10:16:54 09/16/19 23 09/15/2022 CBC/C OMPLE TE BLD COUNT W/DIF F mean platelet volume 11.1 fL 9.0-12 .4 Not Available [facility] (Lab) [address] [place], [address], 09/15/2022 10:16:54 09/16/19 23 09/15/2022 CBC/C OMPLE TE BLD COUNT W/DIF F neutrophils 75.3 % 39.0-7 2.0 high Not Available [facility] (Lab) [address] [place], [address], 09/15/2022 10:16:54 09/16/19 23 09/15/2022 CBC/C OMPLE TE BLD COUNT W/DIF F lymphocytes 18.3 % 16.0-4 7.0 Not Available [facility] (Lab) [address] [place], [address], 09/15/2022 10:16:54 09/16/19 23 09/15/2022 CBC/C OMPLE TE BLD COUNT W/DIF F monocytes 5.2 % 5.0-12 .0 Not Available [facility] (Lab) [address] [place], [address], 09/15/2022 10:16:54 09/16/19 23 09/15/2022 CBC/C OMPLE TE BLD COUNT W/DIF F eosinophils 0.1 % 1.0-7. 0 low Not Available [facility] (Lab) [address] [place], [address], 09/15/2022 10:16:54 09/16/19 23 09/15/2022 CBC/C OMPLE TE BLD COUNT W/DIF F basophils 0.7 % 0.0-2. 0 Not Available [facility] (Lab) [address] [place], [address], 09/15/2022 10:16:54 09/16/19 23 09/15/2022 CBC/C OMPLE TE BLD COUNT W/DIF F immature granulocytes 0.4 % 0.00-0 .50 Not Available [facility] (Lab) [address] [place], [address], 09/15/2022 10:16:54 09/16/19 23 09/15/2022 CBC/C OMPLE TE BLD COUNT W/DIF F neutrophils, absolute count 5.53 x10'3 /uL 1.5-8. 0 Not Available [facility] (Lab) [address] [place], [address], 09/15/2022 10:16:54 09/16/19 23 09/15/2022 CBC/C OMPLE TE BLD COUNT W/DIF F lymphocytes, absolute count 1.34 x10'3 /uL 1.07-3 .43 Not Available [facility] (Lab) [address] [place], [address], 09/15/2022 10:16:54 09/16/19 23 09/15/2022 CBC/C OMPLE TE BLD COUNT W/DIF F monocytes, absolute count 0.38 x10'3 /uL 0.29-0 .99 Not Available [facility] (Lab) [address] [place], [address], 09/15/2022 10:16:54 09/16/19 23 09/15/2022 CBC/C OMPLE TE BLD COUNT W/DIF F eosinophils, absolute count 0.01 x10'3 /uL 0.02-0 .53 low Not Available [facility] (Lab) [address] [place], [address], 09/15/2022 10:16:54 09/16/19 23 09/15/2022 CBC/C OMPLE TE BLD COUNT W/DIF F basophils, absolute count 0.05 x10'3 /uL 0.01-0 .08 Not Available [facility] (Lab) [address] [place], [address], 09/15/2022 10:16:54 09/16/19 23 09/15/2022 CBC/C OMPLE TE BLD COUNT W/DIF F immature granulocytes ,absolute 0.03 x10'3 /uL 0.00-0 .05 Not Available [facility] (Lab) [address] [place], [address], 09/15/2022 10:16:54 09/16/19 23 09/15/2022 CBC/C OMPLE TE BLD COUNT W/DIF F nucleated red blood cells 0.0 % -0 Not Available [facility] (Lab) [address] [place], [address], 09/15/2022 10:16:54 09/16/19 23 09/15/2022 CBC/C OMPLE TE BLD COUNT W/DIF F NRBC# 0.00 x10'3 /uL Not Available [facility] (Lab) [address] [place], [address], 09/15/2022 10:16:54 09/16/19 23 09/15/2022 PROTI ME W/INR protime 9.7 secon ds 9.5-11 .5 Not Available [facility] (Lab) [address] [place], [address], 09/15/2022 10:40:07 09/16/19 23 09/15/2022 PROTI ME [...] HOSPH OLIPI D SYNDR OME. Not Available [facility] (Lab) [address] [place], [address], 09/15/2022 10:40:07 09/16/19 23 09/15/2022 APTT APTT 25.9 secon ds 23.4-3 1.4 PLEAS E NOTE NEW APTT REFER ENCE RANGE EFFEC TIVE 03/30 . Not Available [facility] (Lab) [address] [place], [address], 09/15/2022 10:40:11 09/16/19 23 09/15/2022 CORTI HORACE, TOTAL , A.M. rafael AM 1.0 ug/dL 4.5-22 .7 low Not Available [facility] (Lab) [address] [place], [address], 09/15/2022 10:42:38 09/16/19 23 09/15/2022 BASIC METAB OLIC PANEL sodium 140 mmol/ L 137-14 5 Not Available [facility] (Lab) [address] [place], [address], 09/15/2022 10:59:24 09/16/19 23 09/15/2022 BASIC METAB OLIC PANEL potassium 3.9 mmol/ L 3.5-5. 1 Not Available [facility] (Lab) [address] [place], [address], 09/15/2022 10:59:24 09/16/19 23 09/15/2022 BASIC METAB OLIC PANEL chloride 100 mmol/ L 98-107 Not Available [facility] (Lab) [address] [place], [address], 09/15/2022 10:59:24 09/16/19 23 09/15/2022 BASIC METAB OLIC PANEL carbon dioxide 32 mmol/ L 22-30 high Not Available [facility] (Lab) [address] [place], [address], 09/15/2022 10:59:24 09/16/19 23 09/15/2022 BASIC METAB OLIC PANEL anion gap 11.9 mmol/ L 14-22 low Not Available [facility] (Lab) [address] [place], [address], 09/15/2022 10:59:24 09/16/19 23 09/15/2022 BASIC METAB OLIC PANEL glucose 113 mg/dL 70-99 high Not Available [facility] (Lab) [address] [place], [address], 09/15/2022 10:59:24 09/16/19 23 09/15/2022 BASIC METAB OLIC PANEL BUN 19 mg/dL 8-19 Not Available [facility] (Lab) [address] [place], [address], 09/15/2022 10:59:24 09/16/19 23 09/15/2022 BASIC METAB OLIC PANEL creatinine 0.65 mg/dL 0.66-1 .25 low Not Available [facility] (Lab) [address] [place], [address], 09/15/2022 10:59:24 09/16/19 23 09/15/2022 BASIC METAB OLIC PANEL GFR >60 Refer ence Range : Matthews ge GFR Healt hy Adult : >60 [...] or ethni c subgr oups, such as ct nics. Outsi de the valid ated buddy [...] s/kdo qi/gf r_cal culat or Not Available [facility] (Lab) [address] [place], [address], 09/15/2022 10:59:24 09/16/19 23 09/15/2022 BASIC METAB OLIC PANEL calcium 9.5 mg/dL 8.4-10 .2 Not Available [facility] (Lab) [address] [place], [address], 09/15/2022 10:59:24 09/16/19 23 09/15/2022 HEMOG LOBIN A1C HA1C 6.0 % 4.0-6. 0 Diabe ralph Scree linda Crite cristina: <5.7% Consi stent with absen ce of diabe ralph 5.7-6 .4% Consi stent with incre ased risk for diabe ralph (pred iabet es) >OR=6 .5% Consi stent with diabe ralph REFER ENCE: Diabe ralph Care 2016, 39(Tian ppl.1 ):s13 -s22 Not Available [facility] (Lab) [address] [place], [address], 09/15/2022 12:13:40 09/16/19 23 09/15/2022 MRSA/ STAPH AUREU S, NASAL , PCR MRSA, nasal NEGATI VE Not Available [facility] (Lab) [address] [place], [address], 09/15/2022 13:41:58 09/16/19 23 09/15/2022 MRSA/ STAPH AUREU S, NASAL , PCR staph aureus, nasal NEGATI VE Not Available [facility] (Lab) [address] [place], [address], 09/15/2022 13:41:58 09/16/19 23 09/15/2022 TYPE AND SCREE N patient ABO group and Rh A POSITI VE Not Available [facility] (Lab) [address] [place], [address], 09/15/2022 14:08:20 09/16/19 23 09/15/2022 TYPE AND SCREE N patient antibody screen NEGATI VE Not Available [facility] (Lab) [address] [place], [address], 09/15/2022 14:08:20 09/16/19 23 09/19/2022 DEXAM ETHAS [...] day: 1600 - 2850 Perfo rmed at: [facility] [address] [place] [id number] Lab Direc tor: Delvin sylvester MD, Phone : [phone] Not Available [facility] (Lab) [address] [place], [address], 09/19/2022 03:36:15 09/30/19 23 09/29/2022 GLUCO SE (POIN T OF CARE) glucose (point of care) 95 mg/dL 74-99 Not Available [facility] (Lab) [address] [place], [address], 09/29/2022 07:17:53 09/30/19 23 09/29/2022 POTAS SIUM potassium 3.2 mmol/ L 3.5-5. 1 low Not Available [facility] (Lab) [address] [place], [address], 09/29/2022 07:52:53 09/30/19 23 09/29/2022 ABO/R H CONFI RMATI ON patient ABO group and Rh A POSITI VE Not Available [facility] (Lab) [address] [place], [address], 09/29/2022 08:10:12 09/30/19 23 09/29/2022 GLUCO SE (POIN T OF CARE) glucose (point of care) 92 mg/dL 74-99 Not Available [facility] (Lab) [address] [place], [address], 09/29/2022 12:15:28 09/30/19 23 09/29/2022 VITAM IN D 25-HY DROXY vd25oh 39.2 NG/mL 30-100 Vitam in D Statu s: Defic ient: <20 ng/mL Insuf ficie nt: 20-29 ng/mL Suffi cient : 30-10 0 ng/mL Not Available [facility] (Lab) [address] [place], [address], 09/29/2022 12:52:15 10/24/19 23 10/23/2022 COMPR EHENS ANGELA METAB OLIC PANEL sodium 140 mmol/ L 137-14 5 Not Available [facility] (Lab) [address] [place], [address], 10/23/2022 12:20:36 10/24/19 23 10/23/2022 COMPR EHENS ANGELA METAB OLIC PANEL potassium 3.9 mmol/ L 3.5-5. 1 Not Available [facility] (Lab) [address] [place], [address], 10/23/2022 12:20:36 10/24/19 23 10/23/2022 COMPR EHENS ANGELA METAB OLIC PANEL chloride 99 mmol/ L 98-107 Not Available [facility] (Lab) [address] [place], [address], 10/23/2022 12:20:36 10/24/19 23 10/23/2022 COMPR EHENS ANGELA METAB OLIC PANEL carbon dioxide 33 mmol/ L 22-30 high Not Available [facility] (Lab) [address] [place], [address], 10/23/2022 12:20:36 10/24/19 23 10/23/2022 COMPR EHENS ANGELA METAB OLIC PANEL anion gap 11.9 mmol/ L 14-22 low Not Available [facility] (Lab) [address] [place], [address], 10/23/2022 12:20:36 10/24/19 23 10/23/2022 COMPR EHENS ANEGLA METAB OLIC PANEL glucose 99 mg/dL 70-99 Not Available [facility] (Lab) [address] [place], [address], 10/23/2022 12:20:36 10/24/19 23 10/23/2022 COMPR EHENS ANGELA METAB OLIC PANEL BUN 14 mg/dL 8-19 Not Available [facility] (Lab) [address] [place], [address], 10/23/2022 12:20:36 10/24/19 23 10/23/2022 COMPR EHENS ANGELA METAB OLIC PANEL creatinine 0.64 mg/dL 0.66-1 .25 low Not Available [facility] (Lab) [address] [place], [address], 10/23/2022 12:20:36 10/24/19 23 10/23/2022 COMPR EHENS ANGELA METAB OLIC PANEL GFR >60 Refer ence Range : Matthews ge GFR Healt hy Adult : >60 [...] calcu lator is avail able on the [facility] websi te: https ://ww w.kid [email or web address] rg/pr ofess ional s/kdo qi/gf r_cal culat or Not Available [facility] (Lab) [address] [place], [address], 10/23/2022 12:20:36 10/24/19 23 10/23/2022 COMPR EHENS ANGELA METAB OLIC PANEL alkaline phosphatase 130 U/L 38-126 high Not Available [facility] (Lab) [address] [place], [address], 10/23/2022 12:20:36 10/24/19 23 10/23/2022 COMPR EHENS ANGELA METAB OLIC PANEL alanine aminotransfe rase 24 U/L 0-35 Not Available [facility] (Lab) [address] [place], [address], 10/23/2022 12:20:36 10/24/19 23 10/23/2022 COMPR EHENS ANGELA METAB OLIC PANEL aspartate aminotransfe rase 30 U/L 15-37 Not Available [facility] (Lab) [address] [place], [address], 10/23/2022 12:20:36 10/24/19 23 10/23/2022 COMPR EHENS ANGELA METAB OLIC PANEL bilirubin, total 0.50 mg/dL 0.20-1 .30 Not Available [facility] (Lab) [address] [place], [address], 10/23/2022 12:20:36 10/24/19 23 10/23/2022 COMPR EHENS ANGELA METAB OLIC PANEL calcium 9.8 mg/dL 8.4-10 .2 Not Available [facility] (Lab) [address] [place], [address], 10/23/2022 12:20:36 10/24/19 23 10/23/2022 COMPR EHENS ANGELA METAB OLIC PANEL total protein 6.6 g/dL 6.3-8. 2 Not Available [facility] (Lab) [address] [place], [address], 10/23/2022 12:20:36 10/24/19 23 10/23/2022 COMPR EHENS ANGELA METAB OLIC PANEL albumin 4.1 g/dL 3.0-4. 4 Not Available [facility] (Lab) [address] [place], [address], 10/23/2022 12:20:36 10/24/19 23 10/23/2022 COMPR EHENS ANGELA METAB OLIC PANEL globulin 2.5 g/dL 2.6-4. 2 low Not Available [facility] (Lab) [address] [place], [address], 10/23/2022 12:20:36 10/24/19 23 10/23/2022 COMPR EHENS ANGELA METAB OLIC PANEL A/G ratio 1.6 ratio 1.0-2. 0 Not Available [facility] (Lab) [address] [place], [address], 10/23/2022 12:20:36 10/24/19 23 10/23/2022 PHOSP HORUS phosphorus 3.7 mg/dL 2.5-4. 5 Not Available [facility] (Lab) [address] [place], [address], 10/23/2022 12:20:39 10/24/19 23 10/23/2022 PARAT HYROI D HORM (PTH) INT.W /CA intact parathyroid hormone 33.3 pg/mL 24-78 Pleas e note new refer ence range effec tive 05/08 . Not Available [facility] (Lab) [address] [place], [address], 10/23/2022 12:25:43 10/24/19 23 10/23/2022 PARAT HYROI D HORM (PTH) INT.W /CA calcium 9.8 mg/dL 8.4-10 .2 Not Available [facility] (Lab) [address] [place], [address], 10/23/2022 12:25:43 10/24/19 23 10/23/2022 VITAM IN D 25-HY DROXY vd25oh 32.2 NG/mL 30-100 Vitam in D Statu s: Defic ient: <20 ng/mL Insuf ficie nt: 20-29 ng/mL Suffi cient : 30-10 0 ng/mL Not Available [facility] (Lab) [address] [place], [address], 10/23/2022 12:27:46 10/24/1910/23/2022 HEMOG LOBIN A1C HA1C 5.7 % 4.0-6. 0 Diabe ralph Scree linda Crite cristina: <5.7% Consi stent with absen ce of diabe ralph 5.7-6 .4% Consi stent with incre ased risk for diabe ralph (pred iabet es) >OR=6 .5% Consi stent with diabe ralph REFER ENCE: Diabe ralph Care 2016, 39(Tian ppl.1 ):s13 -s22 Not Available [facility] (Lab) [address] [place], [address], 10/23/2022 15:02:20 10/24/19 23 10/24/2022 INSUL IN insulin 6.4 uIU/m L 2.6-24 .9 Perfo rmed at: [facility] n [address] [facility], [place] [address] Lab Direc tor: Lee guzman PhD, Phone : [phone] Not Available [facility] (Lab) [address] [facility], [place], [address], 10/24/2022 13:08:54 07/17/19 23 XR, hip, unila teral No observ ation record ed. [facility] [address], [place], [address], 07/16/2022 13:07:03 08/14/19 23 07/01/2022 elect poppy diogr am No observ ation record ed. [email or web address] [facility] [address], [place], [address], 08/18/2022 16:09:59 08/14/19 23 07/13/2022 stres s echoc ardio gram No observ ation record ed. [email or web address] [facility] [address], [place], [address], 08/17/2022 13:17:12 09/30/19 23 09/29/2022 XR, hip, unila teral [facility] [address] [place] [address] [phone] Patien t Name: CATHERINE SHUKLA Access ion #: [id number] Sex: F : 1954 7 Locati on: Attend ing Physic jon: KOLE TALAMANTES [facility] Physic jon: KOLE TALAMANTES Exam Date: 023 [...] compli cation . Page 1 of 2 [facility] Patien t Name: CATHERINE SHUKLA Access ion #: [id number] Sex: F : 1954 7 Exam Date: 10:41 AM Exam Name: XR HIP LT 2-3V Admitt ing Diagno sis(es ): Create d and electr onical ly signed by: Ross paige MD Signed Date: 11:22 AM (CT) Dictat ed by: Ross paige MD DD: 11:22 AM (CT) DT: 11:22 AM (CT) Page [address] (Imaging) [address] [place], [address], 09/29/2022 16:47:12 10/09/19 23 09/15/2022 elect poppy ordaz am No observ ation record ed. [email or web address] Not Available 2022 09:53:49 10/30/19 23 XR, hip + pelvi s, unila teral No observ ation record ed. [facility] [place] [address] [facility], [place], [address], 10/29/2022 10:37:56 Result Notes None recorded. Problems Name Problem SNOMED Code Status Onset Date Resolution Date Notes Provider Name and Address Organization Details Recorded Time Plantar fasciitis of left foot 6645259717683 9101 Active 2020 Not Available [facility] 3 13:13:57 Pain of left elbow joint 1823103867019 9104 Active 2021 Not Available [facility] 3 13:13:57 Gastroesop hageal reflux disease 598683064 Active 2018 Not Available [facility] 3 13:13:58 Severe chronic obstructiv e pulmonary disease 160447260 Active 2018 Not Available [facility] 3 13:13:58 Onychomyco sis 826338184 Active 2020 Not Available [facility] 3 13:13:58 Solitary nodule of lung 170082747 Active 2018 Not Available [facility] 3 13:13:58 Dyspnea on exertion 79911874 Active 2018 Not Available [facility] 3 13:13:58 Pain of left hip joint 6692235067517 00 Active 2022 RUBIN Nelson, [employer] [facility] 3 13:32:28 Preoperati ve cardiovasc ular examinatio n Active 2022 Daria Hill CMA null, [employer] [facility] 3 15:16:21 Thrombocyt openic disorder 969361522 Active 2022 Daria Hill CMA null, [employer] [facility] 3 15:52:45 Osteoporos is 56927985 Active 2022 Daria Hill CMA null, [employer] [facility] 3 11:04:02 Osteonecro sis of head of femur 425256500 Active 2022 RUBIN Nelson null, [employer] [facility] 3 11:38:24 Postmenopa usal osteoporos is 186613505 Active 2022 Michell Courtney MD [address] [place] [address], [place] [address], [place], [address] , [facility] - [facility] [employer] [facility] 3 10:13:10 Essential hypertensi on 65834723 Active 2022 Michell Courtney MD [address], [facility] [address], [place], [address] , [employer] 10:15:47 Prediabete s 166871361 Active 2022 Michell Courtney MD [address], [address], [place], [address] , [employer] 14:00:49 Impaired fasting glycemia 552275994 Active 2022 Michell Courtney MD [address], [facility] [address], [place], [address] , [employer] 12:58:35 Problem Notes None recorded. Procedures Surgical History Date Name Laterality Status Provider Name and Address Organization Details Recorded Time ligation of fallopian tube completed RUBIN [employer] [facility] 08/06/2022 09:58:06 Imaging Results Imaging Date Name Status LastModified by Organization Details LastModified Time 07/16/2022 XR, hip, unilateral completed [facility] [place] [address] [facility], [place], [address], 07/16/2022 13:07:03 07/01/2022 electrocardiogram completed [email or web address] [facility] [address], [place], [address], 08/18/2022 16:09:59 07/13/2022 stress echocardiogram completed [email or web address] [facility] [address], [place], [address], 08/17/2022 13:17:12 09/29/2022 XR, hip, unilateral completed [facility] (Imaging) [address] [place], [address], 09/29/2022 16:47:12 09/15/2022 electrocardiogram completed [email or web address] Informa tion not available 10/08/2022 09:53:49 10/29/2022 XR, hip + pelvis, unilateral completed [facility] [place] [address], [place], [address], 10/29/2022 10:37:56 Procedure Notes None recorded. Medical [...] Updated DateTime 08/13/2022 149.86 cm Bettie Clark [facility] [employer] [facility] 08/13/2022 11:53:26 Date Recorded Body height Provider Name an d Address Organization Details Last Updated DateTime 10/15/2022 149.86 cm Bettie Clark [facility] [employer] [facility] 10/15/2022 10:06:24 Date Recorded Body height Provider Name an d Address Organization Details Last Updated DateTime 10/29/2022 149.86 cm Bettie Clark [facility] [employer] [facility] 10/29/2022 10:04:40 Date Recorded Body height Provider Name an d Address Organization Details Last Updated DateTime 11/26/2022 149.86 cm Bettie Clark [facility] 11/26/2022 10:30:32 Date Recorded Body height Body mass index (BMI) Body weight Heart rate Body temperature Systolic blood pressure Diastolic blood pressure Provider Name and Address Organization Details Last Updated DateTime 3 154.94 cm 24.2 kg/m2 46736.5 4 g 62 /min 98.4 [degF] 129 mm[Hg] 85 mm[Hg] Peyton Adams MA [facility] [employer] [facility] 3 12:43:18 Social History Question Answer Notes LastModified by Organizat ion Details LastModified Time Tobacco Smoking Status Former [facility] 10/29/2022 10:00:02 Do You Have An Advance Directive? No Information not available 08/06/2022 What Is Your Level Of Alcohol Consumption? Occasional [id number] Information not available 06/10/2022 Are You Blind Or Do You Have Difficulty Seeing? No [email or web address] Information not available 10/29/2022 What Is Your Level Of Caffeine Consumption? Occasional Information not available 08/06/2022 What Is Your Code Status? Full Code [email or web address] Information not available 10/29/2022 In The 14 Days Before Symptom Onset, Have You Had Close Contact With A Laboratory-confi ed COVID-19 While That Case Was Ill? No [email or web address] Information not available 10/29/2022 In The 14 Days Before Symptom Onset, Have You Had Close Contact With A Person Who Is Under Investigation For COVID-19 While That Person Was Ill? No [email or web address] Information not available 10/29/2022 Are You Currently Employed? No [email or web address] Information not available 10/29/2022 Are You Deaf Or Do You Have Serious Difficulty Hearing? Yes [email or web address] Information not available 10/29/2022 What Type Of Diet Are You Following? REGULAR Information not available 08/06/2022 What Is The Highest Grade Or Level Of School You Have Completed Or The Highest Degree You Have Received? [id number] Information not available 10/29/2022 When Did You Quit Smoking? 1-5yearssincelastci leticiachandni [email or web address] Information not available 10/29/2022 Are There Any Guns Present In Your Home? No Information not available 10/29/2022 Where Do You Live? SingleLevelHouse Information not available 10/29/2022 What Is Your Relationship Status? Information not available 08/06/2022 Do You Use Your Seat Belt Or Car Seat Routinely? Yes Information not available 10/29/2022 Do You Have Smoke And Carbon Monoxide Detectors In Your Home? Yes [email or web address] Information not available 10/29/2022 Are You Passively Exposed To Smoke? Yes [email or web address] Information not available 10/29/2022 Do You Feel Stressed (tense, Restless, Nervous, Or Anxious, Or Unable To Sleep At Night)? [id number] [email or web address] Information not available 10/29/2022 Do You Use Any Illicit Or Recreational Drugs? No [email or web address] Information not available 10/29/2022 Do You Use Sunscreen Routinely? No [email or web address] Information not available 10/29/2022 Have You Recently Traveled Abroad? No [email or web address] Information not available 10/29/2022 Do You Have Any Dietary Restrictions? No [email or web address] Information not available 10/29/2022 Do You Or Have You Ever Used Any Other Forms Of Tobacco Or Nicotine? No [email or web address] Information not available 10/29/2022 Sex: Unknown Functional Status Question Answer Note LastModified by Organizat ion Details LastModified Time Do you have difficulty walking or climbing stairs? No Information not available 10/29/2022 Do you have transportation difficulties? No [email or web address] Information not available 10/29/2022 Are you able to walk? YESWOREST [email or web address] Information not available 10/29/2022 Do you have difficulty doing errands alone? No [email or web address] Information not available 10/29/2022 Are you able to care for yourself? Yes [email or web address] Information n ot available 10/29/2022 Do you have difficulty dressing or bathing? No Information not available 10/29/2022 What is your exercise level? Occasional Information not available 08/06/2022 Mental Status Question Answer Note LastModified by Organization D etails LastModified Time Do you have difficulty concentrating, remembering or making decisions? No [email or web address] Information no t available 10/29/2022 Family History Relationship Description Onset Age of this Age Resolved Age Notes LastModified by Organization Details LastModified Time Sister Disorder of thyroid gland Not available 2022 09:53:11 Medical History Condition Response ARTHRITIS Y USE OF BLOOD THINNERS Y DIABETES, TYPE Y KIDNEY DISEASE Y COPD Y HYPERTENSION Y HIGH CHOLESTEROL / HYPERLIPIDEMIA Y CANCER: SPECIFY Y BLOOD CLOTS Y GERD/NAUSEA Y ANEMIA/BLOOD DISORDER Y OSTEOPOROSIS Y SHINGLES Y HAVE YOU BEEN HOSPITALIZED OR SEEN IN [facility] IN THE PAST YEAR ? Y Gynecological HistoryNo gynecological history recorded. Obstetrics History GPAL:G 0 P 0 0 0 0 Past Encounters Encounter ID Performer Location Encounter Start Date Encounter Closed Date Diagnosis/Indication Diagnosis SNOMED-CT Code Diagnosis ICD10 Code Diagnosis Note [id number] [facility] [place] [address] [place] [address] 07/22/2020 00:00:00 07/22/2020 15:34:55 [id number] [facility] [place] [address] [place] [address] 08/05/2020 00:00:00 08/05/2020 13:51:59 [id number] [facility] [place] [address] [place] [address] 09/02/2020 00:00:00 09/02/2020 13:27:04 [id number] [facility] [address] [place] [address] 11/27/2021 00:00:00 11/27/2021 15:25:55 [id number] Kole Lira MD [facility] [address] [place] [address] 06/11/2022 13:13:43 06/11/2022 14:49:04 Pain of left hip joint 2214668828 36667 M25.552 [id number] Kole Lira MD [facility]_[address] [address] 06/18/2022 13:53:58 06/22/2022 09:53:48 Pain of left hip joint 0710433468 23625 M25.552 [id number] Kole Lira MD [address] [address] 07/16/2022 11:35:25 07/16/2022 13:46:35 Osteonecrosis of head of femur 767568845 M87.852 [id number] Michell Courtney MD [facility] [place] [address] [place] [address] 08/06/2022 09:40:46 08/06/2022 10:27:52 Postmenopausal osteoporosis 320113842 M81.0 Scan from June 2022 confirmed finding [...] to screen for hypercalci uria. Essential hypertension 42504880 I10 Refill coreg and hctz as patient [...] she chooses to go outside of the [facility] to obtain labwork she was [...] ing. Thank you for this consultati on. [id number] Kole Lira MD [facility] [address] [address] 08/13/2022 11:50:22 08/13/2022 14:11:40 Osteonecrosis of head of femur 205193754 M87.852 [id number] TAMARA Pradhan [facility] [address] [address] 10/15/2022 09:57:58 10/15/2022 11:13:26 History of total replacement of left hip joint 9309857916 412829 Z96.642 [id number] TAMARA Pradhan [facility] [address] [address] 10/29/2022 09:58:18 10/29/2022 10:46:25 History of total replacement of left hip joint 1473487451 776396 Z96.642 [id number] TAMARA Pradhan [facility] [address] [address] 11/26/2022 10:20:48 11/26/2022 12:07:38 History of total replacement of left hip joint 9805831952 859765 Z96.271 [id number] Michell Courtney MD [facility] [place] [address] [place] [address] 12/24/2022 12:29:07 12/24/2022 13:55:44 Postmenopausal osteoporosis 477410297 M81.0 Vit D low normal- recommende d patient take up to 4000 IU of D3 daily along with calcium 1200 mg daily for bone health along with daily weight bearing exercise. S/P left hip replacemen t from September and doing remarkably well- active and ambulating without assistance or cane. Refer to endocrinol ogy per patient request to discuss long-term management of osteoporos is as her DST was normal so no indication or evidence of hypercorti solism, hyperparat hyroidism. Impaired f asting glycemia 272658038 R73.01 A1C of 5.7%- Discussed carb counting and how to read food labels. Recommende d patient to utilize the diabetesfo [employer] from the ADA website to help with food preparatio n as this presents ideal carb content per meal so this will make carb counting much easier for patient. Recommende d she incorporat e natural insulin machine plate stacker s such as pears, apples, cinnamon, vinnie [...] Jha Member ID Guarantor Name 08/13/2022 1 [facility] (MEDICARE REPLACEMENT/A DVANTAGE - PPO) [id number] Catherine Shukla [id number] Catherine A Vazquez 08/13/2022 2 [place] [facility] Catherine Bernal Vazquez [id number] Catherine A [facility] 10/15/2022 1 [facility] (MEDICARE REPLACEMENT/A DVANTAGE - PPO) [id number] Catherine Dolores Vazquez [id number] Catherine A [facility] 10/15/2022 2 [place] [facility] Catherine Bernal Vazquez [id number] Catherine A Vazquez 10/29/2022 1 [facility] (MEDICARE REPLACEMENT/A DVANTAGE - PPO) [id number] Catherine Dolores Vazquez [id number] Catherine A [facility] 10/29/2022 2 [place] [facility] Catherine Bernal Vazquez [id number] Catherine A [facility] 11/26/2022 1 [facility] (MEDICARE REPLACEMENT/A DVANTAGE - PPO) [id number] Catherine Dolores Vazquez [id number] Catherine A [facility] 11/26/2022 2 [place] [facility] Catherine Bernal Vazquez [id number] Catherine A Vazquez 12/24/2022 1 [facility] (MEDICARE REPLACEMENT/A DVANTAGE - PPO) [id number] Catherine Dolores Vazquez [id number] Catherine A [facility] 12/24/2022 2 [place] [facility] Catherine Bernal Vazquez [id number] Catherine Bernal Vazquez Notes Date Note Type [...] The mean bone mineral density is 0.885 g/dg6qqwbbfykigrskm, correlating with a T-score of -2.5.Bilateral hips: The mean bone mineral density is 0.696 g/cm2 calciumhydroxyapatit e, correlating with a T-score of -2.5. Denies any kidney stones, falls or fractures. labs from 10/23/22:glucose 99 mg/dLCr normalLFT normalPTH 33.3 pg/mLcalcium 9.8 mg/dLPO4 normalvit D 32.2 ng/mLa1c of 5.7% Michell Courtney MD [address] [facility] [address], [place], [address], [place] [facility] 12/24/2022 13:05:29 OBGyn Episode No OBEpisode recorded.
--- OUTSIDE RECORDS SUMMARY | 2024-08-03 12:02 | XMS_ITS | Clinical Summary ---
Author Organization [email or web address] Address [address] [facility] [place] [address] Care Team Providers Care Machine Cloth Trimmer Name Role Phone None, Physician Primary Care Provider Unavailabl e Source Comments [email or web address],non-owned Affiliates and Associated Physician Practices is amultiple site organization consisting of ambulatory clinics and hospital sitesin [place], [place], [place] and [place]. This disclosure is being madepursuant to the Care Everywhere program and may not contain all information available regarding this patient. Last updated 17.[email or web address] Allergies No known active allergies Medications * Be aware that medications may not be up to date on this document. Alwaysverify current medications with the patient. metFORMIN (Glucophage) 500 MG tablet Take 1 (one) tablet by mouth 2 times daily with morning and evening meal Active empagliflozin (Jardiance) 10 MG tablet Take 1 (one) tablet by mouth once daily Active carvedilol (Coreg) 3.125 MG tablet Take 1 (one) tablet by mouth 2 times daily with morning and evening meal Active hydroCHLOROthia zide (Microzide) 12.5 MG capsule Take 1 (one) capsule by mouth once daily Active atorvastatin (Lipitor) 40 MG tablet Take 1 (one) tablet by mouth at bedtime Active omeprazole (PriLOSEC) 40 MG capsule Take 1 (one) capsule by mouth daily before breakfast Active tiotropium (Spiriva) 18 MCG inhalation capsule Inhale 1 (one) capsule by mouth once daily Active budesonide-form oterol (Symbicort) 160-4.5 MCG/ACT inhaler Inhale 2 (two) puffs by mouth 2 times daily Active albuterol (Proventil;Vent juan diego) (2.5 MG/3ML) 0.083% nebulizer solution Inhale by [...] tablet daily for 2 days 28 tablet Active Active Problems Problem Noted Date Diagnosed [...] more drinks on one occasion? Never 07/18/2023 Comments No Sex and Gender Information Value Date Recorded Sex Assigned at Not on file Legal Sex Female 6:27 AM ZIGZAGGER Gender Identity Not on file Sexual Orientation [...] (2 - 2023-2 5 season) 2023 07/20/2020 DEPRESSION SCREENING 04/12/2024 INFLUENZA VACCINE (Season Ended) 2024 07/05/2020, 12/23/2018 HEPATITIS B VACCINE Aged Out No longe r eligible based on patient's age to complete this topic HIB VACCINE Aged Out No longer eligi ble based on patient's age to complete this topic HPV VACCINE Aged Out No longer eligi ble based on patient's age to complete this topic MENINGOCOCCAL (Group B) VACCINE SHARED DECISION-MAKING Aged Out No longer eligible based on patient's age to complete this topic MENINGOCOCCAL GROUPS A/C/Y/W VACCINE Aged Out No longer eligible b ased on patient's age to complete this topic Insurance MEDICAID - [facility] Advance Directives * Full Code (Latest Code Status on File) Date Activated Date Inactivated Comments 07/17/2023 11:43 PM 07/20/2023 3:07 PM Care Teams Machine Cloth Trimmer Relationship Specialty Start Date End Date None, Physician PCP - General 07/17/23
--- OUTSIDE RECORDS SUMMARY | 2024-08-03 12:02 | XMS_ITS ---
Author Organization [facility] Address [address] [place] [address] Phone Care Team Providers Care Dry Chain Operator Name Role Phone Unavailable Unavailable Unavailable Plan of Treatment No Plan of Treatment Recorded Assessments Includes: Assessments for all patient encounters No Assessments Recorded Medical Equipment - Implanted Devices Includes: Current and historical Devices No Medical Equipment Recorded Medications Administered Includes: Administered Medications in patient's chart No Administered Medications Recorded Results Includes: Results from 08/04/2023 through 08/03/2024 No Results Recorded For Specified Dates History [...]
--- OUTSIDE RECORDS SUMMARY | 2024-08-03 12:02 | XMS_ITS ---
Author Organization [facility] Address [address] [place] [address] Phone Care Team Providers Care Missile And Missile Checkout Technician Name Role Phone No, Physician Unavailable Ariana Alexandra MD Primary Care Provider Aparna Oliva LAUNDRY ASSISTANT Unavailable [phone] Active Problems Problem Noted Date Diagnosed Date Dysplasia of cervix, high grade GABINO 2 06/30/2019 Overview (12/27/2020): - Pap 05/09/19 HSIL/HPV+ - Colposcopy 05/30/19 with cervical biopsies CIN1-CIN2 and ECC at least CIN2 - [facility] review of OSH pathology showed Cervical bx [...] 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 Patient consented for procedure and counseled that this will be delayed by 6-8 weeks due to the current Covid-19 pandemic. Counseled patient that 6-8 week delay in surgery will not advance disease significantly. All questions answered.
== END 2024-08-03 10:37 | disposition home or self-care (01) ==
PROVIDERS: PCP Internal Medicine Infectious Disease; Visit Provider Internal Medicine Infectious Disease
DX: J43.9 Emphysema, unspecified (principal); R63.4 Abnormal weight loss
CPT/HCPCS: 74177; Q9967

== ENCOUNTER 2025-03-01 11:30 | Outpatient (CLI) | payer MEDICARE, MEDICAID, SELFPAY ==
[2025-03-01 12:18] LABS: Alanine Aminotransferase 22 U/L (6-35); Albumin Level 4.3 g/dL (3.5-5.1); Alkaline Phosphatase 103 U/L (38-126); Anion Gap 6 mmol/L (4-12); Aspartate Amino Transferase 28 U/L (14-36); Bilirubin,Total 0.8 mg/dL (0.2-1.3); Blood Urea Nitrogen 11 mg/dL (7-17); Calcium 9.4 mg/dL (8.4-10.2); Carbon Dioxide 32 mmol/L (22-30); Chloride 101 mmol/L (98-107); Estimated Glomerular Filt Rate > 60; Glucose 93 mg/dL (65-110); Potassium 3.7 mmol/L (3.4-5.0); Sodium 139 mmol/L (137-145); Total Protein 6.9 g/dL (6.3-8.2)
[2025-03-01 12:29] LABS: Parathyroid Intact 27.2 pg/mL (14.5-75.2)
--- OUTSIDE RECORDS SUMMARY | 2025-03-01 14:14 | XMS_ITS | Data Portability ---
Author Organization [facility] Address [address] [place] [address] Care Team Providers Care Surface Grinder Name Role Phone ARIANA ESCOBEDO Primary Care Provider JERRY BROUSSARD Enterprise Records Analyst Assessment Encounter Date Assessment Date Assessment LastModified by Organization Details LastModified Time 07/24/2024 07/24/2024 Addendum She may need an evaluation by her dentistry teacher sanket Not available 07/24/2024 12:57:42 Plan of Treatment Reminders Order Date Submit Date Provider Last Modified By Organization Details Last Modified Time Details Appointments ANY 15 2024 08:15A Toni Escobedo MD Not available Not available Not available ANY 15 2025 11:30A Toni Rodríguez MD Not available Not available Not available MEDICARE WELLNESS VISIT 2025 09:00A Toni Escobedo MD Not available Not available Not available Lab CBC 2024 026 sanket [facility], [address], [place], [address], 01/10/2025 11:10:39 CMP, serum or plasma 2024 sanket [facility], [address], [place], [address], 01/10/2025 11:10:39 vitamin D, 25-hydrox y, total, serum 2024 026 [facility], [address], [place], [address], 01/10/2025 11:09:53 HbA1c (hemoglob in A1c), blood 2024 026 [facility], [address], [place], [address], 01/10/2025 11:08:34 lipid panel, serum 2024 026 [facility], [address], [place], [address], 01/10/2025 11:08:34 albumin/c reatinine , mass ratio, urine 2024 026 [facility], [address], [place], [address], 01/10/2025 11:10:57 HbA1c (hemoglob in A1c), blood 2024 025 [place] [facility], [address], [place], [address], 01/09/2025 09:15:35 lipid panel, serum 2024 025 [place] [facility], [address], [place], [address], 01/09/2025 09:15:34 magnesium , serum or plasma 2024 025 [place] [facility], [address], [place], [address], 01/09/2025 09:15:35 vitamin D, 25-hydrox y, total, serum 2024 025 [place] [facility], [address], [place], [address], 07/27/2024 09:10:28 CBC w/ auto diff 2024 025 [place] [facility], [address], [place], [address], 07/27/2024 09:10:26 CMP, serum or plasma 2024 025 [place] [facility], [address], [place], [address], 07/27/2024 09:10:21 HbA1c (hemoglob in A1c), blood 2024 025 [place] [facility], [address], [place], [address], 07/27/2024 09:10:24 lipid panel, serum 2024 025 [place] [facility], [address], [place], [address], 07/27/2024 09:10:19 magnesium , serum or plasma 2024 025 [place] [facility], [address], [place], [address], 07/27/2024 09:10:25 CK (creatine kinase), total, serum 2024 025 [facility], [address], [place], [address], 07/27/2024 09:10:22 Referral diabetic ophthalmo logy referral 2024 025 [place] [facility], [address], [place], [address], 08/15/2024 09:07:58 Procedures None recorded. Surgeries None recorded. Imaging MAMMO, screening , digital, bilateral [address] (Mammography) , [address], [place], [address], 02/16/2025 12:38:25 CT, abdomen + pelvis, w/ contrast - Weight loss, nausea 2024 [facility] (Imaging), [address] [place] [address] [address], [place], [address], 08/03/2024 12:55:08 Medication Orders Symbicort 160 mcg-4.5 mcg/actua tion HFA aerosol inhaler 2024 025 [facility], [address] [place] [address], [id number], 12/06/2024 13:41:24 Spiriva Respimat 2.5 mcg/actua tion solution for inhalatio n 2024 [facility], [address] [place] [address], [id number], 12/06/2024 13:41:23 ProAir HFA 90 mcg/actua tion aerosol inhaler 2024 025 [facility], [address] [place] [address], [id number], 02/28/2025 12:56:28 magnesium oxide 400 mg (241.3 mg magnesium ) tablet 2024 025 [facility], [address] [place] [address], [id number], 01/10/2025 11:24:47 ergocalci ferol (vitamin D2) 1,250 mcg (50,000 unit) capsule 2024 [facility], [address] [place] [address], [id number], 08/31/2024 15:06:42 prednison e 10 mg tablet 2024 025 [facility], [address] [place] [address], [id number], 08/04/2024 12:02:32 Patient TargetsNo targets recorded. Patient Instructions Encounter Date Encounter Id Patient Instructions Last Modified By Organization Details Last Modified Time 07/24/2024 [id number] chronic obstructive pulmonary disease (COPD): care instructions oajao Not available 07/24/2024 12:56:11 learning about copd and how to prevent lung infections oajao Not available 07/24/2024 12:56:11 nausea and vomiting: care instructions oajao Not available 07/24/2024 10:46:09 skin lesions: ca re instructions oajao Not available 07/24/2024 10:53:52 Labs Pulmonology follow up CT Avoid NSAIDS due to the increased CV risk Urgent care report Follow up as scheduled on 08/04/2024 oajao Not available 07/24/2024 11:00:27 08/04/2024 [id number] Vitamin D Mg Ox Ophthalmology (Scheduled) Labs in December, Follow up in 5 months and PRN oajao Not available 08/04/2024 12:13:05 01/10/2025 [id number] mammogram: about this test oajao Not available 01/10/2025 11:13:03 MMG MAWV in 5 months Labs in June, oajao Not available 01/10/2025 11:09:18 Reason for Referral Diabetic Ophthalmology Refer ral for Type 2 diabetes mellitus without complication 6.4% Referring Physician: Ariana Escobedo, Internal Medicine, Encounter Date: 07/24/2024 Results Created Date Observation Date Name Description Value Unit Range Abnormal Flag Note LastModifiedBy Organization Detail LastModifiedTime 07/27/1907/27/2024 LIPID PANEL cholesterol, total 140 mg/dL 100-19 9 Not Available [facility] ([facility]) [address] [facility] [address], [place], [address], 07/27/2024 09:10:19 07/27/1907/27/2024 LIPID PANEL triglyceride s 111 mg/dL 0-149 Not Available [facility] ([facility]) [address] [facility] [address], [place], [address], 07/27/2024 09:10:19 07/27/19 25 07/27/2024 LIPID PANEL HDL cholesterol 39 mg/dL >39 below low normal Not Available [facility] ([facility]) [address] [place], [address], 07/27/2024 09:10:19 07/27/19 25 07/27/2024 LIPID PANEL VLDL cholesterol mike 20 mg/dL 5-40 Not Available [facility] ([facility]) [address] [place], [address], 07/27/2024 09:10:19 07/27/19 25 07/27/2024 LIPID PANEL LDL chol calc ([facility]) 81 mg/dL 0-99 Not Available [facility] ([facility]) [address] [place], [address], 07/27/2024 09:10:19 07/27/19 25 07/27/2024 COMP. METAB OLIC PANEL (14) glucose 86 mg/dL 70-99 Not Available [facility] ([facility]) [address] [place], [address], 07/27/2024 09:10:21 07/27/19 25 07/27/2024 COMP. METAB OLIC PANEL (14) BUN 26 mg/dL 8-27 Not Available [facility] ([facility]) [address] [place], [address], 07/27/2024 09:10:21 07/27/19 25 07/27/2024 COMP. METAB OLIC PANEL (14) creatinine 0.79 mg/dL 0.57-1 .00 Not Available [facility] ([facility]) [address] [place], [address], 07/27/2024 09:10:21 07/27/19 25 07/27/2024 COMP. METAB OLIC PANEL (14) eGFR 82 mL/mi n/1.7 3 >59 Not Available [facility] ([facility]) [address] [place], [address], 07/27/2024 09:10:21 07/27/19 25 07/27/2024 COMP. METAB OLIC PANEL (14) BUN/creatini ne ratio 33 12-28 above high normal Not Available [facility] ([facility]) [address] [place], [address], 07/27/2024 09:10:21 07/27/19 25 07/27/2024 COMP. METAB OLIC PANEL (14) sodium 142 mmol/ L 134-14 4 Not Available [facility] ([facility]) [address] [facility] [place], [address], 07/27/2024 09:10:21 07/27/19 25 07/27/2024 COMP. METAB OLIC PANEL (14) potassium 3.6 mmol/ L 3.5-5. 2 Not Available [facility] ([facility]) [address] [facility] [place], [address], 07/27/2024 09:10:21 07/27/19 25 07/27/2024 COMP. METAB OLIC PANEL (14) chloride 99 mmol/ L 96-106 Not Available [facility] ([facility]) [address] [facility] [place], [address], 07/27/2024 09:10:21 07/27/19 25 07/27/2024 COMP. METAB OLIC PANEL (14) carbon dioxide, total 31 mmol/ L 20-29 above high normal Not Available [facility] ([facility]) [address] [facility] [place], [address], 07/27/2024 09:10:21 07/27/19 25 07/27/2024 COMP. METAB OLIC PANEL (14) calcium 9.6 mg/dL 8.7-10 .3 Not Available [facility] ([facility]) [address] [facility] [place], [address], 07/27/2024 09:10:21 07/27/19 25 07/27/2024 COMP. METAB OLIC PANEL (14) protein, total 5.8 g/dL 6.0-8. 5 below low normal Not Available [facility] ([facility]) [address] [facility] [address], [place], [address], 07/27/2024 09:10:21 07/27/19 25 07/27/2024 COMP. METAB OLIC PANEL (14) albumin 4.1 g/dL 3.9-4. 9 Not Available [facility] ([facility]) [address] [facility] [address], [place], [address], 07/27/2024 09:10:21 07/27/19 25 07/27/2024 COMP. METAB OLIC PANEL (14) globulin, total 1.7 g/dL 1.5-4. 5 Not Available [facility] ([facility]) [address] [facility] [address], [place], [address], 07/27/2024 09:10:21 07/27/19 25 07/27/2024 COMP. METAB OLIC PANEL (14) bilirubin, total 0.3 mg/dL 0.0-1. 2 Not Available [facility] ([facility]) [address] [place], [address], 07/27/2024 09:10:21 07/27/19 25 07/27/2024 COMP. METAB OLIC PANEL (14) alkaline phosphatase 97 IU/L 44-121 Not Available [facility] ([facility]) [address] [facility] [address], [place], [address], 07/27/2024 09:10:21 07/27/19 25 07/27/2024 COMP. METAB OLIC PANEL (14) AST (SGOT) 19 IU/L 0-40 Not Available [facility] ([facility]) [address] [place], [address], 07/27/2024 09:10:21 07/27/19 07/27/2024 COMP. METAB OLIC PANEL (14) ALT (SGPT) 19 IU/L 0-32 Not Available [facility] ([facility]) [address] [place], [address], 07/27/2024 09:10:21 07/27/1907/27/2024 CREAT INE KINAS E,TOT AL creatine kinase,total 57 U/L 32-182 Not Available [facility] ([facility]) [address] [place], [address], 07/27/2024 09:10:22 07/27/1907/27/2024 HEMOG LOBIN A1C hemoglobin A1C 6.0 % 4.8-5. 6 above high normal Predi abete s: 5.7 - 6.4 Diabe ralph: >6.4 Glyce ngoc contr ol for adult s with diabe ralph: <7.0 Not Available [facility] ([facility]) [address] [place], [address], 07/27/2024 09:10:23 07/27/1907/27/2024 MAGNE SIUM magnesium 1.4 mg/dL 1.6-2. 3 below low normal Not Available [facility] ([facility]) [address] [place], [address], 07/27/2024 09:10:25 07/27/1907/27/2024 CBC WITH DIFFE RENTI AL/PL ATELE T WBC 8.3 x10e3 /uL 3.4-10 .8 Not Available [facility] ([facility]) [address] [place], [address], 07/27/2024 09:10:26 07/27/19 25 07/27/2024 CBC WITH DIFFE RENTI AL/PL ATELE T RBC 4.48 x10e6 /uL 3.77-5 .28 Not Available [facility] ([facility]) [address] [place], [address], 07/27/2024 09:10:26 07/27/19 25 07/27/2024 CBC WITH DIFFE RENTI AL/PL ATELE T hemoglobin 14.0 g/dL 11.1-1 5.9 Not Available [facility] ([facility]) [address] [facility] [address], [place], [address], 07/27/2024 09:10:26 07/27/1907/27/2024 CBC WITH DIFFE RENTI AL/PL ATELE T hematocrit 44.0 % 34.0-4 6.6 Not Available [facility] ([facility]) [address] [place], [address], 07/27/2024 09:10:26 07/27/19 25 07/27/2024 CBC WITH DIFFE RENTI AL/PL ATELE T MCV 98 fL 79-97 above high normal Not Available [facility] ([facility]) [address] [place], [address], 07/27/2024 09:10:26 07/27/19 25 07/27/2024 CBC WITH DIFFE RENTI AL/PL ATELE T MCH 31.3 pg 26.6-3 3.0 Not Available [facility] ([facility]) [address] [place], [address], 07/27/2024 09:10:26 07/27/1907/27/2024 CBC WITH DIFFE RENTI AL/PL ATELE T MCHC 31.8 g/dL 31.5-3 5.7 Not Available [facility] ([facility]) [address] [place], [address], 07/27/2024 09:10:26 07/27/19 25 07/27/2024 CBC WITH DIFFE RENTI AL/PL ATELE T RDW 13.1 % 11.7-1 5.4 Not Available [facility] ([facility]) [address] [place], [address], 07/27/2024 09:10:26 07/27/19 25 07/27/2024 CBC WITH DIFFE RENTI AL/PL ATELE T platelets 185 x10e3 /uL 150-45 0 Not Available [facility] ([facility]) [address] [facility] [address], [place], [address], 07/27/2024 09:10:26 07/27/19 25 07/27/2024 CBC WITH DIFFE RENTI AL/PL ATELE T neutrophils 41 % notest ab. Not Available [facility] ([facility]) [address] [facility] [address], [place], [address], 07/27/2024 09:10:26 07/27/19 25 07/27/2024 CBC WITH DIFFE RENTI AL/PL ATELE T lymphs 44 % notest ab. Not Available [facility] ([facility]) [address] [facility] [address], [place], [address], 07/27/2024 09:10:26 07/27/19 25 07/27/2024 CBC WITH DIFFE RENTI AL/PL ATELE T monocytes 11 % notest ab. Not Available [facility] ([facility]) [address] [facility] [address], [place], [address], 07/27/2024 09:10:26 07/27/19 25 07/27/2024 CBC WITH DIFFE RENTI AL/PL ATELE T eos 2 % notest ab. Not Available [facility] ([facility]) [address] [facility] [address], [place], [address], 07/27/2024 09:10:26 07/27/19 25 07/27/2024 CBC WITH DIFFE RENTI AL/PL ATELE T basos 1 % notest ab. Not Available [facility] ([facility]) [address] [facility] [address], [place], [address], 07/27/2024 09:10:26 07/27/19 25 07/27/2024 CBC WITH DIFFE RENTI AL/PL ATELE T neutrophils (absolute) 3.4 x10e3 /uL 1.4-7. 0 Not Available [facility] ([facility]) [address] [place], [address], 07/27/2024 09:10:26 07/27/19 25 07/27/2024 CBC WITH DIFFE RENTI AL/PL ATELE T lymphs (absolute) 3.7 x10e3 /uL 0.7-3. 1 above high normal Not Available [facility] ([facility]) [address] [facility] [address], [place], [address], 07/27/2024 09:10:26 07/27/19 25 07/27/2024 CBC WITH DIFFE RENTI AL/PL ATELE T monocytes(ab solute) 0.9 x10e3 /uL 0.1-0. 9 Not Available [facility] ([facility]) [address] [facility] [address], [place], [address], 07/27/2024 09:10:26 07/27/19 25 07/27/2024 CBC WITH DIFFE RENTI AL/PL ATELE T eos (absolute) 0.2 x10e3 /uL 0.0-0. 4 Not Available [facility] ([facility]) [address] [place], [address], 07/27/2024 09:10:26 07/27/19 25 07/27/2024 CBC WITH DIFFE RENTI AL/PL ATELE T baso (absolute) 0.1 x10e3 /uL 0.0-0. 2 Not Available [facility] ([facility]) [address] [place], [address], 07/27/2024 09:10:26 07/27/19 25 07/27/2024 CBC WITH DIFFE RENTI AL/PL ATELE T immature granulocytes 1 % notest ab. Not Available [facility] ([facility]) [address] [place], [address], 07/27/2024 09:10:26 07/27/19 25 07/27/2024 CBC WITH DIFFE RENTI AL/PL ATELE T immature grans (abs) 0.1 x10e3 /uL 0.0-0. 1 Not Available [facility] ([facility]) [address] [facility] [address], [place], [address], 07/27/2024 09:10:26 07/27/1907/27/2024 VITAM IN D, 25-HY [...] um and D. Tam allen [place]: The Natreplaced by [facility] anson [facility] Press . 2. Abdoulaye maloney MF, Puja hodges [place], Joseph off-F errar i CALVIN, et al. Evalu ation , treat ment, and preve ntion of vitam in D defic iency : an Endoc rine Socie ty clini mike pract ice guide line. JCEM. 2010; 96(7) :1911 -30. Not Available [facility] ([facility]) [address] [facility] [address], [place], [address], 07/27/2024 09:10:27 01/09/2001/09/2025 LIPID PANEL cholesterol, total 158 mg/dL 100-19 9 Not Available [facility] ([facility]) [address] [facility] [address], [place], [address], 01/09/2025 09:15:34 01/09/2001/09/2025 LIPID PANEL triglyceride s 94 mg/dL 0-149 Not Available [facility] ([facility]) [address] [place], [address], 01/09/2025 09:15:34 01/09/20 25 01/09/2025 LIPID PANEL HDL cholesterol 46 mg/dL >39 Not Available [facility] ([facility]) [address] [place], [address], 01/09/2025 09:15:34 01/09/20 25 01/09/2025 LIPID PANEL VLDL cholesterol mike 17 mg/dL 5-40 Not Available [facility] ([facility]) [address] [place], [address], 01/09/2025 09:15:34 01/09/20 25 01/09/2025 LIPID PANEL LDL chol calc ([facility]) 95 mg/dL 0-99 Not Available [facility] ([facility]) [address] [facility] [address], [place], [address], 01/09/2025 09:15:34 01/09/2001/09/2025 HEMOG LOBIN A1C hemoglobin A1C 6.0 % 4.8-5. 6 above high normal Predi abete s: 5.7 - 6.4 Diabe ralph: >6.4 Glyce ngoc contr ol for adult s with diabe ralph: <7.0 Not Available [facility] ([facility]) [address] [place], [address], 01/09/2025 09:15:35 01/09/2001/09/2025 MAGNE SIUM magnesium 1.8 mg/dL 1.6-2. 3 Not Available [facility] ([facility]) [address] [place], [address], 01/09/2025 09:15:35 08/04/19 25 08/03/2024 CT, abdom en + pelvi s, w/ contr ast No observ ation record ed. [facility] [address], [place], [address], 08/04/2024 09:04:53 08/23/19 25 Perip heral Arter y Disea se (PAD) Self Asses sment Tool* No observ ation record ed. sanket Not Available 2024 10:58:26 Result Notes None recorded. Problems Name Problem SNOMED Code Status Onset Date Resolution Date Notes Provider Name and Address Organization Details Recorded Time Pneumoni a caused by SARS-CoV -2 [id number] [id number] Active Ariana Escobedo MD Attn: Accountin g,[address] [facility], [place], [address], [facility] 4 09:57:29 Pain of left hip joint 23497619639 9100 Active Ariana Escobedo MD Attn: Lynda g,[address] [facility], [place], [address], [facility] 4 09:57:28 Tobacco dependen ce in [facility] n 493741742 Active 2018 Ariana Escobedo MD Attn: Accountin g,[address] [facility], [place], [address], [place] [facility] 4 09:57:28 History of myocardi al infarcti on 626077658 Active 2018 Ariana Escobedo MD Attn: Accountin g,[address] [facility], [place], [address], [place] [facility] 4 09:57:28 Solitary nodule of lung 890665630 Active 2018 Ariana Escobedo MD Attn: Accountin g,[address] [facility], [place], [address], [place] [facility] 4 09:57:28 Coronary arterios clerosis in [place] artery 38702289433 07 Active 2018 Ariana Escobedo MD Attn: Accountin g,[address] [facility], [place], [address], [place] [facility] 4 09:57:28 History of pulmonar y embolus 120124755 Active 2018 Ariana Escobedo MD Attn: Lynda gonzáles,[address] [facility], [place], [address], [place] [facility] 4 09:57:28 Tetanus vaccinat ion declined by patient 753135789 Active 2018 Ariana Escobedo MD Attn: Lynda gonzáles,[address] [facility], [place], [address], [place] [facility] 4 09:57:28 Ganglion cyst of right hand 93483285811 9107 Active 2018 Ariana Escobedo MD Attn: Lynda gonzáles,[address] [facility], [place], [address], [place] [facility] 4 09:57:28 Pulmonar y emphysem a 07999209 Active 2018 Ariana Escobedo MD Attn: Lynda nivia,[address] [facility], [place], [address], [place] [facility] 4 09:57:29 Anxiety 24022999 Active 2018 Ariana Escobedo MD Attn: Lynda gonzáles,[address] [facility], [place], [address], [place] [facility] 4 09:57:28 Benign hyperten cornelio 19010085 Active 2018 Ariana Escobedo MD Attn: Lynda nivia,[address] [facility], [place], [address], [place] [facility] 4 09:57:28 Chronic obstruct mirian pulmonar y disease 59765766 Active 2018 Ariana Escobedo MD Attn: Lynda nivia,[address] [facility], [place], [address], [place] [facility] 4 09:57:28 High grade squamous intraepi thelial lesion on cervical Papanico laou smear 41216302038 107 Active 2019 Ariana Escobedo MD Attn: Lynda gonzáles,[address] [facility], [place], [address], [place] [facility] 4 09:57:28 Squamous cell carcinom a of vulva 858336120 Completed 201906/13/2019 TAMARA CRAVEN Attn: Lynda gonzáles,[address] [facility], [place], [address], [place] [facility] 0 16:42:33 Carcinom a in situ of vulva 47772989 Completed 201901/10/2024 KELY PHAM MD Attn: Lynda gonzáles,[address] [facility], [place], [address], [place] [facility] 4 13:26:27 Rupture of tendon of biceps 524248425 Active 2019 Followin g with orthoped ics Ariana Escobedo MD Attn: Lynda gonzáles,[address] [facility], [place], [address], [place] [facility] 4 09:57:28 Rupture of rotator cuff of right shoulder 52236764459 071581 Active 2019 Chronic anterior rotator cuff tear, followin g with orthoped ics. NSAID therapy and PT currentl y. Ariana Escobedo MD Attn: Lynda gonzáles,[address] [facility], [place], [address], [place] [facility] 4 09:57:28 History of calculus of kidney 933289737 Active 2019 Ariana Escobedo MD Attn: Lynda gonzáles,[address] [facility], [place], [address], [place] [facility] 4 09:57:28 Onychomy cosis of toenails 457408098 Active 2019 Ariana Escobedo MD Attn: Lorenaphuc gonzáles,[address] [facility], [place], [address], [place] [facility] 4 09:57:28 Degenera tion of lumbar interver tebral disc 57100989 Active 2019 Ariana Escobedo MD Attn: Lynda gonzáles,[address] [facility], [place], [address], [place] [facility] 4 09:57:28 Scoliosi s deformit y of spine 855566246 Active 2019 Ariana Escobedo MD Attn: Accountphuc g,[address] [facility], [place], [address], [place] [facility] 4 09:57:28 Type 2 diabetes mellitus without complica tion 431526076 Active 2021 Ariana Escobedo MD Attn: Lynda g,[address] [facility], [place], [address], [place] [facility] 4 09:57:28 Osteopor osis 10100078 Active 2022 Ariana Escobedo MD Attn: Lynda gonzáles,[address] [facility], [place], [address], [place] [facility] 4 09:57:28 Osteonec rosis of head of femur 332103307 Active 2022 Ariana Escobedo MD Attn: Lynda g,[address] [facility], [place], [address], [place] [facility] 4 09:57:28 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 31647177895 02923 Active 2022 Ariana Escobedo MD Attn: Lynda g,[address] [facility], [place], [address], [place] [facility] 4 09:57:28 Calcific ation of coronary artery 679348479 Active 2023 Ariana Escobedo MD Attn: Lynda g,[address] [place], [address], [place] [facility] 4 11:22:52 Nodule of lung 369788227 Active 2023 Ariana Escobedo MD Attn: Lynda gonzáles,[address], [place], [address], [place] [facility] 4 13:33:54 Influenz a vaccinat ion declined [id number] Active 2023 Ariana Escobedo MD Attn: Lynda gonzáles,[address], [place], [address], [place] - [facility] 5 11:11:04 History of fall [id number] Active 2023 Ariana Escobedo MD Attn: Lynda gonzáles,[address] [facility], [place], [address], [facility] - [facility] 4 18:14:28 Problem Notes None recorded. Procedures Surgical History Date Name Laterality Status Provider Name and Address Organization Details Recorded Time 01/11/20 25 Diabetic Foot Exam completed Ariana Escobedo MD Attn: Accounting,[address] [facility], [place], [address], [facility] - [facility] 01/10/2025 21:12:44 11/08/19 24 Most Recent Mammogram completed Liana Pacheco [place] - [facility] 01/06/2024 12:14:05 01/22/20 23 Diabetic Foot Exam completed Ariana Escobedo MD Attn: Accounting,[address] [facility], [place], [address], [facility] - [facility] 01/21/2023 10:53:51 10/01/19 23 total replacement of hip completed Ariana Escobedo MD Attn: Accounting,[address] [facility], [place], [address], [place] [facility] 10/15/2022 13:18:11 11/12/19 22 Date of Last Pap Smear completed PABLO Hurtado - [facility] 11/11/2021 10:53:10 11/04/19 22 Date of Last Mammogram completed Liana Pacheco MA [place] - [facility] 11/11/2021 10:56:37 01/11/20 21 Suture/Staple removal completed TAMARA MURPHY Attn: Accounting,[address] [facility], [place], [address], [facility] - [facility] 01/10/2021 15:31:39 06/08/19 20 Vulvar Biopsy completed TAMARA MURPHY Attn: Accounting,[address] [facility], [place], [address], [facility] - [facility] 06/08/2019 17:34:54 06/08/19 20 colposcopy completed Liana Pacheco [place] - [facility] 11/11/2021 10:52:50 05/25/19 20 Colposcopy completed TAMARA MURPHY Attn: Accounting,[address] [facility], [place], [address], [facility] - [facility] 05/25/2019 22:59:23 07/07/19 19 colonoscopy completed Ariana Escobedo MD Attn: Accounting,[address] [facility], [place], [address], [facility] - [facility] 07/01/2020 10:04:29 Dilation and Curettage completed Giuliana Tejada [place] - [facility] 05/31/2018 14:14:54 Tubal Ligation completed Giuliana Tejada [place] [facility] 05/31/2018 14:14:59 thumb surgery completed Giuliana Tejada [place] [facility] 05/31/2018 14:15:28 reconstruction of anterior cruciate ligament of knee joint completed Ariana Escobedo MD Attn: Accounting,[address] [facility], [place], [address], [facility] - [facility] 05/31/2018 14:34:16 Imaging Results None recorded. Procedure Notes None recorded. Medical Equipment None Reported. Allergies Allergen ID Allergen Name Allergen Category Reaction Reaction Severity Criticality Documentation Date Start Date Code Code System Note Provider Name and Address Organization Details Recorded Time 476500 No known allergy (situatio n) Not available Not available Not available Not available 07/09/2021 20536 [id number] SNOMED Ariana Escobedo MD Attn: Lynda gonzáles,[address] [facility], [place], [address], [place] [facility] 03/30/202 2 10:19:15 No known drug allergies Medications Name Sig Start Date Stop Date Status Note LastModified by Organization Details LastModified Time multivita min tablet Take 1 tablet every day by oral route. 2020 active Not Available Not Available Not Avai lable amoxicill in 500 mg capsule TAKE ONE CAPSULE BY MOUTH EVERY 8 HOURS UNTIL FINISHED 10/02 completed Not Available Not Available Not Available atorvasta tin 40 mg tablet TAKE ONE TABLET BY MOUTH EVERY NIGHT AT BEDTIME TO LOWER CHOLESTE ROL 2024 active Not Available Not Available Not Avai lable silver sulfadiaz ine 1 % topical cream APPLY TO AFFECTED AREA EVERY DAY 07/09 completed Not Available Not Available Not Available metformin 500 mg tablet TAKE ONE TABLET BY MOUTH TWICE DAILY EVERY MORNING & EVENING WITH FOOD FOR DIABETES 2024 active Not Available Not Available Not Avai lable fluticaso ne 250 mcg-salme terol 50 mcg/dose [...] Available prednison e 10 mg tablet TAKE ONE TABLET BY MOUTH EVERY DAY 08/04 completed Not Available Not Available Not Available [...] FOUR TIMES DAILY NEEDED FOR BREATHIN G active Not Available Not [...] FOR BLOOD PRESSURE . LESS THAN 140/90 08/04 completed Not Available Not Available Not Available [...] CAPSULE BY MOUTH EVERY MORNING FOR STOMACH 2024 active Not Available Not Available Not Avai lable aspirin 81 mg tablet,de layed release TAKE [...] completed Not Available Not Available Not Available magnesium oxide 400 mg (241.3 mg magnesium ) tablet TAKE ONE TABLET BY MOUTH TWICE DAILY EVERY MORNING & EVENING FOR LOW MAGNESIU M 01/10 completed Not Available Not Available Not Available [...] TAKE 1 CAPSULE BY MOUTH TWICE DAILY 08/04 completed Not Available Not Available Not Available [...] D2) 1,250 mcg (50,000 unit) capsule TAKE 1 CAPSULE BY MOUTH EVERY WEEK FOR VITAMIN DEFICIEN CY active Not Available Not Available No t Available dexametha sone sodium phosphate 4 mg/mL [...] a dose pack FOLLOW PACKAGE DIRECTIO NS 08/04 completed Not Available Not Available Not Available ketorolac 60 mg/2 mL intramusc ular [...] completed Not Available Not Available Not Available Microlet Lancet USE TO CHECK BLOOD SUGAR THREE TIMES A WEEK active Not Available Not Available No t Available amoxicill in 875 mg-potass ium clavulana te 125 mg tablet TAKE 1 TABLET BY MOUTH TWICE DAILY IN THE MORNING AND EVENING FOR 7 DAYS FOR INFECTIO N 01/10 completed Not Available Not Available Not Available [...] completed Not Available Not Available Not Available Alcohol Prep Pads USE TO CLEAN THE INJECTIO N SITE [...] completed Not Available Not Available Not Available ProAir HFA 90 mcg/actua tion aerosol inhaler Inhale 2 puffs every 4 hours by inhalati on route. 2024 active Not Available Not Available Not Avai lable Advair HFA 230 mcg-21 mcg/actua tion aerosol [...] MOUTH TWICE DAILY EVERY MORNING & EVENING (FOR BEST RESULTS USE WITH A SPACER) active Not Available Not Available No t [...] inhalatio n INHALE TWO PUFFS BY MOUTH ONCE EVERY DAY as directed FOR breathin g active Not Available Not Available No t [...] completed Not Available Not Available Not Available Contour Plus Test Strip USE TO CHECK BLOOD SUGAR THREE TIMES PER WEEK active Not Available Not Available No t Available Contour Plus Blue Meter USE TO CHECK BLOOD SUGAR active Not Available Not Available No t Available Vitals Date Recorded Body height Body mass index (BMI) Body weight Heart rate Oxygen saturation Respiratory rate Systolic And Diastolic Provider Name and Address Organization Details Last Updated DateTime 5 154.94 cm 23.1 kg/m2 34781.0 7 g 80 /min 97 % 16 /min 120/76 mm[Hg] Giuliana Tejada MA [facility] 5 10:11:36 Date Recorded Body height Oxygen saturation Pain severity - 0-10 verbal numeric rating [Score] - Reported Heart rate Respiratory rate Body temperature Body mass index (BMI) Body weight Systolic And Diastolic Provider Name and Address Organization Details Last Updated DateTime 5 154.94 cm 88 % 0 80 /min 16 /min 98.1 [degF] 23.3 kg/m2 51843.2 2 g 121/74 mm[Hg] Lyubov Burrows MA [facility] 5 14:14:18 Date Recorded Body height Body mass index (BMI) Body weight Heart rate Oxygen saturation Body temperature Systolic And Diastolic Provider Name and Address Organization Details Last Updated DateTime 5 154.94 cm 23.7 kg/m2 56483.1 2 g 68 /min 96 % 97.8 [degF] 120/70 mm[Hg] Giuliana Tejada MA [facility] 5 11:51:46 Date Recorded Body height Oxygen saturation Pain severity - 0-10 verbal numeric rating [Score] - Reported Heart rate Respiratory rate Body temperature Body mass index (BMI) Body weight Systolic And Diastolic Provider Name and Address Organization Details Last Updated DateTime 5 154.94 cm 91 % 0 66 /min 18 /min 97.9 [degF] 23 kg/m2 88328.8 3 g 121/45 mm[Hg] Gabi marrero MA [facility] 5 12:43:53 Date Recorded Body height Body mass index (BMI) Body weight Respiratory rate Heart rate Oxygen saturation Body temperature Systolic And Diastolic Provider Name and Address Organization Details Last Updated DateTime 5 154.94 cm 22.7 kg/m2 03103.1 6 g 16 /min 62 /min 96 % 97.8 [degF] 124/76 mm[Hg] Giuliana Tejada [place] - [facility] 5 10:24:52 Social History Question Answer Notes LastModified by Organizat ion Details LastModified Time Tobacco Smoking Status Former Smoker Giuliana Tejada MA null, [facility] 05/31/2018 14:13:08 Do You Have An Advance Directive? No Information not available 11/01/2020 How Many Years Have You Consumed Alcohol? [...] For COVID-19? No Information not available 01/27/2023 What Type Of Diet Are You Following? REGULAR Information not available 05/31/2018 Are There Any Guns Present In Your Home? No Information not available 05/31/2018 Hard Of Hearing Or Deaf In One Or Both Ears? Yes Information not available 05/31/2018 Legally Blind In One Or Both Eyes? No Information not available 05/31/2018 Marital Status Single Informatio n not available 05/31/2018 Do You Have A Medical Power Of Agricultural Education Teacher? No [email or web address] Information not available 10/02/2021 What Was The Date Of Your Most Recent Tobacco Screening? 01/10/2025 Information not available 01/10/2025 What Is Your Current Pack Years? 30ormorepac enrrique Information not available 07/05/2020 Performs Monthly Self-breast [...] To Smoke? No Information not available 11/11/2021 How Much Tobacco Do You Smoke? 1 PPD Information not available 07/05/2020 Has Tobacco Cessation Counseling Been Provided? Yes Information not available 07/05/2020 On What Date Was Tobacco Cessation Counseling Provided? 07/26/2024 [email or web address] Information not available 07/26/2024 How Many Years Have You Smoked Tobacco? 42 Stopped 2013. No Cigarettes For A Year Stopped Again In 2019 Information not available 05/24/2023 Sex: Unknown Functional Status Question Answer Note LastModified by Organizat ion Details LastModified Time Do you use any illicit or recreational drugs? No Information not available 07/05/2020 Do you or have you ever used any other forms of tobacco or nicotine? No Information not available 07/05/2020 What is your level of alcohol consumption? Occasional Information not available 05/31/2018 Do you or have you ever used smokeless tobacco? Never used smokeless tobacco Information not available 04/24/2019 Are you currently employed? No Information not available 11/01/2020 What is your occupation? unemployed Information not available 05/31/2018 Do you or have you ever used e-cigarettes or vape? Never used electronic cigarettes Information not available 04/24/2019 What is your exercise level? None Information not available 05/31/2018 Mental Status None recorded. Family History Relationship Description Onset Age of this Age Resolved Age Notes LastModified by Organization Details LastModified Time Mother Malignant neoplasm of cervix uteri [email or web address] Not available 14:17:46 Medical History Condition Response Coronary Artery Disease N Other N Atrial Fibrillation N High Blood Pressure N Kidney or Bladder Problems N Thyroid Problems N GI Problems N Depression N COPD Y Blood Clots Y Skin Problems N Anemia N Heart Attack (MO) Y Anxiety Disorder Y Diabetes Y Muscle, Joint, or Bone Problems N Seizures/Epilepsy N Acid Reflux (GERD) N Cancer N Stroke N Asthma N Allergies N High Cholesterol Y Hepatitis N Liver Disease N Headaches N Hypertension Y Heart Failure N Osteoporosis N Gynecological History Statement/Question Response If Post [...] PF, 0.5 mL 1 completed Not Available [facility] 03/19/2023 06:46:51 pneumococcal polysaccharide PPV23 2 completed Not Available [facility] 03/19/2023 06:46:51 Pneumococcal conjugate PCV20, polysaccharide ITE871 conjugate, adjuvant, PF 3 completed Not Available [facility] 03/19/2023 06:46:51 Influenza, split virus, quadrivalent, preservative 9 completed Not Available [facility] 04/29/2019 02:40:58 Influenza, split virus, quadrivalent, preservative 1 completed Je Morse MA [facility], [place] - [facility] 07/05/2020 11:54:22 Past Encounters Encounter ID Performer Location Encounter Start Date Encounter Closed Date Diagnosis/Indication Diagnosis SNOMED-CT Code Diagnosis ICD10 Code Diagnosis IMO Codes Diagnosis Note [id number] Ariana Escobedo MD [facility] (Adult Med) [address] [place] [address] [phone] 05/31/2018 13:47:19 06/01/2018 11:13:10 Screening for malignant neoplasm of breast 672345477 Z12.31 General ex amination of patient 415301018 Z00.01 Coronary arteriosclerosis in [place] artery 2448373029 107 I25.10 History of myocardial infarction 569622043 I25.2 Solitary n odule of lung 462506570 R91.1 Tobacco de pendence in remission 312211713 F17.201 Screening for malignant neoplasm of colon 398732879 Z12.11 Influenza vaccination declined 113485730 Z28.21 History of pulmonary embolus 820645456 Z86.711 Screening for malignant neoplasm of cervix 971148679 Z12.4 Anxiety 52092646 F41.9 She is aware that I do not prescribe Xanax Pulmonary emphysema 8743 3001 J43.9 Benign hypertension 1072 5009 I10 Tetanus va ccination declined by patient 800090668 Z28.21 Ganglion c yst of right hand 1717788548 18880 M67.441 Imaging re sult abnormal 133326325 R93.7 The appearance of the left clavicle was abnormal on the CXR done 05/18/2018 although not mentioned on the CT scan, she denies any previous surgery. She does have left sided neck pain but she was not tender over the left clavicle. [id number] Ariana Escobedo MD [facility] (Adult Med) [address] [place] [address] [phone] 0 06/21/2018 13:55:04 06/21/2018 14:41:27 Lesion of clavicle 725937547 M89.8X1 Disorder o f lipid metabolism 907666567 E78.9 Impaired f asting glycemia 827465174 R73.01 Benign hypertension 1072 5009 I10 Pulmonary emphysema 8743 3001 J43.9 [id number] Ariana Escobedo MD [facility] (Adult Med) [address] [place] [address] [phone] 0 08/22/2018 12:05:22 08/22/2018 13:31:48 Acute bronchitis 13650883 J20.9 Ganglion c yst of right hand 2220452810 41871 M67.441 Pulmonary emphysema 8743 3001 J43.9 Anxiety 44221194 F41.9 She was previously made aware that I do not prescribe Xanax [id number] MD [facility] (Adult Med) [address] [place] [address] [phone] 0 12/23/2018 11:38:49 12/23/2018 15:00:01 Coronary arteriosclerosis in [place] artery 4404355804 107 I25.10 Administra tion of influenza vaccine 45000793 Z23 Abnormal f indings on diagnostic imaging of breast 192326012 R92.8 4 mm L nodular density noted on the CT scan of the chest done 08/23/18. This was ordered by her pulmonolog ist, Dr Leo.Abn ormal diagnostic MMG of both breasts 09/07/18.An US of the breast was done 09/09/18, it was felt to be benign.She will need to follow up closely with Dr Bowen, the breast surgeon. Sinusitis 98692638 J32.9 Impaired f asting glycemia 058830274 R73.01 [id number] MD [facility] Singer (Adult Med) [address] [place] [address] [phone] 02/03/2019 10:08:55 02/03/2019 10:36:45 Acute exacerbation of chronic obstructive pulmonary disease 976492279 J44.1 [id number] Tin Rodríguez MD [facility] [address] [place] [address] 99315[address] 2 02/27/2019 13:42:40 03/14/2019 12:10:12 Chronic obstructive pulmonary disease 50880313 J44.9 Continue MDI/techni que will order previous regimen PFTs done 06/28 Solitary n odule of lung 320212809 R91.1 08/23/[address]- stable 5.5m nodule. continue to monitor - F/U 6 months with imaging [id number] MD [facility] Singer (Adult Med) [address] [place] [address] [phone] 0 04/24/2019 12:09:15 04/24/2019 13:02:01 Screening for malignant neoplasm of cervix 193003070 Z12.4 Vaginal lesion 310799749 N94.89 Pulmonary emphysema 8743 3001 J43.9 [id number] MD [facility]yl[facility] Singer (Adult Med) [address] [place] [address] [phone] 0 05/04/2019 11:38:01 05/05/2019 11:52:54 Acute exacerbation of chronic obstructive pulmonary disease 532536057 J44.1 Candidiasis of mouth 797 85648 B37.0 Probably related to the Symbicort and Prednisone [id number] TAMARA MURPHY (POWER SHOVEL MECHANIC) [address] [place] [address] [phone] 0 05/05/2019 10:37:54 05/08/2019 09:50:12 Gynecologic examination 23609564 Z01.419 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 F/u with culture. Advised patient to finished course of acyclovir as prescribed by PCP. Venereal d isease screening 322861572 Z11.3 Screening for osteoporosis 827965813 Z13.820 40+ pack year smoker. Start early BMD screening. Female uri nary stress incontinence 72781420 N39.3 Discussed kegel exercises with patient. [id number] TAMARA MURPHY (POWER SHOVEL MECHANIC) [address] [place] [address] [phone] 0 05/25/2019 12:10:29 05/25/2019 13:48:13 High grade squamous intraepithelial lesion on cervical Papanicolaou smear 3502894244 9107 R87.613 Human simeon llomavirus deoxyribonucleic acid detected, high risk on cervical specimen 636409008 R87.992 [id number] TAMARA MURPHY (POWER SHOVEL MECHANIC) [address] [place] [address] [phone] 06/08/2019 11:55:04 06/09/2019 12:11:12 Lesion of vulva 994413029 N90.89 Dermatolog ical cause vs HPV changes vs malignancy . Shave biospy performed. F/u pathology. Cervical intraepithelial neoplasia grade 2 864813979 N87.1 Per pathology report: Part A: CERVICAL BIOPSY: HIGH-GRADE SQUAMOUS INTRAEPITH ELIAL LESION (KLEVER 1 / 2) WITH HUMAN PAPILLOMAV IRUS (HPV) EFFECT.Par t B: ENDOCERVIC AL CURETTAGE: HIGH-GRADE SQUAMOUS INTRAEPITH ELIAL LESION (AT LEAST KLEVER 2) WITH HUMAN PAPILLOMAV IRUS (HPV) EFFECT.Wi ll need LEEP. Discussed procedure with patient in detail. Informatio nal handout provided. Human simeon lloma virus infection 139202809 B97.7 High risk type. Will repeat Pap smear in 6 months. 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 COMMENT: MARGINS INVOLVED. Discussed with pt in detail. Will refer urgently to [facility] machine operator onc for management . Cervical intraepithelial neoplasia grade 2 207330011 N87.1 Per pathology report: Part A: CERVICAL BIOPSY: HIGH-GRADE SQUAMOUS INTRAEPITH ELIAL LESION (KLEVER 1 / 2) WITH HUMAN PAPILLOMAV IRUS (HPV) EFFECT. Part B: ENDOCERVIC AL CURETTAGE: HIGH-GRADE SQUAMOUS INTRAEPITH ELIAL LESION (AT LEAST KLEVER 2) WITH HUMAN PAPILLOMAV IRUS (HPV) EFFECT. Will need at least LEEP, possible hysterecto my. Due to new SCC diagnosis, will refer to [facility] machine operator onc for complete management . Will cancel LEEP that was previously scheduled with Dr. Peace. Human simeon lloma virus infection 072228341 B97.7 [id number] MD [facility] Singer (Adult Med) [address] [place] [address] [phone] 0 07/03/2019 09:37:15 07/04/2019 10:16:33 Chronic obstructive pulmonary disease 61557044 J44.9 That she cannot tolerate the powder as it makes her cough [id number] TAMARA TAN (Adult Med) [address] [place] [address] [phone] 0 08/18/2019 10:07:49 08/21/2019 10:54:35 Right flank pain 543554221 R10.9 Complainin g acute right flank pain [...] Patient understood History of calculus of kidney 997895659 Z87.442 History of kidney stones many years ago but also recently 1 month ago.She had similar symptoms last month, went to urgent care, no imaging completed but given ibuprofen and flomax to help pass stone, pt. states it took about 2 days to pass the stone.Admi ts to low water intake- discussed increasing water intake at home Carcinoma in situ of vulva 93730492 D07.1 Patient unable to have LEEP completed due to COVID-19Sp hiral with [facility] regarding patient's care, informed her LEEP unable to be completed. [facility] plans to contact patient regarding close f/u until LEEP can be performed- continue to follow with OBGYN [id number] Tin Rodríguez MD [facility] [address] [place] [address] 08/28/2019 09:50:35 09/15/2019 14:06:55 Chronic obstructive pulmonary disease 39636400 J44.9 Continue MDI/techni que will order previous regimen PFTs done 06/28 Solitary n odule of lung 991231564 R91.[address] w/o contrast f/u08/23/[address]- stable 5.5m nodule. continue to monitor Tobacco de pendence in remission Continue cessation [id number] MD [facility] Singer (Adult Med) [address] [place] [address] [phone] 10/10/2019 15:45:38 10/12/2019 08:00:44 History of calculus of kidney 719077499 Z87.442 Onychomyco sis of toenails 165189669 B35.1 labs then consider an oral antifungal Carcinoma in situ of vulva 70522410 D07.1 Impaired f asting glycemia 225575679 R73.01 Long-term drug therapy 676795613 Z79.899 Disorder o f lipid metabolism 352062942 E78.9 Screening for malignant neoplasm of breast 913603515 Z12.31 She apparently had a MMG at in July, [id number] Ariana Escobedo MD [facility] (Adult Med) [address] [place] [address] [phone] 0 10/17/2019 13:18:17 10/17/2019 22:48:57 Acute low back pain 041654744 M54.5 ILPMPXrayT ramadol History of calculus of kidney 246107259 Z87.[address] [facility] [id number] Tin Rodríguez MD [facility] [address] [place] [address] [phone] 2 10/19/2019 11:51:56 10/26/2019 10:30:26 Chronic obstructive pulmonary disease 49876430 J44.9 MDI teaching/t echnique: Continue Symbicort as prescribed , Combivent and ventolin as needed Nebs PFTs done 06/28 CAT- 12 Mmrc-1 Gold 3/B Solitary n odule of lung 806564442 R91.1 08/23/[address]- stable 5.5m nodule.Meredith st CT f/u ordered, awaiting completion Tobacco de pendence in remission 446580356 Continue cessation Viral screening 89542143 4 Z11.59 PFT ordered, COVID screening required Benign hypertension 1072 5009 I10 Managed in primary care. Continue to monitor blood pressure. Encourage low salt diet and exercise. [id number] MD [facility] Singer (Adult Med) [address] [place] [address] [phone] 0 11/08/2019 14:55:48 11/08/2019 15:50:28 Degeneration of lumbar intervertebral disc 92570533 M51.36 Scoliosis deformity of spine 833632109 M41.9 Impaired f asting glycemia 784397944 R73.01 Pruritic rash 48430978 L 28.2 Rosacea 046183319 L71.9 Tobacco de pendence in remission 962040901 F17.201 Screening for malignant neoplasm of breast 116676295 Z12.31 [id number] Ariana Escobedo MD [facility] (Adult Med) [address] [place] [address] [phone] 0 12/20/2019 14:59:07 12/20/2019 15:49:50 Chronic obstructive pulmonary disease 52731708 J44.9 Stable, apparently the Combivent is not covered Rosacea 215233101 L71.9 [id number] Tin Rodríguez MD [facility] [address] [place] [address] 01/15/2020 09:58:01 01/23/2020 15:02:52 Chronic obstructive pulmonary disease 28355702 J44.9 MDI teaching/t echnique: Continue Symbicort as prescribed , Combivent and ventolin as needed Nebs Solitary n odule of lung 239393372 R91.1 08/23/[address]- stable 5.5m nodule.Meredith st CT f/u ordered , awaiting completion Tobacco de pendence in remission 091277035 F17.201 Continue cessation Benign hypertension 1072 5009 I10 Managed in primary care. Continue to monitor blood pressure. Encourage low salt diet and exercise. Seasonal allergy 0744741 04 J30.2 [id number] Tin Rodríguez MD [facility] [address] [place] [address] 04/24/2020 10:27:10 04/24/2020 15:42:26 Chronic obstructive pulmonary disease 03134536 J44.9 MDI teaching/t echnique: Continue MDI as prescribed . Reordering PFT and 6 min walk. Solitary n odule of lung 192733937 R91.[address] w/con. 01/30/20: IMPRESSION : 1. 6 mm nodule left upper lobe unchanged dating back to 05/18/2018. No new or progressiv e lesions. No specific follow-up necessary. 2. Mild upper lobe predominan t centrilobu lar emphysema. 3. Atheroscle rosis.F/U chest ct 12 months (01/30) Tobacco de pendence in remission 072138392 F17.201 Continue cessation Benign hypertension 1072 5009 I10 Managed in primary care. Continue to monitor blood pressure. Encourage low salt diet and exercise. Seasonal allergy 0587805 04 J30.2 Continue Cetirizine [id number] MD [facility]yl[facility] Singer (Adult Med) [address] [place] [address] [phone] 0 05/15/2020 11:15:47 05/16/2020 09:08:29 Carcinoma in situ of vulva 09346012 D07.1 She was reminded to follow up at [facility] as referred by her gynecologi [facility] resp iratory infection 82154000 J06.9 Impaired f asting glycemia 969600846 R73.01 Medication monitoring 39 4470195 Z51.81 Needs infl uenza immunization 342652691 Z28.3 [id number] MD Kylie Singer (Adult Med) [address] [place] [address] [phone] 0 07/01/2020 08:05:29 07/02/2020 08:22:48 Uncontrolled type 2 diabetes mellitus 121871582 E11.65 Discussed Pain of left heel 935957 9691 739172 M79.672 Swollen abdomen 79685185 R14.0 OV needed [id number] Tin Rodríguez MD [facility] ts [address] [place] [address] 07/04/2020 12:08:03 07/04/2020 16:56:51 Chronic obstructive pulmonary disease 77027611 J44.9 MDI teaching/t echnique: Continue MDI as prescribed . Duenebs New PFT recently completed at [place], will request results Solitary n odule of lung 599899478 R91.1 Nodule has resolved CTA of chest done 06/2020 no PE moderate to severe centrilobu lar emphysema platelike atelectasi s or scaring to bilateral lungs, new possible hepatic steatosis no nodules noted Tobacco de pendence in remission 865467205 F17.201 Continue cessation Benign hypertension 1072 5009 I10 Managed in primary care. Continue to monitor blood pressure. Encourage low salt diet and exercise. Seasonal allergy 7569262 04 J30.2 Continue Cetirizine Chronic re spiratory failure 09807401 J96.10 Hospital DC with supplement al O2 06/30. Continue supplement al O2 at 2L/min via NC with activity. Will repeat 6 min walk Fibrosis of lung 6033697 1 J84.10 Will order HRCT , Chest CTA 06/30; new scaring noted to bilateral lungs [id number] Ariana Escobedo MD [facility] (Adult Med) [address] [place] [address] 07/05/2020 10:28:46 07/08/2020 07:30:55 Abdominal pain 57755468 R10.9 Colonoscop y 02/2019 Diarrhea from Esomeprazo le Gastroesop hageal reflux disease 631537036 K21.9 Lifestyle changes were discussed Pain of left heel 464617 4295 546773 M79.672 Swollen abdomen 82398830 R14.0 OV needed Administra tion of influenza vaccine 91216972 Z23 Carcinoma in situ of vulva 80068596 D07.1 She was reminded to follow up at [facility] as referred by her gynecologi st [id number] Ariana Escobedo MD [facility] (Adult Med) [address] [place] [address] 07/22/2020 07:56:21 07/23/2020 07:33:05 Plantar fasciitis 058531637 M72.2 Follow-up visit 69560358 9 Z09 [id number] Tin Rodríguez MD [facility] [address] [place] [address] 09/04/2020 12:07:45 09/06/2020 08:45:30 Chronic obstructive pulmonary disease 13069720 J44.9 MDI teaching/t echnique: Continue MDI as prescribed . Duenebs severe obstructio n noted, significan t response to BD. Airtrappin g and hyperinfla tion 6 min walk: no supplement al O2 required at this time. lowest O2 92% Adding Spiriva respimat Pulmonary rehab Check nocturnal oximetry HRCT 08/20/20 at [facility] IMPRESSION : 1. No significan t fibrotic [...] Moderate scoliosis. Tobacco de pendence in remission 433127271 F17.201 Qualifies for LDCT lung cancer screening. Will order LDCT, Discussed risk/benef its, importance of annual screening adherence. Continue cessation Benign hypertension 1072 5009 I10 Managed in primary care. Continue to monitor blood pressure. Encourage low salt diet and exercise. Seasonal allergy 8000316 04 J30.2 Continue Cetirizine Solitary n odule of lung 144529066 R91.1 HRCT 08/20/20 at [facility]: 6 mm nodule left upper lobe has been stable for more than 2 years, no specific follow-up necessary. Compatible with a benign lesion. Dyspnea on exertion 6084 5006 R06.09 Echo [id number] TAMARA MURPHY (POWER SHOVEL MECHANIC) [address] [place] [address] 11/01/2020 11:27:47 11/07/2020 19:48:55 Gynecologic examination 87371992 Z01.419 -Last pap was 05/05/19, showed HSIL, HPV+. 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 Pap repeated today.-rou jose juan nuswab completed, treat as needed-Las t mammogram was 06/27/20, unremarkab le BIRADS 1-Educated osteoporos is prevention including calcium rich diet, weight bearing exercise. Will start supplement . Carcinoma in situ of vulva 12659741 D07.1 -Per pathology report 06/08/2019: FULL THICKNESS INTRAEPIDE RMAL SQUAMOUS ATYPIA CONSISTENT WITH SQUAMOUS CELL CARCINOMA IN-SITU. COMMENT: MARGINS INVOLVED. Previously referred to [facility]/onc but pt did not follow up due to COVID-19 pandemic. Referred back today. Cervical intraepithelial neoplasia grade 2 749271876 N87.1 -Per pathology report 05/25/20: Part A: CERVICAL BIOPSY: HIGH-GRADE SQUAMOUS INTRAEPITH ELIAL LESION (KLEVER 1 / 2) WITH HUMAN PAPILLOMAV IRUS (HPV) EFFECT. Part B: ENDOCERVIC AL CURETTAGE: HIGH-GRADE SQUAMOUS INTRAEPITH ELIAL LESION (AT LEAST KLEVER 2) WITH HUMAN PAPILLOMAV IRUS (HPV) EFFECT. Repeated PAP today, referred back to plisse machine operator/onc. [id number] Tin Rodríguez MD [facility] [address] [place] [address] 11/07/2020 10:34:06 11/07/2020 14:08:28 Chronic obstructive pulmonary disease 89438814 J44.9 Stop symbicort, Start Wixela as prescribed , rinse after useDPI teachingZ- paksteroid sAvoid heat, keep hydrated , drink plenty of water, know your warning signs of a flare, listen to air quality and humidity advisories , avoid strenuous osefpvn2xf s [id number] KIA BARRETT NP [facility] [address] [place] [address] 12/05/2020 12:06:41 12/09/2020 12:26:30 Chronic obstructive pulmonary disease 44092483 J44.9 Continue Advair 500 mcgDPI teachingre fill [id number] MD [facility] (Adult Med) [address] [place] [address] 01/09/2021 11:49:23 01/09/2021 13:48:02 Coronary arteriosclerosis in [place] artery 4700652964 107 I25.10 Adult heal th examination 331458193 Z00.00 Impaired f asting glycemia 166248731 R73.01 Influenza vaccination declined 199625432 Z28.21 [id number] [facility] M[facility]PHY [facility] (POWER SHOVEL MECHANIC) [address] [place] [address] 01/10/2021 11:20:30 01/13/2021 08:33:38 Carcinoma in situ of vulva 84749265 D07.1 s/p partial L vulvectomy 12/17/20 at [facility]. Site appears well healed although 3-4 large suture knots still present which are likely contributi ng to patient symptoms, removed today in office to promote further healing. No signs of infection. Care instructio ns reviewed and supplies provided. Advised to RTC if symptoms persist. High grade squamous intraepithelial lesion on cervical Papanicolaou smear 6900193841 9107 R87.613 S/p LEEP 12/17/20 at [facility]. Repeat Pap in 6 months. [id number] Tin Rodríguez MD [facility] [address] [place] [address] 07/02/2021 10:03:24 07/07/2021 11:35:09 Chronic obstructive pulmonary disease 75213177 J44.9 Continue Advair 500 mcgMDI teachingSp iriva respimatPr ednisone Dependence on nocturnal oxygen therapy 7421208102 9108 Z99.81 continue supplement al O2 nightly Reactive a irway disease 0671363599 06 J45.909 Tobacco de pendence in remission 032629084 F17.201 Smoked for 42 years,1 ppd, stopped 2019 [id number] MD [facility] (Adult Med) [address] [place] [address] 07/09/2021 10:00:06 07/10/2021 07:04:51 Type 2 diabetes mellitus without complication 165933989 E11.9 Immunization advised 310 580514 Z71.9 History of SARS-CoV-2 29 33160283 66449466 Z86.16 Administra tion of pneumococcal vaccine 17659002 Z23 SARS-CoV-2 antigen vaccine declined 5397681372 Z28.21 History of pneumonia 161 658915 Z87.01 Screening mammography of bilateral breasts 2131163348 05805 Z12.31 Body mass index 25-29 - overweight 187049752 Z68.28 [facility] 832548721 Z78.9 Discussed [id number] TAMARA MURPHY (POWER SHOVEL MECHANIC) [address] [place] [address] 0 07/11/2021 10:54:14 07/17/2021 09:51:16 Atrophic vaginitis 82992153 N95.2 Educated pt to try OTC vaginal moisturize rs to try and alleviate symptoms. Deferring topical estrogen use to plisse machine operator onc given pt's history. Carcinoma in situ of vulva 63862245 D07.1 s/p partial L vulvectomy 12/17/20 at [facility]. Site appears well healed and reassuring . Advised that occasional pains could be related to normal healing process. Atrophic vaginitis management as below. [id number] Tin Rodríguez MD [facility] [address] [place] [address] 10/02/2021 10:23:26 10/02/2021 11:50:47 Chronic obstructive pulmonary disease 99494328 J44.9 Stop Advair 500 mcgMDI teachingSp iriva respimatPr ednisone Reactive a irway disease 8197215653 06 J45.909 Dependence on nocturnal oxygen therapy 2471406767 9108 Z99.81 2L [place] O2 overnight Tobacco de pendence in remission 354967393 F17.201 Smoked for 42 years,1 ppd, stopped 2019 [id number] Ariana Escobedo MD [facility] (Adult Med) [address] [place] [address] 10/09/2021 09:50:09 10/09/2021 11:03:39 Type 2 diabetes mellitus without complication 690680830 E11.9 Uncontroll ed with an HBA1C of 7.8 (08/06/2021 )Continue MetforminS tart Jardiance, she has no personal or FHX of Thyroid cancerTest BS 3/week Pain in right foot 76938 17696 03604 M79.671 Arthritis of hand 215346 005 M13.841 M13.842 Body mass index 25-29 - overweight 225248993 Z68.28 [id number] Ariana Escobedo MD [facility] (Adult Med) [address] [place] [address] 11/07/2021 11:03:38 11/07/2021 13:37:54 Mammography abnormal 880107327 R92.8 Type 2 judith betes mellitus without complication 561802465 E11.9 Uncontroll ed with an HBA1C of 7.8 (08/06/2021 )Continue Metformin and Jardiance, she has no personal or FHX of Thyroid cancerTest BS 3/week Medication monitoring 39 5144213 Z51.81 SARS-CoV-2 antigen vaccine declined 5329009050 Z28.21 Discussed Osteoarthritis 027895763 M19.90 [id number] TAMARA MURPHY (POWER SHOVEL MECHANIC) [address] [place] [address]61[address] 0 11/11/2021 10:41:33 12/03/2021 15:07:28 Gynecologic examination 75207425 Z01.419 -h/o CIN2. Last Pap October 2020, NILM/HPV(+ ). Pap updated today-Last mammogram was October 2021, BIRADS 2.-Aluminum Boat Inspector ed regarding importance of physical activity, healthy diet and appropriat e calcium intake. -RTC in 1yr Carcinoma in situ of vulva 97105839 D07.1 s/p partial L vulvectomy 12/17/20 at [facility]. Site appears well healed and reassuring . [id number] [facility] [address] [place] [address] 0 11/19/2021 10:18:05 11/20/2021 11:50:30 Pain of left forearm 6612530178 31891 M79.632 Severe pain in the left forearm, it is unclear if this is radicular pain from her hand.XrayO rthopedics Tylenol Musculoskeletal pain 279 086991 M79.10 Body mass index 25-29 - overweight 331013920 Z68.28 [id number] [facility] [address] [place] [address] 0 03/10/2022 09:40:54 03/12/2022 15:20:42 Osteoarthritis of wrist 685720705 M19.039 Solitary n odule of lung 913900107 R91.1 Stable on the LDCT one on 12/08/2021 Rosacea 886228618 L71.9 SARS-CoV-2 antigen vaccine declined 0250014421 Z28.21 [id number] Tin Rodríguez MD [facility] ts [address] [place] [address] 03/30/2022 10:55:36 03/31/2022 08:00:00 Chronic obstructive pulmonary disease 92449429 J44.9 StableSymb icort 160 mcgSpiriva respimat 2.5 mcgnebs as needed Reactive a irway disease 9927072481 06 J45.909 Dependence on nocturnal oxygen therapy 4836515171 9108 Z99.81 2L NC O2 overnight, benefiting from useOvernig ht ox on 2l/min Tobacco de pendence in remission 522788202 F17.201 Smoked for 42 years,1 ppd, 42 PYHstopped 2019 LDCT 11/2021 Solitary n odule of lung 683300793 R91.1 LDCT 12/08/21 at [facility] :unchanged 7mm solid nodule LULno new or suspicious lung nodules seen. [id number] Ariana Escobedo MD [facility] (Adult Med) [address] [place] [address] 0 06/04/2022 16:02:31 06/08/2022 12:25:59 Administration of pneumococcal vaccine 43671074 Z23 Postmenopausal state 764 32302 Z78.0 Screening for malignant neoplasm of breast 983564751 Z12.31 Type 2 judith betes mellitus without complication 641073034 E11.9 Controlled with an HBA1C of 6.2 (), previously 7.8 (08/06/2021 )Continue Metformin and Jardiance, she has no personal or FHX of Thyroid cancerTest BS 3/week SARS-CoV-2 mRNA vaccine declined 7904728294 Z28.21 Strain of muscle of left groin region 6738454647 5875801 S76.012A Pain of le ft hip joint 8212528842 59712 M25.552 Body mass index 25-29 - overweight 224347555 Z68.28 Obesity 994072623 E66.9 [id number] Tin Rodríguez MD [facility] ts [address] [place] [address] 06/25/2022 10:05:33 06/25/2022 14:59:30 Chronic obstructive pulmonary disease 99059618 J44.9 Stable, doing wellSymbic ort 160 mcgSpiriva respimat 2.5 mcgAlbuter ol/nebs as needed Reactive a irway disease 1175036170 06 J45.909 Continue MDI/DPI as prescribed well controlled Dependence on nocturnal oxygen therapy 3300308098 9108 Z99.81 2L NC O2 overnight, benefiting from use Tobacco de pendence in remission 658984707 F17.201 Smoked for 42 years,1 ppd, 42 PYHstopped 2019 LDCT 11/2021 Solitary n odule of lung 600364177 R91.1 LDCT 12/08/21 at [facility] :unchanged 7mm solid nodule LULno new or suspicious lung nodules seen.Will continue annual LDCT for nodule surveilanc e Overweight 080231565 E66 .3 Has increased exercise and diet change Pain of le ft hip joint 7242629892 78416 M25.552 Pulmonary clearance requested for Left hip replacemen t - date TBD by Dr. Kole Julian at [facility] Managed in primary care. Continue to monitor blood pressure. Encourage low salt diet and exerciseCa se discussed with Dr. Rodríguez, clearance given [id number] MD [facility] (Adult Med) [address] [place] [address] 0 07/13/2022 10:16:44 07/14/2022 13:42:29 Follow-up visit 159172037 Z09 Cough 92806999 R05.9 Osteoporosis 65521293 M8 1.0 Osteonecro sis of head of femur 736689701 M87.678 [id number] MD [facility] (Adult Med) [address] [place] [address] 79625[address]838 0 08/07/2022 09:59:30 08/11/2022 12:14:51 Benign essential hypertension 8605221 I10 [id number] MD [facility] (Adult Med) [address] [place] [address]5572[address] 0 09/23/2022 09:13:37 09/25/2022 11:40:16 Pre-surgery evaluation 871621337 Z01.818 Low risk Screening for malignant neoplasm of breast 035940133 Z12.31 Chronic ob structive pulmonary disease 64550764 J44.9 Stable Type 2 judith betes mellitus without complication 146265080 E11.9 Controlled with an HBA1C of 6.6 (08/07/2022 ), previously 6.2 () and 7.8 (08/06/2021 )Continue Metformin and Jardiance. [id number] Ariana Escobedo MD [facility] (Adult Med) [address] [place] [address] 01/21/2023 09:55:50 01/22/2023 14:29:34 Type 2 diabetes mellitus without complication 775569082 E11.9 Controlled with an HBA1C of 5.7 (10/23/2022 ), previously 6.6 (08/07/2022 ), 6.2 () and 7.8 (08/06/2021 )Continue Metformin and Jardiance. Insomnia 759428340 G47.0 0 She has failed OTC sleep medication s including Melatonin Seasonal allergy 9429357 04 J30.2 Postmenopa usal osteoporosis 857901453 M81.0 Influenza vaccination declined 358264638 Z28.21 Chronic ob structive pulmonary disease 53887319 J44.9 Stable History of total replacement of left hip joint 3117432602 421313 Z96.203 [id number] Tin Rodríguez MD [facility] [address] [place] [address] 2 01/27/2023 11:22:25 01/28/2023 12:24:30 Chronic obstructive pulmonary disease 40649336 J44.9 Stable, doing wellSymbic ort 160 mcgSpiriva respimat 2.5 mcgAlbuter ol/nebs as needed Reactive a irway disease 4561931506 06 J45.909 Continue MDI/DPI as prescribed well controlled Dependence on nocturnal oxygen therapy 2987161827 9108 Z99.81 2L NC O2 overnight, benefiting from use Tobacco de pendence in remission 283374651 F17.201 Smoked for 42 years,1 ppd, 42 PYHstopped 2019 LDCT 11/2021 Solitary n odule of lung 172841034 R91.1 LDCT 12/08/21 at [facility] :unchanged 7mm solid nodule LULno new or suspicious lung nodules seen.Will continue annual LDCT for nodule surveilanc e Overweight 407804000 E66 .3 Has increased exercise and diet change Pain of le ft hip joint 5187073140 83682 M25.552 Pulmonary clearance requested for Left hip replacemen t - date TBD by Dr. Kole Julian at [facility] Managed in primary care. Continue to monitor blood pressure. Encourage low salt diet and exerciseCa se discussed with Dr. Rodríguez, clearance given Severe chr onic obstructive pulmonary disease 184656648 J44.9 [id number] MD [facility] (Adult Med) [address] [place] [address]348[address] 0 03/22/2023 12:31:24 03/23/2023 10:16:53 Acute exacerbation of chronic obstructive pulmonary disease 119364801 J44.1 [id number] Tin Rodríguez MD [facility] [address] [place] [address] 2 05/05/2023 11:28:55 05/06/2023 08:39:52 Chronic obstructive pulmonary disease 01785520 J44.9 Stable, doing wellSymbic ort 160 mcgSpiriva respimat 2.5 mcgAlbuter ol/nebs as needed Reactive a irway disease 3687628656 06 J45.909 Continue MDI/DPI as prescribed well controlled Dependence on nocturnal oxygen therapy 7322407396 9108 Z99.81 2L NC O2 overnight, benefiting from use Tobacco de pendence in remission 466980037 F17.201 Smoked for 42 years,1 ppd, 42 PYHstopped 2019 LDCT 11/2021 Solitary n odule of lung 699288713 R91.1 LDCT 12/08/21 at [facility] :unchanged 7mm solid nodule LULno new or suspicious lung nodules seen.Will continue annual LDCT for nodule surveilanc e Overweight 014911590 E66 .3 Pain of le ft hip joint 9347990605 56515 M25.552 Pulmonary clearance requested for Left hip replacemen t - date TBD by Dr. Kole Julian at [facility] Managed in primary care. Continue to monitor blood pressure. Encourage low salt diet and exerciseCa se discussed with Dr. Rodríguez, clearance given Severe chr onic obstructive pulmonary disease 473309741 J44.9 Chronic cough 10416208 R 05.3 [id number] MD [facility] (Adult Med) [address] [place] [address] 05/24/2023 09:43:45 05/24/2023 16:17:32 Former heavy tobacco smoker 1209961827 87348 Z87.891 Non-neoplastic nevus 195 485188 I78.1 [id number] Tin Rodríguez MD [facility] [address] [place] [address] 08/04/2023 10:53:08 08/04/2023 14:58:08 Cough 71758272 R05.9 Seasonal allergy 4992411 04 J30.2 Sinusitis 37727584 J32.9 Chronic ob structive pulmonary disease 96405309 J44.9 Stable, doing wellSymbic ort 160 mcgSpiriva respimat 2.5 mcgAlbuter ol/nebs as needed Pulmonary emphysema 8743 3001 J43.9 Reactive a irway disease 8695364090 06 J45.909 Continue MDI/DPI as prescribed well controlled Dependence on nocturnal oxygen therapy 6253574747 9108 Z99.81 2L NC O2 overnight, benefiting from use Tobacco de pendence in remission 125808154 F17.201 Smoked for 42 years,1 ppd, 42 PYHstopped 2019 LDCT 11/2021 Solitary n odule of lung 726953242 R91.1 LDCT 12/08/21 at [facility] :unchanged 7mm solid nodule LULno new or suspicious lung nodules seen.Will continue annual LDCT for nodule surveilanc e Overweight 640839687 E66 .3 Pain of le ft hip joint 9159097882 24799 M25.552 Pulmonary clearance requested for Left hip replacemen t - date TBD by Dr. Kole Julian at [facility] Managed in primary care. Continue to monitor blood pressure. Encourage low salt diet and exerciseCa se discussed with Dr. Rodríguez, clearance given Severe chr onic obstructive pulmonary disease 587504886 J44.9 Chronic cough 44216541 R 05.3 [id number] MD [facility] Singer (Adult Med) [address] [place] [address] 08/09/2023 11:07:28 08/10/2023 14:13:18 Calcification of coronary artery 498967341 I25.84 Asymptomat icCopy to her cardiologi st Type 2 judith betes mellitus without complication 057673504 E11.9 Well controlled with an HBA1C of 6.1% (04/20/2023) , previously 5.7% (10/23/2022 ), 6.6% (08/07/2022 ), 6.2 % () and 7.8% (08/06/2021 )Continue Metformin and Jardiance. Screening mammography 24 182210 Z12.31 Medication monitoring 39 0456147 Z51.81 Nodule of lung 484667763 R91.1 She is following up with her pulmonolog ist [id number] Tin Rodríguez MD [facility] [address] [place] [address] 12/29/2023 11:44:01 12/29/2023 13:21:28 Seasonal allergy 162269631 J30.2 Chronic ob structive pulmonary disease 68851483 J44.9 Stable, doing wellSymbic ort 160 mcgSpiriva respimat 2.5 mcgAlbuter ol/nebs as needed Pulmonary emphysema 8743 3001 J43.9 Sinusitis 56615688 J32.9 Cough 32842835 R05.9 Reactive a irway disease 4018721632 06 J45.909 Continue MDI/DPI as prescribed well controlled Dependence on nocturnal oxygen therapy 3439980831 9108 Z99.81 2L NC O2 overnight, benefiting from use Tobacco de pendence in remission 519651525 F17.201 Smoked for 42 years,1 ppd, 42 PYHstopped 2019 LDCT 11/2021 Solitary n odule of lung 130562882 R91.1 LDCT 12/08/21 at [facility] :unchanged 7mm solid nodule LULno new or suspicious lung nodules seen.Will continue annual LDCT for nodule surveilanc e Overweight 407244672 E66 .3 Pain of le ft hip joint 4934946282 01407 M25.552 Pulmonary clearance requested for Left hip replacemen t - date TBD by Dr. Kole Julian at [facility] Managed in primary care. Continue to monitor blood pressure. Encourage low salt diet and exerciseCa se discussed with Dr. Rodríguez, clearance given Severe chr onic obstructive pulmonary disease 886344561 J44.9 Chronic cough 62404936 R 05.3 antitussiv es [id number] MD Kylie Burton (POWER SHOVEL MECHANIC) [address] [place] [address] 0 01/10/2024 11:21:50 01/12/2024 10:21:33 Gynecologic examination 61643684 Z01.419 69 year old here for well woman exam- negative mammo on 10/2023, repeat in 1 year- hx of vulvar cancer in 2019, was following with plisse machine operator oncology in [place], states she will no longer follow up with them due to headache of going to [place] [facility], exam today reassuring - hx of abnormal pap s/p LEEP, normal pap most recently in 2021- mammo neg 10/2023- follow up in 1 year, sooner if concerns [id number] MD Kylie Singer (Adult Med) [address] [place] [address]86[address] 0 02/08/2024 10:10:38 02/09/2024 10:59:01 Osteoporosis 22745096 M81.0 Influenza vaccination declined 300630101 Z28.21 History of fall 67955662 9 Z91.81 Type 2 judith betes mellitus without complication 902189760 E11.9 Well controlled with an HBA1C of 6.4% 12/14/2023, 6.1% (04/20/2023) , 5.7% (10/23/2022 ), 6.6% (08/07/2022 ), 6.2 % () and 7.8% (08/06/2021 )Continue Metformin and Jardiance. History of nicotine dependence 1043352783 51611121 Z87.891 Coronary arteriosclerosis in [place] artery 2731092578 107 I25.10 [id number] Tin Rodríguez MD [facility] [address] [place] [address] 06/28/2024 12:00:29 06/28/2024 14:45:34 Chronic obstructive pulmonary disease 42575207 J44.9 Stable, doing wellSymbic ort 160 mcgSpiriva respimat 2.5 mcgventoli n l/nebs as needed Seasonal allergy 7767665 04 J30.2 continue flonase Multiple n odules of lung 123881581 R91.8 [id number] MD Kylie Singer (Adult Med) [address] [place] [address] 0 07/24/2024 09:57:40 07/25/2024 09:17:29 Osteoporosis 25885012 M81.0 She has a reschedule d appointmen t for 02/2025 Type 2 judith betes mellitus without complication 466228374 E11.9 OV 02/08/2024 Well controlled with an HBA1C of 6.4% 12/14/2023, 6.1% (04/20/2023) , 5.7% (10/23/2022 ), 6.6% (08/07/2022 ), 6.2 % () and 7.8% (08/06/2021 )Continue Metformin and Jardiance. Coronary arteriosclerosis in [place] artery 2378190223 107 I25.10 Unexplaine d weight loss 703275718 R63.4 - 5 lbs Nausea 667385105 R11.0 General ex amination of patient 768666705 Z00.01 Skin lesion 81853879 L98 .9 Cramp 67837736 R25.2 Chronic ob structive pulmonary disease 32845979 J44.9 Stable [id number] Tin Rodríguez MD [facility] [address] [place] [address] 07/26/2024 13:55:06 07/26/2024 15:00:14 Chronic obstructive pulmonary disease 96434568 J44.9 Stable, doing wellSymbic ort 160 mcgSpiriva respimat 2.5 mcgventoli n /nebs as neededpred nisone as needed Essential hypertension 55986439 I10 home meds Diabetes mellitus 926013 09 E11.9 metformin [id number] MD Kylie Singer (Adult Med) [address] [place] [phone] 0 08/04/2024 11:42:19 08/07/2024 11:14:16 Vitamin deficiency 86502717 E56.9 31099 Hypomagnesemia 829912493 E83.42 9931 Type 2 judith betes mellitus 44511832 E11.9 32852587 Stable, HBA1C 6.0% OV 02/08/2024 Well controlled with an HBA1C of 6.4% 12/14/2023, 6.1% (04/20/2023) , 5.7% (10/23/2022 ), 6.6% (08/07/2022 ), 6.2 % () and 7.8% (08/06/2021 )Continue Metformin and Jardiance. Cramp 62051893 R25.2 63246 Jon Yap bhaskar education materials on cramps [id number] Tin Rodríguez MD [facility] [address] [place] [address] 2 12/06/2024 12:12:17 12/06/2024 14:50:10 Chronic obstructive pulmonary disease 48210042 J44.9 451562666 Stable, doing wellSymbic ort 160 mcgSpiriva respimat 2.5 mcgventoli n /nebs as neededpred nisone as needed Essential hypertension 55145538 I10 04005 home meds Hyperlipidemia 99101922 E78.5 11513886 Continue Atorvastat in [id number] Ariana Escobedo MD [facility] (Adult Med) [address] [place] [phone] 0 01/10/2025 09:57:00 01/15/2025 13:08:28 Type 2 diabetes mellitus 14351058 E11.9 16158108 Stable, HBA1C 6.0% on 01/08/2025 ontinue Jardiance 10 mg po daily and Metformin 500 mg BID, OV 02/08/2024 Well controlled with an HBA1C of 6.4% 12/14/2023, 6.1% (04/20/2023) , 5.7% (10/23/2022 ), 6.6% (08/07/2022 ), 6.2 % () and 7.8% (08/06/2021 )Continue Metformin and Jardiance. History of fall 80970746 9 Z91.81 4691511 Vitamin D deficiency 347 56516 E55.9 46466 Influenza vaccination declined 515195405 Z28.21 99620718 Therapeuti c drug monitoring assay 91823265 Z51.81 998920 Screening mammography 24 042698 Z12.31 1533921 Health Concerns Section Related Observation LastModified by Organization Detai ls LastModified Time None Recorded Concern Status LastModified by Organization Details LastModified Time None Recorded Advance Directives Directive N: Payers Insurance Date Sequence Insurance Name Policy Number Policy Jha Covered Member ID Jha Member ID Guarantor Name 03/10/2022 1 [facility] - DOS ON OR AFTER 20 (MEDICAID REPLACEMENT - HMO) Catherine Shukla [id number] Catherine Shukla 11/01/2020 1 [place] [facility] Catherine Shukla [id number] Catherine Shukla 11/01/[address] [facility] (PPO) [id number] Catherine Shukla [id number] Catherine Shukla 01/15/2025 1 [facility] (MEDICARE REPLACEMENT/AD VANTAGE - HMO) [id number] Catherine Shukla [id number] Catherine Shukla 11/01/2020 1 [facility] - DOS PRIOR TO 2020 (MEDICAID REPLACEMENT - HMO) Catherine Shukla [id number] Catherinesantana Shukla Notes Date Note Type Note Provider Name and Address Organization Details Recorded Time 5 text/html ROS as noted in the HPI This came out of nowhereI am feeling nauseous, I have a bump in my stomachThe urgent care was telling me I might need to look into a portable concentratorI get cramps bad Ms Shukla has been [...] been nauseous. Ariana Escobedo MD Attn: Accounting,[address] [place] [address] [place], [address], [facility] 07/24/2024 12:58:02 5 text/html ROS as noted in the HPI here for follow up.on prednisone for acute bronchitisSpiriva respimat 2.5 mcg and symbicort 160 mcgduonebs as neededalbuterol as neededdenies increased SOB , cough or sputum production Has GERD PFTs done on 05/2023 showed Moderate airways obstruction. No airways restrictionsupplemental O2 -2L/min with sleep only, benefiting from userides her out door bike LDCT done in 06/2024 showed multiple pulmonary nodules Tin Rodríguez MD [address] [place], [address], [facility] 07/26/2024 14:43:47 5 text/html Diabetes F/UReported by PatientHPIFor associated symptoms, patient reportsweight gain (2 lbs)but reportsno weight loss,no dizziness,no sweats,no headaches,no confusion,no increased thirst,no increased appetite,no increased urination,no blurred vision,no numbness of feet, andno calluses on feet. For labs, patient reportslast a1c result: 6.0%. For context, patient reportsnormal range of home blood sugars (in the low 100s),seeing eye doctor regularly,checking feet regularly,taking aspirin daily,not missing doses of medications, andno side effects from medications.ROS as noted in the HPI I am still getting the cramps Ariana Escobedo MD Attn: Accounting,2 [address] [facility], [place], [address], [facility] 08/04/2024 12:54:51 5 text/html ROS as noted in the HPI Patient here for follow up appointment.on prednisone for acute bronchitisSpiriva respimat 2.5 mcg and symbicort 160 mcgduonebs as neededalbuterol as neededdenies increased SOB , cough or sputum productionHas GERDPFTs done on 05/2023 showed Moderate airways obstruction. No airways restrictionsupplemental O2 -2L/min with sleep only, benefiting from useNot riding bike due to flat tire.LDCT done in 06/2024 showed multiple pulmonary nodules Tin Rodríguez MD [address] [place], [address], [facility] 12/06/2024 13:13:52 5 text/html Diabetes F/UReported by PatientHPIFor associated symptoms, patient reportsweight loss (1 lbs)but reportsno weight gain,no dizziness,no sweats,no headaches,no confusion,no increased thirst,no increased appetite,no increased urination,no blurred vision,no numbness of feet, andno calluses on feet. For labs, patient reportslast a1c result: 6.0%. For context, patient reportsnormal range of home blood sugars (in the low 100s),seeing eye doctor regularly,checking feet regularly,taking aspirin daily,not missing doses of medications, andno side effects from medications.ROS as noted in the HPI Check upMy sister got me a concentrator for home, I got rid of that company, Fani fell over a rake Ms Shukla is doing well, she unfortunately tripped and fell sustaining some bruising around her right eye. There was no LOC. Ariana Escobedo MD Attn: Accounting,2 [address] [facility], [place], [address], [facility] 01/10/2025 21:15:39 OBGyn Episode No OBEpisode recorded.
--- OUTSIDE RECORDS SUMMARY | 2025-03-01 14:14 | XMS_ITS | Continuity of Care Document ---
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 Plan of Treatment [...] available Not available Lab CBC 2024 026 oajao [facility], [address], [place], [address], 01/10/2025 11:10:39 CMP, serum or plasma 2024 026 oajao [facility], [address], [place], [address], 01/10/2025 11:10:39 vitamin D, 25-hydrox y, total, serum 2024 026 oaradhao [facility], [address], [place], [address], 01/10/2025 11:09:53 HbA1c (hemoglob in A1c), blood 2024 026 oaradhao [facility], [address], [place], [address], 01/10/2025 11:08:34 lipid panel, serum 2024 026 oaradhao [facility], [address], [place], [address], 01/10/2025 11:08:34 albumin/c reatinine , mass ratio, urine 2024 026 oabuffy [facility], [address], [place], [address], 01/10/2025 11:10:57 Referral None recorded. Procedures None recorded. Surgeries None recorded. Imaging MAMMO, screening , digital, bilateral [address] (Mammography) , [address], [place], [address], 02/16/2025 12:38:25 Medication Orders None recorded. Patient TargetsNo targets recorded. Patient Instructions Encounter Date Encounter Id Patient Instructions Last Modified By Organization Details Last Modified Time 01/10/2025 [id number] mammogram: about this test oajao Not available 01/10/2025 11:13:03 MMG MAWV in 5 months Labs in June, oajao Not available 01/10/2025 11:09:18 Reason for Referral None Reported. Results Created Date Observation Date Name Description Value Unit Range Abnormal Flag Note LastModifiedBy Organization Detail LastModifiedTime 01/09/2001/09/2025 LIPID PANEL cholesterol, total 158 mg/dL 100-19 9 Not Available [facility] ([facility]) [address] [facility], [place], [address], 01/09/2025 09:15:34 01/09/20 25 01/09/2025 LIPID PANEL triglyceride s 94 mg/dL 0-149 Not Available [facility] ([facility]) [address] [facility], [place], [address], 01/09/2025 09:15:34 01/09/2001/09/2025 LIPID PANEL HDL cholesterol 46 mg/dL >39 Not Available [facility] ([facility]) [address] [facility], [place], [address], 01/09/2025 09:15:34 01/09/2001/09/2025 LIPID PANEL VLDL cholesterol mike 17 mg/dL 5-40 Not Available [facility] ([facility]) [address] [facility], [place], [address], 01/09/2025 09:15:34 01/09/2001/09/2025 LIPID PANEL LDL chol calc ([facility]) 95 mg/dL 0-99 Not Available [facility] ([facility]) [address] [facility], [place], [address], 01/09/2025 09:15:34 01/09/2001/09/2025 HEMOG LOBIN A1C hemoglobin A1C 6.0 % 4.8-5. 6 above high normal Predi abete s: 5.7 - 6.4 Diabe ralph: >6.4 Glyce ngoc contr ol for adult s with diabe ralph: <7.0 Not Available [facility] ([facility]) [address] [facility], [place], [address], 01/09/2025 09:15:35 01/09/2001/09/2025 MAGNE SIUM magnesium 1.8 mg/dL 1.6-2. 3 Not Available [facility] ([facility]) [address] [place], [address], 01/09/2025 09:15:35 Result Notes None recorded. Problems Name Problem SNOMED Code Status Onset Date Resolution Date Notes Provider Name and Address Organization Details Recorded Time Pneumoni a caused by SARS-CoV -2 18065378049 7233209 Active Ariana Escobedo MD Attn: Lynda gonzáles,[address] [facility], [place], [address], [place] [facility] 4 09:57:29 Pain of left hip joint 19789580954 9100 Active Ariana Escobedo MD Attn: Lynda gonzáles,[address] [facility], [place], [address], [place] [facility] 4 09:57:28 Tobacco dependen ce in [facility] 595739016 Active 2018 Ariana Escobedo MD Attn: Lynda g,[address] [facility], [place], [address], [place] [facility] 4 09:57:28 History of myocardi al infarcti on 443231728 Active 2018 Ariana Escobedo MD Attn: Lynda gonzáles,[address] [facility], [place], [address], [place] [facility] 4 09:57:28 Solitary nodule of lung 093553694 Active 2018 Ariana Escobedo MD Attn: Lynda gonzáles,[address] [facility], [place], [address], [place] [facility] 4 09:57:28 Coronary arterios clerosis in [place] artery 40587246739 07 Active 2018 Ariana Escobedo MD Attn: Lynda gonzáles,[address] [facility], [place], [address], [place] [facility] 4 09:57:28 History of pulmonar y embolus 323364119 Active 2018 Ariana Escobedo MD Attn: Lynda g,[address] [facility], [place], [address], [place] [facility] 4 09:57:28 Tetanus vaccinat ion declined by patient 211666116 Active 2018 Ariana Escobedo MD Attn: Lynda gonzáles,[address] [facility], [place], [address], [place] [facility] 4 09:57:28 Ganglion cyst of right hand 12278135505 9107 Active 2018 Ariana Escobedo MD Attn: Lynda gonzáles,[address] [place], [address], [place] [facility] 4 09:57:28 Pulmonar y emphysem a 99704786 Active 2018 Ariana Escobedo MD Attn: Lynda gonzáles,[address] [place], [address], [place] [facility] 4 09:57:29 Anxiety 17355729 Active 2018 Ariana Escobedo MD Attn: Lynda gonzáles,[address] [place], [address], [place] [facility] 4 09:57:28 Benign hyperten cornelio 66647427 Active 2018 Ariana Escobedo MD Attn: Lynad gonzáles,[address] [place], [address], [place] [facility] 4 09:57:28 Chronic obstruct mirian pulmonar y disease 30783061 Active 2018 Ariana Escobedo MD Attn: Lynda gonzáles,[address] [place], [address], [place] [facility] 4 09:57:28 High grade squamous intraepi thelial lesion on cervical Papanico laou smear 08781000170 107 Active 2019 Ariana Escobedo MD Attn: Lynda gonzáles,[address] [place], [address], [place] [facility] 4 09:57:28 Squamous cell carcinom a of vulva 739573888 Completed 201906/13/2019 TAMARA CRAVEN Attn: Lynda gonzáles,[address] [place], [address], [place] [facility] 0 16:42:33 Carcinom a in situ of vulva 27610141 Completed 201901/10/2024 KELY PHAM MD Attn: Lynda gonzáles,[address] [facility], [place], [address], [place] [facility] 4 13:26:27 Rupture of tendon of biceps 811259120 Active 2019 Followin g with orthoped ics Ariana Escobedo MD Attn: Lynda gonzáles,[address] [facility], [place], [address], [place] [facility] 4 09:57:28 Rupture of rotator cuff of right shoulder 07743431281 105550 Active 2019 Chronic anterior rotator cuff tear, followin g with orthoped ics. NSAID therapy and PT currentl y. Ariana Escobedo MD Attn: Lynda gonzáles,[address] [facility], [place], [address], [place] [facility] 4 09:57:28 History of calculus of kidney 264046801 Active 2019 Ariana Escobedo MD Attn: Lynda gonzáles,[address] [place], [address], [place] [facility] 4 09:57:28 Onychomy cosis of toenails 896788612 Active 2019 Ariana Escobedo MD Attn: Lynda gonzáles,[address] [facility], [place], [address], [place] [facility] 4 09:57:28 Degenera tion of lumbar interver tebral disc 17734516 Active 2019 Ariana Escobedo MD Attn: Lynda gonzáles,[address] [facility], [place], [address], [place] [facility] 4 09:57:28 Scoliosi s deformit y of spine 152550902 Active 2019 Ariana Escobedo MD Attn: Lorenaphuc gonzáles,[address] [facility], [place], [address], [place] [facility] 4 09:57:28 Type 2 diabetes mellitus without complica tion 412854131 Active 2021 Ariana Escobedo MD Attn: Lynda gonzáles,[address] [facility], [place], [place], [address] [place] [address] 2, [place] [facility] 4 09:57:28 Osteopor osis 90115782 Active 2022 Ariana Escobedo MD Attn: Lynda gonzáles,[address] [facility], [place], [place], [address] [place] [address] 2, [place] [facility] 4 09:57:28 Osteonec rosis of head of femur 837431637 Active 2022 Ariana Escobedo MD Attn: Lynda gonzáles,[address] [facility], [place], [place], [address] [place] [address] 2, [place] [facility] 4 09:57:28 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 46288540489 26642 Active 2022 Ariana Escobedo MD Attn: Lynda gonzáles,[address] [facility], [place], [place], [address] [place] [address] 2, [place] [facility] 4 09:57:28 Calcific ation of coronary artery 525380395 Active 2023 Ariana Escobedo MD Attn: Lynda gonzáles,[address] [facility], [place], [place], [address] [place] [address] 2, [place] [facility] 4 11:22:52 Nodule of lung 902484375 Active 2023 Ariana Escobedo MD Attn: Lynda gonzáles,[address] [facility], [place], [place], [address] [place] [address] 2, [place] [facility] 4 13:33:54 Influenz a vaccinat ion declined 710710952 Active 2023 Ariana Escobedo MD Attn: Lynda gonzáles,[address] [facility], [place], [place], [address] [place] [address] 2, [place] [facility] 5 11:11:04 History of fall 198671031 Active 2023 Ariana Escobedo MD Attn: Lynda gonzáles,[address] [facility], [place], [address], [facility] - [facility] 18:14:28 Problem Notes None recorded. Procedures Surgical History Date Name Laterality Status Provider Name and Address Organization Details Recorded Time 01/11/20 25 Diabetic Foot Exam completed Ariana Escobedo MD Attn: Accounting,[address] [facility], [place], [address], [facility] - [facility] 01/10/2025 21:12:44 11/08/19 24 Most Recent Mammogram completed Liana Pacheco [place] - [facility] 01/06/2024 12:14:05 01/22/20 23 Diabetic Foot Exam completed Ariana Escobedo MD Attn: Accounting,[address] [facility], [place], [address], [facility] - [facility] 01/21/2023 10:53:51 10/01/19 23 total replacement of hip completed Ariana Escobedo MD Attn: Accounting,2 [address] [facility], [place], [address], [facility] - [facility] 10/15/2022 13:18:11 11/12/19 22 Date of Last Pap Smear completed Liana Pacheco [place] - [place] 11/11/2021 10:53:10 11/04/19 22 Date of Last Mammogram completed Liana Pacheco [place] - [facility] 11/11/2021 10:56:37 01/11/20 21 Suture/Staple removal completed TAMARA MURPHY Attn: Accounting,[address] [facility], [place], [address], [facility] - [facility] 01/10/2021 15:31:39 06/08/19 20 Vulvar Biopsy completed TAMARA MURPHY Attn: Accounting,[address] [place], [address], [facility] - [facility] 06/08/2019 17:34:54 06/08/19 20 colposcopy completed Liana Pacheco [place] [facility] 11/11/2021 10:52:50 05/25/19 20 Colposcopy completed TAMARA MURPHY Attn: Accounting,[address] [facility], [place], [address], [facility] - SI 05/25/2019 22:59:23 07/07/19 19 colonoscopy completed Ariana Esocbedo MD Attn: Accounting,2 [address] [facility], [place], [address], [facility] - [facility] 07/01/2020 10:04:29 Dilation and Curettage completed Giuliana Tejada MA [facility] 05/31/2018 14:14:54 Tubal Ligation completed Giuliana Tejada MA [facility] 05/31/2018 14:14:59 thumb surgery completed Giuliana Tejada MA [facility] 05/31/2018 14:15:28 reconstruction of anterior cruciate ligament of knee joint completed Ariana Escobedo MD Attn: Accounting,[address] [facility], [place], [address], [facility] - [facility] 05/31/2018 14:34:16 Imaging Results None recorded. Procedure Notes None recorded. Medical Equipment None Reported. Allergies Allergen ID Allergen Name Allergen Category Reaction Reaction Severity Criticality Documentation Date Start Date Code Code System Note Provider Name and Address Organization Details Recorded Time 747340 No known allergy (situatio n) Not available Not available Not available Not available 07/09/2021 83339 6003 SNOMED Ariana Escobedo MD Attn: Lynda gonzáles,[address] [facility], [place], [address] , [facility] - [facility] 10:19:15 No known drug allergies Medications Name [...] Updated DateTime 5 154.94 cm 22.7 kg/m2 20911.1 6 g 16 /min 62 /min 96 % 97.8 [degF] 124/76 mm[Hg] Giuliana Tejada [place] [facility] 5 10:24:52 Social History Question Answer Notes LastModified by Organizat ion Details LastModified Time Tobacco Smoking Status Former Smoker Giuliana Tejada MA null, [place] - [place] 05/31/2018 14:13:08 Do You Have An [...] Do You Have A Medical Power Of Turbine 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 No [email or web address] Information not available 10/02/2021 What [...] Skin Problems N Anemia N Heart Attack ([place]) Y Diabetes Y Anxiety Disorder Y Muscle, [...] PF, 0.5 mL 1 completed Not Available [facility] 03/19/2023 06:46:51 pneumococcal polysaccharide PPV23 2 completed Not Available [facility] 03/19/2023 06:46:51 Pneumococcal conjugate PCV20, polysaccharide XJZ812 conjugate, adjuvant, PF 3 completed Not Available [facility] 03/19/2023 06:46:51 Influenza, split virus, quadrivalent, preservative 9 completed Not Available [facility] 04/29/2019 02:40:58 Influenza, split virus, quadrivalent, preservative 1 completed Je Morse MA [facility] 07/05/2020 11:54:22 Past Encounters Encounter ID Performer Location Encounter Start Date Encounter Closed Date Diagnosis/Indication Diagnosis SNOMED-CT Code Diagnosis ICD10 Code Diagnosis IMO Codes Diagnosis Note [id number] Ariana Escobedo MD [facility] (Adult Med) [address] [place] [address] 01/10/2025 09:57:00 01/15/2025 13:08:28 Type 2 diabetes mellitus 14336492 E11.9 89144060 Stable, HBA1C 6.0% on 01/08/2025 ontinue Jardiance 10 mg po daily and Metformin 500 mg BID, OV 02/08/2024 Well controlled with an HBA1C of 6.4% 12/14/2023, 6.1% (04/20/2023) , 5.7% (10/23/2022 ), 6.6% (08/07/2022 ), 6.2 % () and 7.8% (08/06/2021 )Continue Metformin and Jardiance. History of fall 94667889 9 Z91.81 3964155 Vitamin D deficiency 347 21527 E55.9 07130 Influenza vaccination declined 890779246 Z28.21 02439594 Therapeuti c drug monitoring assay 63677821 Z51.81 442774 Screening mammography 24 828295 Z12.31 6657644 Health Concerns Section Related Observation LastModified by Organization Detai ls LastModified Time None Recorded Concern Status LastModified by Organization Details LastModified Time None Recorded Payers Encounter Date Sequence Insurance Name Policy Number Policy Jha Covered Member ID Jha Member ID Guarantor Name 01/10/2025 1 [facility] (MEDICARE REPLACEMENT/A DVANTAGE - HMO) [id number] Catherine Shukla [id number] Catherine Shukla Notes Date Note Type Note Provider Name and Address Organization Details Recorded Time 01/10/2025 text/html Diabetes F/UReported by PatientHPIFor associated symptoms, [...] was no LOC. Ariana Escobedo MD Attn: Accounting,[address] [facility], [place], [address], [facility] 01/10/2025 21:15:39 OBGyn Episode No OBEpisode recorded.
--- OUTSIDE RECORDS SUMMARY | 2025-03-01 14:14 | XMS_ITS | Data Portability ---
Author Organization [facility] [employer], Main Office Address [address] [place] [address] Care Team Providers Care [employer] Distribution [employer] Operator Name Role Phone SLAVA ESCOBEDO Primary Care [...] 28 so [place] 99289 unit ergo calciferol tablets weekly. She saw a machine programmer at [facility] and had 0 echocardiogram [...] than half of this time spent in [id number] care. Not available 08/13/2022 13:51:00 10/15/2022 10/15/2022 [...] to make sure she continues do well. [email or web address] Not available 10/29/2022 10:39:08 11/26/2022 11/26/2022 HPI: [...] gy referral 2022 023 faina Rubi MD, [address],, [facility], [place], [address], 13:55:45 Procedures None recorded. Surgeries None recorded. Imaging XR, hip + pelvis, unilateral 2022 023 [facility], [address] [facility], [address], [place], [address], 16:25:15 Medication Orders None recorded. Patient TargetsNo [...] range effec tive 05/08 . Not Available [facility] (Lab) [address] [place], [address], 08/06/2022 13:57:41 08/07/19 23 08/06/2022 PARAT HYROI D HORM (PTH) INT.W /CA calcium 9.6 mg/dL 8.4-10 .2 Not Available [facility] (Lab) [address] [place], [address], 08/06/2022 13:57:41 08/07/19 23 08/06/2022 PHOSP HORUS phosphorus 3.4 mg/dL 2.5-4. 5 Not Available [facility] (Lab) [address] [place], [address], 08/06/2022 13:45:09 08/07/19 23 08/06/2022 VITAM IN D 25-HY DROXY vd25oh 26.5 NG/mL 30-100 low Vitam in D Statu s: Defic ient: <20 ng/mL Insuf ficie nt: 20-29 ng/mL Suffi cient : 30-10 0 ng/mL Not Available [facility] (Lab) [address] [place], [address], 08/06/2022 14:11:02 08/07/19 23 08/07/2022 COMPR EHENS ANGELA METAB OLIC PANEL sodium 138 mmol/ L 137-14 5 Not Available [facility] (Lab) [address] [place], [address], 08/07/2022 17:36:42 08/07/19 23 08/07/2022 COMPR EHENS ANGELA METAB OLIC PANEL potassium 3.8 mmol/ L 3.5-5. 1 Not Available [facility] (Lab) [address] [place], [address], 08/07/2022 17:36:42 08/07/19 23 08/07/2022 COMPR EHENS ANGELA METAB OLIC PANEL chloride 100 mmol/ L 98-107 Not Available [facility] (Lab) [address] [place], [address], 08/07/2022 17:36:42 08/07/19 23 08/07/2022 COMPR EHENS ANGELA METAB OLIC PANEL carbon dioxide 28 mmol/ L 22-30 Not Available [facility] (Lab) [address] [place], [address], 08/07/2022 17:36:42 08/07/19 23 08/07/2022 COMPR EHENS ANGELA METAB OLIC PANEL anion gap 13.8 mmol/ L 14-22 low Not Available [facility] (Lab) [address] [place], [address], 08/07/2022 17:36:42 08/07/19 23 08/07/2022 COMPR EHENS ANGELA METAB OLIC PANEL glucose 95 mg/dL 70-99 Not Available [facility] (Lab) [address] [place], [address], 08/07/2022 17:36:42 08/07/19 23 08/07/2022 COMPR EHENS ANGELA METAB OLIC PANEL BUN 22 mg/dL 8-19 high Not Available [facility] (Lab) [address] [place], [address], 08/07/2022 17:36:42 08/07/19 23 08/07/2022 COMPR EHENS ANGELA METAB OLIC PANEL creatinine 0.83 mg/dL 0.66-1 .25 Not Available [facility] (Lab) [address] [place], [address], 08/07/2022 17:36:42 08/07/19 23 08/07/2022 COMPR EHENS ANGELA METAB OLIC PANEL GFR >60 Refer ence Range : [place] ge GFR Healt hy Adult : >60 [...] or ethni c subgr oups, such as [facility] nics. Outsi de the valid ated [...] calcu lator is avail able on the [facility] websi te: https ://galina jones.judit rg/pr ofess ional s/kdo qi/gf r_cal culat or Not Available [facility] (Lab) [address] [place], [address], 08/07/2022 17:36:42 08/07/19 23 08/07/2022 COMPR EHENS ANGELA METAB OLIC PANEL alkaline phosphatase 114 U/L 38-126 Not Available [facility] (Lab) [address] [place], [address], 08/07/2022 17:36:42 08/07/19 23 08/07/2022 COMPR EHENS ANGELA METAB OLIC PANEL alanine aminotransfe rase 27 U/L 0-35 Not Available [facility] (Lab) [address] [place], [address], 08/07/2022 17:36:42 08/07/19 23 08/07/2022 COMPR EHENS ANGELA METAB OLIC PANEL aspartate aminotransfe rase 28 U/L 15-37 Not Available [facility] (Lab) [address] [place], [address], 08/07/2022 17:36:42 08/07/19 23 08/07/2022 COMPR EHENS ANGELA METAB OLIC PANEL bilirubin, total 0.40 mg/dL 0.20-1 .30 Not Available [facility] (Lab) [address] [place], [address], 08/07/2022 17:36:42 08/07/19 23 08/07/2022 COMPR EHENS ANGELA METAB OLIC PANEL calcium 9.8 mg/dL 8.4-10 .2 Not Available [facility] (Lab) [address] [place], [address], 08/07/2022 17:36:42 08/07/19 23 08/07/2022 COMPR EHENS ANGELA METAB OLIC PANEL total protein 6.6 g/dL 6.3-8. 2 Not Available [facility] (Lab) [address] [place], [address], 08/07/2022 17:36:42 08/07/19 23 08/07/2022 COMPR EHENS ANGELA METAB OLIC PANEL albumin 3.9 g/dL 3.0-4. 4 Not Available [facility] (Lab) [address] [place], [address], 08/07/2022 17:36:42 08/07/19 23 08/07/2022 COMPR EHENS ANGELA METAB OLIC PANEL globulin 2.7 g/dL 2.6-4. 2 Not Available [facility] (Lab) [address] [place], [address], 08/07/2022 17:36:42 08/07/19 23 08/07/2022 COMPR EHENS ANGELA METAB OLIC PANEL A/G ratio 1.4 ratio 1.0-2. 0 Not Available [facility] (Lab) [address] [place], [address], 08/07/2022 17:36:42 08/12/19 23 08/11/2022 CALCI UM 24 HR URINE ur calcm 11.5 mg/dL REFER ENCE RANGE NOT ESTAB LISHE D FOR RANDO M URINE CALCI UM Not Available [facility] (Lab) [address] [place], [address], 08/11/2022 13:50:36 08/12/19 23 08/11/2022 CALCI UM 24 HR URINE calc 24H 265 mg/24 HR 100-30 0 Not Available [facility] (Lab) [address] [place], [address], 08/11/2022 13:50:36 08/12/19 23 08/11/2022 CALCI UM 24 HR URINE tot vol 2300 mL 600-20 00 high Not Available [facility] (Lab) [address] [place], [address], 08/11/2022 13:50:36 09/16/19 23 09/15/2022 CBC/C OMPLE TE BLD COUNT W/DIF F white blood cells 7.3 x10'3 /uL 4.2-10 .8 Not Available [facility] (Lab) [address] [place], [address], 09/15/2022 10:16:54 09/16/19 23 09/15/2022 CBC/C OMPLE TE BLD COUNT W/DIF F red blood cells 4.33 x10'6 /uL 3.80-5 .20 Not Available [facility] (Lab) [address] [place], [address], 09/15/2022 10:16:54 09/16/19 23 09/15/2022 CBC/C OMPLE TE BLD COUNT W/DIF F hemoglobin 13.8 g/dL 12.0-1 5.6 Not Available [facility] (Lab) [address] [place], [address], 09/15/2022 10:16:54 09/16/19 23 09/15/2022 CBC/C OMPLE TE BLD COUNT W/DIF F hematocrit 42.5 % 35.7-4 5.7 Not Available [facility] (Lab) [address] [place], [address], 09/15/2022 10:16:54 09/16/19 23 09/15/2022 CBC/C OMPLE TE BLD COUNT W/DIF F mean red cell volume 98.2 fL 82.0-9 9.0 Not Available [facility] (Lab) [address] [place], [address], 09/15/2022 10:16:54 09/16/19 23 09/15/2022 CBC/C OMPLE TE BLD COUNT W/DIF F mean red cell hemoglobin 31.9 pg 27.0-3 3.0 Not Available [facility] (Lab) [address] [place], [address], 09/15/2022 10:16:54 09/16/19 23 09/15/2022 CBC/C OMPLE TE BLD COUNT W/DIF F mean RBC HGB concentratio n 32.5 g/dL 31.0-3 6.0 Not Available [facility] (Lab) [address] [facility] [place], [address], 09/15/2022 10:16:54 09/16/19 23 09/15/2022 CBC/C OMPLE TE BLD COUNT W/DIF F red cell distribution width 13.7 % 11.8-1 5.5 Not Available [facility] (Lab) [address] [place], [address], 09/15/2022 10:16:54 09/16/19 23 09/15/2022 CBC/C OMPLE TE BLD COUNT W/DIF F platelets 209 x10'3 /uL 150-40 0 Not Available [facility] (Lab) [address] [place], [address], 09/15/2022 10:16:54 09/16/19 23 09/15/2022 CBC/C OMPLE TE BLD COUNT W/DIF F mean platelet volume 11.1 fL 9.0-12 .4 Not Available [facility] (Lab) [address] [place], [address], 09/15/2022 10:16:54 09/16/19 23 09/15/2022 CBC/C OMPLE TE BLD COUNT W/DIF F neutrophils 75.3 % 39.0-7 2.0 high Not Available [facility] (Lab) [address] [place], [address], 09/15/2022 10:16:54 09/16/19 23 09/15/2022 CBC/C OMPLE TE BLD COUNT W/DIF F lymphocytes 18.3 % 16.0-4 7.0 Not Available [facility] (Lab) [address] [place], [address], 09/15/2022 10:16:54 09/16/19 23 09/15/2022 CBC/C OMPLE TE BLD COUNT W/DIF F monocytes 5.2 % 5.0-12 .0 Not Available [facility] (Lab) [address] [place], [address], 09/15/2022 10:16:54 09/16/19 23 09/15/2022 CBC/C OMPLE TE BLD COUNT W/DIF F eosinophils 0.1 % 1.0-7. 0 low Not Available [facility] (Lab) [address] [place], [address], 09/15/2022 10:16:54 09/16/19 23 09/15/2022 CBC/C OMPLE TE BLD COUNT W/DIF F basophils 0.7 % 0.0-2. 0 Not Available [facility] (Lab) [address] [place], [address], 09/15/2022 10:16:54 09/16/19 23 09/15/2022 CBC/C OMPLE TE BLD COUNT W/DIF F immature granulocytes 0.4 % 0.00-0 .50 Not Available [facility] (Lab) [address] [place], [address], 09/15/2022 10:16:54 09/16/19 23 09/15/2022 CBC/C OMPLE TE BLD COUNT W/DIF F neutrophils, absolute count 5.53 x10'3 /uL 1.5-8. 0 Not Available [facility] (Lab) [address] [place], [address], 09/15/2022 10:16:54 09/16/19 23 09/15/2022 CBC/C OMPLE TE BLD COUNT W/DIF F lymphocytes, absolute count 1.34 x10'3 /uL 1.07-3 .43 Not Available [facility] (Lab) [address] [place], [address], 09/15/2022 10:16:54 09/16/19 23 09/15/2022 CBC/C OMPLE TE BLD COUNT W/DIF F monocytes, absolute count 0.38 x10'3 /uL 0.29-0 .99 Not Available [facility] (Lab) [address] [place], [address], 09/15/2022 10:16:54 09/16/19 23 09/15/2022 CBC/C OMPLE TE BLD COUNT W/DIF F eosinophils, absolute count 0.01 x10'3 /uL 0.02-0 .53 low Not Available [facility] (Lab) [address] [place], [address], 09/15/2022 10:16:54 09/16/19 23 09/15/2022 CBC/C OMPLE TE BLD COUNT W/DIF F basophils, absolute count 0.05 x10'3 /uL 0.01-0 .08 Not Available [facility] (Lab) [address] [place], [address], 09/15/2022 10:16:54 09/16/19 23 09/15/2022 CBC/C OMPLE TE BLD COUNT W/DIF F immature granulocytes ,absolute 0.03 x10'3 /uL 0.00-0 .05 Not Available [facility] (Lab) [address] [place], [address], 09/15/2022 10:16:54 09/16/19 23 09/15/2022 CBC/C OMPLE TE BLD COUNT W/DIF F nucleated red blood cells 0.0 % -0 Not Available [facility] (Lab) [address] [place], [address], 09/15/2022 10:16:54 09/16/19 23 09/15/2022 CBC/C OMPLE TE BLD COUNT W/DIF F NRBC# 0.00 x10'3 /uL Not Available [facility] (Lab) [address] [place], [address], 09/15/2022 10:16:54 09/16/19 23 09/15/2022 PROTI ME W/INR protime 9.7 secon ds 9.5-11 .5 Not Available [facility] (Lab) [address] [place], [address], 09/15/2022 10:40:07 09/16/19 23 09/15/2022 PROTI ME [...] HOSPH OLIPI D SYNDR OME. Not Available [facility] (Lab) [address] [place], [address], 09/15/2022 10:40:07 09/16/19 23 09/15/2022 APTT APTT 25.9 secon ds 23.4-3 1.4 PLEAS E NOTE NEW APTT REFER ENCE RANGE EFFEC TIVE 03/30 . Not Available [facility] (Lab) [address] [facility] [place], [address], 09/15/2022 10:40:11 09/16/19 23 09/15/2022 CORTI HORACE, TOTAL , A.M. rafael AM 1.0 ug/dL 4.5-22 .7 low Not Available [facility] (Lab) [address] [place], [address], 09/15/2022 10:42:38 09/16/19 23 09/15/2022 BASIC METAB OLIC PANEL sodium 140 mmol/ L 137-14 5 Not Available [facility] (Lab) [address] [place], [address], 09/15/2022 10:59:24 09/16/19 23 09/15/2022 BASIC METAB OLIC PANEL potassium 3.9 mmol/ L 3.5-5. 1 Not Available [facility] (Lab) [address] [place], [address], 09/15/2022 10:59:24 09/16/19 23 09/15/2022 BASIC METAB OLIC PANEL chloride 100 mmol/ L 98-107 Not Available [facility] (Lab) [address] [place], [address], 09/15/2022 10:59:24 09/16/19 23 09/15/2022 BASIC METAB OLIC PANEL carbon dioxide 32 mmol/ L 22-30 high Not Available [facility] (Lab) [address] [place], [address], 09/15/2022 10:59:24 09/16/19 23 09/15/2022 BASIC METAB OLIC PANEL anion gap 11.9 mmol/ L 14-22 low Not Available [facility] (Lab) [address] [place], [address], 09/15/2022 10:59:24 09/16/19 23 09/15/2022 BASIC METAB OLIC PANEL glucose 113 mg/dL 70-99 high Not Available [facility] (Lab) [address] [place], [address], 09/15/2022 10:59:24 09/16/19 23 09/15/2022 BASIC METAB OLIC PANEL BUN 19 mg/dL 8-19 Not Available [facility] (Lab) [address] [place], [address], 09/15/2022 10:59:24 09/16/19 23 09/15/2022 BASIC METAB OLIC PANEL creatinine 0.65 mg/dL 0.66-1 .25 low Not Available [facility] (Lab) [address] [place], [address], 09/15/2022 10:59:24 09/16/19 23 09/15/2022 BASIC METAB OLIC PANEL GFR >60 Refer ence Range : [place] ge GFR Healt hy Adult : >60 [...] or ethni c subgr oups, such as mt nics. Outsi de the valid ated buddy eters , estim ated GFR is less accur ate, requi ring clini mike judgm ent on a case- by-ca se basis . Clini mike inter preta tion for other races and ages must be made by the clini hrary. The MDRD study equat ion has not been valid ated for the evalu ation of serum creat inine relat ed to nutri fish l statu s or medic ation usage . For perso ns <18 years of age, a pedia tric GFR calcu lator is avail able on the [facility] websi te: https ://galina w.lorena vogty.o rg/pr ofess ional s/kdo qi/gf r_cal culat or Not Available [facility] (Lab) [address] [place], [address], 09/15/2022 10:59:24 09/16/19 23 09/15/2022 BASIC METAB OLIC PANEL calcium 9.5 mg/dL 8.4-10 .2 Not Available [facility] (Lab) [address] [place], [address], 09/15/2022 10:59:24 09/16/19 23 09/15/2022 HEMOG LOBIN A1C HA1C 6.0 % 4.0-6. 0 Diabe ralph Scree linda Crite cristina: <5.7% Consi stent with absen ce of diabe ralph 5.7-6 .4% Consi stent with incre ased risk for diabe ralph (pred iabet es) >OR=6 .5% Consi stent with diabe ralph REFER ENCE: Diabe ralph Care 2016, 39(Tian ppl.1 ):s13 -s22 Not Available [facility] (Lab) [address] [place], [address], 09/15/2022 12:13:40 09/16/19 23 09/15/2022 MRSA/ STAPH AUREU S, NASAL , PCR MRSA, nasal NEGATI VE Not Available [facility] (Lab) [address] [place], [address], 09/15/2022 13:41:58 09/16/19 23 09/15/2022 MRSA/ STAPH AUREU S, NASAL , PCR staph aureus, nasal NEGATI VE Not Available [facility] (Lab) [address] [place], [address], 09/15/2022 13:41:58 09/16/19 23 09/15/2022 TYPE AND SCREE N patient ABO group and Rh A POSITI VE Not Available [facility] (Lab) [address] [place], [address], 09/15/2022 14:08:20 09/16/19 23 09/15/2022 TYPE AND SCREE N patient antibody screen NEGATI VE Not Available [facility] (Lab) [address] [place], [address], 09/15/2022 14:08:20 09/16/19 23 09/19/2022 DEXAM ETHAS [...] day: 1600 - 2850 Perfo rmed at: [employer] [address] [place] [id number] Lab Direc tor: Delvin sylvester MD, Phone : [phone] Not Available [facility] (Lab) [address] [place], [address], 09/19/2022 03:36:15 09/30/19 23 09/29/2022 GLUCO SE (POIN T OF CARE) glucose (point of care) 95 mg/dL 74-99 Not Available [facility] (Lab) [address] [place], [address], 09/29/2022 07:17:53 09/30/19 23 09/29/2022 POTAS SIUM potassium 3.2 mmol/ L 3.5-5. 1 low Not Available [facility] (Lab) [address] [place], [address], 09/29/2022 07:52:53 09/30/19 23 09/29/2022 ABO/R H CONFI RMATI ON patient ABO group and Rh A POSITI VE Not Available [facility] (Lab) [address] [place], [address], 09/29/2022 08:10:12 09/30/19 23 09/29/2022 GLUCO SE (POIN T OF CARE) glucose (point of care) 92 mg/dL 74-99 Not Available [facility] (Lab) [address] [facility] [place], [address], 09/29/2022 12:15:28 09/30/19 23 09/29/2022 VITAM IN D 25-HY DROXY vd25oh 39.2 NG/mL 30-100 Vitam in D Statu s: Defic ient: <20 ng/mL Insuf ficie nt: 20-29 ng/mL Suffi cient : 30-10 0 ng/mL Not Available [facility] (Lab) [address] [place], [address], 09/29/2022 12:52:15 10/24/19 23 10/23/2022 COMPR EHENS ANGELA METAB OLIC PANEL sodium 140 mmol/ L 137-14 5 Not Available [facility] (Lab) [address] [place], [address], 10/23/2022 12:20:36 10/24/19 23 10/23/2022 COMPR EHENS ANGELA METAB OLIC PANEL potassium 3.9 mmol/ L 3.5-5. 1 Not Available [facility] (Lab) [address] [place], [address], 10/23/2022 12:20:36 10/24/19 23 10/23/2022 COMPR EHENS ANGELA METAB OLIC PANEL chloride 99 mmol/ L 98-107 Not Available [facility] (Lab) [address] [place], [address], 10/23/2022 12:20:36 10/24/19 23 10/23/2022 COMPR EHENS ANGELA METAB OLIC PANEL carbon dioxide 33 mmol/ L 22-30 high Not Available [facility] (Lab) [address] [place], [address], 10/23/2022 12:20:36 10/24/19 23 10/23/2022 COMPR EHENS ANGELA METAB OLIC PANEL anion gap 11.9 mmol/ L 14-22 low Not Available [facility] (Lab) [address] [place], [address], 10/23/2022 12:20:36 10/24/19 23 10/23/2022 COMPR EHENS ANGELA METAB OLIC PANEL glucose 99 mg/dL 70-99 Not Available [facility] (Lab) [address] [place], [address], 10/23/2022 12:20:36 10/24/19 23 10/23/2022 COMPR EHENS ANGELA METAB OLIC PANEL BUN 14 mg/dL 8-19 Not Available [facility] (Lab) [address] [place], [address], 10/23/2022 12:20:36 10/24/19 23 10/23/2022 COMPR EHENS ANGELA METAB OLIC PANEL creatinine 0.64 mg/dL 0.66-1 .25 low Not Available [facility] (Lab) [address] [place], [address], 10/23/2022 12:20:36 10/24/19 23 10/23/2022 COMPR EHENS ANGELA METAB OLIC PANEL GFR >60 Refer ence Range : [place] ge GFR Healt hy Adult : >60 [...] calcu lator is avail able on the [facility] websi te: https ://ww w.kid karen.o rg/pr ofess ional s/kdo qi/gf r_cal culat or Not Available [facility] (Lab) [address] [place], [address], 10/23/2022 12:20:36 10/24/19 23 10/23/2022 COMPR EHENS ANGELA METAB OLIC PANEL alkaline phosphatase 130 U/L 38-126 high Not Available [facility] (Lab) [address] [place], [address], 10/23/2022 12:20:36 10/24/19 23 10/23/2022 COMPR EHENS ANGELA METAB OLIC PANEL alanine aminotransfe rase 24 U/L 0-35 Not Available [facility] (Lab) [address] [place], [address], 10/23/2022 12:20:36 10/24/19 23 10/23/2022 COMPR EHENS ANGELA METAB OLIC PANEL aspartate aminotransfe rase 30 U/L 15-37 Not Available [facility] (Lab) [address] [place], [address], 10/23/2022 12:20:36 10/24/19 23 10/23/2022 COMPR EHENS ANGELA METAB OLIC PANEL bilirubin, total 0.50 mg/dL 0.20-1 .30 Not Available [facility] (Lab) [address] [place], [address], 10/23/2022 12:20:36 10/24/19 23 10/23/2022 COMPR EHENS ANGELA METAB OLIC PANEL calcium 9.8 mg/dL 8.4-10 .2 Not Available [facility] (Lab) [address] [place], [address], 10/23/2022 12:20:36 10/24/19 23 10/23/2022 COMPR EHENS ANGELA METAB OLIC PANEL total protein 6.6 g/dL 6.3-8. 2 Not Available [facility] (Lab) [address] [place], [address], 10/23/2022 12:20:36 10/24/19 23 10/23/2022 COMPR EHENS ANGELA METAB OLIC PANEL albumin 4.1 g/dL 3.0-4. 4 Not Available [facility] (Lab) [address] [place], [address], 10/23/2022 12:20:36 10/24/19 23 10/23/2022 COMPR EHENS ANGELA METAB OLIC PANEL globulin 2.5 g/dL 2.6-4. 2 low Not Available [facility] (Lab) [address] [place], [address], 10/23/2022 12:20:36 10/24/19 23 10/23/2022 COMPR EHENS ANGEAL METAB OLIC PANEL A/G ratio 1.6 ratio 1.0-2. 0 Not Available [facility] (Lab) [address] [place], [address], 10/23/2022 12:20:36 10/24/19 23 10/23/2022 PHOSP HORUS phosphorus 3.7 mg/dL 2.5-4. 5 Not Available [facility] (Lab) [address] [place], [address], 10/23/2022 12:20:39 10/24/19 23 10/23/2022 PARAT HYROI D HORM (PTH) INT.W /CA intact parathyroid hormone 33.3 pg/mL 24-78 Pleas e note new refer ence range effec tive 05/08 . Not Available [facility] (Lab) [address] [place], [address], 10/23/2022 12:25:43 10/24/19 23 10/23/2022 PARAT HYROI D HORM (PTH) INT.W /CA calcium 9.8 mg/dL 8.4-10 .2 Not Available [facility] (Lab) [address] [place], [address], 10/23/2022 12:25:43 10/24/19 23 10/23/2022 VITAM IN D 25-HY DROXY vd25oh 32.2 NG/mL 30-100 Vitam in D Statu s: Defic ient: <20 ng/mL Insuf ficie nt: 20-29 ng/mL Suffi cient : 30-10 0 ng/mL Not Available [facility] (Lab) [address] [place], [address], 10/23/2022 12:27:46 10/24/1910/23/2022 HEMOG LOBIN A1C HA1C 5.7 % 4.0-6. 0 Diabe ralph Scree linda Crite cristina: <5.7% Consi stent with absen ce of diabe ralph 5.7-6 .4% Consi stent with incre ased risk for diabe ralph (pred iabet es) >OR=6 .5% Consi stent with diabe ralph REFER ENCE: Diabe ralph Care 2016, 39(Tian ppl.1 ):s13 -s22 Not Available [facility] (Lab) [address] [place], [address], 10/23/2022 15:02:20 10/24/19 23 10/24/2022 INSUL IN insulin 6.4 uIU/m L 2.6-24 .9 Perfo rmed at: - [facility] [address] [facility] [place] [address] Lab Direc tor: Lee guzman PhD, Phone : [phone] Not Available [facility] (Lab) [address] [place], [address], 10/24/2022 13:08:54 07/17/19 23 XR, hip, unila teral No observ ation record ed. [facility] [address] [facility], [address], [place], [address], 07/16/2022 13:07:03 08/14/19 23 07/01/2022 elect poppy diogr am No observ ation record ed. [email or web address] [facility] [address], [place], [address], 08/18/2022 16:09:59 08/14/19 23 07/13/2022 stres s echoc ardio gram No observ ation record ed. [email or web address] [facility] [address], [place], [address], 08/17/2022 13:17:12 09/30/19 23 09/29/2022 XR, hip, unila teral [facility] [address] [place] [address] Patien t Name: CATHERINE SHUKLA Access ion #: [id number] Sex: F : 1954 7 Locati on: Attend ing Physic jon: KOLE TALAMANTES Orderi Physic jon: KOLE TALAMANTES Exam Date: 023 [...] compli cation . Page 1 of 2 [facility] Patien t Name: CATHERINE SHUKLA Access ion #: [id number] Sex: F : 1954 5 Exam Date: 10:41 AM Exam Name: XR HIP LT 2-3V Admitt ing Diagno sis(es ): Create d and electr onical ly signed by: Ross paige MD Signed Date: 11:22 AM (CT) Dictat ed by: Ross paige MD DD: 11:22 AM (CT) DT: 11:22 AM (CT) Page 2 of 2 [facility] (Imaging) [address] [place], [address], 09/29/2022 16:47:12 10/09/19 23 09/15/2022 elect poppy ordaz am No observ ation record ed. [email or web address] Not Available 2022 09:53:49 10/30/19 XR, hip + pelvi s, unila teral No observ ation record ed. [facility] [address] [facility], [address], [place], [address], 10/29/2022 10:37:56 Result Notes Documentation Provider Name and Address Organization Details Recorded Time Xr, Hip, Unilateral : [facility] [address] [place] [id number] Patient Name: CATHERINE SHUKLA Sex: F : 1955 Location: Attending Physician: KOLE NUNES Ordering Physician: KOLE NUNES Exam Date: 09/29/2022 10:41 AM Exam Name: XR HIP LT 2-3V Admitting Diagnosis(es): RADIOLOGY REPORT - FINAL EXAM: XR HIP LT 2-3V HISTORY: Lt total hip arthroplasty 67-year-old female status post left total hip arthroplasty. COMPARISON: Radiographs dated 07/16/2022. TECHNIQUE: Left hip radiographs were performed intraoperatively and postoperatively. Fluoro time: 84.3 seconds.. IMPRESSION: Postoperative changes of left total hip arthroplasty, without evidence of periprosthetic fracture, dislocation, or other complication. Page 1 of 2 [facility] Patient Name: CATHERINE SHUKLA Sex: F : 1955 Exam Date: 09/29/2022 10:41 AM Exam Name: XR HIP LT 2-3V Admitting Diagnosis(es): Created and electronically signed by: Ross Dunham MD Signed Date: 09/29/2022 11:22 AM (CT) Dictated by: Ross Dunham MD (CT) (CT) Page 2 of 2 RUBIN Nelson, [place] - [facility] [employer] [facility] 09/29/2022 16:47:12 Problems Name Problem SNOMED Code Status Onset Date Resolution Date Notes Provider Name and Address Organization Details Recorded Time Gastroesop hageal reflux disease 430398274 Active 2018 Not Available [facility] 3 13:13:58 Severe chronic obstructiv e pulmonary disease 185821648 Active 2018 Not Available [facility] 13:13:58 Solitary nodule of lung 099379720 Active 2018 Not Available [facility] 3 13:13:58 Dyspnea on exertion 48788857 Active 2018 Not Available [facility] 13:13:58 Plantar fasciitis of left foot 7419686679766 9101 Active 2020 Not Available [facility] 3 13:13:57 Onychomyco sis 391406148 Active 2020 Not Available [facility] 3 13:13:58 Pain of left elbow joint 3635000287005 9104 Active 2021 Not Available [facility] 3 13:13:57 Pain of left hip joint 5477433908908 00 Active 2022 RUBIN Nelson null, [place] - [facility] 3 13:32:28 Preoperati ve cardiovasc ular examinatio n Active 2022 Daria Hill CMA null, [place] - [facility] 3 15:16:21 Thrombocyt openic disorder 541404426 Active 2022 Daria Hill CMA null, [place] [facility] 3 15:52:45 Osteoporos is 80849180 Active 2022 Daria Hill CMA null, [place] - [facility] 3 11:04:02 Osteonecro sis of head of femur 522387172 Active 2022 RUBIN Nelson null, [place] - [facility] 3 11:38:24 Postmenopa usal osteoporos is 211451034 Active 2022 Michell Courtney MD [address], [place], [address] , [facility] 3 10:13:10 Essential hypertensi on 04570821 Active 2022 Mihcell Courtney MD [address], [place], [address] , [facility] 3 10:15:47 Prediabete s 579954668 Active 2022 Michell Courtney MD [address], [place], [address] , [facility] [email or web address] [facility] 3 14:00:49 Impaired fasting glycemia 814245629 Active 2022 Michell Courtney MD [address] [facility] [address], [place], [address] , [facility] [email or web address] [facility] 3 12:58:35 Problem Notes None recorded. Procedures Surgical History Date Name Laterality Status Provider Name and Address Organization Details Recorded Time ligation of fallopian tube completed RUBIN Tinoco [facility] [email or web address] [facility] 08/06/2022 09:58:06 Imaging Results None recorded. Procedure Notes None [...] Updated DateTime 08/13/2022 149.86 cm Bettie Clark [facility] [email or web address] [facility] 08/13/2022 11:53:26 Date Recorded Body height Provider Name an d Address Organization Details Last Updated DateTime 10/15/2022 149.86 cm Bettie Clark [facility] [employer] [facility] 10/15/2022 10:06:24 Date Recorded Body height Provider Name an d Address Organization Details Last Updated DateTime 10/29/2022 149.86 cm Bettie Clark [facility] [email or web address] [facility] 10/29/2022 10:04:40 Date Recorded Body height Provider Name an d Address Organization Details Last Updated DateTime 11/26/2022 149.86 cm Bettie Clark [facility] [email or web address] [facility] 11/26/2022 10:30:32 Date Recorded Body height Body mass index (BMI) Body weight Heart rate Body temperature Systolic And Diastolic Provider Name and Address Organization Details Last Updated DateTime 3 154.94 cm 24.2 kg/m2 43160.5 4 g 62 /min 98.4 [degF] 129/85 mm[Hg] Peyton Adams MA [facility] [email or web address] [facility] 3 12:43:18 Social History Question Answer Notes LastModified by Organizat ion Details LastModified Time Tobacco Smoking Status Former Smoker Lori Kayden navarro, [facility] [email or web address] [facility] 10/29/2022 10:00:02 Do You Have An Advance Directive? No Information not available 08/06/2022 Are You Blind Or Do You Have Difficulty Seeing? No [email or web address] Information not available 10/29/2022 What Is Your Level Of Caffeine Consumption? Occasional Information not available 08/06/2022 What Is Your Code Status? Full Code [email or web address] Information not available 10/29/2022 In The 14 Days Before Symptom Onset, Have You Had Close Contact With A Laboratory-confi rmed COVID-19 While That Case Was Ill? No [email or web address] Information not available 10/29/2022 In The 14 Days Before Symptom Onset, Have You Had Close Contact With A Person Who Is Under Investigation For COVID-19 While That Person Was Ill? No Information not available 10/29/2022 Are You Deaf Or Do You Have Serious Difficulty Hearing? Yes [email or web address] Information not available 10/29/2022 What Type Of Diet Are You Following? REGULAR Information not available 08/06/2022 What Is The Highest Grade Or Level Of School You Have Completed Or The Highest Degree You Have Received? PG47450-0 [email or web address] Information not available 10/29/2022 When Did You Quit Smoking? 1-5yearssincelastci leticiachandni [email or web address] Information not available 10/29/2022 Are There Any Guns Present In Your Home? No Information not available 10/29/2022 Where Do You Live? SingleLevelHouse [email or web address] Information not available 10/29/2022 What Is Your Relationship Status? Information not available 08/06/2022 Do You Use Your Seat Belt Or Car Seat Routinely? Yes [email or web address] Information not available 10/29/2022 Do You Have Smoke And Carbon Monoxide Detectors In Your Home? Yes [email or web address] Information not available 10/29/2022 Are You Passively Exposed To Smoke? Yes [email or web address] Information not available 10/29/2022 Do You Use Sunscreen Routinely? No [email or web address] Information not available 10/29/2022 Have You Recently Traveled Abroad? No [email or web address] Information not available 10/29/2022 Do You Have Difficulty Walking Or Climbing Stairs? No [email or web address] Information not available 10/29/2022 Do You Have Any Dietary Restrictions? No [email or web address] Information not available 10/29/2022 Sex: Unknown Functional Status Question Answer Note LastModified by Organizat ion Details LastModified Time Do you use any illicit or recreational drugs? No [email or web address] Information not available 10/29/2022 Do you or have you ever used any other forms of tobacco or nicotine? No [email or web address] Information not available 10/29/2022 What is your level of alcohol consumption? Occasional [id number] Information not available 06/10/2022 Are you currently employed? No [email or web address] Information not available 10/29/2022 Do you have transportation difficulties? No [email or web address] Information not available 10/29/2022 Are you able to walk independently without assistance or assistive devices? YESWOREST [email or web address] Information not available 10/29/2022 Do you have difficulty doing errands alone? No [email or web address] Information not available 10/29/2022 Are you able to care for yourself independently? Yes [email or web address] Information not available 10/29/2022 Do you have difficulty dressing, bathing, grooming, or toileting? No [email or web address] Information not available 10/29/2022 What is your exercise level? Occasional Information not available 08/06/2022 Mental Status Question Answer Note LastModified by Organizat ion Details LastModified Time Do you feel stressed (tense, restless, nervous, or anxious, or unable to sleep at night)? [id number] [email or web address] Information not available 10/29/2022 Do you have difficulty concentrating, remembering or making decisions? No [email or web address] Information no t available 10/29/2022 Family History [...] HAVE YOU BEEN HOSPITALIZED OR SEEN IN [facility] IN THE PAST YEAR ? Y Gynecological HistoryNo gynecological history recorded. Obstetrics History GPAL:G 0 P 0 0 0 0 Past Encounters Encounter ID Performer Location Encounter Start Date Encounter Closed Date Diagnosis/Indication Diagnosis SNOMED-CT Code Diagnosis ICD10 Code Diagnosis IMO Codes Diagnosis Note [id number] [facility] Sergey Miller [address] [place] [address] 07/22/2020 00:00:00 07/22/2020 15:34:55 [id number] [facility] [place]ena [address] [place] [address] 08/05/2020 00:00:00 08/05/2020 13:51:59 [id number] [facility] [place] [address] [place] [address] 09/02/2020 00:00:00 09/02/2020 13:27:04 [id number] Kole Nunes MD [facility]_[address] [address] 11/27/2021 00:00:00 11/27/2021 15:25:55 [id number] Kole Nunes MD [address] [address] 06/11/2022 13:13:43 06/11/2022 14:49:04 Pain of left hip joint 8310743362 46337 M25.552 [id number] Kole Nunes MD [address] [address] 06/18/2022 13:53:58 06/22/2022 09:53:48 Pain of left hip joint 9035283929 26072 M25.552 [id number] Kole Nunes MD [address] [address] 07/16/2022 11:35:25 07/16/2022 13:46:35 Osteonecrosis of head of femur 011633311 M87.852 [id number] Michell Courtney MD [facility] [address] [place] [address] 08/06/2022 09:40:46 08/06/2022 10:27:52 Postmenopausal osteoporosis 467132257 M81.0 Scan from June 2022 confirmed finding [...] to screen for hypercalci uria. Essential hypertension 82408589 I10 Refill coreg and hctz as patient [...] she chooses to go outside of the [facility] to obtain labwork she was [...] ing. Thank you for this consultati on. [id number] Kole Nunes MD [facility] [address] [address] 08/13/2022 11:50:22 08/13/2022 14:11:40 Osteonecrosis of head of femur 286707366 M87.852 [id number] Kole Nunes MD [facility] [address], [address] [address] 10/15/2022 09:57:58 10/15/2022 11:13:26 History of total replacement of left hip joint 4123942200 813794 Z96.642 [id number] Kole Nunes MD [facility] [address] [place] [address], [facility] [address] [place] [address] 10/29/2022 09:58:18 10/29/2022 10:46:25 History of total replacement of left hip joint 1015875540 428630 Z96.642 [id number] Kole Nunes MD [facility] [address], [address] [address] 11/26/2022 10:20:48 11/26/2022 12:07:38 History of total replacement of left hip joint 2871187636 552008 Z96.254 [id number] Michell Courtney MD [facility] Sergey Miller [address] [place] [address] 12/24/2022 12:29:07 12/24/2022 13:55:44 Postmenopausal osteoporosis 243816830 M81.0 Vit D low normal- recommende d patient take up to 4000 IU of D3 daily along with calcium 1200 mg daily for bone health along with daily weight bearing exercise. S/P left hip replacemen t from September and doing remarkably well- active and ambulating without assistance or cane. 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 Impaired f asting glycemia 165735680 R73.01 A1C of 5.7%- Discussed carb counting and how to read food labels. Recommende d patient to utilize the diabetesfo [employer] from the ADA website to help with food preparatio n as this presents ideal carb content per meal so this will make carb counting much easier for patient. Recommende d she incorporat e natural insulin selling specialist s such as pears, apples, cinnamon, vinnie [...] Member ID Jha Member ID Guarantor Name 03/22/2023 2 [facility] - DOS ON OR AFTER 20 (MEDICAID REPLACEMENT - HMO) Catherine Shukla [id number] Catherine Shukla 09/27/2023 1 [facility] (MEDICARE REPLACEMENT/AD VANTAGE - PPO) [id number] Catherine Shukla [id number] Catherine Shukla 09/29/2023 2 [place] Catherine Shukla [id number] Catherine Shukla 09/29/2023 [place]ICAID [place] DURABLE MEDICAL EQUIPMENT Catherine Shukla [id number] Catherine Shukla Notes Date Note Type Note Provider Name and Address Organization Details Recorded Time 12/24/2022 text/html ROS as noted in the HPI 67 yo female comes in for follow up in management of [...] The mean bone mineral density is 0.885 g/dz9wibavemsrxlfcf, correlating with a T-score of -2.5.Bilateral hips: The mean bone mineral density is 0.696 g/cm2 calciumhydroxyapatit e, correlating with a T-score of -2.5. Denies any kidney stones, falls or fractures. labs from 10/23/22:glucose 99 mg/dLCr normalLFT normalPTH 33.3 pg/mLcalcium 9.8 mg/dLPO4 normalvit D 32.2 ng/mLa1c of 5.7% Michell Courtney MD [address] [facility] [address], [place], [address], [place] [facility] 12/24/2022 13:05:29 OBGyn Episode No OBEpisode recorded.
--- OUTSIDE RECORDS SUMMARY | 2025-03-01 14:14 | XMS_ITS | Continuity of Care Document ---
Author Organization [facility] Address [address] [place] [address] Care Team Providers Care Manager Er Name Role Phone ARIANA ESCOBEDO Primary Care Provider [phone] JERRY BROUSSARD First Aid Attendant Assessment No assessment recorded. Plan of Treatment Reminders Order Date Submit Date Provider Last Modified By Organization Details Last Modified Time Details Appointments ANY 15 2024 08:15A M Ariana Escobedo MD Not available Not available Not available ANY 15 2025 11:30A M Tin Rodríguze MD Not available Not available Not available MEDICARE WELLNESS VISIT 2025 09:00A Toni Escobedo MD Not available Not available Not available Lab None recorded. Referral None recorded. Procedures None recorded. Surgeries None recorded. Imaging None recorded. Medication Orders Symbicort 160 mcg-4.5 mcg/actua tion HFA aerosol inhaler 2024 025 [facility], [address] [place] [address], [id number], 12/06/2024 13:41:24 Spiriva Respimat 2.5 mcg/actua tion solution for inhalatio n 2024 025 [facility], [address] [place] [address], [id number], 12/06/2024 13:41:23 ProAir HFA 90 mcg/actua tion aerosol inhaler [address] [place] [address] Pharmacy, [address] [place] [address], [id number], 02/28/2025 12:56:28 Patient TargetsNo targets recorded. Patient InstructionsNo instructions recorded. Reason for Referral None Reported. Problems Name Problem SNOMED Code Status Onset Date Resolution Date Notes Provider Name and Address Organization Details Recorded Time Pneumoni a caused by SARS-CoV -2 87591670741 9291335 Active Ariana Escobedo MD Attn: Lynda gonzáles,[address] [facility], [place], [address], [place] - [facility] 4 09:57:29 Pain of left hip joint 27846712628 9100 Active Ariana Escobedo MD Attn: Lynda gonzáles,[address] [facility], [place], [address], [place] [facility] 4 09:57:28 Tobacco dependen ce in [facility] 373697511 Active 2018 Ariana Escobedo MD Attn: Lynda gonzáles,[address] [facility], [place], [address], [place] [facility] 4 09:57:28 History of myocardi al infarcti on 886207268 Active 2018 Ariana Escobedo MD Attn: Lynda gonzáles,[address] [facility], [place], [address], [place] [facility] 4 09:57:28 Solitary nodule of lung 354831776 Active 2018 Ariana Escoebdo MD Attn: Lynda gonzáles,[address] [facility], [place], [address], [place] [facility] 4 09:57:28 Coronary arterios clerosis in [place] artery 56060868232 07 Active 2018 Ariana Escobedo MD Attn: Lynda gonzáles,[address] [facility], [place], [address], [place] [facility] 4 09:57:28 History of pulmonar y embolus 891873665 Active 2018 Ariana Escobedo MD Attn: Lynda gonzáles,[address] [facility], [place], [address], [place] [facility] 4 09:57:28 Tetanus vaccinat ion declined by patient 748987878 Active 2018 Ariana Escobedo MD Attn: Lynda gonzáles,[address] [facility], [place], [address], [place] [facility] 4 09:57:28 Ganglion cyst of right hand 36328186808 9107 Active 2018 Ariana Escobedo MD Attn: Lynda g,[address] [facility], [place], [address], [place] [facility] 4 09:57:28 Pulmonar y emphysem a 30308339 Active 2018 Ariana Escobedo MD Attn: Lynda gonzáles,[address] [facility], [place], [address], [place] [facility] 4 09:57:29 Anxiety 79134057 Active 2018 Ariana Escobedo MD Attn: Lynda gonzáles,[address] [facility], [place], [address], [place] [facility] 4 09:57:28 Benign hyperten cornelio 79985086 Active 2018 Ariana Escobedo MD Attn: Lynda gonzáles,[address] [facility], [place], [address], [place] [facility] 4 09:57:28 Chronic obstruct mirian pulmonar y disease 25984111 Active 2018 Ariana Escobedo MD Attn: Lynda g,[address] [facility], [place], [address], [place] [facility] 4 09:57:28 High grade squamous intraepi thelial lesion on cervical Papanico laou smear 21768659848 107 Active 2019 Ariana Escobedo MD Attn: Lynda g,[address] [place], [address], [place] [facility] 4 09:57:28 Squamous cell carcinom a of vulva 340723172 Completed 201906/13/2019 TAMARA CRAVEN Attn: Lynda gonzáles,[address] [facility], [place], [address], [place] [facility] 0 16:42:33 Carcinom a in situ of vulva 10074244 Completed 201901/10/2024 KELY PHAM MD Attn: Lynda gonzáles,[address] [facility], [place], [address], [place] [facility] 4 13:26:27 Rupture of tendon of biceps 783992784 Active 2019 Followin g with orthoped ics Ariana Escobedo MD Attn: Lorenaphuc gonzáles,[address] [facility], [place], [address], [place] [facility] 4 09:57:28 Rupture of rotator cuff of right shoulder 36490483837 955657 Active 2019 Chronic anterior rotator cuff tear, followin g with orthoped ics. NSAID therapy and PT currentl y. Ariana Escobedo MD Attn: Lynda nivia,[address] [facility], [place], [address], [place] [facility] 4 09:57:28 History of calculus of kidney 221551772 Active 2019 Ariana Escobedo MD Attn: Lynda nivia,[address] [facility], [place], [address], [place] [facility] 4 09:57:28 Onychomy cosis of toenails 708235725 Active 2019 Ariana Escobedo MD Attn: Lynda nivai,[address] [facility], [place], [address], [place] [facility] 4 09:57:28 Degenera tion of lumbar interver tebral disc 32942667 Active 2019 Ariana Escobedo MD Attn: Lynda gonzáles,[address] [facility], [place], [address], [place] [facility] 4 09:57:28 Scoliosi s deformit y of spine 355513029 Active 2019 Ariana Escobedo MD Attn: Lynda gonzáles,[address] [facility], [place], [address], [place] [facility] 4 09:57:28 Type 2 diabetes mellitus without complica tion 867016416 Active 2021 Ariana Escobedo MD Attn: Lynda gonzáles,[address] [facility], [place], [address], [place] [facility] 4 09:57:28 Osteopor osis 83527007 Active 2022 Ariana Escobedo MD Attn: Lynda gonzáles,[address] [place], [address], [place] [facility] 4 09:57:28 Osteonec rosis of head of femur 550742455 Active 2022 Ariana Escobedo MD Attn: Lynda gonzáles,[address] [facility], [place], [address], [place] [facility] 4 09:57:28 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 16863415957 27974 Active 2022 Ariana Escobedo MD Attn: Lynda gonzáles,[address] [facility], [place], [address], [place] [facility] 4 09:57:28 Calcific ation of coronary artery 415028335 Active 2023 Ariana Escobedo MD Attn: Lynda gonzáles,[address] [place], [address], [place] [facility] 4 11:22:52 Nodule of lung 967254613 Active 2023 Ariana Escobedo MD Attn: Lynda gonzáles,[address] [facility], [place], [address], [place] [facility] 4 13:33:54 Influenz a vaccinat ion declined 555326018 Active 2023 Ariana Escobedo MD Attn: Lynda gonzáles,[address] [facility], [place], [address], [place] - [facility] 5 11:11:04 History of fall 585057545 Active 2023 Ariana Escobedo MD Attn: Lynda gonzáles,[address] [facility], [place], [address], [facility] - [facility] 4 18:14:28 Problem Notes None recorded. Procedures Surgical History Date Name Laterality Status Provider Name and Address Organization Details Recorded Time 01/11/20 25 Diabetic Foot Exam completed Ariana Escobedo MD Attn: Accounting,[address] [facility], [place], [address], [facility] - [facility] 01/10/2025 21:12:44 11/08/19 24 Most Recent Mammogram completed Liana Pacheco [place] - [place] 01/06/2024 12:14:05 01/22/20 23 Diabetic Foot Exam completed Ariana Escobedo MD Attn: Accounting,[address] [facility], [place], [address], [facility] - [facility] 01/21/2023 10:53:51 10/01/19 23 total replacement of hip completed Ariana Escobedo MD Attn: Accounting,[address] [facility], [place], [address], [facility] - [facility] 10/15/2022 13:18:11 11/12/19 22 Date of Last Pap Smear completed Liana Pacheco [place] - [facility] 11/11/2021 10:53:10 11/04/19 22 Date of Last Mammogram completed Liana Pacheco [place] - [facility] 11/11/2021 10:56:37 01/11/20 21 Suture/Staple removal completed TAMARA MURPHY Attn: Accounting,[address] [facility], [place], [address], [facility] - [facility] 01/10/2021 15:31:39 06/08/19 20 Vulvar Biopsy completed TAMARA MURPHY Attn: Accounting,[address] [facility], [place], [address], [facility] 06/08/2019 17:34:54 06/08/19 20 colposcopy completed Liana Pacheco MA [facility] 11/11/2021 10:52:50 05/25/19 20 Colposcopy completed TAMARA MURPHY Attn: Accounting,[address] [facility], [place], [address], [facility] 05/25/2019 22:59:23 07/07/19 19 colonoscopy completed Ariana Escobedo MD Attn: Accounting,[address] [place], [address], [facility] 07/01/2020 10:04:29 Dilation and Curettage completed Giuliana Tejada MA [facility] 05/31/2018 14:14:54 Tubal Ligation completed Giuliana Tejada MA [facility] 05/31/2018 14:14:59 thumb surgery completed Giuliana Tejada MA [facility] 05/31/2018 14:15:28 reconstruction of anterior cruciate ligament of knee joint completed Ariana Escobedo MD Attn: Accounting,[address] [place], [address], [facility] 05/31/2018 14:34:16 Imaging Results None recorded. Procedure Notes None recorded. Medical Equipment None Reported. Allergies Allergen ID Allergen Name Allergen Category Reaction Reaction Severity Criticality Documentation Date Start Date Code Code System Note Provider Name and Address Organization Details Recorded Time 305212 No known allergy (situatio n) Not available Not available Not available Not available 07/09/2021 93536 6003 SNOMED Ariana Escobedo MD Attn: Lynda gonzáles,[address] [facility], [place], [address], [facility] 2 10:19:15 No known drug allergies Medications [...] t Available Vitals Date Recorded Body height Oxygen saturation Pain severity - 0-10 verbal numeric rating [Score] - Reported Heart rate Respiratory rate Body temperature Body mass index (BMI) Body weight Systolic And Diastolic Provider Name and Address Organization Details Last Updated DateTime 5 154.94 cm 91 % 0 66 /min 18 /min 97.9 [degF] 23 kg/m2 14660.8 3 g 121/45 mm[Hg] Gabi marrero [place] - [facility] 5 12:43:53 Social History Question Answer Notes LastModified by Organizat ion Details LastModified Time Tobacco Smoking Status Former Smoker PABLO [place], [place] - [facility] 05/31/2018 14:13:08 Do You Have An Advance [...] Do You Have A Medical Power Of Route Delivery Service Driver? No areakalpn Information not available 10/02/2021 What Was The Date Of Your Most Recent Tobacco Screening? 01/10/2025 Information not available 01/10/2025 What Is Your Current Pack Years? 30ormorepac isaccs Information not available 07/05/2020 Performs Monthly Self-breast [...] N Anemia N Heart Attack (CA) Y Anxiety Disorder Y Diabetes Y Muscle, [...] PF, 0.5 mL 1 completed Not Available [facility] 03/19/2023 06:46:51 pneumococcal polysaccharide PPV23 2 completed Not Available [facility] 03/19/2023 06:46:51 Pneumococcal conjugate PCV20, polysaccharide [id number] conjugate, adjuvant, PF 3 completed Not Available [facility] 03/19/2023 06:46:51 Influenza, split virus, quadrivalent, preservative 9 completed Not Available [facility] 04/29/2019 02:40:58 Influenza, split virus, quadrivalent, preservative 1 completed PABLO [place] 07/05/2020 11:54:22 Past Encounters Encounter ID Performer Location Encounter Start Date Encounter Closed Date Diagnosis/Indication Diagnosis SNOMED-CT Code Diagnosis ICD10 Code Diagnosis IMO Codes Diagnosis Note [id number] Tin Rodríguez MD [facility] [address] [place] [address] 12/06/2024 12:12:17 12/06/2024 14:50:10 Chronic obstructive pulmonary disease 86313239 J44.9 521050156 Stable, doing wellSymbic ort 160 mcgSpiriva respimat 2.5 mcgventoli n /nebs as neededpred nisone as needed Essential hypertension 75181775 I10 83344 home meds Hyperlipidemia 72031563 E78.5 11001773 Continue Atorvastat in Health Concerns Section Related Observation LastModified by Organization Detai ls LastModified Time None Recorded Concern Status LastModified by Organization Details LastModified Time None Recorded Payers Encounter Date Sequence Insurance Name Policy Number Policy Jha Covered Member ID Jha Member ID Guarantor Name 12/06/2024 2 [place] [facility] [facility] Catherine Shukla [id number] Catherine Shukla 12/06/2024 1 [facility] (MEDICARE REPLACEMENT/A DVANTAGE - HMO) [id number] Catherine Shukla [id number] Catherine Shukla Notes Date Note Type Note [...] multiple pulmonary nodules Tin Rodríguez MD [address] [place], [address], [facility] - [facility] 12/06/2024 13:13:52 OBGyn Episode No OBEpisode recorded.
== END 2025-03-01 11:31 | disposition home or self-care (01) ==
LOC: ANHLAB 11:31
PROVIDERS: PCP Internal Medicine Infectious Disease; Visit Provider Internal Medicine Endocrinology, Diabetes & Metabolism
DX: M81.0 Age-related osteoporosis without current pathological fracture (principal); E55.9 Vitamin D deficiency, unspecified
CPT/HCPCS: 36415; 80053; 82306; 83937; 83970

== ENCOUNTER 2025-03-02 13:24 | Outpatient (CLI) | payer MEDICARE, MEDICAID, SELFPAY ==
--- OUTSIDE RECORDS SUMMARY | 2025-03-02 13:27 | XMS_ITS | Clinical Summary ---
Author Organization [facility] Address [address] [place] [address] Care Team Providers Care Field Mechanic/Site Lead Name Role Phone Unavailable Primary Care Provider [...] 1 - Tdap) 01/06/1976 Mammogram Screening 1997 Pneumococcal Vaccine: 50+ Ye ars (1 of 1 - PCV) 2007 Zoster Vaccines (1 of 2) 2007 Dexa Scan (General) 2022 COVID-19 Vaccine ( - 2024-2 6 season) 2024 Influenza Adult (#1) 2025 RSV Immunization or 60+ Years (1 - 1-dose 75+ series) 01/06/2032 Hepatitis A Vaccines Aged Out No long er eligible based on patient's age to complete this topic Meningococcal B Vaccine Aged Out No l onger eligible based on patient's age to complete this topic Meningococcal Vaccine Aged Out No aicha ori eligible based on patient's age to complete this topic RSV Immunizations Under 20 Months Aged Out No longer eligible based on patient's age to complete this topic
--- OUTSIDE RECORDS SUMMARY | 2025-03-02 13:27 | XMS_ITS | Clinical Summary ---
Author Organization [facility] Address [address] [facility] [place] [address] Care Team Providers Care Histology Tech Name Role Phone None, Physician Primary Care Provider Unavailabl e Source Comments [facility],non-owned Affiliates and Associated Physician Practices is amultiple site organization consisting of ambulatory clinics and hospital sitesin [place], [place], [place] and [place]. This disclosure is being madepursuant to the Care Everywhere program and may not contain all information available regarding this patient. 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 Gender Identity Not on file Sexual Orientation [...] 1:00 AM CDT Height 154.9 cm (5' 1) 07/18/2023 1:00 AM CDT Body Mass Index [...] 50+ (1 of 2 - PCV) 01/06/1976 Respiratory Syncytial Virus (RSV) Vaccine Pt: or over 60 yrs (1 - Risk 50-74 years 1-dose series) 2007 ZOSTER VACCINE (1 of 2) 2007 MAMMOGRAM 01/17/2021 01/17/2019 DEPRESSION SCREENING 04/12/2024 COVID-19 VACCINE (2 - 2024-2 6 season) 2024 07/20/2020 INFLUENZA VACCINE (#1) 2024 , 12/23/2018 HEPATITIS B VACCINE Aged Out No [...] complete this topic Insurance [place] - [place] [facility] Advance Directives * Full Code (Latest Code Status on File) Date Activated Date Inactivated Comments 07/17/2023 11:43 PM 07/20/2023 3:07 PM Care Teams Histology Tech Relationship Specialty Start Date End Date None, Physician PCP - General 07/17/23
--- OUTSIDE RECORDS SUMMARY | 2025-03-02 13:27 | XMS_ITS ---
Author Organization [facility] Address [address] [place] [address] Phone Care Team Providers Care Ceramic Designer Name Role Phone No, Physician Unavailable Ariana Alexandra MD Primary Care Provider Aparna Oliva TRAUMA REGISTRAR Unavailable [phone] Active Problems Problem Noted Date Diagnosed Date Dysplasia of cervix, high grade GABINO 2 06/30/2019 Overview (12/27/2020): - Pap 05/09/19 HSIL/HPV+ - Colposcopy 05/30/19 with cervical biopsies CIN1-CIN2 and ECC at least CIN2 - [facility] review of OSH pathology showed Cervical [...] 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 review of OSH pathology showedvulvar biopsy [...] in situ -Will request pathology slides for [facility] pathology consult -Discussed treatment of SCC in situ including partial vulvectomy or possible radical vulvectomy pending pathology consult read. Patient consented for procedure and counseled that this will be delayed by 6-8 weeks due to the current Covid-19 pandemic. Counseled patient that 6-8 week delay in surgery will not advance disease significantly. All questions answered.
--- OUTSIDE RECORDS SUMMARY | 2025-03-02 13:27 | XMS_ITS | Encounter Summary ---
Author Organization [facility] Address [address] [place] [address] Care Team Providers Care Supervisor Final Name Role Phone No, Physician Primary Care Provider [phone] No, Physician Unavailable Ariana Alexandra MD Primary Care Provider Aparna Oliva NP Unavailable [phone] Encounter Details Date Type Department Care Team (Late st Contact Info) Description 07/08/2021 Telephone [facility] Outpatient [facility] [address] [facility] [place], [place] [id number] Anisha Phelps Social History Tobacco Use Types [...] on file 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
--- OUTSIDE RECORDS SUMMARY | 2025-03-02 13:27 | XMS_ITS | Clinical Summary ---
Author Organization [facility] Address [address] [facility] [place] [address] Care Team Providers Care Hand Welt Butter Name Role Phone Ariana Alexandra MD Primary Care Provider [phone] Allergies No known active allergies Medications hydroCHLOROthiaz [...] HFA 90 mcg inhaler 9 Active Ascorbic Vnzo-Uqxfbxyzj-K in (EMERGEN-C) 1,000 mg Powder Effervescent in Packet Emergen-C Active atorvastatin (LIPITOR) 40 mg tablet atorvastatin 40 mg tablet Active fluticasone propionate (FLONASE) 50 mcg/spray [place], Suspension nasal inhaler fluticasone propionate 50 mcg/actuation [...] 10:23 AM CDT Height 154.9 cm (5' 1) 01/24/2019 2:57 PM CDT Body Mass Index 22.86 01/24/2019 2:57 PM CDT Plan of Treatment Health Maintenance Due Date Last Done Comments DTAP/TDAP/TD VACCINES (1 - Tdap) 01/06/1976 PNEUMOCOCCAL VACCINE 50+ YEARS (1 of 2 - PCV) 01/05/19 76 COLORECTAL SCREENING 2002 Colorectal Cancer Screening 2002 FIT-DNA Q 3 years 2002 FIT/FOBT Q 1 year 2002 Flex Sig/CT Colonography Q 5 years 2002 RSV VACCINE (60+ or ) (1 - Risk 50-74 years 1-dose series) 2007 ZOSTER VACCINE (1 of 2) 2007 BREAST CANCER SCREENING 01/18/2020 01/17/2019 OSTEOPOROSIS SCREENING 2022 INFLUENZA VACCINE (#1) 2024 12/23/2018 Procedures Procedure Name Priority Date/Time Associated Diagnosis Comments MAMMO DIAG UNI LEFT 3D ISABELLA W OR WO CAD Routine 01/17/2019 Microcalcification of left breast on mammogram Abnormal mammogram of left breast from Last 3 Months or Most Recently Relevant to Health Maintenance Results * MAMMO DIAG UNI LEFT 3D ISABELLA W OR WO CAD (01/17/2019) Anatomical Region Laterality Modality Breast Left Mammography us Paz Josefina Bowen DO MAMMO ORDERABLES Final Resu lt from Last 3 Months or Most Recently Relevant to Health Maintenance Insurance [place]ICAID [place] [facility] DUAL COMPLETE PPO [facility] [id number] DUAL COMPLETE PPO DSNP [facility] [id number] MED[place]ID [place] Care Teams Hand Welt Butter Relationship Specialty Start Date End Date Ariana Alexandra MD [address] [place] [phone] PCP - General Internal Medicine 07/07/22
--- OUTSIDE RECORDS SUMMARY | 2025-03-02 13:27 | XMS_ITS | Clinical Summary ---
Author Organization [facility] Address [address] [place] [address] Phone Care Team Providers Care Yarn Examiner Skeins Name Role Phone No, Physician Unavailable Ariana Alexandra MD Primary Care Provider Aparna Oliva NP Unavailable Allergies No known active allergies Medications inhalational [...] CIN1-CIN2 and ECC at least CIN2 - [facility] review of OSH pathology showed [...] in situ at OSH 05/2019 - [facility] review of OSH pathology showedvulvar biopsy [...] in situ -[facility] -Discussed treatment of SCC in [...] Comments Hypertension COPD (chronic obstructive pulmonary disease) Hyperlipidemia History of pulmonary embolism On home [...] on file 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 [address] [place] [address] [place] [address] [facility] Advance Directives For more information, please contact: [phone] * Full Code (Latest Code Status on File) Date Activated Date Inactivated Comments 12/17/2020 10:49 AM 12/18/2020 12:34 PM Care Teams Yarn Examiner Skeins Relationship Specialty Start Date End Date Ariana Alexandra MD [address] [address] PCP - General Internal Medicine 10/15/21 No, Physician 06/22/19 Aparna Oliva NP [address] [place] [address] Nurse Practitioner 10/15/21
[2025-03-02 14:28] LABS: Creatinine 24 Hour Urine 0.6 gm/24 (0.8-1.8); Total Volume 24 Hour Urine 1400 ml
[2025-03-03 10:08] LABS: Calcium, Urine 12.4 mg/dL (Not Estab.)
== END 2025-03-02 13:25 | disposition home or self-care (01) ==
LOC: ANHLAB 13:25
PROVIDERS: PCP Internal Medicine Infectious Disease; Visit Provider Internal Medicine Endocrinology, Diabetes & Metabolism
DX: M81.0 Age-related osteoporosis without current pathological fracture (principal); E55.9 Vitamin D deficiency, unspecified
CPT/HCPCS: 81050; 82340; 82570; 84156; 84166

== ENCOUNTER 2025-04-09 11:58 | Outpatient (CLI) | payer MEDICARE, MEDICAID, SELFPAY ==
--- NOTE | ~2025-04-09 | DEXA_ITS ---
Bone Density Report Name: EPIFANIO HIDALGO Age: 70 Sex: Female Ethnicity: White Date of : 1955 Indication: postmenopausal; screening for osteoporosis; height loss; prior fracture; cancer; asthma or emphysema; Referring Provider: BUDDY ELY Study: Bone densitometry was performed. Exam Date: April 09, 2025 Accession number: [id number] Bone Density: Region BMD T-score Z-score Classification AP Spine(L1-L4) 0.738 -2.8 -0.8 Osteoporosis Femoral Neck (Right) 0.499 -3.2 -1.5 Osteoporosis Total Hip (Right) 0.625 -2.6 -1.2 Osteoporosis World Health Organization criteria for BMD impression classify patients as: Normal (T-score at or above -1.0), Osteopenia (T-score between -1.0 and -2.5), or Osteoporosis (T-score at or below -2.5). 10-year Fracture Risk: FRAX not reported because: Some T-score for Spine Total or Hip Total or Femoral Neck at or below -2.5 Prior hip or vertebral fracture Clinical Information Provided by Patient: Have had a previous hip or vertebral fracture Has had a low trauma fracture Smokes Has used the following medications: Vitamin D, once a week cant remember the name Has the following medical conditions: Asthma or Emphysema, Cancer Patient maximum height was 61.5 Menopause Age: 47 No regular weight bearing exercise Drinks caffeinated beverages Onset of menses at age 16 Number of children 3 Impression: The patient has established osteoporosis, based on the Right Femoral Neck T-score and the existence of a prior fracture. The patient has risk factors, including: smoking, previous fracture. Discussion: HIGH RISK OF FRACTURE. BONE DENSITY IS UNDESIRABLY LOW AT ONE OR MORE SKELETAL SITES, CONSISTENT WITH POSTMENOPAUSAL OSTEOPOROSIS. This patient's lowest T-score, in a patient who has previously fractured, meets the World Health Organization's (WHO) criteria for severe osteoporosis. In untreated patients, the risk of osteoporotic fracture increases approximately two-fold for each 1.0 SD decrease in T-score. Low bone density is not the only risk factor for fracture; also consider factors such as patient's age, frailty or poor health, risk of falling, risk of injury, previous osteoporotic fracture, family history of osteoporosis, cigarette smoking, low body weight, etc. Not everyone with low bone mineral density has osteoporosis; osteomalacia and other metabolic bone disorders should also be considered. Patients who have osteoporosis should be evaluated for specific diseases and conditions (secondary causes) that may cause or contribute to bone loss. The [place] Association of Clinical Endocrinologists (AACE) and National Osteoporosis Foundation (NOF) recommend pharmacologic intervention for all postmenopausal women with a previous hip or vertebral fracture and a T-score in this range. The patient should follow a healthful lifestyle (good nutrition with adequate calcium and vitamin D, and appropriate weight-bearing exercise). Follow-Up: Consider a repeat BMD and Vertebral Fracture Assessment (VFA) exam in 2 years or sooner if medically necessary, to reassess this patient's status. Reported by: TRAE on 04/09/2025 12:51:00 PM. Reviewed, dictated and finalized at location A.
--- OUTSIDE RECORDS SUMMARY | 2025-04-09 12:28 | XMS_ITS | Clinical Summary ---
Author Organization [facility] Address [address] [facility] [place] [address] Care Team Providers Care Dat Instructor Name Role Phone None, Physician Primary Care Provider Unavailabl e Source Comments [employer],non-owned Affiliates and Associated Physician Practices is amultiple site organization consisting of ambulatory clinics and hospital sitesin [place], [place], [place] and [place]. This disclosure is being madepursuant to the Care Everywhere program and may not contain all information available regarding this patient. 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
--- OUTSIDE RECORDS SUMMARY | 2025-04-09 12:28 | XMS_ITS | Encounter Summary ---
Author Organization [facility] Healthcare Address [address] [place] [address] Care Team Providers Care National Insurance Officer Name Role Phone No, Physician Primary Care Provider [phone] No, Physician Unavailable Ariana Alexandra MD Primary Care Provider Aparna lOiva NP Unavailable [phone] Encounter Details Date Type Department Care Team (Late st Contact Info) Description 07/08/2021 Telephone [facility] Outpatient [facility] [address] [facility] [place], [place] [id number] Anisha Phelps Social History Tobacco Use Types [...] on file 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
--- OUTSIDE RECORDS SUMMARY | 2025-04-09 12:28 | XMS_ITS | Clinical Summary ---
Author Organization [facility] Address [address] [facility] [place] [address] Care Team Providers Care Tile Setter Supervisor Name Role Phone Ariana Alexandra MD Primary Care Provider [phone] Allergies No known active allergies Medications hydroCHLOROthiaz [...] HFA 90 mcg inhaler 9 Active Ascorbic Woux-Daqtpqhnk-L in (EMERGEN-C) 1,000 mg Powder Effervescent in Packet Emergen-C Active atorvastatin (LIPITOR) 40 mg tablet atorvastatin 40 mg tablet Active fluticasone propionate (FLONASE) 50 mcg/spray [place], Suspension nasal inhaler fluticasone propionate 50 mcg/actuation [...] Relevant to Health Maintenance Insurance [place]ICAID [place] [facility] DUAL COMPLETE PPO [facility] [id number] DUAL COMPLETE PPO DSNP [facility] [id number] [place]ID [place] Care Teams Tile Setter Supervisor Relationship Specialty Start Date End Date Ariana Alexandra MD [address] [place] [phone] PCP - General Internal Medicine 07/07/22
--- OUTSIDE RECORDS SUMMARY | 2025-04-09 12:28 | XMS_ITS ---
Author Organization [facility] Address [address] [place] [address] Phone Care Team Providers Care Habitat Biologist Name Role Phone No, Physician Unavailable Ariana Alexandra MD Primary Care Provider Aparna Oliva CONTENT DEVELOPMENT SPECIALIST Unavailable [phone] Active Problems Problem Noted Date Diagnosed Date Dysplasia of cervix, high grade GABINO 2 06/30/2019 Overview (12/27/2020): - Pap 05/09/19 HSIL/HPV+ - Colposcopy 05/30/19 with cervical biopsies CIN1-CIN2 and ECC at least CIN2 - [facility] review of OSH pathology showed [...] 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
--- OUTSIDE RECORDS SUMMARY | 2025-04-09 12:28 | XMS_ITS | Clinical Summary ---
Author Organization [facility] Address [address] [place] [address] Phone Care Team Providers Care Drywall Boardhanger Name Role Phone No, Physician Unavailable Ariana Alexandra MD Primary Care Provider Aparna Oliva NP Unavailable [phone] Allergies No known active allergies Medications inhalational [...] CIN1-CIN2 and ECC at least CIN2 - [facility] review of OSH pathology showed Cervical [...] situ at OSH 05/2019 - [facility] review of OSH pathology showedvulvar biopsy with [...] in situ -[facility] -Discussed treatment of SCC [...] on file 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 Gender Identity Not on file Sexual Orientation [...] Treatment Not on file Insurance [facility] [address] [place] [address] [place] [id number] [facility] Advance Directives For more information, please contact: [phone] * Full Code (Latest Code Status on File) Date Activated Date Inactivated Comments 12/17/2020 10:49 AM 12/18/2020 12:34 PM Care Teams Drywall Boardhanger Relationship Specialty Start Date End Date Ariana Alexandra MD [address] [address] PCP - General Internal Medicine 10/15/21 No, Physician 06/22/19 Aparna Oliva NP [address] [place] [address] Nurse Practitioner 10/15/21
--- OUTSIDE RECORDS SUMMARY | 2025-04-09 12:28 | XMS_ITS | Clinical Summary ---
Author Organization [facility] Address [address] [place] [address] Care Team Providers Care Ensemble Member Name Role Phone Unavailable Primary Care Provider [...]
== END 2025-04-09 11:59 | disposition home or self-care (01) ==
PROVIDERS: PCP Internal Medicine Infectious Disease; Visit Provider Internal Medicine Endocrinology, Diabetes & Metabolism
DX: M81.0 Age-related osteoporosis without current pathological fracture (principal)
CPT/HCPCS: 77080